=== PATIENT | male | born 1985 | race Caucasian/White ===

== ENCOUNTER 2020-08-05 17:47 | Outpatient (CLI) | payer BC, SELFPAY | END 2020-08-05 17:48 | disposition home or self-care (01) | LOC: ANHCOVIDVC 17:47 | PROVIDERS: PCP Physician Assistant | DX: Z23 Encounter for immunization (principal) | CPT/HCPCS: 0001A; 91300 ==

== ENCOUNTER 2020-08-24 12:10 | Outpatient (CLI) | payer BC, SELFPAY ==
[2020-08-24 12:41] LABS: Hematocrit 43.5 % (42.0-52.0); Hemoglobin 15.6 g/dL (14.0-18.0); Mean Corpuscular HGB Conc 35.9 g/dl (32-36); Mean Corpuscular Hemoglobin 29.5 pg (26-34); Mean Corpuscular Volume 82.2 fl (80-100); Mean Platelet Volume 9.7 fl (7.4-10.4); Platelet Count Result 198 k/mm3 (150-375); Red Blood Count 5.29 M/mm3 (4.6-6.20); Red Cell Distribution Width 12.5 % (11.5-14.5); White Blood Count 7.2 K/mm3 (4.5-10.0)
[2020-08-24 12:45] LABS: Add Urine Microscopic? YES; Appearance Urine Clear (Clear); Bilirubin Urine Negative (Negative); Blood Urine Negative (Negative); Color Urine Yellow (Yellow); Glucose Urine UA Negative (Negative); Ketones Urine Negative (Negative); Leukocyte Esterase Ur Negative LEU/UL (Negative); Mucus Urine Rare /lpf; Nitrate Urine Negative (Negative); Protein Urine 1+ mg/dL (Negative); RBC Urine 0-2 /hpf (0-2); Specific Grav Ur 1.024 (1.001-1.035); Urobilinogen Urine Negative mg/dL (<2.0); WBC Urine 0-3 /hpf
== END 2020-08-24 12:11 | disposition home or self-care (01) ==
PROVIDERS: PCP Physician Assistant; Visit Provider Physician Assistant
DX: R10.30 Lower abdominal pain, unspecified (principal)
CPT/HCPCS: 36415; 81001; 85027

== ENCOUNTER → 2020-08-24 12:34 | Outpatient (CLI) | payer BC, SELFPAY ==
--- NOTE | ~2020-08-24 | CT_ITS ---
EXAMINATION: CT abdomen pelvis w con DATE: 08/24/2020 13:16 INDICATION: Generalized abdominal pain. Lower abdominal pain. Frequent bowel movements. TECHNIQUE: Computed tomography (CT) of the abdomen and pelvis was performed with 100 cc Omnipaque 350 intravenous contrast. Automated exposure control and iterative reconstruction technique were employe d. Exam dose: 1181.54 mGy-cm total exam DLP. COMPARISON: 01/2017 CT abdomen pelvis FINDINGS: The lung bases are clear of infiltrate or consolidation. Normal heart size. No pericardial or pleural effusion. Mild diffuse hepatic steatosis. No hepatic, splenic, pancreatic, and adrenal or renal space-occupying mass lesion is evident. Stable small upper pole right renal cyst. Normal caliber of the abdominal aorta. No intraperitoneal or retroperitoneal or pelvic mass lesion or adenopathy or ascites. The urinary bladder is unremarkable. Normal appendix. Mild colonic diverticulosis; no CT evidence of diverticulitis. No bowel obstruction, bowel wall thick ening, pneumatosis or intraperitoneal free air. Small fat-containing right inguinal hernia. Stable scattered bone islands. IMPRESSION: Mild diffuse hepatic steatosis Normal appendix Mild colonic diverticulosis; no CT evidence of diverticulitis Reviewed, dictated and finalized at [facility]. Reviewed, dictated and finalized at location [facility].
== END ==
PROVIDERS: PCP Physician Assistant; Visit Provider Physician Assistant
DX: R10.30 Lower abdominal pain, unspecified (principal); K76.0 Fatty (change of) liver, not elsewhere classified; K57.30 Diverticulosis of large intestine without perforation or abscess without bleeding
CPT/HCPCS: 74177; Q9967

== ENCOUNTER 2020-08-26 17:35 | Outpatient (CLI) | payer BC, SELFPAY | END 2020-08-26 17:36 | disposition home or self-care (01) | LOC: ANHCOVIDVC 17:35 | PROVIDERS: PCP Physician Assistant | DX: Z23 Encounter for immunization (principal) | CPT/HCPCS: 0002A; 91300 ==

== ENCOUNTER → 2020-10-13 16:52 | Outpatient (CLI) | payer BC, SELFPAY ==
--- NOTE | ~2020-10-13 | MR_ITS ---
EXAMINATION: MR lumbar spine wo con EXAM DATE: 10/13/2020 17:43 INDICATION: Low back pain and lumbar radiculopathy. TECHNIQUE: Multi-sequential, multiplanar MR images of the lumbar spine were obtained without contrast . Sagittal T1, T2, T2 fat saturation images. Axial T2 weighted images. There is no prior study for comparison. FINDINGS: The conus medullaris terminates at the T12-L1 level and has normal signal intensity and mor phology. Mild to moderate disc disease L-1-2, L3-4 and L4-5. Congenitally narrow L5-S1 disc. There a re no suspicious marrow signal abnormalities. There is 3 mm retrolisthesis L4 on L5. Paraspinal soft tissue is unremarkable. Level by level evaluation: T12-L1: Disc does not extend beyond the endplate margin. Facet arthropathy: Mild. Neural foraminal stenosis: No stenosis. Central canal stenosis: No stenosis. L1-L2: There is a mild diffuse disc bulge. Facet arthropathy: Mild. Neural foraminal stenosis: No stenosis. Central canal stenosis: No stenosis. L2-L3: There is a mild diffuse disc bulge. Facet arthropathy: Mild. Neural foraminal stenosis: No stenosis. Central canal stenosis: No stenosis. L3-L4: There is a mild to moderate diffuse disc bulge. Facet arthropathy: Mild to moderate. Neural foraminal stenosis: Mild bilateral. Central canal stenosis: Mild to moderate. L4-L5: There is a mild to moderate diffuse disc bulge, tiny right central extrusion. Facet arthropathy: Mild. Neural foraminal stenosis: Mild to moderate bilateral. Central canal stenosis: Moderate. L5-S1: Disc does not extend beyond the endplate margin. Facet arthropathy: Mild. Neural foraminal stenosis: No stenosis. Central canal stenosis: No stenosis. IMPRESSION: 1. Mild to moderate lumbar spondylosis. Reviewed, dictated and finalized at location [facility].
== END ==
DX: M47.817 Spondylosis without myelopathy or radiculopathy, lumbosacral region (principal); M48.07 Spinal stenosis, lumbosacral region
CPT/HCPCS: 72148

== ENCOUNTER 2021-05-18 12:55 | Emergency (ER) | payer BC, SELFPAY ==
[2021-05-18 12:58] VITALS: BP 142/96; PULSE 100; RESP 20; TEMP 36.9; O2SAT 99
[2021-05-18 14:33] VITALS: BP 135/87; PULSE 96; RESP 14; TEMP 36.7; O2SAT 97
--- NOTE | 2021-05-18 16:36 | ED.URI ---
HPI - URI/Sore Throat General Chief Complaint: Upper Respiratory Infection Stated Complaint: Strep throat x 2 weeks Time Seen by Provider: 05/18/21 14:21 Source: patient Mode of arrival: ambulatory Limitations: no limitations History of Present Illness HPI Narrative: 35-year-old male Complains of a sore throat for 2 weeks He has been seen twice for this already however neither time was in our system so we do not have access to those labs The first time he tested positive for strep and was treated with penicillin, the second time he was tested positive for strep and treated with azithromycin which he is still taking He says he still has a significant sore throat, odynophagia, and worse snoring/sleep apnea at night Related Data Home Medications Medication Instructions Recorded Confirmed aripiprazole 5 mg tablet 5 mg PO DAILY 02/24/20 05/18/21 buspirone 7.5 mg tablet 7.5 mg PO BID 02/24/20 05/18/21 lamotrigine 100 mg tablet 100 mg PO DAILY 02/24/20 05/18/21 naproxen 500 mg tablet 500 mg PO BID 02/24/20 05/18/21 Allergies Allergy/AdvReac Type Severity Reaction Status Date / Time methotrexate Allergy Mild Nausea and Verified 05/18/21 14:33 Vomiting Review of Systems Review of Systems: All systems reviewed & are unremarkable except as noted in HPI and below Constitutional: Constitutional: Reports no additional constitutional complaints, Denies chills, Reports fever(s), Denies headache(s) and Reports weakness Eyes: Eyes: Reports no additional eye complaints and Denies change in vision ENT: Reports dysphagia, Denies headache(s) and Reports sore throat Cardiovascular: Cardiovascular: Denies chest pain and Denies dyspnea Respiratory: Respiratory: Denies dyspnea Musculoskeletal: Musculoskeletal: Denies deformity and Denies numbness Integumentary/Breasts: Skin/Breast: Denies wounds PMFSH Past Medical History Medical History (Updated 05/18/21 @ 16:44 by Bandar Edmondson MD) Anxiety Bipolar disorder Depression History of arm fracture (~2016) Lt Surgical History Surgical History History of carpal tunnel release (~2017) History of decompression of ulnar nerve (~2018) Family History Family History Father Hypertension Family history of coronary artery disease Grandparent Hypertension Carcinoma of colon Family history of Alzheimer's disease Family history of malignant neoplasm of breast Mother Family history of malignant neoplasm of cervix Social History Social History Smoking status: Former smoker Smoking end date: 06/05/13 Alcohol intake: current Exam Const: General: healthy appearing, no acute distress and alert Orientation/consciousness: patient oriented x3 HENMT: Other: Tonsils mildly but symmetrically enlarged with erythema and a whitish-green exudate present Neck: Neck: no lymphadenopathy Other: Supple Resp: Effort & Inspection: normal respiratory effort Auscultation: clear to auscultation bilaterally Course Course Emergency Course: Discussed with patient plan to do a formal throat culture, continue azithromycin to the conclusion of his current course which has 2 more days to run, and then he can contact Dr. Rooney for ENT follow-up and notify his PCP if he is going to need a referral there Vital Signs Vital signs: Vital Signs Temperature 36.9 C 05/18/21 12:58 Pulse Rate 100 05/18/21 12:58 Respiratory Rate 20 05/18/21 12:58 Blood Pressure 142/96 H 05/18/21 12:58 Pulse Oximetry 99 05/18/21 12:58 Temperature 36.7 C 05/18/21 14:33 Pulse Rate 96 05/18/21 14:33 Respiratory Rate 14 05/18/21 14:33 Blood Pressure 135/87 05/18/21 14:33 Pulse Oximetry 97 05/18/21 14:33 Discharge Plan Discharge Clinical Impression: Tonsillitis Patient Disposition: Home, Self-Care Conditio
[2021-05-18 16:50] VITALS: BP 121/75; PULSE 90; RESP 17; O2SAT 98
== END 2021-05-18 16:50 | disposition home or self-care (01) ==
PROVIDERS: Emergency Provider Emergency Medicine; PCP Physician Assistant
DX: J03.90 Acute tonsillitis, unspecified (principal); F41.9 Anxiety disorder, unspecified; F31.9 Bipolar disorder, unspecified; Z87.891 Personal history of nicotine dependence
CPT/HCPCS: 87070; 87147; 96372; 99283; J1100

== ENCOUNTER 2021-06-08 01:50 | Day surgery (SDC) | payer BC, SELFPAY ==
[2021-06-02 11:06] VITALS: BMI 32.3
--- NOTE | 2021-06-02 11:11 | PC.NURSE ---
Report to the Outpatient Waiting Room, entrance under the green pavilion located off [facility], at time 0930 on date 06/08/21. OR Time: 1130. - You will be asked a series of questions to screen for COVID 19 for your protection. - A mask is required within the hospital. - No visitors are allowed at this time. Preoperative COVID Testing Requirements: No COVID Test needed if: (proof is required; if not received patient will have Rapid Test prior to entry) - Patient has received COVID Vaccine at least 14 days prior to procedure date or - Patient has positive COVID test result within last 90 days of surgery date. COVID Test needed if above criteria is not met Patients may have clear liquids (water, carbonated beverages, clear teas, apple juice) until 3 hours prior to surgery with a maximum of 20 ounces. - No food from midnight until time of surgery Take the following medications with a SIP of water the morning of surgery: NONE Medications to discontinue per physician: VITAMINS/SUPPLEMENTS Date to take last dose: 06/04/21 Please no make-up, nail upper sorbian, hairspray, perfume, deodorant, or body powder the day of surgery. No jewelry (including any body piercings) or valuables the day of surgery, leave them at home. Please take a shower or bath the night before, or the morning of, surgery with an antibacterial soap. Wear comfortable, loose fitting clothing. Children are encouraged to wear pajamas. - Jewelry must be removed prior to entering the operating room. Rings and piercings that are not removed may be cut off. - The hospital will not accept responsibility for valuables. - Please leave all valuables, including medications, at home the day of surgery. If you are going home after surgery, a licensed wrecking car driver must drive you home. - NO public transportation without another adult. - We recommend that an adult stay with you for 24 hours following discharge. - We also recommend that you do not drive, make important decision, drink alcoholic beverages, or take any drugs that were not prescribed by your health care provider for at least 24 hours after your discharge time. Follow any additional instructions given to you from your surgeon. Telephone instructions given to NEEL DARLING and asked if any additional questions and then verbalized understanding. Patient advised to call surgeon office or pre surgery nurse liaison [phone] if any additional questions.
--- NOTE | 2021-06-07 12:30 | P.PNAN_ITS ---
Anes - Initial Pre Proc Eval Procedure: Operation Date: 06/08/21 12:00 Proposed Procedures p Tonsillectomy - Ramy Rooney MD Date/Time: 06/07/21 12:30 Surgeon: Ramy Rooney MD Pre Op Diagnosis: chronic tonsilitis Patient Data Age: 35 Gender: M Height: 1.85 m Weight: 111.13 kg Allergies Allergy/AdvReac Type Severity Reaction Status Date / Time methotrexate Allergy Mild Nausea and Verified 06/02/21 11:05 Vomiting Home Medications Medication Instructions Recorded Confirmed Type multivitamin 1 tablet PO DAILY 06/02/21 06/02/21 History secukinumab [Cosentyx] 150 mg SUBCUT MONTHLY 06/02/21 06/02/21 History Patient hx anesthesia problems: none Family hx anesthesia problems: none Results Review: All pre-operative results and documents have been reviewed as part of the pre-operative evaluation. [facility] Past Medical History Medical History (Updated 06/07/21 @ 12:31 by Joao Oneill DO) Anxiety Asthma Bipolar disorder Depression History of arm fracture (~2017) Lt Sleep apnea Surgical History Surgical History History of carpal tunnel release (~2018) History of decompression of ulnar nerve (~2019) Family History Family History Father Hypertension Family history of coronary artery disease Grandparent Hypertension Carcinoma of colon Family history of Alzheimer's disease Family history of malignant neoplasm of breast Mother Family history of malignant neoplasm of cervix Social History Social History Smoking packs per day: 1 Smoking cigarettes per day: 20.0 Years smoked: 10 Smoking pack-years: 10.00 Smoking status: Former smoker Tobacco type: cigarettes Smoking end date: 06/05/08 Alcohol intake: current Drinks per week: 4 Substance use: never Substance use type: does not use Living arrangements: with family Spiritual care concerns: No Anes - Eval Final PreProcedure Day of Procedure 06/07/21 12:30 Patient weight: obese Heart: regular rate and rhythm Lungs: clear to auscultation and normal air movement Airway: Mallampati scale class II Neurological: alert and oriented Last oral intake: >/= 8 hours ASA classification: III Emergent: no Anesthetic plan: proceed Anesthesia type and monitoring: general ETT and standard monitoring Results Review: All pre-operative results and documents have been reviewed as part of the pre-operative evaluation. Informed Consent: The patient's anesthetic plan and its attendant risks and benefits were discussed with the patient/family/POA. Questions were solicited and answers provided to the satisfaction of the patient/family/POA.
--- NOTE | 2021-06-07 12:43 | PM.IMHP ---
H&P: HPI History of Present Illness Date/Time: 06/07/21 12:43 Chief Complaint: Tonsillar hypertrophy tonsillar asymmetry chronic tonsillitis recurrent tonsillitis Narrative: patient presents for planned surgical procedure. No change in symptoms no change in history. Review of Systems Constitutional: Constitutional: Denies fatigue, Denies fever(s) and Denies lethargy Eyes: Eyes: Denies blurry vision and Denies change in vision ENT: Reports as per HPI Cardiovascular: Cardiovascular: Denies chest pain Respiratory: Respiratory: Denies cough Endocrine: Endocrine: Denies fatigue Hematologic/Lymphatic: Hematologic/Lymphatic: Denies easy bleeding, Denies easy bruising and Denies lymphadenopathy Allergic/Immunologic: Allergic/Immunologic: Denies seasonal rhinorrhea [facility] Past Medical History Medical History (Updated 06/07/21 @ 12:31 by Joao Oneill DO) Anxiety Asthma Bipolar disorder Depression History of arm fracture (~2016) Lt Sleep apnea Surgical History Surgical History History of carpal tunnel release (~2017) History of decompression of ulnar nerve (~2018) Family History Family History Father Hypertension Family history of coronary artery disease Grandparent Hypertension Carcinoma of colon Family history of Alzheimer's disease Family history of malignant neoplasm of breast Mother Family history of malignant neoplasm of cervix Social History Social History Smoking packs per day: 1 Smoking cigarettes per day: 20.0 Years smoked: 10 Smoking pack-years: 10.00 Smoking status: Former smoker Tobacco type: cigarettes Smoking end date: 06/05/08 Alcohol intake: current Drinks per week: 4 Substance use: never Substance use type: does not use Living arrangements: with family Spiritual care concerns: No Meds Home Medications and Allergies Home Medications Medication Instructions Recorded Confirmed Type multivitamin 1 tablet PO DAILY 06/02/21 06/02/21 History secukinumab [Cosentyx] 150 mg SUBCUT MONTHLY 06/02/21 06/02/21 History Allergies Allergy/AdvReac Type Severity Reaction Status Date / Time methotrexate Allergy Mild Nausea and Verified 06/02/21 11:05 Vomiting Exam Const: General: cooperative, healthy appearing, comfortable, well developed and alert HENMT: Head: normal to inspection, normocephalic and atraumatic Ears: hearing grossly normal bilaterally, external ears normal, TM's normal bilaterally and EAC's normal General nose exam: Normal external nose present, Normal nares present, No nasal polyps present, Normal nasal mucous membranes and turbinates present and Normal septum present Face and sinus: normal facial exam Mouth: Yes Normal oral and palatal mucosa present, Yes lip normal, Yes tongue normal, Yes oropharynx normal and Yes moist mucous membranes Teeth and gingiva: dentition normal and gingiva normal Throat: posterior oropharynx normal, tonisls abnormal ( Asymmetric 3+ edematous erythematous) and uvula midline Eyes: General: appearance normal, both eyes and all related structures Periorbital: periorbital findings normal Eyelids: eyelids normal Conjunctivae: conjunctivae normal Sclera: sclerae normal Neck: Neck: normal visual inspection, full ROM and no lymphadenopathy Thyroid: thyroid normal Lymphatic: no lymphadenopathy noted Resp: Effort & Inspection: normal respiratory effort and able to speak in complete sentences Cardio: Jugular venous distension: no JVD Neuro: Cranial nerves: Yes CN's II-XII intact bilaterally Assessment and Plan Assessment and plan (1) Tonsil asymmetry: Code(s): J35.8 - Other chronic diseases of tonsils and adenoids Status: Acute Assessment and Plan: plan is for the operating room for tonsillectomy
[2021-06-08] VITALS (11 sets, daily range): BP systolic 131–156; BP diastolic 78–108; PULSE 69–99; RESP 12–16; TEMP 36.3–36.4; O2SAT 95–100
--- NOTE | 2021-06-08 07:17 | WPDHPUPDATE1 ---
History and Physical Update Update Date/Time: 06/08/21 07:17 History and Physical has been reviewed, including an updated exam of the patient. There are NO changes in the patient's condition. Risks, benefits, and alternatives have been discussed and questions answered. Patient agrees to proceed with procedure.
[2021-06-08] MEDS: ACETAMINOPHEN 500 MG TABLET 1000 MG PO (10:42)
[2021-06-08] MEDS: LACTATED RINGERS 1,000 ML 30 ML IV CONT ×2 (10:52→12:23)
--- NOTE | 2021-06-08 12:15 | W.PM.PROC2 ---
Procedure Note - Detailed Date of Procedure 06/08/21 Pre-op Diagnosis chronic tonsilitis, MARCIAL, tonsillar hypertrophy Post-op Diagnosis same Procedure Performed Tonsillectomy Surgeon Ramy Rooney MD Anesthesia general Indications See above Findings Large tonsils left greater than right 3+ approximately Description of Procedure Patient identified consent verified preop holding area. Patient brought operating room. Time-out performed. Patient prepped and draped for appropriate procedure following induction of anesthesia with securing of endotracheal tube. Second time-out performed. McIvor mouthgag placed revealing tonsils which are described above. Bovie electrocautery at a setting of 10 utilized to remove the tonsils in the extracapsular plane. Hemostasis achieved using intermittent application of Bovie suction electrocautery setting of 12 in 15. Left tonsils greater than right size. McIvor mouth gag lowered, reopened for 30 after 30 seconds to reveal no further bleeding. This marked end of the procedure. Tonsils were sent separate for pathologic analysis. Care the patient turned over to Anesthesiology. I performed all dictated portions. Total blood loss approximately 15 cc. There were no complications. Estimated Blood Loss 15 Drains No Packing No Pathology yes Complications No immediate complications Condition stable Disposition PACU
[2021-06-08] MEDS: fentaNYL CITRATE INJ (*CRX) 100 MCG/2 ML VIAL 25 MCG IV PUSH ×8 (12:24→12:59)
[2021-06-08] MEDS: oxyCODONE (*CRX) 5 MG/5 ML ORAL SOLN IR PO (13:57)
== END 2021-06-08 14:45 | disposition home or self-care (01) ==
PROVIDERS: PCP Physician Assistant; Visit Provider Otolaryngology
PROC: (CPT 42826; principal; 2021-06-08 12:00)
DX: J35.01 Chronic tonsillitis (principal); J45.909 Unspecified asthma, uncomplicated; F31.9 Bipolar disorder, unspecified; F41.9 Anxiety disorder, unspecified; G47.30 Sleep apnea, unspecified; Z87.891 Personal history of nicotine dependence
CPT/HCPCS: 42826; 88304; A9270; J0330; J1100; J2250; J2405; J2704; J3010; J7120

== ENCOUNTER 2021-06-14 11:08 | Observation (INO) | payer BC, SELFPAY ==
[2021-06-14 11:14] VITALS: BP 148/106; PULSE 85; RESP 16; TEMP 36.1; O2SAT 98
[2021-06-14 11:22] VITALS: BP 148/106; PULSE 85; RESP 16; TEMP 36.1; O2SAT 98
--- NOTE | 2021-06-14 11:36 | ED.NAVMDI ---
HPI - Nausea/Vomiting/Diarrhea General Chief complaint: Nausea/Vomiting/Diarrhea Stated complaint: cant swollow, pain in jaw Time Seen by Provider: 06/14/21 11:36 Source: patient Mode of arrival: ambulatory Limitations: no limitations History of Present Illness HPI Narrative: Patient is a 35-year-old male with a history of obstructive sleep apnea, hypertension, chronic tonsillitis with tonsillectomy on June [address] Rooney, presenting for evaluation of inability to tolerate oral intake, generalized weakness, significant throat pain. Patient states that he used all of his opiate medication for a 10-day prescription within 4 days. He had severe pain over the weekend, states that he has been unable to tolerate any solid food and has had 2 packets of applesauce which is the extent of his oral intake in the past 24 hours. He denies any vomiting. He denies any chest pain or shortness of breath. No fever or chills. No significant bleeding. Patient states he feels generally weak. He denies any focal weakness or numbness. He has been ambulatory. Patient contacted Dr. Rooney's office who referred him here for IV fluids, pain medication. Related Data Home Medications Medication Instructions Recorded Confirmed Cosentyx 150 mg SUBCUT MONTHLY 06/02/21 06/08/21 multivitamin 1 tablet PO DAILY 06/02/21 06/08/21 Allergies Allergy/AdvReac Type Severity Reaction Status Date / Time methotrexate Allergy Mild Nausea and Verified 06/14/21 11:27 Vomiting Review of Systems Review of Systems: CONSTITUTIONAL: Denies fever, chills, or sweats. EYES: Denies visual changes, redness, or discharge. ENT: Denies rhinorrhea, congestion, reports sore throat CARDIOVASCULAR: Denies chest pain, palpitations, or edema. RESPIRATORY: Denies cough or dyspnea. GASTROINTESTINAL: Denies abdominal pain, reports nausea without vomiting GENITOURINARY: Denies dysuria or hematuria. SKIN: Denies rash or itching. MUSCULOSKELETAL: Denies back pain, joint pain, or myalgia. NEUROLOGIC: Denies headache, reports feeling generally weak PMFSH Past Medical History Medical History Anxiety Asthma Bipolar disorder Depression History of arm fracture (~2017) Lt Sleep apnea Surgical History Surgical History History of carpal tunnel release (~2018) History of decompression of ulnar nerve (~2019) Family History Family History Father Hypertension Family history of coronary artery disease Grandparent Hypertension Carcinoma of colon Family history of Alzheimer's disease Family history of malignant neoplasm of breast Mother Family history of malignant neoplasm of cervix Social History Social History Smoking packs per day: 1 Smoking cigarettes per day: 20.0 Years smoked: 10 Smoking pack-years: 10.00 Smoking status: Former smoker Tobacco type: cigarettes Smoking end date: 06/05/08 Alcohol intake: current Drinks per week: 4 Substance use: never Substance use type: does not use Spiritual care concerns: No Exam Narrative: GENERAL: Awake, alert, conversant HEAD: Normocephalic, atraumatic. EYES: PERRLA and EOMI. ENT: Nares clear, no rhinorrhea or epistaxis. Evidence of tonsillectomy, there is white eschar and exudate present in the posterior oropharynx. No trismus. Uvula is midline. No bleeding. NECK: Supple. No cervical anterior posterior lymphadenopathy. No submandibular lymphadenopathy. CHEST: No respiratory distress, breathing even and non labored HEART: Regular rate, sinus rhythm ABDOMEN:Non distended, non tender EXTREMITIES: Normal range of motion. No edema. SKIN: Warm, dry, no rash. NEURO:No focal deficits. Alert and oriented x3 Course Vital Signs Vital signs: Vital Signs Temperature 36.1 C L 01
[2021-06-14] MEDS: SODIUM CHLORIDE 0.9% IV 2,000 ML 999 ML IV CONT (12:11)
[2021-06-14] MEDS: MORPHINE SULFATE (*CRX) 4 MG/ML INJ IV PUSH (12:13)
[2021-06-14] MEDS: ONDANSETRON INJ 4 MG/2 ML VIAL IV PUSH (12:13)
[2021-06-14 12:19] LABS: Basophils Absolute Auto 0.1 K/mm3 (0.0-0.1); Basophils Percent Auto 0.7 % (0.2-1.2); Eosinophils Absolute Auto 0.1 K/mm3 (0-0.3); Eosinophils Percent Auto 1.6 % (0-4.4); Hematocrit 43.7 % (42.0-52.0); Hemoglobin 15.6 g/dL (14.0-18.0); Immature Granulocyte Absolute 0.18 K/mm3 (0.00-0.031); Immature Granulocyte Percent A 2.2 % (0-0.5); Lymphocytes Absolute Auto 2.27 K/mm3 (0.9-3.2); Lymphocytes Percent Auto 27.6 % (18.3-44.2); Mean Corpuscular HGB Conc 35.7 g/dl (32-36); Mean Corpuscular Hemoglobin 30.1 pg (26-34); Mean Corpuscular Volume 84.2 fl (80-100); Monocytes Absolute Auto 1.1 K/mm3 (0.1-0.6); Monocytes Percent Auto 13.3 % (2.6-8.5); Neutrophils Absolute Auto 4.5 K/mm3 (1.3-6.7); Neutrophils Percent Auto 54.6 % (45.5-73.1); Platelet Count Result 216 k/mm3 (150-375); Red Blood Count 5.19 M/mm3 (4.6-6.20); Red Cell Distribution Width 12.3 % (11.5-14.5); White Blood Count 8.2 K/mm3 (4.5-10.0)
[2021-06-14 12:35] LABS: Alanine Aminotransferase 31 U/L (4-50); Albumin Level 4.7 g/dL (3.5-5.1); Alkaline Phosphatase 75 U/L (38-126); Anion Gap 15 mmol/L (8-16); Aspartate Amino Transferase 27 U/L (17-59); Bilirubin,Total 0.5 mg/dL (0.2-1.3); Blood Urea Nitrogen 17 mg/dL (9-20); Calcium 9.8 mg/dL (8.4-10.2); Carbon Dioxide 24 mmol/L (22-30); Chloride 101 mmol/L (98-107); Estimated CRCL calculation 114 ml/min; Estimated Glomerular Filt Rate > 60; Glucose 101 mg/dL (65-110); Lipase 87 U/L (23-300); Potassium 3.6 mmol/L (3.4-5.0); Sodium 140 mmol/L (137-145)
[2021-06-14 13:51] LABS: Add Urine Microscopic? YES; Appearance Urine Clear (Clear); Bilirubin Urine Negative (Negative); Blood Urine Negative (Negative); Color Urine Yellow (Yellow); Glucose Urine UA Negative (Negative); Ketones Urine Trace mg/dL (Negative); Leukocyte Esterase Ur Negative LEU/UL (Negative); Mucus Urine Rare /lpf; Nitrate Urine Negative (Negative); Protein Urine Negative (Negative); Specific Grav Ur 1.015 (1.001-1.035); Squamous Epithelial Cell Urine Rare /hpf (Few); Urobilinogen Urine Negative mg/dL (<2.0); WBC Urine 0-3 /hpf
[2021-06-14] MEDS: LACTATED RINGERS 1,000 ML 125 ML IV CONT ×2 (15:24→23:27)
[2021-06-14 15:28] VITALS: BP 156/104; PULSE 74; RESP 19; O2SAT 98
[2021-06-14] MEDS: ACETAMINOPHEN 325 MG TABLET 650 MG PO ×2 (15:30→22:22)
--- NOTE | 2021-06-14 17:03 | PM.IMHP ---
H&P: HPI History of Present Illness Date/Time: 06/14/21 17:03 Patient is pod 6 tonsillectomy. Reports severe pain. At home taking 5mg of oxycodone q6h, ibuprofen and tylenol as well qh6. Labs and vitals stable. Chief Complaint: Post operative pain PMFSH Past Medical History Medical History Anxiety Asthma Bipolar disorder Depression History of arm fracture (~2017) Lt Sleep apnea Surgical History Surgical History History of carpal tunnel release (~2018) History of decompression of ulnar nerve (~2019) Family History Family History Father Hypertension Family history of coronary artery disease Grandparent Hypertension Carcinoma of colon Family history of Alzheimer's disease Family history of malignant neoplasm of breast Mother Family history of malignant neoplasm of cervix Social History Social History Smoking packs per day: 1 Smoking cigarettes per day: 20.0 Years smoked: 10 Smoking pack-years: 10.00 Smoking status: Former smoker Tobacco type: cigarettes Smoking end date: 06/05/08 Alcohol intake: current Drinks per week: 4 Substance use: never Substance use type: does not use Spiritual care concerns: No Meds Home Medications and Allergies Home Medications Medication Instructions Recorded Confirmed Type Cosentyx 150 mg SUBCUT MONTHLY 06/02/21 06/08/21 History multivitamin 1 tablet PO DAILY 06/02/21 06/08/21 History oxycodone 5 mg PO Q12H PRN #20 tablet 06/08/21 Rx methylprednisolone 4 mg tablets in See Rx Instructions PO PER PKG DIR 06/12/21 Rx a dose pack #21 ea Allergies Allergy/AdvReac Type Severity Reaction Status Date / Time methotrexate Allergy Mild Nausea and Verified 06/14/21 11:27 Vomiting Vital Signs Vital Signs - 24 hr 06/14/21 11:14 06/14/21 11:22 06/14/21 15:28 Temperature 36.1 C L 36.1 C L Pulse Rate 85 85 74 Respiratory Rate 16 16 19 Blood Pressure 148/106 H 148/106 H 156/104 H Pulse Oximetry 98 98 98 Exam HENMT: Other: Absent tonsils no active bleeding, normal post operative appearance. H&P: Results Labs Labs: Short CBC 06/14/21 Range/Units 12:10 WBC 8.2 (4.5-10.0) K/mm3 Hgb 15.6 (14.0-18.0) g/dL Hct 43.7 (42.0-52.0) % Plt Count 216 (150-375) k/mm3 BMP 06/14/21 12:10 Sodium 140 Potassium 3.6 Chloride 101 Carbon Dioxide 24 BUN 17 Creatinine 1.00 Glucose 101 Calcium 9.8 Liver Function 06/14/21 Range/Units 12:10 Total Bilirubin 0.5 (0.2-1.3) mg/dL AST 27 (17-59) U/L ALT 31 (4-50) U/L Alkaline Phosphatase 75 (38-126) U/L Albumin 4.7 (3.5-5.1) g/dL Urine 06/14/21 Range/Units 13:30 Urine Color Yellow (Yellow) Urine Appearance Clear (Clear) Urine pH 5.0 (5.0-9.0) Ur Specific [place] 1.015 (1.001-1.035) Urine Protein Negative (Negative) mg/dL Urine Glucose (UA) Negative (Negative) mg/dL Assessment and Plan Assessment and plan (1) Post-operative pain: Code(s): G89.18 - Other acute postprocedural pain Status: Acute Assessment and Plan: Patient is admitted for observation. Recommend scheduled ibuprofen 400mg q6, tylenol 650mg q6, oxycodone 5mg q6, with prn iv morphine q6h 4mg, maintenance fluids overnight. Please hold fluids in the am and encourage oral intake. Soft diet is ok. Will see again in the am. Please call with any bleeding. Also recommend stool softeners to limit straining/bleeding risk.
[2021-06-14] MEDS: IBUPROFEN 200 MG TABLET PO ×2 (17:43→23:46)
[2021-06-14] MEDS: oxyCODONE HCL (*CRX) 5 MG TAB IR PO ×2 (17:43→23:46)
[2021-06-14] MEDS: MORPHINE SULFATE (*CRX) 2 MG/ML INJ 4 MG IV PUSH ×2 (17:43→23:47)
[2021-06-14 19:00] VITALS: BP 149/99; PULSE 82; RESP 19; O2SAT 99
[2021-06-14 19:59] VITALS: BMI 32.1
[2021-06-14 20:00] VITALS: BP 168/103; PULSE 65; RESP 16; TEMP 36.7; O2SAT 96
--- NOTE | 2021-06-14 20:01 | ADMGEN ---
This patient, Tj Chappell, was admitted to [facility] (Formerly [facility] Surgery-3. Patient/family oriented to hospital policies and general routines including ID bracelet, bed and alarms, visiting hours, pain management, procedures, bathroom and other care routines, personal items, smoking policy, room service/diet, and visiting hours. Information on how to activate the Rapid Response Team has been discussed. Patient/Family are encouraged to report perceived risks to care and to ask questions if they do not understand what they are told or what they should do.
[2021-06-14 22:00] VITALS: BP 175/94; PULSE 69; RESP 20
[2021-06-15] VITALS (7 sets, daily range): BP systolic 147–169; BP diastolic 90–99; PULSE 66–88; RESP 14–20; TEMP 36.7–36.8; O2SAT 96–97
[2021-06-15] MEDS: HYDROmorphone HCL INJ (*CRX) 1 MG/ML SYR IV PUSH (03:28)
[2021-06-15 05:00] LABS: Basophils Percent Auto 0.6 % (0.2-1.2); Eosinophils Absolute Auto 0.2 K/mm3 (0-0.3); Eosinophils Percent Auto 2.6 % (0-4.4); Hematocrit 35.9 % (42.0-52.0); Hemoglobin 12.6 g/dL (14.0-18.0); Immature Granulocyte Absolute 0.14 K/mm3 (0.00-0.031); Immature Granulocyte Percent A 2.3 % (0-0.5); Lymphocytes Absolute Auto 2.45 K/mm3 (0.9-3.2); Lymphocytes Percent Auto 39.5 % (18.3-44.2); Mean Corpuscular HGB Conc 35.1 g/dl (32-36); Mean Corpuscular Hemoglobin 29.6 pg (26-34); Mean Corpuscular Volume 84.3 fl (80-100); Monocytes Absolute Auto 0.8 K/mm3 (0.1-0.6); Monocytes Percent Auto 12.4 % (2.6-8.5); Neutrophils Absolute Auto 2.6 K/mm3 (1.3-6.7); Neutrophils Percent Auto 42.6 % (45.5-73.1); Platelet Count Result 177 k/mm3 (150-375); Red Blood Count 4.26 M/mm3 (4.6-6.20); Red Cell Distribution Width 12.1 % (11.5-14.5); White Blood Count 6.2 K/mm3 (4.5-10.0)
[2021-06-15 05:19] LABS: Alanine Aminotransferase 23 U/L (4-50); Albumin Level 3.7 g/dL (3.5-5.1); Alkaline Phosphatase 51 U/L (38-126); Anion Gap 9 mmol/L (8-16); Aspartate Amino Transferase 22 U/L (17-59); Bilirubin,Total 0.5 mg/dL (0.2-1.3); Blood Urea Nitrogen 15 mg/dL (9-20); Calcium 8.5 mg/dL (8.4-10.2); Carbon Dioxide 25 mmol/L (22-30); Chloride 102 mmol/L (98-107); Estimated CRCL calculation 144 ml/min; Estimated Glomerular Filt Rate > 60; Glucose 85 mg/dL (65-110); Potassium 3.7 mmol/L (3.4-5.0); Sodium 136 mmol/L (137-145)
[2021-06-15] MEDS: oxyCODONE HCL (*CRX) 5 MG TAB IR PO ×3 (05:50→18:07)
[2021-06-15] MEDS: MORPHINE SULFATE (*CRX) 2 MG/ML INJ 4 MG IV PUSH ×2 (05:50→11:13)
[2021-06-15] MEDS: IBUPROFEN 200 MG TABLET PO ×2 (05:50→12:58)
[2021-06-15] MEDS: LACTATED RINGERS 1,000 ML 125 ML IV CONT (07:16)
[2021-06-15] MEDS: LIDOCAINE HCL 2% VISC SOLN 15 ML UDC PO (08:58)
--- NOTE | 2021-06-15 09:30 | PM.PNGS ---
Progress Note: A&P Assessment and Plan (1) Post-operative pain: Code(s): G89.18 - Other acute postprocedural pain Status: Acute Assessment and Plan: recommend holding IV fluids during the day, resuming at night. Please greatly encourage p.o. intake. Continue current pain regimen including Q 6 ibuprofen Tylenol oxycodone. Recommend stool softener. Would hold IV narcotics during the day if possible unless the patient is in severe pain. Subjective Subjective Date/Time Seen: 06/15/21 09:30 Patient reports severe pain following tonsillectomy 7 days ago. Reports overnight allotted helped greatly. He is on oxycodone 5 mg Q 6 hours 400 mg of ibuprofen Q 6 hours 650 a Tylenol Q 6 hours with p.r.n. 4 mg morphine Q 6 hours. He had 1 mg of Dilaudid overnight. Nursing reports he is not tolerating or not consuming much orally. Review of Systems ENT: Comments: Throat pain Exam HENMT: Other: normal appearing postoperative fossa no bleeding bilaterally Objective Data Vital Signs Vital Signs: Vital Signs - 24 hr 06/14/21 11:14 06/14/21 11:22 06/14/21 15:28 Temperature 36.1 C L 36.1 C L Pulse Rate 85 85 74 Respiratory Rate 16 16 19 Blood Pressure 148/106 H 148/106 H 156/104 H Pulse Oximetry 98 98 98 06/14/21 19:00 06/14/21 20:00 06/14/21 22:00 Temperature 36.7 C Pulse Rate 82 65 69 Respiratory Rate 19 16 20 Blood Pressure 149/99 H 168/103 H 175/94 H Pulse Oximetry 99 96 06/15/21 00:05 06/15/21 04:04 06/15/21 06:00 Temperature Pulse Rate 70 67 88 Respiratory Rate 20 20 20 Blood Pressure 158/90 H 147/90 H 169/99 H Pulse Oximetry 97 06/15/21 08:15 Temperature 36.8 C Pulse Rate 66 Respiratory Rate 16 Blood Pressure 152/90 H Pulse Oximetry 96 Intake/Output Intake/Output: Intake & Output 06/12/21 06/13/21 06/14/21 06/15/21 23:59 23:59 23:59 23:59 Intake Total 3000 1000 Balance 3000 1000 Meds/Results Medications: Active Medications Generic Name Dose Route Start Last Admin Trade Name Freq PRN Reason Stop Dose Admin Acetaminophen 650 mg 06/14/21 14:59 06/14/21 22:22 Acetaminophen 325 Mg Tablet PO 650 mg Q4H PRN Administration Mild Pain (1-3) or Fever Lactated Ringer's 1,000 mls @ 125 mls/hr 06/14/21 15:00 06/15/21 07:16 Lr - Lactated Ringers Iv IV CONT 125 mls/hr .Q8H EKATERINA Administration Ibuprofen 200 mg 06/14/21 18:00 06/15/21 05:50 Ibuprofen 200 Mg Tablet PO 200 mg Q6HR EKATERINA Administration Morphine Sulfate 4 mg 06/14/21 18:00 06/15/21 05:50 Morphine Sulfate (*Crx) 2 Mg/Ml Inj IV PUSH 4 mg Q6HR EKATERINA Administration Ondansetron HCl 4 mg 06/14/21 14:59 Ondansetron Inj 4 Mg/2 Ml Vial IV PUSH Q4H PRN Nausea Oxycodone HCl 5 mg 06/14/21 18:00 06/15/21 05:50 Oxycodone Hcl (*Crx) 5 Mg Tab Ir PO 5 mg Q6HR EKATERINA Administration Senna/Docusate Sodium 1 tab 06/14/21 21:00 06/14/21 20:59 Senna/Docusate Sodium Tablet PO Not Given HS [facility] Labs Labs: Laboratory Results - last 24 hr 06/14/21 06/14/21 06/14/21 12:10 12:10 13:30 WBC 8.2 RBC 5.19 Hgb 15.6 Hct 43.7 MCV 84.2 MCH 30.1 MCHC 35.7 RDW 12.3 Plt Count 216 MPV 9.0 Immature Gran % (Auto) 2.2 H Neut % (Auto) 54.6 Lymph % (Auto) 27.6 Hendry % (Auto) 13.3 H Eos % (Auto) 1.6 Baso % (Auto) 0.7 Lymph # (Auto) 2.27 Hendry # (Auto) 1.1 H Eos # (Auto) 0.1 Baso # (Auto) 0.1 Abs Immat Gran (auto) 0.18 H Absolute Neuts (auto) 4.5 Absolute Nucleated RBC 0.0 Nucleated RBC % 0.0 Sodium 140 Potassium 3.6 Chloride 101 Carbon Dioxide 24 Anion Gap 15 BUN 17 Creatinine 1.00 Estim Creat Clear Calc 114 Estimated GFR > 60 Glucose 101 Calcium 9.8 Total Bilirubin 0.5 AST 27 ALT 31 Alkaline Phosphatase 75 Total Protein 8.0 Albumin 4.7 Lipase 87 Urine Color Yellow Urine Appearance Clear Urine pH
--- NOTE | 2021-06-15 13:50 | PC.NURSE ---
Addendum entered by Madina Bonilla RN 06/15/21 14:10: Per patient should be able to bring medication Trintellix from home to use during hospitalization. Original Note: 1350- Notified patient our pharmacy does not carry Trintellix and asked if patient's able to bring medication to hospital for use.
[2021-06-15] MEDS: OXcarbazepine 300 MG TABLET PO (13:56)
--- NOTE | 2021-06-15 16:55 | PHAR ---
HOME MED VERIFIED TRINTELLIX 10MG 1 TABLET DAILY
[2021-06-15] MEDS: MORPHINE SULFATE (*CRX) 4 MG/ML INJ IV PUSH (17:11)
[2021-06-15] MEDS: ACETAMINOPHEN 325 MG TABLET 650 MG PO (17:12)
[2021-06-15] MEDS: busPIRone HCL 2.5 MG TABLET PO (17:12)
[2021-06-15] MEDS: busPIRone HCL 5 MG TABLET PO (17:12)
[2021-06-15] MEDS: IBUPROFEN 400 MG TABLET PO (18:06)
[2021-06-15] MEDS: OXcarbazepine 300 MG TABLET 600 MG PO (20:58)
[2021-06-15] MEDS: LACTATED RINGERS 1,000 ML 150 ML IV CONT (22:00)
[2021-06-16] MEDS: oxyCODONE HCL (*CRX) 5 MG TAB IR PO (01:41)
[2021-06-16 02:00] VITALS: RESP 20
[2021-06-16 06:00] VITALS: BP 176/108; PULSE 78; RESP 20
[2021-06-16] MEDS: MORPHINE SULFATE (*CRX) 4 MG/ML INJ IV PUSH (06:05)
[2021-06-16] MEDS: ACETAMINOPHEN 325 MG TABLET 650 MG PO (06:06)
[2021-06-16] MEDS: IBUPROFEN 400 MG TABLET PO (06:06)
[2021-06-16] MEDS: ONDANSETRON INJ 4 MG/2 ML VIAL IV PUSH (06:12)
[2021-06-16 07:01] VITALS: BP 154/82
--- NOTE | 2021-06-16 08:13 | PM.PNGS ---
Progress Note: A&P Assessment and Plan (1) Post-operative pain: Code(s): G89.18 - Other acute postprocedural pain Status: Acute Assessment and Plan: Okay for discharge will put orders in. Will send narcotics to pharmacy. Recommend schedule Tylenol scheduled ibuprofen scheduled oxycodone for the next several days. The patient must continue to increase his oral hydration. Patient voiced understanding of this and agreed. Subjective Subjective Date/Time Seen: 06/16/21 08:13 Patient reports vast improvement in his pain. Last night was the best he has felt since his tonsillectomy. Denies any bleeding. Exam HENMT: Other: Normal postoperative tonsillar fossa no bleeding. Objective Data Vital Signs Vital Signs: Vital Signs - 24 hr 06/15/21 08:15 06/15/21 12:00 06/15/21 16:00 Temperature 36.8 C 36.7 C 36.7 C Pulse Rate 66 69 72 Respiratory Rate 16 14 16 Blood Pressure 152/90 H 162/90 H 156/91 H Pulse Oximetry 96 97 96 06/15/21 20:00 06/16/21 02:00 06/16/21 06:00 Temperature Pulse Rate 88 78 Respiratory Rate 20 20 20 Blood Pressure 162/99 H 176/108 H Pulse Oximetry 06/16/21 07:01 Temperature Pulse Rate Respiratory Rate Blood Pressure 154/82 H Pulse Oximetry Intake/Output Intake/Output: Intake & Output 06/13/21 06/14/21 06/15/21 06/16/21 23:59 23:59 23:59 23:59 Intake Total 3000 2600 Balance 3000 2600 Meds/Results Medications: Active Medications Generic Name Dose Route Start Last Admin Trade Name Janq PRN Reason Stop Dose Admin Acetaminophen 650 mg 06/15/21 18:00 06/16/21 06:06 Acetaminophen 325 Mg Tablet PO 650 mg Q6HR EKATERINA Administration Buspirone HCl 5 mg 06/15/21 17:00 06/15/21 17:12 Buspirone Hcl 5 Mg Tablet PO 07/15/21 16:59 5 mg BID EKATERINA Administration Buspirone HCl 2.5 mg 06/15/21 17:00 06/15/21 17:12 Buspirone Hcl 2.5 Mg Tablet PO 07/15/21 16:59 2.5 mg BID EKATERINA Administration Home Med 1 each 06/15/21 09:00 06/15/21 18:07 Vortioxetine [Trintellix] 10 Mg Tablet Home Med PO 07/15/21 08:59 1 each DAILY EKATERINA Administration Lactated Ringer's 1,000 mls @ 150 mls/hr 06/14/21 15:00 06/15/21 22:00 Lr - Lactated Ringers Iv IV CONT 150 mls/hr .Q6H40M EKATERINA Administration Ibuprofen 400 mg 06/15/21 18:00 06/16/21 06:06 Ibuprofen 400 Mg Tablet PO 400 mg Q6HR EKATERINA Administration Morphine Sulfate 4 mg 06/15/21 14:29 06/16/21 06:05 Morphine Sulfate (*Crx) 4 Mg/Ml Inj IV PUSH 4 mg Q6H PRN Administration Pain Rated 7-10 Ondansetron HCl 4 mg 06/14/21 14:59 06/16/21 06:12 Ondansetron Inj 4 Mg/2 Ml Vial IV PUSH 4 mg Q4H PRN Administration Nausea Oxcarbazepine 300 mg 06/15/21 09:00 06/15/21 13:56 Oxcarbazepine 300 Mg Tablet PO 300 mg DAILY EKATERINA Administration Oxcarbazepine 600 mg 06/15/21 17:00 06/15/21 20:58 Oxcarbazepine 300 Mg Tablet PO 600 mg DAILY@1700 EKATERINA Administration Oxycodone HCl 5 mg 06/14/21 18:00 06/16/21 01:41 Oxycodone Hcl (*Crx) 5 Mg Tab Ir PO 5 mg Q6HR EKATERINA Administration Senna/Docusate Sodium 1 tab 06/14/21 21:00 06/15/21 21:04 Senna/Docusate Sodium Tablet PO Not Given HS EKATERINA
--- NOTE | 2021-06-16 08:20 | P.DS_ITS ---
DS: Admitting Diagnosis Discharge Date Today, 06/16/2021 Admitting Diagnosis postoperative pain, dehydration DS: Discharge Diagnosis Discharge Diagnosis (1) Post-operative pain: Code(s): G89.18 - Other acute postprocedural pain Status: Acute Assessment and Plan: Patient is doing well narcotics prescribed. Detailed directions provided. (2) Dehydration: Code(s): E86.0 - Dehydration Status: Acute Assessment and Plan: Patient must increase oral hydration he is well aware. DS: Summary Hospital Course Hospital Course: patient admitted for dehydration given fluids, given the significant amount of pain medications schedule Tylenol scheduled ibuprofen scheduled oxycodone p.r.n. morphine and Dilaudid x2. Today the patient reports improved pain and is able to tolerate p.o. intake. Okay for discharge. Follow- up with ENT as needed. Time Spent with Patient Time attestation: Total time spent providing and/or coordinating discharge services: Exam HENMT: Other: No bleeding normal postoperative tonsillar fossa. Discharge Plan Discharge Attending physician on discharge: Ramy Rooney Discharging Clinician: Ramy Rooney Patient Disposition: Home, Self-Care Activity: other - see discharge instructions Diet: other - see discharge instructions Discharge Instructions: Scheduled oxycodone ibuprofen Tylenol, no strenuous activity for 1 more week. Please please increase oral liquid intake. No driving while taking narcotics. Call with any bleeding. You must take a stool softener while taking the narcotics. No further narcotics will be prescribed. Patient Instructions: Dehydration (DC), Pain Management (DC) Stand Alone Forms: General Discharge Information Follow-up/Referrals: Ramy Rooney MD [Physician] - (Only if needed by patient. No referrals or follow required ) Discharge Medications: New oxycodone 5 mg tablet 5 mg PO Q6H PRN (Reason: pain) Qty: 20 RF: 0 Continued multivitamin Tablet 1 tablet PO DAILY RF: 0 Cosentyx 150 mg/mL Syringe 150 mg SUBCUT MONTHLY RF: 0 oxcarbazepine 300 mg tablet 300 mg PO DAILY RF: 0 oxcarbazepine 300 mg tablet 600 mg PO DIRECTED RF: 0 buspirone 7.5 mg tablet 7.5 mg PO BID RF: 0 Trintellix 10 mg tablet 10 mg PO DAILY RF: 0 Discontinued oxycodone 5 mg tablet 5 mg PO Q12H PRN (Reason: pain) Qty: 20 RF: 0 Date of admission: 06/14/21 15:00 Primary Care Provider: BeatriceEmelia Admitting Provider: Ramy Rooney Attending physician on admission: Ramy Rooney Condition: Stable
[2021-06-16 08:50] VITALS: BP 140/80; PULSE 64; RESP 16; TEMP 36.3; O2SAT 98
== END 2021-06-16 10:12 | disposition home or self-care (01) ==
LOC: ANHED 15:07 → ANH3MEDSUR 17:30 → ANHSUROVER 18:50
PROVIDERS: Admitting Provider Otolaryngology; Emergency Provider Emergency Medicine; PCP Physician Assistant; Visit Provider Otolaryngology
DX: G89.18 Other acute postprocedural pain (principal); E86.0 Dehydration; R53.1 Weakness; G47.33 Obstructive sleep apnea (adult) (pediatric); I10 Essential (primary) hypertension; J45.909 Unspecified asthma, uncomplicated; F41.8 Other specified anxiety disorders; F31.9 Bipolar disorder, unspecified; Z87.891 Personal history of nicotine dependence
CPT/HCPCS: 36415; 80053; 81001; 83690; 85025; 96361; 96374; 96375; 96376; 99285; A9270; G0378; J1170; J2270; J2405; J7030; J7120

== ENCOUNTER → 2021-06-23 01:31 | Outpatient (CLI) | payer BC, SELFPAY ==
[2021-06-23 21:11] LABS: SARS-CoV-2 RNA PCR Negative
== END ==
PROVIDERS: PCP Physician Assistant; Visit Provider Physician Assistant
DX: Z20.822 Contact with and (suspected) exposure to COVID-19 (principal)
CPT/HCPCS: C9803; U0003; U0005

== ENCOUNTER 2021-08-08 13:44 | Emergency (ER) | payer BC, SELFPAY ==
--- NOTE | ~2021-08-08 | XR_ITS ---
EXAMINATION: XR chest 2V DATE: 08/08/2021 14:16 INDICATION: Left chest pain radiating down left arm. TECHNIQUE: Frontal and lateral views of the chest were obtained. COMPARISON: CT abdomen and pelvis 08/24/2020 FINDINGS: There is mild atelectasis in left lower lung zone. No pleural effusion or pneumothorax. The heart size is normal. There is mild chronic anterior wedging of multiple thoracic vertebral bodies. IMPRESSION: 1. Mild atelectasis in left lower lung zone. Reviewed, dictated and finalized at location A. [employer]
[2021-08-08 13:47] VITALS: BP 161/102; PULSE 81; RESP 18; O2SAT 100
--- NOTE | 2021-08-08 13:47 | ECG_ITS ---
Measurements Intervals Weld Rate: 81 P: 40 IA: 174 QRS: 16 QRSD: 88 T: 42 QT: 374 QTc: 435 Interpretive Statements SINUS RHYTHM NORMAL ECG NO PREVIOUS ECG AVAILABLE FOR COMPARISON Electronically Signed On 08-09-2021 13:52:10 RN AMBULATORY by Juan J Bean M.D.
[2021-08-08 13:52] VITALS: PULSE 108; RESP 22; O2SAT 99
[2021-08-08 14:00] VITALS: PULSE 85; RESP 21
--- NOTE | 2021-08-08 14:01 | ED.CHESTPAIN ---
HPI - Chest Pain General Chief Complaint: Chest Pain Stated Complaint: chest pain Time Seen by Provider: 08/08/21 13:51 Source: patient History of Present Illness HPI narrative: Patient presents with chest pain. Reports he had CT imaging of his spine in preparation for a spinal procedure on Monday. Was initially doing well yesterday he noted some left-sided chest pain that persisted today so he came to the ER for evaluation. Reports his pain is intermittent achy only present with deep inspiration. Denies cough or shortness of breath denies nausea vomiting or diaphoresis. Denies prior history of blood clots. Related Data Home Medications Medication Instructions Recorded Confirmed Cosentyx 150 mg SUBCUT MONTHLY 06/02/21 06/14/21 multivitamin 1 tablet PO DAILY 06/02/21 06/14/21 Trintellix 10 mg PO DAILY 06/15/21 06/15/21 buspirone 7.5 mg PO BID 06/15/21 06/15/21 oxcarbazepine 300 mg PO DAILY 06/15/21 06/15/21 oxcarbazepine 600 mg PO DIRECTED 06/15/21 06/15/21 Allergies Allergy/AdvReac Type Severity Reaction Status Date / Time methotrexate Allergy Mild Nausea and Verified 06/14/21 11:27 Vomiting Review of Systems Review of Systems: CONSTITUTIONAL: Denies fever, chills, or sweats. EYES: Denies visual changes, redness, or discharge. ENT: Denies rhinorrhea, congestion, sore throat, or otalgia. CARDIOVASCULAR: Denies palpitations, or edema. RESPIRATORY: Denies cough or dyspnea. GASTROINTESTINAL: Denies abdominal pain, nausea, vomiting, or diarrhea. GENITOURINARY: Denies dysuria or hematuria. SKIN: Denies rash or itching. MUSCULOSKELETAL: Denies joint pain, or myalgia. NEUROLOGIC: Denies headache, numbness, dizziness, or weakness. PSYCHIATRIC: Denies anxiety or depression. All systems reviewed & are unremarkable except as noted in HPI and below PMFSH Past Medical History Medical History Anxiety Asthma Bipolar disorder Depression History of arm fracture (~2017) Lt Sleep apnea Surgical History Surgical History History of carpal tunnel release (~2018) History of decompression of ulnar nerve (~2019) Family History Family History Father Hypertension Family history of coronary artery disease Grandparent Hypertension Carcinoma of colon Family history of Alzheimer's disease Family history of malignant neoplasm of breast Mother Family history of malignant neoplasm of cervix Social History Social History Smoking packs per day: 1 Smoking cigarettes per day: 20.0 Years smoked: 10 Smoking pack-years: 10.00 Smoking status: Never smoker Tobacco type: cigarettes Smoking end date: 06/05/08 Alcohol intake: current Drinks per week: 1 Substance use: never Substance use type: does not use Spiritual care concerns: No Exam Narrative: GENERAL: Well-appearing, well-nourished, and in no acute distress. HEAD: Normocephalic, atraumatic. EYES: PERRLA and EOMI. ENT: Nares clear, no rhinorrhea or epistaxis. Mucous membranes moist. NECK: Supple. No masses. No JVD CHEST: Clear to auscultation. No respiratory distress. No wheezes rales or rhonchi HEART: Regular rate and rhythm. No murmur heard. Normal peripheral pulses. ABDOMEN: Soft, nontender, nondistended, normal active bowel sounds. EXTREMITIES: Normal range of motion. No edema. SKIN: Warm, dry, no rash. NEURO: No focal deficits. Alert and oriented x3. PSYCH: Normal mood and affect. Course Reevaluation(s) Reevaluation #1: Patient reports feeling improved results and plan reviewed with patient. Patient is comfortable outpatient plan. Date: 08/08/21 Time: 14:59 Vital Signs Vital signs: Vital Signs Pulse Rate 81 08/08/21 13:47 Respiratory Rate 18 08/08/21 13:47 Blood Pressure 161/102 H 08/08/21 13:47 P
[2021-08-08 14:04] VITALS: BP 134/73; PULSE 83; RESP 18; O2SAT 99
[2021-08-08 14:10] LABS: Basophils Percent Auto 0.6 % (0.2-1.2); Eosinophils Absolute Auto 0.2 K/mm3 (0-0.3); Eosinophils Percent Auto 4.5 % (0-4.4); Hematocrit 43.3 % (42.0-52.0); Immature Granulocyte Absolute 0.03 K/mm3 (0.00-0.031); Immature Granulocyte Percent A 0.6 % (0-0.5); Lymphocytes Percent Auto 48.8 % (18.3-44.2); Mean Corpuscular HGB Conc 34.6 g/dl (32-36); Mean Corpuscular Hemoglobin 30.4 pg (26-34); Mean Corpuscular Volume 87.7 fl (80-100); Monocytes Absolute Auto 0.5 K/mm3 (0.1-0.6); Neutrophils Absolute Auto 1.7 K/mm3 (1.3-6.7); Neutrophils Percent Auto 35.5 % (45.5-73.1); Platelet Count Result 213 k/mm3 (150-375); Red Blood Count 4.94 M/mm3 (4.6-6.20); Red Cell Distribution Width 13.2 % (11.5-14.5); White Blood Count 4.7 K/mm3 (4.5-10.0)
[2021-08-08 14:18] VITALS: PULSE 81; RESP 24; O2SAT 97
[2021-08-08 14:19] LABS: Alanine Aminotransferase 45 U/L (4-50); Albumin Level 4.7 g/dL (3.5-5.1); Alkaline Phosphatase 54 U/L (38-126); Anion Gap 13 mmol/L (8-16); Aspartate Amino Transferase 40 U/L (17-59); Bilirubin,Total 0.5 mg/dL (0.2-1.3); Blood Urea Nitrogen 11 mg/dL (9-20); Carbon Dioxide 24 mmol/L (22-30); Chloride 106 mmol/L (98-107); Estimated CRCL calculation 128 ml/min; Estimated Glomerular Filt Rate > 60; Glucose 124 mg/dL (65-110); Lipase 94 U/L (23-300); Potassium 3.9 mmol/L (3.4-5.0); Sodium 143 mmol/L (137-145)
[2021-08-08 14:21] LABS: INR 1.1; Partial Thromboplastin Time 27.3 SECONDS (22.3-36.8); Prothrombin Time 13.3 Seconds (11.1-14.7)
[2021-08-08] MEDS: ASPIRIN 81 MG CHEWABLE TABLET 324 MG PO (14:26)
[2021-08-08 14:31] LABS: Troponin I < 0.012 ng/mL (0.000-0.034)
[2021-08-08 14:34] LABS: D Dimer 0.27 ug/mL (<0.48)
[2021-08-08] MEDS: ONDANSETRON INJ 4 MG/2 ML VIAL IV PUSH (15:04)
[2021-08-08] MEDS: SODIUM CHLORIDE 0.9% IV 1,000 ML 999 ML IV CONT (15:04)
[2021-08-08 16:16] VITALS: BP 159/94; PULSE 79; RESP 18; O2SAT 98
== END 2021-08-08 16:23 | disposition home or self-care (01) ==
PROVIDERS: Emergency Medicine; Emergency Provider Emergency Medicine; PCP Physician Assistant
DX: R07.89 Other chest pain (principal); J45.909 Unspecified asthma, uncomplicated; G47.30 Sleep apnea, unspecified; F41.9 Anxiety disorder, unspecified; F31.9 Bipolar disorder, unspecified; Z87.891 Personal history of nicotine dependence
CPT/HCPCS: 36415; 71046; 80053; 83690; 84484; 85025; 85380; 85610; 85730; 93005; 96361; 96374; 99284; A9270; J2405; J7030

== ENCOUNTER 2021-12-01 13:31 | Emergency (ER) | payer BC, SELFPAY ==
[2021-12-01] VITALS (19 sets, daily range): BP systolic 137–145; BP diastolic 82–90; PULSE 75–89; RESP 18; TEMP 36.4–36.8; O2SAT 94–100
--- NOTE | ~2021-12-01 | CT_ITS ---
EXAMINATION: CT abdomen pelvis wo con DATE: 12/01/2021 19:14 INDICATION: abdominal pain, concern for pancreatitis? TECHNIQUE: Computed tomography (CT) of the abdomen and pelvis was performed without intravenous contr ast. Automated exposure control and iterative reconstruction technique were employed. The dose-length product was 1202.65 mGy-cm. COMPARISON: 08/24/2020. FINDINGS: Lower thorax: Unremarkable Liver: Normal. Biliary/Gallbladder: Gallbladder is normal. No bile duct dilation. Pancreas: No mass or duct dilation. Spleen: Normal. Adrenals:No mass. Kidneys: No mass, stone, or hydronephrosis. GI tract: No small or large bowel dilation. Normal appendix. Diverticulosis without diverticulitis. Mesentery/Peritoneum: No ascites, mass, or free air. Retroperitoneum: No mass. Pelvis: Pelvic organs are within normal limits. Soft Tissues: Soft tissues and body wall unremarkable. Bones: No acute osseous finding. Hypoplastic ribs at T12 versus 6 lumbar-type vertebral bodies. Bila teral sacralization of L5 (or L6) with bilateral pseudoarthrosis. IMPRESSION: No acute abdominopelvic process. Specifically there is no CT evidence of pancreatitis. Reviewed, dictated and finalized at location K. IMPRESSION: No acute abdominopelvic process. Specifically there is no CT evidence of pancre atitis.
[2021-12-01 14:08] LABS: Basophils Absolute Auto 0.1 K/mm3 (0.0-0.1); Basophils Percent Auto 1.2 % (0.2-1.2); Eosinophils Absolute Auto 0.3 K/mm3 (0-0.3); Eosinophils Percent Auto 5.2 % (0-4.4); Hematocrit 39.5 % (42.0-52.0); Hemoglobin 14.1 g/dL (14.0-18.0); Immature Granulocyte Absolute 0.09 K/mm3 (0.00-0.031); Immature Granulocyte Percent A 1.4 % (0-0.5); Lymphocytes Absolute Auto 2.39 K/mm3 (0.9-3.2); Lymphocytes Percent Auto 36.9 % (18.3-44.2); Mean Corpuscular HGB Conc 35.7 g/dl (32-36); Mean Corpuscular Hemoglobin 30.2 pg (26-34); Mean Corpuscular Volume 84.6 fl (80-100); Mean Platelet Volume 9.3 fl (7.4-10.4); Monocytes Absolute Auto 0.6 K/mm3 (0.1-0.6); Monocytes Percent Auto 8.8 % (2.6-8.5); Neutrophils Percent Auto 46.5 % (45.5-73.1); Platelet Count Result 196 k/mm3 (150-375); Red Blood Count 4.67 M/mm3 (4.6-6.20); Red Cell Distribution Width 13.1 % (11.5-14.5); White Blood Count 6.5 K/mm3 (4.5-10.0)
[2021-12-01 14:15] LABS: Alanine Aminotransferase 64 U/L (6-50); Albumin Level 4.3 g/dL (3.5-5.1); Alkaline Phosphatase 52 U/L (38-126); Anion Gap 8 mmol/L (8-16); Aspartate Amino Transferase 36 U/L (17-59); Bilirubin,Total 0.2 mg/dL (0.2-1.3); Blood Urea Nitrogen 14 mg/dL (9-20); Carbon Dioxide 28 mmol/L (22-30); Chloride 105 mmol/L (98-107); Estimated CRCL calculation 117 ml/min; Estimated Glomerular Filt Rate > 60; Glucose 139 mg/dL (65-110); Lipase 487 U/L (23-300); Potassium 3.7 mmol/L (3.4-5.0); Sodium 141 mmol/L (137-145)
[2021-12-01 14:50] LABS: Appearance Urine Clear (Clear); Bilirubin Urine Negative (Negative); Blood Urine Negative (Negative); Color Urine Yellow (Yellow); Glucose Urine UA Negative (Negative); Ketones Urine Trace mg/dL (Negative); Leukocyte Esterase Ur Negative LEU/UL (Negative); Nitrate Urine Negative (Negative); Protein Urine Negative (Negative); Specific Grav Ur >= 1.030 (1.001-1.035); Urobilinogen Urine 0.2 mg/dL (<2.0); pH Urine 5.5 (5.0-9.0)
[2021-12-01 14:59] LABS: Mucus Urine Few /lpf; RBC Urine 0-2 /hpf (0-2); WBC Urine 0-3 /hpf
[2021-12-01 15:00] LABS: Add Urine Microscopic? YES
--- NOTE | 2021-12-01 18:03 | ED.NAVMDI ---
HPI - Nausea/Vomiting/Diarrhea General Chief complaint: Nausea/Vomiting/Diarrhea Stated complaint: vomiting, diarrhea Time Seen by Provider: 12/01/21 18:02 History of Present Illness HPI Narrative: Patient is a 36-year-old male presenting to the emergency department for evaluation of nausea, vomiting, abdominal pain. Patient states that he was out of town at a baseball tournament for his son in [place], when he awakened early Monday morning with nausea and then had multiple episodes of nonbloody, nonbilious emesis. Patient reporting multiple episodes of loose stools some with bright red blood present. Patient with melanotic stool. He does have history of anal fissure per . Patient reports decreased oral intake and lack of appetite since Monday. He has been able tolerate some oral intake such as water and Gatorade. He reports aching, cramping abdominal pain throughout his entire abdomen without radiation to the back or flank. He denies dysuria or hematuria. He reports minimal amount of alcohol use Monday night. Reports he did eat sushi and ate a hamburger and thought perhaps he had food poisoning, but the symptoms have not improved despite 72 hours, wanted to seek treatment. Related Data Home Medications Medication Instructions Recorded Confirmed multivitamin 1 tablet PO DAILY 06/02/21 06/14/21 secukinumab 150 mg/mL subcutaneous 150 mg subcut MONTHLY 06/02/21 06/14/21 syringe (Cosentyx) buspirone 7.5 mg tablet 7.5 mg PO BID 06/15/21 06/15/21 oxcarbazepine 300 mg tablet 300 mg PO DAILY 06/15/21 06/15/21 oxcarbazepine 300 mg tablet 600 mg PO DIRECTED 06/15/21 06/15/21 vortioxetine 10 mg tablet 10 mg PO DAILY 06/15/21 06/15/21 (Trintellix) Allergies Allergy/AdvReac Type Severity Reaction Status Date / Time methotrexate AdvReac Mild Nausea and Verified 12/01/21 18:44 Vomiting Review of Systems Review of Systems: CONSTITUTIONAL: Denies fever, reports chills EYES: Denies visual changes, redness, or discharge. ENT: Denies rhinorrhea, congestion, sore throat, or otalgia. CARDIOVASCULAR: Denies chest pain, palpitations, or edema. RESPIRATORY: Denies cough or dyspnea. GASTROINTESTINAL: Reports abdominal pain, nausea, vomiting, loose stools with blood present GENITOURINARY: Denies dysuria or hematuria. SKIN: Denies rash or itching. MUSCULOSKELETAL: Denies back pain, joint pain, or myalgia. NEUROLOGIC: Denies headache, numbness, or weakness. FOR[facility], [facility] Past Medical History Medical History Anxiety Asthma Bipolar disorder Depression History of arm fracture (~2017) Lt Sleep apnea Surgical History Surgical History History of carpal tunnel release (~2018) History of decompression of ulnar nerve (~2019) Family History Family History Father Hypertension Family history of coronary artery disease Grandparent Hypertension Carcinoma of colon Family history of Alzheimer's disease Family history of malignant neoplasm of breast Mother Family history of malignant neoplasm of cervix Social History Social History Smoking packs per day: 1 Smoking cigarettes per day: 20.0 Years smoked: 10 Smoking pack-years: 10.00 Smoking status: Never smoker Tobacco type: cigarettes Smoking end date: 06/05/08 Alcohol intake: current Drinks per week: 1 Substance use: never Substance use type: does not use Spiritual care concerns: No Exam Narrative: GENERAL: Awake, alert, conversant HEAD: Normocephalic, atraumatic. EYES: PERRLA and EOMI. ENT: Nares clear, no rhinorrhea or epistaxis. Mucous membranes moist. NECK: Supple. CHEST: No respiratory distress, breathing even and non labored HEART: Regular rate, sinus rhythm ABDOMEN:Non distended, Tender in the epigastrium, right lower
[2021-12-01] MEDS: MORPHINE SULFATE (*CRX) 4 MG/ML INJ IV PUSH (18:50)
[2021-12-01] MEDS: FAMOTIDINE 20 MG/2 ML VIAL IV PUSH (18:50)
[2021-12-01] MEDS: SODIUM CHLORIDE 0.9% IV 1,000 ML 999 ML IV CONT (18:50)
[2021-12-01] MEDS: ONDANSETRON INJ 4 MG/2 ML VIAL IV PUSH (18:50)
== END 2021-12-01 20:10 | disposition home or self-care (01) ==
PROVIDERS: Emergency Medicine; Emergency Provider Emergency Medicine; PCP Physician Assistant
DX: K52.9 Noninfective gastroenteritis and colitis, unspecified (principal); E86.0 Dehydration; R74.8 Abnormal levels of other serum enzymes; F41.9 Anxiety disorder, unspecified; J45.909 Unspecified asthma, uncomplicated; F31.9 Bipolar disorder, unspecified
CPT/HCPCS: 36415; 74176; 80053; 81001; 83690; 85025; 96361; 96374; 96375; 99284; J2270; J2405; J7030

== ENCOUNTER → 2023-05-15 16:18 | Outpatient (REF) | payer BC, SELFPAY | LOC: ANHLAB 16:18 | PROVIDERS: PCP Physician Assistant; Visit Provider Plastic Surgery | DX: C44.319 Basal cell carcinoma of skin of other parts of face (principal) | CPT/HCPCS: 88305 ==

== ENCOUNTER → 2023-07-12 16:22 | Outpatient (REF) | payer BC, SELFPAY | LOC: ANHLAB 16:22 | PROVIDERS: PCP Physician Assistant; Visit Provider Plastic Surgery | DX: C44.319 Basal cell carcinoma of skin of other parts of face (principal) | CPT/HCPCS: 88305 ==

== ENCOUNTER 2023-11-28 00:38 | Day surgery (SDC) | payer BC, SELFPAY ==
[2023-11-09 14:32] VITALS: BMI 34.3
[2023-11-28 12:03] VITALS: BP 133/102; PULSE 80; RESP 17; TEMP 36.3; O2SAT 99
--- NOTE | 2023-11-28 12:04 | WPDANESEPPF ---
Anes - Initial Pre Proc Eval Procedure: Operation Date: 11/28/23 13:00 Proposed Procedures p Colonoscopy - Uriel Mondragon DO Date/Time: 11/28/23 12:04 Surgeon: Uriel Mondragon DO Pre Op Diagnosis: Hematochezia Patient Data Age: 38 Gender: M Height: 1.85 m Weight: 118 kg Last Vital Signs Temp 36.3 C L 11/28/23 12:03 Pulse 80 11/28/23 12:03 Resp 17 11/28/23 12:03 BP 133/102 H 11/28/23 12:03 Pulse Ox 99 11/28/23 12:03 O2 Del Method Room Air 11/28/23 12:03 Allergies Allergy/AdvReac Type Severity Reaction Status Date / Time methotrexate AdvReac Mild Nausea and Verified 11/28/23 12:02 Vomiting Home Medications Medication Instructions Recorded Confirmed Type multivitamin 1 tablet PO DAILY 06/02/21 11/09/23 History buspirone 7.5 mg tablet 7.5 mg PO BID 06/15/21 11/09/23 History oxcarbazepine 300 mg tablet 300 mg PO TID 06/15/21 11/09/23 History vortioxetine 10 mg tablet 10 mg PO DAILY 06/15/21 11/09/23 History (Trintellix) ustekinumab 90 mg/mL subcutaneous 90 mg subcut 11/09/23 History syringe (Stelara) Patient hx anesthesia problems: none Family hx anesthesia problems: none Results Review: All pre-operative results and documents have been reviewed as part of the pre-operative evaluation. PMFSH Past Medical History Medical History Anxiety Asthma Bipolar disorder Depression History of arm fracture (~2016) Lt Sleep apnea Surgical History Surgical History History of carpal tunnel release (~2017) History of decompression of ulnar nerve (~2018) Family History Family History Father Hypertension Family history of coronary artery disease Grandparent Hypertension Carcinoma of colon Family history of Alzheimer's disease Family history of malignant neoplasm of breast Mother Family history of malignant neoplasm of cervix Social History Social History Smoking packs per day: 1 Smoking cigarettes per day: 20.0 Years smoked: 10 Smoking pack-years: 10.00 Smoking status: Former smoker Tobacco type: cigarettes Smoking end date: 06/05/08 Alcohol intake: current Drinks per week: 1 Substance use: never Substance use type: does not use Living arrangements: with family Spiritual care concerns: No Anes - Eval Final PreProcedure Day of Procedure 11/28/23 12:04 Patient weight: obese Heart: regular rate and rhythm Lungs: clear to auscultation Airway: Mallampati scale class II Neurological: alert and oriented Last oral intake: >/= 8 hours ASA classification: II Emergent: no Anesthetic plan: proceed Anesthesia type and monitoring: general GIVS and standard monitoring Results Review: All pre-operative results and documents have been reviewed as part of the pre-operative evaluation. Informed Consent: The patient's anesthetic plan and its attendant risks and benefits were discussed with the patient/family/POA. Questions were solicited and answers provided to the satisfaction of the patient/family/POA.
--- NOTE | 2023-11-28 12:10 | PM.IMHP ---
H&P: HPI History of Present Illness Date/Time: 11/28/23 12:10 Chief Complaint: rectal bleeding Narrative: this is a 38-year-old man who presents for intermittent rectal bleeding. He states that most the time it is bright red blood dripping in the toilet but occasionally can be darker and mixed in with the stool. He also has frequent nausea and lower abdominal cramping. He has had upper endoscopy is and colonoscopies in the past. Upper endoscopy was done 1 year ago and colonoscopy was done about 5 years ago. Nothing has been found since. Patient does have psoriatic arthritis but no other history of inflammatory bowel disease. Review of Systems Review of Systems: All systems reviewed & are unremarkable except as noted in HPI and below Constitutional: Constitutional: Denies chills, Denies fever(s), Denies headache(s) and Denies weight loss Eyes: Eyes: Denies change in vision ENT: Denies dizziness, Denies headache(s), Denies neck mass and Denies throat swelling Cardiovascular: Cardiovascular: Denies chest pain, Denies lightheadedness and Denies dyspnea Respiratory: Respiratory: Denies cough, Denies dyspnea and Denies wheezing Gastrointestinal: Gastrointestinal: Reports abdominal pain, Reports hematochezia and Reports nausea Genitourinary: Genitourinary: Denies hematuria and Denies dysuria Musculoskeletal: Musculoskeletal: Reports as per HPI Integumentary/Breasts: Skin/Breast: Reports as per HPI Neurologic: Denies dizziness and Denies headache(s) Allergic/Immunologic: Allergic/Immunologic: Denies throat swelling and Denies wheezing PMFSH Past Medical History Medical History Anxiety Asthma Bipolar disorder Depression History of arm fracture (~2017) Lt Sleep apnea Surgical History Surgical History History of carpal tunnel release (~2018) History of decompression of ulnar nerve (~2019) Family History Family History Father Hypertension Family history of coronary artery disease Grandparent Hypertension Carcinoma of colon Family history of Alzheimer's disease Family history of malignant neoplasm of breast Mother Family history of malignant neoplasm of cervix Social History Social History Smoking packs per day: 1 Smoking cigarettes per day: 20.0 Years smoked: 10 Smoking pack-years: 10.00 Smoking status: Former smoker Tobacco type: cigarettes Smoking end date: 06/05/08 Alcohol intake: current Drinks per week: 1 Substance use: never Substance use type: does not use Living arrangements: with family Spiritual care concerns: No Meds Home Medications and Allergies Home Medications Medication Instructions Recorded Confirmed Type multivitamin 1 tablet PO DAILY 06/02/21 11/09/23 History buspirone 7.5 mg tablet 7.5 mg PO BID 06/15/21 11/09/23 History oxcarbazepine 300 mg tablet 300 mg PO TID 06/15/21 11/09/23 History vortioxetine 10 mg tablet 10 mg PO DAILY 06/15/21 11/09/23 History (Trintellix) ustekinumab 90 mg/mL subcutaneous 90 mg subcut 11/09/23 History syringe (Stelara) Allergies Allergy/AdvReac Type Severity Reaction Status Date / Time methotrexate AdvReac Mild Nausea and Verified 11/28/23 12:02 Vomiting Vital Signs Vital Signs - 24 hr 11/28/23 12:03 Temperature 36.3 C L Pulse Rate 80 Respiratory Rate 17 Blood Pressure 133/102 H Pulse Oximetry 99 Oxygen Delivery Room Air Exam Const: General: no acute distress and alert Orientation/consciousness: patient oriented x3 HENMT: Head: normocephalic and atraumatic Ears: hearing grossly normal bilaterally Face/Nose/Sinus: Normal nares present Mouth: Yes Normal oral and palatal mucosa present Eyes: Periorbital: periorbital findings normal Sclera: sclerae normal
[2023-11-28] MEDS: LACTATED RINGERS 1,000 ML 150 ML IV CONT (12:14)
[2023-11-28 12:55] VITALS: BP 103/66; PULSE 73; RESP 16; O2SAT 96
[2023-11-28 13:05] VITALS: BP 109/72; PULSE 71; RESP 16; O2SAT 99
[2023-11-28 13:15] VITALS: BP 109/72; PULSE 69; RESP 16; O2SAT 100
[2023-11-28] MEDS: ONDANSETRON INJ 4 MG/2 ML VIAL IV PUSH (13:15)
== END 2023-11-28 13:29 | disposition home or self-care (01) ==
PROVIDERS: PCP Physician Assistant; Visit Provider Surgery
PROC: 0DJD8ZZ Inspection of Lower Intestinal Tract, Via Natural or Artificial Opening Endoscopic (ICD-10-PCS; CPT 45378; principal; 2023-11-28 13:00)
DX: K92.1 Melena (principal); K64.8 Other hemorrhoids; K57.30 Diverticulosis of large intestine without perforation or abscess without bleeding; F41.9 Anxiety disorder, unspecified; J45.909 Unspecified asthma, uncomplicated; L40.50 Arthropathic psoriasis, unspecified
CPT/HCPCS: 45380; 88305; J2001; J2405; J2704; J7120

== ENCOUNTER 2023-11-29 14:27 | Outpatient (CLI) | payer BC, SELFPAY ==
--- NOTE | ~2023-11-29 | XR_ITS ---
EXAM: XR abdomen obstructive series DATE: 11/29/2023 14:52 HISTORY: Lower abd pain . COMPARISON: CT abdomen pelvis 12/01/2021. FINDINGS: Clear lung bases. Normal bowel gas pattern. Mild hepatic enlargement. Moderate splenic enl argement. No abnormal abdominal calcification. Mild bilateral hip osteoarthritis and pelvic enthesopa thy, otherwise the regional bones and soft tissues are normal for age. IMPRESSION: Hepatosplenomegaly. Reviewed, dictated and finalized at location K. IMPRESSION: Hepatosplenomegaly.
== END 2023-11-29 14:28 | disposition home or self-care (01) ==
PROVIDERS: PCP Physician Assistant; Visit Provider Surgery
DX: R10.30 Lower abdominal pain, unspecified (principal); R16.2 Hepatomegaly with splenomegaly, not elsewhere classified
CPT/HCPCS: 74019

== ENCOUNTER 2023-12-08 15:15 | Outpatient (CLI) | payer BC, SELFPAY ==
--- NOTE | ~2023-12-08 | US_ITS ---
EXAMINATION: US abdomen limited DATE: 12/08/2023 15:28 INDICATION: Nausea and vomiting, unspecified. TECHNIQUE: Multiple grayscale and Doppler ultrasound images of the abdomen were obtained. COMPARISON: CT abdomen and pelvis 12/01/2021 FINDINGS: The visualized portions of the head of the pancreas are normal. There is diffuse hepatic st eatosis. No liver surface nodularity. There is normal flow in main portal vein. The gallbladder is no rmal in size. No gallstones or gallbladder wall thickening. There is no sonographic Rudd's sign. Th e common duct is normal and measures 6 mm. IMPRESSION: 1. Diffuse hepatic steatosis. Reviewed, dictated and finalized at location A.
== END 2023-12-08 15:16 ==
LOC: GOSHIMG 15:16
PROVIDERS: PCP Physician Assistant; Visit Provider Surgery
DX: R11.2 Nausea with vomiting, unspecified (principal); K76.0 Fatty (change of) liver, not elsewhere classified
CPT/HCPCS: 76705

== ENCOUNTER 2023-12-19 17:12 | Inpatient (IN) | payer BC, SELFPAY ==
[2023-12-19] VITALS (13 sets, daily range): BP systolic 130–159; BP diastolic 66–98; PULSE 77–93; RESP 14–19; TEMP 36.7–37; O2SAT 96–100; BMI 34.4
--- NOTE | ~2023-12-19 | CT_ITS ---
EXAMINATION: CT abdomen pelvis w con DATE: 12/19/2023 19:02 INDICATION: abd pain TECHNIQUE: Computed tomography (CT) of the abdomen and pelvis was performed with 100 mL Omnipaque-350 intravenous contrast. Automated exposure control and iterative reconstruction technique were employe d. The dose-length product was 1205.10 mGy-cm. COMPARISON: 12/01/2021. FINDINGS: Lower thorax: Unremarkable Liver: Normal. Biliary/Gallbladder: Gallbladder is normal. No bile duct dilation. Pancreas: No mass or duct dilation. Spleen: Normal. Adrenals:No mass. Kidneys: No suspicious mass, obstructing stone, or hydronephrosis. Bilateral subcentimeter hypodensit ies, too small to characterize but most likely represent cysts. GI tract: Moderate wall edema in the sigmoid colon No small or large bowel dilation. Normal appendix. Diverticulosis without diverticulitis. Mesentery/Peritoneum: No ascites, mass, or free air. Retroperitoneum: No mass. Pelvis: Pelvic organs are within normal limits. Soft Tissues: Soft tissues and body wall unremarkable. Bones: No acute osseous finding. IMPRESSION: Sigmoid colon wall edema may represent infectious, inflammatory, or ischemic colitis. Reviewed, dictated and finalized at location K. IMPRESSION: Sigmoid colon wall edema may represent infectious, inflammatory, or ischemic co litis.
--- NOTE | ~2023-12-19 | NM_ITS ---
EXAMINATION: NM hepatobiliary w pharm DATE: 12/21/2023 13:40 INDICATION: Epigastric pain and nausea COMPARISON: None. TECHNIQUE: 5.0 mCi Tc-99m mebrofenin (Choletec) was administered intravenously. Scintigraphic images of the abdomen were obtained for one hour. 2.4 mcg sincalide (Kinevac) was administered by slow intr avenous infusion, and imaging was continued for 30 minutes. Gallbladder ejection fraction was calcula ezequiel by the technologist. FINDINGS: There is normal clearance of radiotracer from the blood pool. There is homogeneous tracer uptake by t he liver. Activity progresses to the gallbladder and bowel. The gallbladder ejection fraction (GBEF) is 8% (normal 10-90%, but most patient with gallbladder dysfunction have GBEF < 35% which does overl ap with the normal range). IMPRESSION: 1. Abnormal decreased gallbladder ejection fraction of 8% consistent with gallbladder dysfunction or chronic cholecystitis in the appropriate clinical setting. Reviewed, dictated and finalized at location A. IMPRESSION: 1. Abnormal decreased gallbladder ejection fraction of 8% consistent with gall bladder dysfunction or chronic cholecystitis in the appropriate clinical settashleigh granda
[2023-12-19 18:01] LABS: Basophils Absolute Auto 0.1 K/mm3 (0.0-0.1); Basophils Percent Auto 0.7 % (0.2-1.2); Eosinophils Absolute Auto 0.3 K/mm3 (0-0.3); Eosinophils Percent Auto 3.9 % (0-4.4); Hematocrit 45.7 % (42.0-52.0); Hemoglobin 16.2 g/dL (14.0-18.0); Immature Granulocyte Absolute 0.03 K/mm3 (0.00-0.031); Immature Granulocyte Percent A 0.4 % (0-0.5); Lymphocytes Absolute Auto 2.09 K/mm3 (0.9-3.2); Lymphocytes Percent Auto 25.6 % (18.3-44.2); Mean Corpuscular HGB Conc 35.4 g/dl (32-36); Mean Corpuscular Hemoglobin 29.5 pg (26-34); Mean Corpuscular Volume 83.2 fl (80-100); Mean Platelet Volume 9.7 fl (7.4-10.4); Monocytes Absolute Auto 0.8 K/mm3 (0.1-0.6); Neutrophils Absolute Auto 4.8 K/mm3 (1.3-6.7); Neutrophils Percent Auto 59.4 % (45.5-73.1); Platelet Count Result 211 k/mm3 (150-375); Red Blood Count 5.49 M/mm3 (4.6-6.20); Red Cell Distribution Width 12.4 % (11.5-14.5); White Blood Count 8.2 K/mm3 (4.5-10.0)
[2023-12-19 18:18] LABS: Alanine Aminotransferase 58 U/L (6-50); Albumin Level 5.1 g/dL (3.5-5.1); Alkaline Phosphatase 60 U/L (38-126); Anion Gap 14 mmol/L (4-12); Aspartate Amino Transferase 44 U/L (17-59); Bilirubin,Total 0.8 mg/dL (0.2-1.3); Blood Urea Nitrogen 12 mg/dL (9-20); Calcium 9.7 mg/dL (8.4-10.2); Carbon Dioxide 27 mmol/L (22-30); Chloride 102 mmol/L (98-107); Estimated CRCL calculation 129 ml/min; Estimated Glomerular Filt Rate > 60; Glucose 91 mg/dL (65-110); Lipase 83 U/L (23-300); Potassium 4.1 mmol/L (3.4-5.0); Sodium 143 mmol/L (137-145)
[2023-12-19 18:25] LABS: Appearance Urine Clear (Clear); Bilirubin Urine Negative (Negative); Blood Urine Negative (Negative); Color Urine Yellow (Yellow); Glucose Urine UA Negative (Negative); Ketones Urine Negative (Negative); Leukocyte Esterase Ur Negative LEU/UL (Negative); Nitrate Urine Negative (Negative); Protein Urine Negative (Negative); Specific Grav Ur 1.022 (1.001-1.035); Urobilinogen Urine 0.2 mg/dL (<2.0); pH Urine 7.5 (5.0-9.0)
[2023-12-19 18:37] LABS: Add Urine Microscopic? NO
[2023-12-19] MEDS: ONDANSETRON INJ 4 MG/2 ML VIAL IV PUSH ×2 (19:02→22:39)
[2023-12-19] MEDS: SODIUM CHLORIDE 0.9% IV 1,000 ML 999 ML IV CONT (19:02)
[2023-12-19] MEDS: MORPHINE SULFATE (*CRX) 4 MG/ML INJ IV PUSH (19:44)
--- NOTE | 2023-12-19 20:00 | ED.ABDPAIN ---
HPI - Abdominal Pain General Chief Complaint: Abdominal Pain Stated Complaint: abdominal pain Time Seen by Provider: 12/19/23 18:42 Source: patient and family Mode of arrival: ambulatory Limitations: no limitations History of Present Illness HPI narrative: 38-year-old with a history of psoriatic arthritis, recent diagnosis of diverticulitis of the sigmoid colon presents to the ER with the complaints of lower abdominal pain which started a week ago now it is radiating into his upper abdomen also complains of intense nausea. No history of fever or chills. reports that he finished course of antibiotics 2 days ago for diverticulitis. Upon chart review had colonoscopy done on 11/27 8 shows mild sigmoid diverticulosis. No abscess or perforation MD elicited complaint: abdominal pain Pertinent past history: diverticulitis Onset (ago): week(s) (1) Location: diffuse Severity: moderate Quality: aching Radiation: none Exacerbating factors: nothing Relieving factors: nothing Associated symptoms: denies other symptoms Related Data Home Medications Medication Instructions Recorded Confirmed multivitamin 1 tablet PO DAILY 06/02/21 11/09/23 buspirone 7.5 mg tablet 7.5 mg PO BID 06/15/21 11/09/23 oxcarbazepine 300 mg tablet 300 mg PO TID 06/15/21 11/09/23 vortioxetine 10 mg tablet 10 mg PO DAILY 06/15/21 11/09/23 (Trintellix) ustekinumab 90 mg/mL subcutaneous 90 mg subcut 11/09/23 syringe (Stelara) Allergies Allergy/AdvReac Type Severity Reaction Status Date / Time methotrexate AdvReac Mild Nausea and Verified 12/19/23 17:12 Vomiting Review of Systems Review of Systems: All systems reviewed & are unremarkable except as noted in HPI and below Constitutional: Constitutional: Reports no additional constitutional complaints Eyes: Eyes: Reports no additional eye complaints ENT: Reports system reviewed and no additional complaints, except as documented Cardiovascular: Cardiovascular: Reports no additional cardiovascular complaints Respiratory: Respiratory: Reports no additional respiratory complaints Gastrointestinal: Gastrointestinal: Reports as per HPI Musculoskeletal: Musculoskeletal: Reports no additional musculoskeletal complaints Neurologic: Reports system reviewed and no additional complaints, except as documented Psychiatric: Psychiatric: Reports no additional psychiatric complaints PMFSH Past Medical History Medical History Anxiety Asthma Bipolar disorder Depression History of arm fracture (~2017) Lt Sleep apnea Surgical History Surgical History History of carpal tunnel release (~2018) History of decompression of ulnar nerve (~2019) Family History Family History Father Hypertension Family history of coronary artery disease Grandparent Hypertension Carcinoma of colon Family history of Alzheimer's disease Family history of malignant neoplasm of breast Mother Family history of malignant neoplasm of cervix Social History Social History Smoking packs per day: 1 Smoking cigarettes per day: 20.0 Years smoked: 10 Smoking pack-years: 10.00 Smoking status: Former smoker Tobacco type: cigarettes Smoking end date: 06/05/08 Alcohol intake: current Drinks per week: 1 Substance use: never Substance use type: does not use Living arrangements: with family Spiritual care concerns: No Exam Narrative: GENERAL: Well-appearing, well-nourished, and in no acute distress. HEAD: Normocephalic, atraumatic. EYES: PERRLA and EOMI. ENT: Nares clear, no rhinorrhea or epistaxis. Mucous membranes moist. NECK: Supple. CHEST: Clear to auscultation. No respiratory distress. HEART: Regular rate and rhythm. No murmur heard. Normal peripheral pulses. ABDOMEN: diff
[2023-12-19] MEDS: CIPROFLOXACIN 400 MG/D5W 200ML 200 ML 200 MG IVPB (20:12)
[2023-12-19] MEDS: fentaNYL CITRATE INJ (*CRX) 100 MCG/2 ML VIAL 50 MCG IV PUSH (20:20)
--- NOTE | 2023-12-19 20:22 | PM.IMHP ---
H&P: HPI History of Present Illness Date/Time: 12/19/23 20:22 Chief Complaint: abdominal pain Narrative: This is a 38 yo male with PMHx significant for psoriatic arthritis,obesity, htn, hypothyroidism. Patient presents to ED due to abdominal pain, had been to urgent care wher he was diagnosed with diverticulitis given antibiotics, however has not improved, continues to have abdominal pain of the LLQ but now epigastric as well, chills, night sweats, poor per oral intake, nausea, has had blood in the stools as well. CT of abdomen and pelvis with sigmoid colon inflamation. Patient placed in observation for further evaluation, management and treatment. EXAMINATION: CT abdomen pelvis w con DATE: 12/19/2023 19:02 INDICATION: abd pain TECHNIQUE: Computed tomography (CT) of the abdomen and pelvis was performed with 100 mL Omnipaque-350 intravenous contrast. Automated exposure control and iterative reconstruction technique were employed. The dose-length product was 1205.10 mGy-cm. COMPARISON: 12/01/2021. FINDINGS: Lower thorax: Unremarkable Liver: Normal. Biliary/Gallbladder: Gallbladder is normal. No bile duct dilation. Pancreas: No mass or duct dilation. Spleen: Normal. Adrenals:No mass. Kidneys: No suspicious mass, obstructing stone, or hydronephrosis. Bilateral subcentimeter hypodensities, too small to characterize but most likely represent cysts. GI tract: Moderate wall edema in the sigmoid colon No small or large bowel dilation. Normal appendix. Diverticulosis without diverticulitis. Mesentery/Peritoneum: No ascites, mass, or free air. Retroperitoneum: No mass. Pelvis: Pelvic organs are within normal limits. Soft Tissues: Soft tissues and body wall unremarkable. Bones: No acute osseous finding. IMPRESSION: Sigmoid colon wall edema may represent infectious, inflammatory, or ischemic colitis. Review of Systems Review of Systems: abdominal pain, diarrhea, blood in the stools, night sweats, chills, poor per oral intake. [facility] Past Medical History Medical History Anxiety Asthma Bipolar disorder Depression History of arm fracture (~2016) Lt Sleep apnea Surgical History Surgical History History of carpal tunnel release (~2017) History of decompression of ulnar nerve (~2019) Family History Family History Father Hypertension Family history of coronary artery disease Grandparent Hypertension Carcinoma of colon Family history of Alzheimer's disease Family history of malignant neoplasm of breast Mother Family history of malignant neoplasm of cervix Social History Social History Smoking packs per day: 1 Smoking cigarettes per day: 20.0 Years smoked: 10 Smoking pack-years: 10.00 Smoking status: Never smoker Tobacco type: cigarettes Second hand tobacco smoke exposure: No Smoking end date: 06/05/08 Alcohol intake: never Drinks per week: 1 Substance use: never Substance use type: does not use Do You Feel Safe in your Home?: Yes Lack of Transportation: No Lack of Food: Never True Current Housing: I Have Housing Concerned About Future Housing: No Difficulty Paying Gas/Electric Bills: No Difficulty Paying for Meds: No Currently Unemployed: No Education: Associate Degree Difficulty w/ Childcare or Family Care: No Living arrangements: with family Spiritual care concerns: Yes ([place]) Meds Home Medications and Allergies Home Medications Medication Instructions Recorded Confirmed Type multivitamin 1 tablet PO DAILY 06/02/21 12/19/23 History buspirone 7.5 mg tablet 7.5 mg PO BID 06/15/21 12/19/23 History oxcarbazepine 300 mg tablet 300 mg PO TID 06/15/21 12/19/23 History vortioxetine 10 mg tablet 10 mg PO DAILY 06/15/21 12/19/23 Histo
[2023-12-19] MEDS: metroNIDAZOLE 500 MG/ISO 100ML 500 MG/100 ML BAG 100 MG IVPB (21:22)
--- NOTE | 2023-12-19 21:28 | PC.NURSE ---
patient requesting Dilaudid for pain, states that morphine does not help with relief d/t chronic pain issue. provider aware and new orders received
[2023-12-19] MEDS: HYDROmorphone HCL INJ (*CRX) 1 MG/ML SYR 2 MG IV PUSH (21:31)
--- NOTE | 2023-12-19 22:00 | ADMGEN ---
This patient, Tj Chappell, was admitted to [facility] Surg Room 302-01. Patient/family oriented to hospital policies and general routines including ID bracelet, bed and alarms, visiting hours, pain management, procedures, bathroom and other care routines, personal items, smoking policy, room service/diet, and visiting hours. Information on how to activate the Rapid Response Team has been discussed. Patient/Family are encouraged to report perceived risks to care and to ask questions if they do not understand what they are told or what they should do.
[2023-12-19] MEDS: SODIUM CHLORIDE 0.9% IV 1,000 ML 125 ML IV CONT (22:39)
[2023-12-20] MEDS: HYDROmorphone HCL INJ (*CRX) 2 MG/ML VIAL IV PUSH (02:00)
[2023-12-20 04:00] VITALS: BP 103/60; PULSE 75; RESP 16; TEMP 36.1; O2SAT 100
[2023-12-20 05:39] LABS: Basophils Percent Auto 0.5 % (0.2-1.2); Eosinophils Absolute Auto 0.3 K/mm3 (0-0.3); Eosinophils Percent Auto 5.3 % (0-4.4); Hemoglobin 13.2 g/dL (14.0-18.0); Immature Granulocyte Absolute 0.02 K/mm3 (0.00-0.031); Immature Granulocyte Percent A 0.3 % (0-0.5); Lymphocytes Absolute Auto 2.19 K/mm3 (0.9-3.2); Lymphocytes Percent Auto 36.1 % (18.3-44.2); Mean Corpuscular HGB Conc 33.8 g/dl (32-36); Mean Corpuscular Hemoglobin 29.3 pg (26-34); Mean Corpuscular Volume 86.5 fl (80-100); Mean Platelet Volume 9.9 fl (7.4-10.4); Monocytes Absolute Auto 0.7 K/mm3 (0.1-0.6); Monocytes Percent Auto 11.6 % (2.6-8.5); Neutrophils Absolute Auto 2.8 K/mm3 (1.3-6.7); Neutrophils Percent Auto 46.2 % (45.5-73.1); Platelet Count Result 164 k/mm3 (150-375); Red Blood Count 4.51 M/mm3 (4.6-6.20); Red Cell Distribution Width 12.5 % (11.5-14.5); White Blood Count 6.1 K/mm3 (4.5-10.0)
[2023-12-20 05:51] LABS: Anion Gap 8 mmol/L (4-12); Blood Urea Nitrogen 11 mg/dL (9-20); Calcium 8.6 mg/dL (8.4-10.2); Carbon Dioxide 28 mmol/L (22-30); Chloride 104 mmol/L (98-107); Estimated CRCL calculation 117 ml/min; Estimated Glomerular Filt Rate > 60; Glucose 89 mg/dL (65-110); Potassium 4.2 mmol/L (3.4-5.0); Sodium 140 mmol/L (137-145)
[2023-12-20] MEDS: LEVOTHYROXINE SODIUM 50 MCG TABLET PO (06:10)
[2023-12-20] MEDS: SODIUM CHLORIDE 0.9% IV 1,000 ML 125 ML IV CONT ×2 (06:10→13:34)
[2023-12-20] MEDS: CIPROFLOXACIN 400 MG/D5W 200ML 200 ML 200 MG IVPB (06:11)
[2023-12-20] MEDS: HYDROmorphone HCL INJ (*CRX) 1 MG/ML SYR 2 MG IV PUSH (06:46)
[2023-12-20 07:55] VITALS: BP 131/74; PULSE 72; RESP 16; TEMP 35.6; O2SAT 100
[2023-12-20] MEDS: OXcarbazepine 300 MG TABLET PO ×3 (09:10→16:42)
[2023-12-20] MEDS: OLMESARTAN MEDOXOMIL 20 MG TABLET 40 MG PO (09:10)
[2023-12-20] MEDS: metroNIDAZOLE 500 MG TABLET PO (09:11)
[2023-12-20] MEDS: busPIRone HCL 2.5 MG TABLET 7.5 MG PO ×2 (09:11→16:42)
[2023-12-20] MEDS: PANTOPRAZOLE 40 MG TABLET PO (09:11)
[2023-12-20] MEDS: amLODIPine BESYLATE 2.5 MG TABLET PO (09:11)
[2023-12-20] MEDS: ACETAMINOPHEN 325 MG TABLET 650 MG PO (09:14)
[2023-12-20 09:47] VITALS: O2SAT 98
[2023-12-20] MEDS: HYDROmorphone HCL INJ (*CRX) 1 MG/ML SYR IV PUSH ×3 (10:52→17:47)
--- NOTE | 2023-12-20 12:37 | PM.CNGS ---
Assessment and Plan Assessment and plan (1) Diverticulitis: Code(s): K57.92 - Diverticulitis of intestine, part unspecified, without perforation or abscess without bleeding Status: Acute Assessment and Plan: I have reviewed the CT and discussed findings with the patient. He does have evidence of diverticulitis or colitis involving the sigmoid colon. Previous colon biopsies were negative for inflammatory bowel disease. Will change antibiotics to Zosyn and allow for clear liquids today. Hold off on any fiber supplements and slowly advanced to a low residue diet as tolerated. (2) Nausea & vomiting: Code(s): R11.2 - Nausea with vomiting, unspecified Status: Acute Assessment and Plan: Will plan for HIDA scan tomorrow morning. Patient has been getting some pain meds and I discussed with him that it would be ideal for him to hold any pain meds for about 4 hours prior to the HIDA scan to prevent any false readings. He is currently on Protonix. Will also add sucralfate to help with any potential gastritis or ulcers. If HIDA scan is normal, might need to consider EGD. (3) Epigastric pain: Code(s): R10.13 - Epigastric pain Status: Acute History of Present Illness Consult details Consult date: 12/20/23 Reason for consult: abdominal pain Requesting physician: Sanford Dominguez MD Narrative: This is a 38-year-old man who I am asked to see for multiple abdominal complaints. He has been experiencing upper abdominal pain and lower abdominal pain for several months. He has also been experiencing constant nausea. His upper abdominal pain has been worse with eating but is pretty much constant. I had seen patient 4 weeks ago for an outpatient colonoscopy and then this was followed by an abdominal x-ray, ultrasound, and CT. His CT was done at an outside facility for worsening abdominal pain and this did show sigmoid colitis at the time. He was treated with a course of antibiotics but over the weekend he began experiencing more upper abdominal pain. He was scheduled to see me in the office tomorrow but his pain was worsening last night and he presented to the emergency department. CT in the emergency department again showed sigmoid colitis. His white blood cell count was normal. And he is afebrile. The patient did have an EGD about [address] Nazario at [facility]. He states that he did have ulcers at that time but was also taking a lot of ibuprofen due to back issues. He has not had any significant acid reflux, heartburn, or indigestion since being treated for that. Review of Systems Review of Systems: All systems reviewed & are unremarkable except as noted in HPI and below Constitutional: Constitutional: Denies chills, Denies fever(s), Denies headache(s) and Denies weight loss Eyes: Eyes: Denies change in vision ENT: Denies dizziness, Denies headache(s), Denies neck mass and Denies throat swelling Cardiovascular: Cardiovascular: Denies chest pain, Denies lightheadedness and Denies dyspnea Respiratory: Respiratory: Denies cough, Denies dyspnea and Denies wheezing Gastrointestinal: Gastrointestinal: Reports as per HPI Genitourinary: Genitourinary: Denies hematuria and Denies dysuria Musculoskeletal: Musculoskeletal: Reports as per HPI Integumentary/Breasts: Skin/Breast: Reports as per HPI Neurologic: Denies dizziness and Denies headache(s) Allergic/Immunologic: Allergic/Immunologic: Denies throat swelling and Denies wheezing PMFSH Past Medical History Medical History Anxiety Asthma Bipolar disorder Depression History of arm fracture (~2017) Lt Sleep apnea Surgical History Surgical History History of carpal tunnel release (~2018) History of decompression of ulnar nerve (~2019) Family History Family History (Reviewed 12/20/23 @ 12:44 by Uriel Rodas
[2023-12-20] MEDS: PIPERACILLN/TAZ 3.375GM/NS50ML 3.375 GM/50 ML BAG IVPB ×2 (13:34→17:39)
[2023-12-20 13:56] VITALS: BP 109/54; PULSE 75; RESP 16; TEMP 35.6; O2SAT 98
[2023-12-20] MEDS: ONDANSETRON INJ 4 MG/2 ML VIAL IV PUSH (15:43)
[2023-12-20] MEDS: SUCRALFATE SUSP 100 MG/ML 10 ML UDC 1000 MG PO ×2 (16:42→19:58)
--- NOTE | 2023-12-20 17:20 | PHAR ---
PT'S HOME MED TRINTELLIX 10 MG TAB VERIFIED BY PHARMACY
--- NOTE | 2023-12-20 19:40 | PM.IMPN ---
Progress Note: A&P Assessment and Plan (1) Colitis: Code(s): K52.9 - Noninfective gastroenteritis and colitis, unspecified Status: Acute Assessment and Plan: Chart review shows patient had a colonoscopy on 11/28/2023 showing diverticulosis and internal hemorrhoids. Biopsy did not show any evidence of colitis. Patient was seen at an outside emergency room on 12/03/2023 with abdominal pain and found to have distal colon colitis. He was discharged on Cipro and Flagyl. Antibiotics through December 12. He presented here on December 18 with recurrent abdominal pain. CT scan showing sigmoid colitis. The CT scan shows diverticulosis without diverticulitis. He was started on Cipro and Flagyl was added. General surgery was consulted and antibiotics were switched to Zosyn. Patient feeling better. C diff was ordered but not collected yet. Will stop IV fluids. Continue antibiotics. (2) Nausea & vomiting: Code(s): R11.2 - Nausea with vomiting, unspecified Status: Acute Assessment and Plan: Nausea volume probably related to above. Recent right upper quadrant ultrasound shows diffuse hepatic steatosis. Gallbladder appeared normal. Patient still with nausea but tolerating clear liquid diet. HIDA scans ordered. (3) Sleep apnea: Code(s): G47.30 - Sleep apnea, unspecified Status: Acute Assessment and Plan: Will order auto CPAP. (4) Arthritis: Code(s): M19.90 - Unspecified osteoarthritis, unspecified site Status: Acute Assessment and Plan: Stable. Plan DVT prophylax -SCDs Code status -full Subjective Date/time seen: 12/20/23 19:40 Interval history: 38yo male with HTN, psoriatic arthritis chronic colonic symptoms who presents with abdominal pain and found to have diverticulitis. Assuming care. Chart reviewed. Abdominal pain is better. Still with nausea. No bowel movement. Passing flatus. Tolerating clear liquid. Exam Narrative: AF 96.0 109/54 75 16 98% ra Gen - NARD Chest - CTA bilaterally, nml RR CV - RRR S1/S2 Abd - Soft, ND, minimal tenderness, no guarding Ext - No pedal edema Psych - Nml mood and affect Skin - Warm and dry Objective Data Vital Signs Vital Signs: Vital Signs - 24 hr 12/19/23 19:45 12/19/23 20:00 12/19/23 20:15 Temperature Pulse Rate 85 85 81 Respiratory Rate 17 14 17 Blood Pressure 159/93 H 145/86 H 155/93 H Pulse Oximetry 100 98 99 Oxygen Delivery 12/19/23 20:30 12/19/23 20:45 12/19/23 21:48 Temperature Pulse Rate 84 88 78 Respiratory Rate 15 15 19 Blood Pressure 143/93 H 140/88 157/88 H Pulse Oximetry 96 99 97 Oxygen Delivery 12/19/23 22:10 12/19/23 21:58 12/20/23 04:00 Temperature 98.6 F 97 F L Pulse Rate 77 75 Respiratory Rate 16 16 Blood Pressure 132/66 103/60 Pulse Oximetry 96 96 100 Oxygen Delivery Room Air 12/20/23 07:55 12/20/23 09:47 12/20/23 13:56 Temperature 96.0 F L 96.0 F L Pulse Rate 72 75 Respiratory Rate 16 16 Blood Pressure 131/74 109/54 L Pulse Oximetry 100 98 98 Oxygen Delivery Room Air 12/20/23 09:10 Temperature Pulse Rate Respiratory Rate Blood Pressure Pulse Oximetry Oxygen Delivery Room Air Intake/Output Intake/Output: Intake & Output 12/17/23 12/18/23 12/19/23 12/20/23 23:59 23:59 23:59 23:59 Intake Total 1200 2554.6 Balance 1200 2554.6 Meds/Results Medications: Active Medications Generic Name Dose Route Start Last Admin Trade Name Freq PRN Reason Stop Dose Admin Acetaminophen 650 mg 12/19/23 20:20 12/20/23 09:14 Acetaminophen 325 Mg Tablet PO 650 mg Q4H PRN Administration Mild Pain (1-3) or Fever Amlodipine Besylate 2.5 mg 12/20/23 09:00 12/20/23 09:11 Amlodipine Besylate 2.5 Mg Tablet PO 2.5 mg DAILY EKATERINA Administration Buspirone HCl 7.5 mg 12/20/23 09:00 12/20/23 16:42 Buspirone Hcl 2.5 Mg Tablet PO 01/19/24 08:59 7.5 mg BID EKATERINA Adminis
[2023-12-20 21:58] VITALS: BP 135/81; PULSE 74; RESP 16; TEMP 36.6; O2SAT 99
[2023-12-21] MEDS: PIPERACILLN/TAZ 3.375GM/NS50ML 3.375 GM/50 ML BAG IVPB ×4 (00:36→17:51)
[2023-12-21 05:40] VITALS: BP 113/63; PULSE 72; RESP 16; TEMP 36.3; O2SAT 99
[2023-12-21] MEDS: SUCRALFATE SUSP 100 MG/ML 10 ML UDC 1000 MG PO ×2 (05:50→21:38)
[2023-12-21] MEDS: LEVOTHYROXINE SODIUM 50 MCG TABLET PO (05:50)
[2023-12-21 06:48] LABS: Anion Gap 7 mmol/L (4-12); Blood Urea Nitrogen 9 mg/dL (9-20); Calcium 8.7 mg/dL (8.4-10.2); Carbon Dioxide 30 mmol/L (22-30); Chloride 101 mmol/L (98-107); Estimated CRCL calculation 117 ml/min; Estimated Glomerular Filt Rate > 60; Glucose 87 mg/dL (65-110); Potassium 3.6 mmol/L (3.4-5.0); Sodium 138 mmol/L (137-145)
[2023-12-21] MEDS: ONDANSETRON INJ 4 MG/2 ML VIAL IV PUSH (09:24)
[2023-12-21] MEDS: ENOXAPARIN 40 MG/0.4 ML SYRINGE SUB-Q (09:25)
--- NOTE | 2023-12-21 12:21 | PM.IMPN ---
Progress Note: A&P Assessment and Plan (1) Colitis: Code(s): K52.9 - Noninfective gastroenteritis and colitis, unspecified Status: Acute Assessment and Plan: Chart review shows patient had a colonoscopy on 11/28/2023 showing diverticulosis and internal hemorrhoids. Biopsy did not show any evidence of colitis. Patient was seen at an outside emergency room on 12/03/2023 with abdominal pain and found to have distal colon colitis. He was discharged on Cipro and Flagyl. Antibiotics through December 12. He presented here on December 18 with recurrent abdominal pain. CT scan showing sigmoid colitis. The CT scan shows diverticulosis without diverticulitis. He was started on Cipro and Flagyl was added. General surgery was consulted and antibiotics were switched to Zosyn. WBC normal and remaining normal. Patient feeling better. C diff was ordered but not collected yet. Continue antibiotics. (2) Nausea & vomiting: Code(s): R11.2 - Nausea with vomiting, unspecified Status: Acute Assessment and Plan: Nausea volume probably related to above. Recent right upper quadrant ultrasound shows diffuse hepatic steatosis. Gallbladder appeared normal. Patient still with nausea but tolerating clear liquid diet. HIDA scans ordered. (3) Sleep apnea: Code(s): G47.30 - Sleep apnea, unspecified Status: Acute Assessment and Plan: Auto CPAP ordered but patient refuses. (4) Arthritis: Code(s): M19.90 - Unspecified osteoarthritis, unspecified site Status: Acute Assessment and Plan: Stable. Plan DVT prophylax - lovenox Code status -full Subjective Date/time seen: 12/21/23 12:21 Interval history: 38yo male with HTN, psoriatic arthritis chronic colonic symptoms who presents with abdominal pain and found to have diverticulitis. Abdominal pain is resolved today. He has not had any pain medications overnight. Regarding his initial event, he states the abdominal pain improved but never resolved with the Cipro and Flagyl. Passing flatus. No bowel movements. Still with mild nausea. Exam Narrative: AF 97.4 113/63 72 16 99% ra Gen - NARD Chest - CTA bilaterally, nml RR CV - RRR S1/S2 Abd - Soft, ND, minimal tenderness LLQ, no guarding Ext - No pedal edema Psych - Nml mood and affect Skin - Warm and dry Objective Data Vital Signs Vital Signs: Vital Signs - 24 hr 12/20/23 13:56 12/20/23 21:58 12/20/23 20:00 Temperature 96.0 F L 97.9 F Pulse Rate 75 74 Respiratory Rate 16 16 Blood Pressure 109/54 L 135/81 Pulse Oximetry 98 99 Oxygen Delivery Room Air 12/21/23 05:40 Temperature 97.4 F L Pulse Rate 72 Respiratory Rate 16 Blood Pressure 113/63 Pulse Oximetry 99 Oxygen Delivery Intake/Output Intake/Output: Intake & Output 12/18/23 12/19/23 12/20/23 12/21/23 23:59 23:59 23:59 23:59 Intake Total 1200 2604.6 400 Balance 1200 2604.6 400 Meds/Results Medications: Active Medications Generic Name Dose Route Start Last Admin Trade Name Freq PRN Reason Stop Dose Admin Acetaminophen 650 mg 12/19/23 20:20 12/20/23 09:14 Acetaminophen 325 Mg Tablet PO 650 mg Q4H PRN Administration Mild Pain (1-3) or Fever Amlodipine Besylate 2.5 mg 12/20/23 09:00 12/20/23 09:11 Amlodipine Besylate 2.5 Mg Tablet PO 2.5 mg DAILY EKATERINA Administration Buspirone HCl 7.5 mg 12/20/23 09:00 12/20/23 16:42 Buspirone Hcl 2.5 Mg Tablet PO 01/19/24 08:59 7.5 mg BID EKATERINA Administration Dicyclomine HCl 10 mg 12/20/23 00:53 Dicyclomine Hcl 10 Mg Capsule PO QID PRN cramping Enoxaparin Sodium 40 mg 12/21/23 09:00 12/21/23 09:25 Enoxaparin 40 Mg/0.4 Ml Syringe SUB-Q 40 mg DAILY EKATERINA Administration Hydromorphone HCl 1 mg 12/20/23 06:14 12/20/23 17:47 Hydromorphone Hcl Inj (*Crx) 1 Mg/Ml Syr IV PUSH 1 mg Q3H PRN Administration Pain Rated 7-10 Piperacillin/Tazobac
[2023-12-21] MEDS: PANTOPRAZOLE 40 MG TABLET PO (13:50)
[2023-12-21] MEDS: OXcarbazepine 300 MG TABLET PO ×2 (13:50→17:51)
[2023-12-21] MEDS: busPIRone HCL 2.5 MG TABLET 7.5 MG PO ×2 (13:50→19:09)
[2023-12-21] MEDS: amLODIPine BESYLATE 2.5 MG TABLET PO (13:50)
[2023-12-21] MEDS: OLMESARTAN MEDOXOMIL 20 MG TABLET 40 MG PO (13:51)
[2023-12-21 14:00] VITALS: BP 138/96; PULSE 82; RESP 20; TEMP 36.7; O2SAT 98
[2023-12-21 19:21] LABS: Toxigenic C. Diff POSITIVE (NEGATIVE)
--- NOTE | 2023-12-21 19:34 | PM.PNGS ---
Progress Note: A&P Assessment and Plan (1) Biliary dyskinesia: Code(s): K82.8 - Other specified diseases of gallbladder Status: Acute Assessment and Plan: HIDA scan results discussed with patient. Poor gallbladder function seems like the most likely cause of his nausea and epigastric pain. Discussed that I can't guarantee that all symptoms will be resolved with surgery, but this does have at least and 80% chance of getting him better. I have recommended proceeding with laparoscopic cholecystectomy, possible open. I discussed the procedure, risks, benefits, and alternatives. Questions answered. Patient would like to proceed. (2) Epigastric pain: Code(s): R10.13 - Epigastric pain Status: Acute (3) Colitis: Code(s): K52.9 - Noninfective gastroenteritis and colitis, unspecified Status: Acute Subjective Subjective Date/Time Seen: 12/21/23 19:34 Interval history: Still having some nausea and epigastric pain. HIDA scan done today. Patient had recurrence of symptoms with CCK administration. Exam GI: Inspection: normal to inspection and non-distended GI Palp: Yes Tenderness to palpation present (GI) (epigastric) Auscultation: normal bowel sounds Objective Data Vital Signs Vital Signs: Vital Signs - 24 hr 12/20/23 21:58 12/20/23 20:00 12/21/23 05:40 Temperature 36.6 C 36.3 C L Pulse Rate 74 72 Respiratory Rate 16 16 Blood Pressure 135/81 113/63 Pulse Oximetry 99 99 Oxygen Delivery Room Air 12/21/23 14:00 Temperature 36.7 C Pulse Rate 82 Respiratory Rate 20 Blood Pressure 138/96 H Pulse Oximetry 98 Oxygen Delivery Intake/Output Intake/Output: Intake & Output 12/18/23 12/19/23 12/20/23 12/21/23 23:59 23:59 23:59 23:59 Intake Total 1200 2604.6 550 Balance 1200 2604.6 550 Meds/Results Medications: Active Medications Generic Name Dose Route Start Last Admin Trade Name Freq PRN Reason Stop Dose Admin Acetaminophen 650 mg 12/19/23 20:20 12/20/23 09:14 Acetaminophen 325 Mg Tablet PO 650 mg Q4H PRN Administration Mild Pain (1-3) or Fever Amlodipine Besylate 2.5 mg 12/20/23 09:00 12/21/23 13:50 Amlodipine Besylate 2.5 Mg Tablet PO 2.5 mg DAILY EKATERINA Administration Buspirone HCl 7.5 mg 12/20/23 09:00 12/21/23 19:09 Buspirone Hcl 2.5 Mg Tablet PO 01/19/24 08:59 7.5 mg BID EKATERINA Administration Dicyclomine HCl 10 mg 12/20/23 00:53 Dicyclomine Hcl 10 Mg Capsule PO QID PRN cramping Enoxaparin Sodium 40 mg 12/21/23 09:00 12/21/23 09:25 Enoxaparin 40 Mg/0.4 Ml Syringe SUB-Q 40 mg DAILY EKATERINA Administration Hydromorphone HCl 1 mg 12/20/23 06:14 12/20/23 17:47 Hydromorphone Hcl Inj (*Crx) 1 Mg/Ml Syr IV PUSH 1 mg Q3H PRN Administration Pain Rated 7-10 Piperacillin/Tazobactam/Dextrose 3.375 gm in 50 mls @ 100 mls/hr 12/20/23 12:00 12/21/23 18:21 Zosyn 3.375 Gm/Ns 50 Ml IVPB Infused Q6H EKATERINA Infusion Levothyroxine Sodium 50 mcg 12/20/23 06:30 12/21/23 05:50 Levothyroxine Sodium 50 Mcg Tablet PO 50 mcg DAILY@0630 EKATERINA Administration Miscellaneous Information 0 each 12/20/23 00:01 12/21/23 01:35 Vortioxetine Nonform Can Pt Bring From Home? XX 01/19/24 00:00 Not Given CLARIFY EKATERINA Non-Formulary Medication 10 mg 12/20/23 09:00 Vortioxetine [Trintellix] PO 01/19/24 08:59 DAILY EKATERINA Non-Formulary 1 each 12/20/23 17:25 12/21/23 13:51 Trintellix ( PO 01/19/24 17:24 1 each Vortioxetine DAILY EKATERINA Administration Hydrobromide 10 Mg Oral Tablet) Olmesartan 40 mg 12/20/23 09:00 12/21/23 13:51 Olmesartan Medoxomil 20 Mg Tablet PO 01/19/24 08:59 40 mg DAILY EKATERINA Administration Ondansetron HCl 4 mg 12/19/23 20:20 12/21/23 09:24 Ondansetron Inj 4 Mg/2 Ml Vial IV PUSH 4 mg Q4H PRN Administration Nausea Oxcarbazepine 300 mg 12/20/23 09:00 12/21/23 17:51 Oxcarbazepine 300 Mg Tablet PO 300 mg TID
[2023-12-21 20:46] VITALS: BP 124/84; PULSE 86; RESP 16; TEMP 36.8; O2SAT 100
[2023-12-21] MEDS: FIDAXOMICIN 200 MG TABLET PO (21:38)
[2023-12-22] VITALS (14 sets, daily range): BP systolic 123–155; BP diastolic 66–100; PULSE 70–98; RESP 14–18; TEMP 36.1–36.4; O2SAT 96–100
[2023-12-22] MEDS: PIPERACILLN/TAZ 3.375GM/NS50ML 3.375 GM/50 ML BAG IVPB ×3 (00:21→12:09)
[2023-12-22] MEDS: HYDROmorphone HCL INJ (*CRX) 1 MG/ML SYR IV PUSH ×2 (00:29→06:12)
[2023-12-22] MEDS: traMADol HCL (*CRX) 50 MG TABLET PO (05:19)
[2023-12-22] MEDS: LEVOTHYROXINE SODIUM 50 MCG TABLET PO (05:19)
[2023-12-22] MEDS: SUCRALFATE SUSP 100 MG/ML 10 ML UDC 1000 MG PO ×2 (05:20→17:09)
[2023-12-22] MEDS: amLODIPine BESYLATE 2.5 MG TABLET PO (08:50)
[2023-12-22] MEDS: OXcarbazepine 300 MG TABLET PO ×3 (08:50→17:07)
[2023-12-22] MEDS: busPIRone HCL 2.5 MG TABLET 7.5 MG PO ×2 (08:50→17:07)
[2023-12-22] MEDS: FIDAXOMICIN 200 MG TABLET PO (08:51)
--- NOTE | 2023-12-22 10:34 | PM.IMPN ---
Progress Note: A&P Assessment and Plan (1) C. difficile colitis: Code(s): A04.72 - Enterocolitis due to Clostridium difficile, not specified as recurrent Status: Acute Assessment and Plan: Chart review shows patient had a colonoscopy on 11/28/2023 showing diverticulosis and internal hemorrhoids. Biopsy did not show any evidence of colitis. Patient was seen at an outside emergency room on 12/03/2023 with abdominal pain and found to have distal colon colitis. He was discharged on Cipro and Flagyl. Antibiotics through December 12. He presented here on December 18 with recurrent abdominal pain. CT scan showing sigmoid colitis. The CT scan shows diverticulosis without diverticulitis. He was started on Cipro and Flagyl but then changed to Zosyn. General surgery was consulted. WBC normal and remaining normal. Patient feeling better. C diff has returned positive but no longer having diarrhea and abd pain better. Would still treat since could be the reason he is having lingering signs/symptoms of colitis. Dificid started last night for plans for 10 day treatment. Stop Zosyn when okay with General Surgery since patient having surgery today. (2) Nausea & vomiting: Code(s): R11.2 - Nausea with vomiting, unspecified Status: Acute Assessment and Plan: Nausea volume probably related to above. Recent right upper quadrant ultrasound shows diffuse hepatic steatosis. Gallbladder appeared normal. Patient still with nausea. HIDA scan showing abnormal decreased GB EF of 8% consistent with GB dysfunction or chronic cholecystitis. General surgery spoke with patient about the risks/benefits including that a cholecystectomy may not have any correlation to his symptoms. This was re-inforced today and he agrees to proceed with the surgery. Feel the patient is safe to proceed with surgery since colitis is very mild and he has very littlesymptoms. (3) Sleep apnea: Code(s): G47.30 - Sleep apnea, unspecified Status: Acute Assessment and Plan: Auto CPAP ordered but patient refuses. He states he has had his tonsils out and MARCIAL resolved. (4) Arthritis: Code(s): M19.90 - Unspecified osteoarthritis, unspecified site Status: Acute Assessment and Plan: Patient with psoriatic arthrits. He has been on multiple biologics in the past and now on Stelera. Explained that he needs to stay of of this medication until seen by Vocal Music Instructor. Stable. (5) HTN (hypertension), benign: Code(s): I10 - Essential (primary) hypertension Status: Acute Assessment and Plan: Patient's blood pressure was reviewed on 12/21 Blood pressure remains well controlled. Will continue to monitor (6) Hypothyroidism: Code(s): E03.9 - Hypothyroidism, unspecified Status: Acute Assessment and Plan: Stable. Continue levothyroxine. Check TSH (7) Depression: Code(s): F32.9 - Major depressive disorder, single episode, unspecified Status: Acute Assessment and Plan: Mood stable. Continue BusPar, Trileptal. Some meds are unavailable. Follow Plan DVT prophylax - lovenox Code status -full Subjective Date/time seen: 12/22/23 10:34 Interval history: 38yo male with HTN, psoriatic arthritis chronic colonic symptoms who presents with abdominal pain and found to have diverticulitis. having solid BMs now. Abd pain minimal. No issues overnight. He feels ready to proceed with surery to have GB removed. He understands that this may not make his pain or other symptoms better. No CP or SOB. No increasing SOB or CP with exertional activity (like chopping wood). Exam Narrative: AF 97.0 124/71 73 16 100% ra Gen - NARD Chest - CTA bilaterally, nml RR CV - RRR S1/S2 Abd - Soft, ND, minimal tenderness LLQ without guarding. no RUQ pain Ext - No pedal edema Psych - Nml mood and affect Skin - Warm and dry Objective Data Vital Signs Vital S
--- NOTE | 2023-12-22 13:46 | WPDANESEPPF ---
Anes - Initial Pre Proc Eval Procedure: Operation Date: 12/22/23 14:30 Proposed Procedures p Laparoscopic Cholecystectomy, Possible Open - Uriel Mondragon DO Date/Time: 12/22/23 13:46 Surgeon: Sanford Dominguez MD Pre Op Diagnosis: Sigmoid diverticulitis Patient Data Age: 38 Gender: M Height: 1.85 m Weight: 118.5 kg Last Vital Signs Temp 36.1 C L 12/22/23 13:10 Pulse 70 12/22/23 13:10 Resp 16 12/22/23 13:10 BP 155/74 H 12/22/23 13:10 Pulse Ox 98 12/22/23 13:10 O2 Del Method Room Air 12/22/23 13:10 Allergies Allergy/AdvReac Type Severity Reaction Status Date / Time methotrexate AdvReac Mild Nausea and Verified 12/19/23 17:12 Vomiting Home Medications Medication Instructions Recorded Confirmed Type multivitamin 1 tablet PO DAILY 06/02/21 12/19/23 History buspirone 7.5 mg tablet 7.5 mg PO BID 06/15/21 12/19/23 History oxcarbazepine 300 mg tablet 300 mg PO TID 06/15/21 12/19/23 History vortioxetine 10 mg tablet 10 mg PO DAILY 06/15/21 12/19/23 History (Trintellix) ustekinumab 90 mg/mL subcutaneous 90 mg subcut [id number] 11/09/23 12/19/23 History syringe (Stelara) psyllium husk 3.4 gram/5.4 gram 1 tbsp PO BID #660 grams 11/28/23 12/19/23 Rx oral powder (Metamucil) ondansetron 4 mg disintegrating 4 mg PO Q6H PRN nausea and 12/06/23 12/19/23 Rx tablet vomiting #10 tabs amlodipine 2.5 mg tablet 2.5 mg PO DAILY 12/19/23 12/19/23 History dicyclomine 10 mg capsule 10 mg PO QID PRN cramping 12/19/23 12/19/23 History levothyroxine 50 mcg tablet 50 mcg PO DAILY 12/19/23 12/19/23 History olmesartan 40 mg tablet 40 mg PO DAILY 12/19/23 12/19/23 History omeprazole 20 mg tablet,delayed 20 mg PO DAILY 12/19/23 12/19/23 History release tramadol 50 mg tablet 50 mg PO Q6H PRN Pain 12/19/23 12/19/23 History Laboratory Tests 12/21/23 18:26 C. difficile (PCR) Positive A* (NEGATIVE) Patient hx anesthesia problems: none Family hx anesthesia problems: none Results Review: All pre-operative results and documents have been reviewed as part of the pre-operative evaluation. [facility] Past Medical History Medical History Anxiety Asthma Bipolar disorder Depression History of arm fracture (~2017) Lt HTN (hypertension), benign Hypothyroidism Sleep apnea Surgical History Surgical History History of carpal tunnel release (~2017) History of decompression of ulnar nerve (~2018) Family History Family History Father Hypertension Family history of coronary artery disease Grandparent Hypertension Carcinoma of colon Family history of Alzheimer's disease Family history of malignant neoplasm of breast Mother Family history of malignant neoplasm of cervix Social History Social History (Updated 12/22/23 @ 13:46 by Yoni Edwards MD) Smoking packs per day: 1 Smoking cigarettes per day: 20.0 Years smoked: 10 Smoking pack-years: 10.00 Smoking status: Former smoker Tobacco type: cigarettes Second hand tobacco smoke exposure: No Smoking end date: 06/05/08 Alcohol intake: never Drinks per week: 1 Substance use: never Substance use type: does not use Do You Feel Safe in your Home?: Yes Lack of Transportation: No Lack of Food: Never True Current Housing: I Have Housing Concerned About Future Housing: No Difficulty Paying Gas/Electric Bills: No Difficulty Paying for Meds: No Currently Unemployed: No Education: Associate Degree Difficulty w/ Childcare or Family Care: No Living arrangements: with family Spiritual care concerns: Yes (Hoahaoism) Bebeto Rehman Final PreProcedure Day of Procedure 12/22/23 13:46 Patient weight: obese Heart: regular rate and rhythm Lungs: clear to auscultation Airway: Mallampati scale class II and class III Neurolo
--- NOTE | 2023-12-22 14:30 | WPDHPUPDATE1 ---
History and Physical Update Update Date/Time: 12/22/23 14:30 History and Physical has been reviewed, including an updated exam of the patient. There are NO changes in the patient's condition. Risks, benefits, and alternatives have been discussed and questions answered. Patient agrees to proceed with procedure.
[2023-12-22] MEDS: BUPIVACAINE/EPINEPHRINE 0.5% 50 ML VIAL 30 ML INFILTRATE (14:46)
--- NOTE | 2023-12-22 15:24 | W.PM.PROC2 ---
Procedure Note - Detailed Date of Procedure 12/22/23 Pre-op Diagnosis Biliary dyskinesia, C diff colitis Post-op Diagnosis Same Procedure Performed Laparoscopic Cholecystectomy Surgeon Uriel Mondragon, DO Anesthesia General and Local (0.5% bupivacaine) Indications This is a 38-year-old man who presented to the emergency department with epigastric abdominal pain, nausea, and vomiting. Had also been experiencing some lower abdominal pain off and on. CT in the emergency department showed evidence of sigmoid colitis. He was admitted for further treatment. He eventually was found to have evidence of C diff colitis on stool testing. He continued to have the epigastric pain with nausea and prior workup had included CT and abdominal ultrasound. He then underwent HIDA scan and was found to have poor gallbladder ejection fraction at 8%. Discussions were made with the patient about treatment options and decision was made to proceed with laparoscopic cholecystectomy, possible open. Findings Laparoscopic cholecystectomy was performed. The gallbladder had a few pericholecystic adhesions and was dilated and slightly elongated. The cystic duct was normal in size. No other significant abnormalities were noted. The gallbladder was removed and sent to the lab for pathology. Description of Procedure Procedure as well as risks, benefits, and alternatives were discussed with patient. Written consent was obtained and placed in chart prior to procedure. The patient was brought back to surgical suite. Patient was placed in supine position on operating table. Time-out was done to confirm patient and procedure. Patient was then intubated by the anesthesia department. Abdomen was prepped and draped in sterile fashion using chlorhexidine prep. 0.5% bupivacaine with epinephrine was infiltrated at each site of incision. A 5 millimeter incision was made near the umbilicus, and a 5 millimeter Optiview trocar was advanced through the abdominal layers under direct visualization. Once inside the abdominal cavity, carbon dioxide was insufflated to create a pneumoperitoneum. The camera was inserted and the abdomen was inspected. No immediate abnormalities were identified. The patient was placed in reverse Trendelenburg position and rotated slightly to the left. An 11 millimeter incision was made in the subxiphoid region, and an 11 millimeter trocar was inserted under direct visualization. Two 5 millimeter incisions were made in the right upper quadrant, and two 5 millimeter trocars were inserted under direct visualization. The gallbladder was identified and grasped at the fundus and retracted superiorly. It was then grasped at the infundibulum retracted laterally. Careful dissection around the neck of the gallbladder was performed using blunt dissection with a [place] grasper and hook electrocautery. The cystic duct was identified, and a window was created behind it. The cystic artery was also identified and a window was created behind it. The critical view of safety was identified, visualizing the cystic duct running directly into the neck of the gallbladder, and the cystic artery running directly into the wall of the gallbladder. A 5 millimeter clip patient relations specialist was then used to place 2 clips proximally and 1 clip distally on both the cystic duct and cystic artery. They were then both transected using endoscopic scissors. Once safely away from the keiko hepatitis, the gallbladder was dissected free from the liver bed using hook electrocautery. Hemostasis was achieved along the way. The gallbladder was removed completely and then removed through the subxiphoid port. The liver bed was then inspected. Hemostasis appeared adequate, and our clips appeared secure. The area was gently irrigated with sterile saline. No other abnormalities were seen. The patient was flattened out in bed, and 1 final inspection was made around the abdominal cavity. The subxiphoid port was removed, and a
[2023-12-22] MEDS: LACTATED RINGERS 1,000 ML 30 ML IV CONT ×2 (15:31→15:51)
[2023-12-22] MEDS: fentaNYL CITRATE INJ (*CRX) 100 MCG/2 ML VIAL 25 MCG IV PUSH ×7 (15:40→16:10)
[2023-12-22] MEDS: HYDROmorphone HCL INJ (*CRX) 1 MG/ML SYR 0.5 MG IV PUSH ×4 (16:19→16:55)
[2023-12-22] MEDS: PANTOPRAZOLE 40 MG TABLET PO (17:09)
--- NOTE | 2023-12-22 17:48 | PM.DS ---
DS: Admitting Diagnosis Discharge Date 12/22/23 Admitting Diagnosis Abdominal pain DS: Discharge Diagnosis Discharge Diagnosis (1) C. difficile colitis: Code(s): A04.72 - Enterocolitis due to Clostridium difficile, not specified as recurrent Status: Acute (2) Nausea & vomiting: Code(s): R11.2 - Nausea with vomiting, unspecified Status: Acute (3) Sleep apnea: Code(s): G47.30 - Sleep apnea, unspecified Status: Acute (4) Arthritis: Code(s): M19.90 - Unspecified osteoarthritis, unspecified site Status: Acute (5) HTN (hypertension), benign: Code(s): I10 - Essential (primary) hypertension Status: Acute (6) Hypothyroidism: Code(s): E03.9 - Hypothyroidism, unspecified Status: Acute (7) Depression: Code(s): F32.9 - Major depressive disorder, single episode, unspecified Status: Acute DS: Summary Hospital Course Reason for hospitalization: 38yo male with HTN, psoriatic arthritis chronic colonic symptoms who presents with abdominal pain and found to have diverticulitis. Please see H&P for details. Hospital Course: Chart review shows patient had a colonoscopy on 11/28/2023 showing diverticulosis and internal hemorrhoids. Biopsy did not show any evidence of colitis. Patient was seen at an outside emergency room on 12/03/2023 with abdominal pain and found to have distal colon colitis. He was discharged on Cipro and Flagyl. Antibiotics through December 12. He presented here on December 18 with recurrent abdominal pain. CT scan showing sigmoid colitis. The CT scan shows diverticulosis without diverticulitis. He was started on Cipro and Flagyl but then changed to Zosyn. General surgery was consulted. WBC normal and remaining normal. Patient feeling better. C diff has returned positive but no longer having diarrhea and abd pain better. Would still treat since could be the reason he is having lingering signs/symptoms of colitis. Dificid with plans for 10 day treatment. Stopped Zosyn. Patient also with nausea and vomiting. Recent right upper quadrant ultrasound shows diffuse hepatic steatosis. Gallbladder appeared normal. HIDA scan showing abnormal decreased GB EF of 8% consistent with GB dysfunction or chronic cholecystitis. General surgery spoke with patient about the risks/benefits including that a cholecystectomy may not have any correlation to his symptoms. This was reinforced and he agrees to proceed with the surgery. Patient underwent a laparoscopic cholecystectomy on 12/22/23 and tolerated the procedure well. He was insistent on discharge. He was eating and tolerating without symptoms, abdominal pain tolerable and he was up walking in the halss after the procedure. Patient had MARCIAL so auto CPAP ordered but patient refuses. He states he has had his tonsils out and MARCIAL resolved. Patient with psoriatic arthritis. He has been on multiple biologics in the past and now on Stelera. Explained that he needs to stay off of this medication until seen by Insurance Manager. He voices understanding. He overall did well and was able to be discharged on 12/23/23. Status at Discharge Cognitive/behavioral status at discharge: stable Time Spent with Patient Time attestation: Total time spent providing and/or coordinating discharge services: 38 minutes Time spent: Greater than 30 minutes Exam Narrative: AF 97.0 124/71 73 16 100% ra Gen - NARD Chest - CTA bilaterally, nml RR CV - RRR S1/S2 Abd - Soft, ND, minimal tenderness LLQ without guarding. no RUQ pain Ext - No pedal edema Psych - Nml mood and affect Skin - Warm and dry DS: Data Data Completed and Pending Pending studies at discharge: Pending at discharge 12/22/23 15:06 Surgical [PTH] Routine Labs on day of discharge: Labs from last 24 hours 12/21/23 18:26 C. difficile (PCR) Positive A* Discharge Plan Discharge Attending physician on discharge: Tye Perez
== END 2023-12-22 19:17 | disposition home or self-care (01) | DRG 418 ==
LOC: ANHED 20:17 → ANH3MEDSUR 21:38
PROVIDERS: Nurse Practitioner Family; Surgery; Admitting Provider Internal Medicine; Emergency Provider Family Medicine; PCP Physician Assistant; Visit Provider Internal Medicine
PROC: 0FT44ZZ Resection of Gallbladder, Percutaneous Endoscopic Approach (ICD-10-PCS; CPT 47562; principal; 2023-12-22 14:30)
DX: K82.8 Other specified diseases of gallbladder (principal); A04.72 Enterocolitis due to Clostridium difficile, not specified as recurrent; L40.50 Arthropathic psoriasis, unspecified; K57.30 Diverticulosis of large intestine without perforation or abscess without bleeding; I10 Essential (primary) hypertension; J45.909 Unspecified asthma, uncomplicated; E03.9 Hypothyroidism, unspecified; G47.30 Sleep apnea, unspecified; F41.9 Anxiety disorder, unspecified; F31.9 Bipolar disorder, unspecified; Z87.891 Personal history of nicotine dependence
CPT/HCPCS: 36415; 74177; 78227; 80048; 80053; 81003; 83605; 83690; 85025; 87493; 88304; 96361; 96374; 96375; 99285; A9270; A9537; J0330; J0744; J1100; J1170; J1650; J1836; J2250; J2270; J2371; J2405; J2543; J2704; J2805; J3010; J7030; J7120; Q9967

== ENCOUNTER 2024-03-28 15:33 | Outpatient (CLI) | payer BC, SELFPAY ==
--- NOTE | ~2024-03-28 | MR_ITS ---
EXAMINATION: MR brain/brain stem wo/w con DATE: 03/28/2024 16:54 INDICATION: Daily persistent headaches TECHNIQUE: Magnetic resonance imaging (MRI) of the brain and brainstem was performed without and with 20 mL Multihance intravenous contrast. Sequences included sagittal and axial T1-weighted SE, axial d iffusion-weighted FS SE, axial 3D SWAN, axial T2-weighted FLAIR, and axial T2-weighted FSE. Postcontr ast axial and coronal T1-weighted SE was obtained. Apparent diffusion coefficient (ADC) maps were cre ated. COMPARISON: None. FINDINGS: There are no areas of restricted diffusion to suggest acute infarction. No intracranial hemorrhage or abnormal intracranial mass lesion. There are no intraparenchymal signal abnormalities seen on the ot her pulse sequences. The ventricles are symmetric and normal in size. There are no abnormal extra-axi al fluid collections. Flow voids are seen in the cerebral arteries on the T2-weighted sequences consi stent with their expected patency. Visualized orbits and soft tissues are unremarkable. There are no areas of abnormal enhancement on the post contrast images. IMPRESSION: 1. Normal brain MR. Reviewed, dictated and finalized at location A. IMPRESSION: 1. Normal brain MR.
== END 2024-03-28 15:34 | disposition home or self-care (01) ==
LOC: ANHIMG 15:36
PROVIDERS: PCP Physician Assistant; Visit Provider Physician Assistant
DX: G44.52 New daily persistent headache (NDPH) (principal)
CPT/HCPCS: 70553; A9577

== ENCOUNTER 2024-04-15 08:08 | Outpatient (CLI) | payer BC, SELFPAY ==
--- NOTE | 2024-04-15 | EST_ITS ---
Patient Info Name: Tj Chappell Age: 38 years : 1985 Gender: Male Ht: 73 in Wt: 260 lbs BSA: 2.50 m2 HR: 80 bpm BP: 138 / 79 mmHg Exam Date: 04/15/2024 9:04 AM Exam Location: [facility] Patient Status: Outpatient Admit Date: 04/15/2024 Staff Ordering Physician: BeatriceNithya PA-C Attending Provider: BeatriceNithya PA-C Exercise Technologist: Cecy Reyes RDCS Nurse: Ana Laura Cortez APN Exam Type: CA stress test treadmill w NM Study Info A nuclear stress test was performed. Summary 1. The exercise stress portion of test is negative for ECG criteria for ischemia. The patient has good exercise tolerance. Protocol: Pako Stress ECG Details Stage: REST Duration (min): 1 min : 12 sec Speed (mph): 0.0 Grade (%): 0 HR (bpm): 79 SBP (mmHg): 138 DBP (mmHg): 79 METS: --- Stage: REST Duration (min): 11 min : 29 sec Speed (mph): 0.0 Grade (%): 0 HR (bpm): 80 SBP (mmHg): 138 DBP (mmHg): 79 METS: --- Stage: STAGE 1 Duration (min): 1 min : 0 sec Speed (mph): 1.7 Grade (%): 10 HR (bpm): 107 SBP (mmHg): 138 DBP (mmHg): 79 METS: --- Stage: STAGE 1 Duration (min): 2 min : 0 sec Speed (mph): 1.7 Grade (%): 10 HR (bpm): 113 SBP (mmHg): 138 DBP (mmHg): 79 METS: --- Stage: STAGE 1 Duration (min): 3 min : 0 sec Speed (mph): 1.7 Grade (%): 10 HR (bpm): 117 SBP (mmHg): 159 DBP (mmHg): 75 METS: --- Stage: STAGE 2 Duration (min): 1 min : 0 sec Speed (mph): 2.5 Grade (%): 12 HR (bpm): 123 SBP (mmHg): 159 DBP (mmHg): 75 METS: --- Stage: STAGE 2 Duration (min): 2 min : 0 sec Speed (mph): 2.5 Grade (%): 12 HR (bpm): 131 SBP (mmHg): 147 DBP (mmHg): 56 METS: --- Stage: STAGE 2 Duration (min): 3 min : 0 sec Speed (mph): 2.5 Grade (%): 12 HR (bpm): 137 SBP (mmHg): 147 DBP (mmHg): 56 METS: --- Stage: STAGE 3 Duration (min): 1 min : 0 sec Speed (mph): 3.4 Grade (%): 14 HR (bpm): 144 SBP (mmHg): 158 DBP (mmHg): 58 METS: --- Stage: STAGE 3 Duration (min): 2 min : 0 sec Speed (mph): 3.4 Grade (%): 14 HR (bpm): 152 SBP (mmHg): 158 DBP (mmHg): 58 METS: --- Stage: STAGE 3 Duration (min): 3 min : 0 sec Speed (mph): 3.4 Grade (%): 14 HR (bpm): 158 SBP (mmHg): 167 DBP (mmHg): 98 METS: --- Stage: STAGE 4 Duration (min): 0 min : 12 sec Speed (mph): 4.2 Grade (%): 16 HR (bpm): 158 SBP (mmHg): 167 DBP (mmHg): 98 METS: --- Stage: RECOVERY Duration (min): 0 min : 47 sec Speed (mph): 0.0 Grade (%): 0 HR (bpm): 151 SBP (mmHg): 167 DBP (mmHg): 98 METS: --- Stage: RECOVERY Duration (min): 1 min : 47 sec Speed (mph): 0.0 Grade (%): 0 HR (bpm): 135 SBP (mmHg): 167 DBP (mmHg): 98 METS: --- Stage: RECOVERY Duration (min): 2 min : 47 sec Speed (mph): 0.0 Grade (%): 0 HR (bpm): 117 SBP (mmHg): 197 DBP (mmHg): 84 METS: --- Stage: RECOVERY Duration (min): 3 min : 47 sec Speed (mph): 0.0 Grade (%): 0 HR (bpm): 112 SBP (mmHg): 197 DBP (mmHg): 84 METS: --- Stage: RECOVERY Duration (min): 4 min : 47 sec Speed (mph): 0.0 Grade (%): 0 HR (bpm): 109 SBP (mmHg): 197 DBP (mmHg): 84 METS: --- Stage: RECOVERY Duration (min): 5 min : 47 sec Speed (mph): 0.0 Grade (%): 0 HR (bpm): 105 SBP (mmHg): 177 DBP (mmHg): 85 METS: --- Stage: RECOVERY Duration (min): 6 min : 47 sec Speed (mph): 0.0 Grade (%): 0 HR (bpm): 104 SBP (mmHg): 166 DBP (mmHg): 88 METS: --- Stage: RECOVERY Duration (min): 7 min : 1 sec Speed (mph): 0.0 Grade (%): 0 HR (bpm): 107 SBP (mmHg): 166 DBP (mmHg): 88 METS: --- Rest HR: 80 bpm Peak HR: 160 bpm Rest Sys BP: 138 mmHg Peak Sys BP: 197 mmHg Max Pred HR: 180 bpm % Max Pred HR: 89 % Target HR: 153 bpm Max RPP: 31,520 bpm*mmHg Mathew Score: 6 BP Response: Normal blood pressure response Max ST Seg Deviation: 1 mm Total Time: 9 min : 12 sec Rest George BP: 79 mmHg Peak George BP: 84 mmHg Angina Score: None Total METS: 10.6 Resting ECG Normal sinus rhythm with a ventricular rate of 80 beats per minute. No ischemic ST T wave changes. Stress ECG Sinus tachycardia with no ischemic ST T wave changes. Arrhythmias No arrhythmias noted during exercise, rest, or recovery. Report Signatures
--- NOTE | ~2024-04-15 | NM_ITS ---
EXAMINATION: NM stress w perf spect multi DATE: 04/15/2024 10:12 INDICATION: Family history of premature coronary artery disease. TECHNIQUE: Rest images were obtained following intravenous administration of 10.9 mCi Tc99m tetrofosm in (Myoview). The patient performed an exercise activity. At peak exercise, 33.7 mCi Tc99m tetrofosmi n (Myoview) was administered intravenously, and stress images were obtained. Data was reconstructed i nto short axis and horizontal and vertical long axis SPECT images. Gated SPECT images were also obtai cayla. COMPARISON: CT abdomen and pelvis 12/19/2023 FINDINGS: There is no definite reversible or fixed perfusion abnormality to suggest ischemia or infar ction. There is no segmental wall motion abnormality. Left ventricular ejection fraction measures 6 8%. IMPRESSION: 1. No definite ischemia or infarct. 2. Normal left ventricular ejection fraction measuring 68%. Reviewed, dictated and finalized at location A. 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
== END 2024-04-15 08:09 | disposition home or self-care (01) ==
LOC: ANHCARD 08:09
PROVIDERS: PCP Physician Assistant; Visit Provider Physician Assistant
DX: Z13.6 Encounter for screening for cardiovascular disorders (principal); Z82.49 Family history of ischemic heart disease and other diseases of the circulatory system
CPT/HCPCS: 78452; 93017; A9502

== ENCOUNTER 2024-09-02 14:22 | Emergency (ER) | payer BC, SELFPAY ==
--- NOTE | ~2024-09-02 | XR_ITS ---
XR lumbar spine 2-3V 09/02/2024 14:58 Indication: Low back pain Procedure: 3 views lumbar spine Comparison: CT abdomen dated 01/07/2020 seventh Findings: There is disc narrowing at L4-5 and L5-S1. There is facet hypertrophy at these levels. No f racture, subluxation or dislocation. Vertebral body heights are maintained. There are cholecystectomy clips. Pedicles intact. Sacral foramen are symmetric. Impression: 1: Moderate lower lumbar spondylosis. Reviewed, dictated and finalized at location A. Impression: 1: Moderate lower lumbar spondylosis.
--- NOTE | 2024-09-02 14:25 | ED_ITS ---
HPI - Ear Problem General Chief complaint: Ear Stated complaint: Ear Pain/Back Pain Source: patient and RN notes reviewed Mode of arrival: ambulatory Limitations: no limitations History of Present Illness HPI Narrative: Patient is a 39-year-old male who presents to the [facility] with complaints of right ear pain and low back pain. Patient states that he has had right ear pain for the past week. It has continued to worsen in severity. He states over the last 2 days he has also noted decreased hearing out of the right ear. States that he has dealt with some congestion over the last week as well. Denies known fevers. Denies ear drainage. Patient also reports right-sided low back pain. He states that he was gardening over the weekend and planting plantar boxes and may have tweaked his back. He reports chronic low back pain. States that he sees Ortho Spine and will need to have a spinal fusion within the past couple years to his lumbar spine. He believes that he may pulled muscle in his back. He denies numbness. Denies dysfunction of bladder or bowel. Pain worsens with movement and ambulation. Related Data Home Medications ?Medication ?Instructions ?Recorded ?Confirmed ?Last Taken ?Type multivitamin 1 tablet PO DAILY 06/02/21 07/22/24 12/19/23 09:00 History buspirone 7.5 mg tablet 7.5 mg PO BID 06/15/21 07/22/24 12/19/23 16:30 History vortioxetine 10 mg tablet 10 mg PO DAILY 06/15/21 07/22/24 12/19/23 09:00 History (Trintellix) levothyroxine 50 mcg tablet 50 mcg PO DAILY 12/19/23 07/22/24 12/19/23 09:00 History olmesartan 40 mg tablet 40 mg PO DAILY 12/19/23 07/22/24 12/19/23 09:00 History omeprazole 20 mg tablet,delayed 20 mg PO DAILY 12/19/23 07/22/24 12/19/23 09:00 History release amlodipine 10 mg tablet (Norvasc) 10 mg PO DAILY 07/22/24 07/22/24 Unknown History hydrochlorothiazide 12.5 mg tablet 12.5 mg PO DAILY 07/22/24 07/22/24 Unknown History infliximab 100 mg intravenous IV 07/22/24 07/22/24 Unknown History solution (Remicade) oxcarbazepine 300 mg tablet 300 mg PO QID 07/22/24 07/22/24 Unknown History Allergies Allergy/AdvReac Type Severity Reaction Status Date / Time methotrexate AdvReac Mild Nausea and Verified 09/02/24 14:31 Vomiting amoxicillin AdvReac Nausea and Verified 09/02/24 14:31 Vomiting Review of Systems Review of Systems: CONSTITUTIONAL: Denies fever, chills, or sweats. EYES: Denies visual changes, redness, or discharge. ENT: Reports right otalgia but denies sore throat CARDIOVASCULAR: Denies chest pain, palpitations, or edema. RESPIRATORY: Denies cough or dyspnea. GASTROINTESTINAL: Denies abdominal pain, nausea, vomiting, or diarrhea. GENITOURINARY: Denies dysuria or hematuria. SKIN: Denies rash or itching. MUSCULOSKELETAL: Reports back pain but denies joint pain or myalgia. NEUROLOGIC: Denies headache, numbness, or weakness. Pertinent positives per HPI. [facility] Past Medical History Medical History Epigastric pain Lower abdominal pain Encounter for surgical aftercare following surgery on the digestive system Post-operative pain Neoplasm of uncertain behavior of skin Basal cell carcinoma of skin C. difficile colitis Chronic tonsillitis Recurrent tonsillitis Tonsil asymmetry Tonsillar hypertrophy Hypothyroidism HTN (hypertension), benign Asthma Sleep apnea History of arm fracture (~2016) Lt Bipolar disorder Depression Anxiety Surgical History Surgical History History of laparoscopic cholecystectomy 12/22/23 History of decompression of ulnar nerve (~2018) History of carpal tunnel release (~2018) Family History Family History Father Hypertension Family history of coronary artery disease Grandparent Hypertension Carcinoma of colon Family history of Alzheimer's disease Family history of malignant neoplasm of breast Mother Family history of malignant neoplasm of cervix Social History Social History Smoking packs per day: 1 Smoking cigarettes per day: 20.0 Years smoked: 10 Smoking pack-years: 10.00 Smoking status: Former smoker Tobacco type: cigarettes Second hand tobacco smoke exposure: No Smoking end date: 06/05/08 Alcohol intake: never Drinks per week: 1 Substance use: never Substance use type: does not use Do You Feel Safe in your Home?: Yes Lack of Transportation: No Lack of Food: Never True Current Housing: I Have Housing Concerned About Future Housing: No Difficulty Paying Gas/Electric Bills: No Difficulty Paying for Meds: No Currently Unemployed: No Education: Associate Degree Difficulty w/ Childcare or Family Care: No Living arrangements: with family Spiritual care concerns: Yes (Hindu) Comments At the time of my signature, I reviewed and agree with the nursing past medical, surgical, social, and family history. There is no relevant family history pert inent to the patient complaint. Exam Narrative: GENERAL: This is a well-nourished, well-developed patient, in no apparent distress. HEAD: normocephalic, atraumatic. EYES: Sclera clear/white. Vision is grossly intact. EARS: External ears normal, auditory canals clear and without drainage, Left TMs normal without perforation. Right TM erythematous and bulging. NOSE: External nose normal with no obvious nasal discharge, nares without redness, no rhinorrhea. THROAT: Mucous membranes moist, posterior pharynx clear. NECK: Neck supple, non-tender without lymphadenopathy, masses or thyromegaly. CARDIOVASCULAR: Regular rate and rhythm without murmurs, gallops, or rubs. RESPIRATORY: Clear to auscultation. Breath sounds equal bilaterally. No wheezes, rales, or rhonchi. GASTROINTESTINAL: Abdomen soft, non-tender, nondistended. Bowel sounds are active. No hepato-splenomegaly, or palpable masses. No guarding. SKIN: warm, intact with no suspicious lesions or rash, good texture and turgor. NEURO: awake, alert, and oriented to person, place and time. There were no obvious focal neurologic abnormalities. EXTREMITIES: No clubbing, cyanosis, or edema. No joint tenderness, effusion, or edema noted. BACK: BACK: Tenderness in the paraspinous muscles in the lumbar area. No tenderness over the spinous processes of the lumbar vertebrae. LEGS: Normal strength including dorsi-flexion and plantar flexion of the feet. Negative bilateral straight leg raising, normal and symmetrical knee and ankle reflexes. Course Course Level of Care: Express Care Visit Vital Signs Vital signs: Vital Signs Temperature 97.6 F 09/02/24 14:30 Pulse Rate 88 09/02/24 14:30 Respiratory Rate 16 09/02/24 14:30 Blood Pressure 131/89 09/02/24 14:30 Pulse Oximetry 97 09/02/24 14:30 Temperature 97.6 F 09/02/24 14:30 Pulse Rate 88 09/02/24 14:30 Respiratory Rate 16 09/02/24 14:30 Blood Pressure 131/89 09/02/24 14:30 Pulse Oximetry 97 09/02/24 14:30 Reviewed Medical Decision Making MDM Narrative Medical decision making narrative: Use the RICE method at home. May take ibuprofen and/or Tylenol if needed. If symptoms persist in 1 week after conservative treatment, follow-up with specialist. Take antibiotics as directed. May given ibuprofen and/or Tylenol as needed for pain and/or fever. Follow up with primary care provider in 7-10 days to have ear rechecked. Differential Diagnosis Differential Diagnosis: otitis media, otitis externa, cerumen impaction, lumbar strain, sciatica, compression fracture Vital Signs Vital Signs: Vital Signs Temperature 97.6 F 09/02/24 14:30 Pulse Rate 88 09/02/24 14:30 Respiratory Rate 16 09/02/24 14:30 Blood Pressure 131/89 09/02/24 14:30 Pulse Oximetry 97 09/02/24 14:30 Temperature 97.6 F 09/02/24 14:30 Pulse Rate 88 09/02/24 14:30 Respiratory Rate 16 09/02/24 14:30 Blood Pressure 131/89 09/02/24 14:30 Pulse Oximetry 97 09/02/24 14:30 Imaging Data Radiologist's impression: ? Arlene Collins, [facility] [place] My Patients ?4? All Patients ?4? [place] ?21? [place] ?13? [place] ?10? [facility] Room 7? 5m? [facility] [place]? Cinthya Woods? 44? ?? Upper Respiratory Infection? In Room? REG ER? PHYSICIAN,WINDOWS SYSTEMS ADMINISTRATOR? Arlene Collins ? ? Order Departed Patients? 41m? 4? ?? [facility] [place]? Amie Juarez? 6? ?? Ear? Ready for Discharge? REG ER? PHYSICIAN,WINDOWS SYSTEMS ADMINISTRATOR? Arlene Collins ? [facility] ED: Draft? Order BP Pulse 90 Resp 18 Temp 97.6 F O2 Sat 100% [facility] Room 6? 53m? 4? ?? [facility] [place]? Tj Chappell? 41? ?? Ear? In Room? REG ER? PHYSICIAN,WINDOWS SYSTEMS ADMINISTRATOR? Arlene Collins ? [facility] ED: Draft? Order BP 131/89 Pulse 88 Resp 16 Temp 97.6 F O2 Sat 97% * XR lumbar ... Departed Patients? 1h 16m? 4? ?? [facility] [place]? Obie Tavera? 65? ?? Wound/Laceration? Ready for Discharge? REG ER? PHYSICIAN,WINDOWS SYSTEMS ADMINISTRATOR? Arlene Collins ? [facility] Wound/Laceration ED: Draft? Order BP 145/96 Pulse 98 Resp 20 Temp 97.5 F O2 Sat 96% XR lumbar spine 2-3V Stat Tj Chappell??39??M??1985 ? Allergy/Adv: methotrexate, amoxicillin [facility] ACTIVITY DATE EXAM STATUS AUTHOR 09/02/24 15:03 Lumbar Spine X-Ray Signed [facility] Reports Close Lumbar Spine X-Ray (Signed) Tushar Ruiz - 09/02/24 [facility] [address] [place] [address] XRay Report Signed Patient: Tj Chappell : 1985 MR#: [id number] Age: 39 Acct:[id number] Loc: [facility] ADM Date: 09/02/24Attending Dr: Ordering Physician: Arlene Collins APRN Date of Service: 09/02/24 Procedure(s): XR lumbar spine 2-3V Accession Number(s): [id number] cc: Arlene Collins APRN; WINDOWS SYSTEMS ADMINISTRATOR PHYSICIAN~ XR lumbar spine 2-3V 09/02/2024 14:58 Indication: Low back pain Procedure: 3 views lumbar spine Comparison: CT abdomen dated 01/07/2020 seventh Findings: There is disc narrowing at L4-5 and L5-S1. There is facet hypertrophy at these levels. No fracture, subluxation or dislocation. Vertebral body heights are maintained. There are cholecystectomy clips. Pedicles intact. Sacral foramen are symmetric. Impression: 1: Moderate lower lumbar spondylosis. Reviewed, dictated and finalized at location A. Please be advised this is a medical document. It is intended for [id number] communication. It is written in medical language and may contain unfamiliar abbreviations or verbiage. Medical documents are intended to carry relevant information, facts as evident, and the clinical opinion of the practitioner at the time of the encounter. This report may have been done utilizing a voice recognition system. Attempts have been made to correct errors. However, there may be uncorrected grammatical, spelling, and recognition errors present. The file time of this note does not necessarily represent the time of service. Dictated By: Tushar Ruiz MD 09/02/24 1503 Signed By: <Electronically signed by Tushar Ruiz MD in OV> 09/02/24 1511 Critical Care Time Critical Care Time Critical Care Time: No Discharge Plan Discharge Clinical Impression: Acute right otitis media Acute right-sided low back pain Qualifiers: Sciatica presence: unspecified whether sciatica present Qualified Code(s): M54.50 - Low back pain, unspecified Patient Disposition: Home, Self-Care Condition: Stable Instructions: Antibiotic Form, Ear Infection (ED), Acute Low Back Pain (ED) Additional Instructions: Use the RICE method at home. May take ibuprofen and/or Tylenol if needed. If symptoms persist in 1 week after conservative treatment, follow-up with specialist. Take antibiotics as directed. May given ibuprofen and/or Tylenol as needed for pain and/or fever. Follow up with primary care provider in 7-10 days to have ear rechecked. Patient Language: Senegalese Prescriptions: New cefdinir 300 mg capsule 300 mg PO Q12H 10 Days Qty: 20 0RF dexamethasone 4 mg tablet 4 mg PO DAILY 5 Days Qty: 5 0RF cyclobenzaprine 10 mg tablet 10 mg PO HS PRN (Reason: muscle spasm) Qty: 14 0RF naproxen 500 mg tablet 500 mg PO BID PRN (Reason: pain) Qty: 20 0RF No Action amlodipine [Norvasc] 10 mg tablet 10 mg PO DAILY hydrochlorothiazide 12.5 mg tablet 12.5 mg PO DAILY infliximab [Remicade] 100 mg recon soln IV multivitamin Tablet 1 tablet PO DAILY buspirone 7.5 mg tablet 7.5 mg PO BID Trintellix 10 mg tablet 10 mg PO DAILY oxcarbazepine 300 mg tablet 300 mg PO QID levothyroxine 50 mcg Tablet 50 mcg PO DAILY olmesartan 40 mg Tablet 40 mg PO DAILY omeprazole 20 mg Tablet,Delayed Release (Dr/Ec) 20 mg PO DAILY Follow-up/Referrals: PHYSICIAN,WINDOWS SYSTEMS ADMINISTRATOR [Primary Care Provider] - Time of Disposition: 15:20
[2024-09-02 14:30] VITALS: BP 131/89; PULSE 88; RESP 16; TEMP 36.4; O2SAT 97
== END 2024-09-02 15:23 | disposition home or self-care (01) ==
PROVIDERS: Emergency Provider Nurse Practitioner
DX: H66.91 Otitis media, unspecified, right ear (principal); M54.50 Low back pain, unspecified; Z87.891 Personal history of nicotine dependence; I10 Essential (primary) hypertension; E03.9 Hypothyroidism, unspecified; J45.909 Unspecified asthma, uncomplicated; F41.9 Anxiety disorder, unspecified; F32.A Depression, unspecified; Z86.19 Personal history of other infectious and parasitic diseases; Z85.828 Personal history of other malignant neoplasm of skin
CPT/HCPCS: 72100; 99213; G0463

== ENCOUNTER 2024-09-10 10:58 | Emergency (ER) | payer BC, SELFPAY ==
[2024-09-10 11:08] VITALS: BP 129/92; PULSE 89; RESP 16; TEMP 36.7; O2SAT 98
--- NOTE | 2024-09-10 11:14 | ED.EAR ---
HPI - Ear Problem General Chief complaint: Ear Stated complaint: Ear Pain Time Seen by Provider: 09/10/24 11:14 Source: patient, RN notes reviewed and old records reviewed Mode of arrival: ambulatory Limitations: no limitations History of Present Illness HPI Narrative: 39 year old male who presets to express care with complaints of continued feelings of pressure to his right ear with decreased hearing. Patient reports that he had an episode of dizziness yesterday. Patient was seen on the 02 of September for ear infection and received antibiotic and Decadron for his right ear infection which patient reports that he completed with no improvement in his hearing. Patient reports no pain to his ear just feels pressure sensation and has not noted any drainage from his ear. MD Complaint: decreased hearing and other (pressure) Location: right ear Severity: moderate Discharge from ear: Reports no Treatment prior to arrival: other (zunilda Nabila) Related Data Home Medications ?Medication ?Instructions ?Recorded ?Confirmed ?Last Taken ?Type multivitamin 1 tablet PO DAILY 06/02/21 07/22/24 12/19/23 09:00 History buspirone 7.5 mg tablet 7.5 mg PO BID 06/15/21 07/22/24 12/19/23 16:30 History vortioxetine 10 mg tablet 10 mg PO DAILY 06/15/21 07/22/24 12/19/23 09:00 History (Trintellix) levothyroxine 50 mcg tablet 50 mcg PO DAILY 12/19/23 07/22/24 12/19/23 09:00 History olmesartan 40 mg tablet 40 mg PO DAILY 12/19/23 07/22/24 12/19/23 09:00 History omeprazole 20 mg tablet,delayed 20 mg PO DAILY 12/19/23 07/22/24 12/19/23 09:00 History release amlodipine 10 mg tablet (Norvasc) 10 mg PO DAILY 07/22/24 07/22/24 Unknown History hydrochlorothiazide 12.5 mg tablet 12.5 mg PO DAILY 07/22/24 07/22/24 Unknown History infliximab 100 mg intravenous IV 07/22/24 07/22/24 Unknown History solution (Remicade) oxcarbazepine 300 mg tablet 300 mg PO QID 07/22/24 07/22/24 Unknown History Allergies Allergy/AdvReac Type Severity Reaction Status Date / Time methotrexate AdvReac Mild Nausea and Verified 09/10/24 11:01 Vomiting amoxicillin AdvReac Nausea and Verified 09/10/24 11:01 Vomiting Review of Systems Review of Systems: CONSTITUTIONAL: Denies malaise, chills, sweats, or fever. EYES: Denies visual changes, redness, or discharge. ENT: Reports rhinorrhea, no congestion,no sinus pain, no otalgia reports pressure sensation right ear and decreased hearing, and no sore throat. CARDIOVASCULAR: Denies chest pain, palpitations, or edema. RESPIRATORY: Reports no cough.? Denies dyspnea. GASTROINTESTINAL: Denies abdominal pain, nausea, vomiting, diarrhea SKIN: Denies rash or itching. MUSCULOSKELETAL: Denies myalgia. NEUROLOGIC: Denies headache. All systems reviewed & are unremarkable except as noted in HPI and below PMFSH Past Medical History Medical History (Updated 09/11/24 @ 09:24 by Nona Terrell NP) Psoriatic arthritis Epigastric pain Lower abdominal pain Encounter for surgical aftercare following surgery on the digestive system Post-operative pain Neoplasm of uncertain behavior of skin Basal cell carcinoma of skin C. difficile colitis Chronic tonsillitis Recurrent tonsillitis Tonsil asymmetry Tonsillar hypertrophy Hypothyroidism HTN (hypertension), benign Asthma Sleep apnea History of arm fracture (~2017) Lt Bipolar disorder Depression Anxiety Surgical History Surgical History (Updated 09/11/24 @ 09:17 by Nona Terrell NP) History of spinal surgery History of laparoscopic cholecystectomy 12/22/23 History of decompression of ulnar nerve (~2019) History of carpal tunnel release (~2018) Family History Family History Father Hypertension Family history of coronary artery disease Grandparent Hypertension Carcinoma of colon Family history of Alzheimer's disease Family history of malignant neoplasm of breast Mother Family history of malignant neoplasm of cervix Social History Social History Smoking packs per day: 1 Smoking cigarettes per day: 20.0 Years smoked: 10 Smoking pack-years: 10.00 Smoking status: Former smoker Tobacco type: cigarettes Second hand tobacco smoke exposure: No Smoking end date: 06/05/08 Alcohol intake: never Drinks per week: 1 Substance use: never Substance use type: does not use Do You Feel Safe in your Home?: Yes Lack of Transportation: No Lack of Food: Never True Current Housing: I Have Housing Concerned About Future Housing: No Difficulty Paying Gas/Electric Bills: No Difficulty Paying for Meds: No Currently Unemployed: No Education: Associate Degree Difficulty w/ Childcare or Family Care: No Living arrangements: with family Spiritual care concerns: Yes (Religion) Comments At time of signature, agree with nursing past medical, surgical, social and family history. There is no relevant family history pertinent to the presenting complaint Exam Narrative: GENERAL: Well-appearing, well-nourished, and in no acute distress. HEAD: Normocephalic EYES: PERRLA, conjunctivae clear ENT: Nares clear, turbinates edematous and erythematous, clear discharge. Mucous membranes moist.Right TM with mild redness with bulging, Left TM pearly brandon with dull light reflex bilaterally; no tragal tenderness. Oropharynx erythematous without lesions. Tonsils not enlarged and without exudate, no drooling, no hoarseness, no trismus, uvula midline. NECK: Supple. No lymphadenopathy CHEST: Clear to auscultation, breath sounds equal. No wheezing, rhonchi, rales, or stridor. No respiratory distress, speaks in full sentences.no cough noted SAO2 98% on room air HEART: Regular rate and rhythm. No murmur heard. SKIN: Warm, dry, no rash. NEURO: Alert and oriented x3. PSYCH: Normal mood and affect Course Course Emergency Course: Patient is aware of diagnosis, understands and agrees to treatment plan.? Anticipatory guidance given.? Patient agrees to follow-up as directed and is aware of reasons to seek care at the emergency department. Portions of this record may have been created with voice recognition software Level of Care: Express Care Visit Vital Signs Vital signs: Vital Signs Temperature 36.7 C 09/10/24 11:08 Pulse Rate 89 09/10/24 11:08 Respiratory Rate 16 09/10/24 11:08 Blood Pressure 129/92 H 09/10/24 11:08 Pulse Oximetry 98 09/10/24 11:08 Temperature 36.7 C 09/10/24 11:08 Pulse Rate 89 09/10/24 11:08 Respiratory Rate 16 09/10/24 11:08 Blood Pressure 129/92 H 09/10/24 11:08 Pulse Oximetry 98 09/10/24 11:08 Reviewed Medical Decision Making Differential Diagnosis Differential Diagnosis: right otitis media, eustachian tube dysfunction, inner ear fluid, pressure to right ear, decreased hearing right ear Medical Records Medical records reviewed: Yes I reviewed the external patient's medical records. Vital Signs Vital Signs: Vital Signs Temperature 36.7 C 09/10/24 11:08 Pulse Rate 89 09/10/24 11:08 Respiratory Rate 16 09/10/24 11:08 Blood Pressure 129/92 H 09/10/24 11:08 Pulse Oximetry 98 09/10/24 11:08 Temperature 36.7 C 09/10/24 11:08 Pulse Rate 89 09/10/24 11:08 Respiratory Rate 16 09/10/24 11:08 Blood Pressure 129/92 H 09/10/24 11:08 Pulse Oximetry 98 09/10/24 11:08 reviewed Critical Care Time Critical Care Time Critical Care Time: No Discharge Plan Discharge Clinical Impression: Dysfunction of right eustachian tube Otitis media, right Qualifiers: Otitis media type: serous Chronicity: acute Recurrence: not specified as recurrent Qualified Code(s): H65.01 - Acute serous otitis media, right ear Patient Disposition: Home Condition: Stable Instructions: Antibiotic Form, Ear Infection (GEN), Barotrauma (ED) Additional Instructions: Increase fluids especially juices and water [id number] cough and cold medicine of your choice for your symptoms Tylenol or ibuprofen for any fever pain Zyrtec Claritin or Zunilda daily include Coricidin brand decongestant Flonase one spray to each nostril 2 times daily meclizine 25 mg every 6 hours as needed for any dizziness Steroids as directed--take with food heat to the face 20-30 minutes 4-6 times a day for pain Salt water gargles, throat lozenges or throat sprays as desired Antibiotic as directed--finished the medication If your symptoms persist, change or worsen significantly before you can contact your personal physician then please, without delay, go to the emergency department for further evaluation. Follow-up with PCP in 7-10 days or sooner if needed Follow up with PCP soon in regards to your blood pressure which is elevated above threshold for referral. Blood pressure above 120/80 may indicate pre-hypertension. 129/92 Patient Language: Pashto Prescriptions: New azithromycin 500 mg tablet 500 mg PO DAILY 5 Days Qty: 5 0RF prednisone 20 mg tablet 40 mg PO DAILY Qty: 10 0RF meclizine 25 mg tablet 25 mg PO TID PRN (Reason: dizziness) Qty: 20 0RF No Action naproxen 500 mg tablet 500 mg PO BID PRN (Reason: pain) Qty: 20 0RF amlodipine [Norvasc] 10 mg tablet 10 mg PO DAILY hydrochlorothiazide 12.5 mg tablet 12.5 mg PO DAILY infliximab [Remicade] 100 mg recon soln IV multivitamin Tablet 1 tablet PO DAILY buspirone 7.5 mg tablet 7.5 mg PO BID Trintellix 10 mg tablet 10 mg PO DAILY oxcarbazepine 300 mg tablet 300 mg PO QID levothyroxine 50 mcg Tablet 50 mcg PO DAILY olmesartan 40 mg Tablet 40 mg PO DAILY omeprazole 20 mg Tablet,Delayed Release (Dr/Ec) 20 mg PO DAILY Follow-up/Referrals: PHYSICIAN,CYBER INCIDENT ANALYST [Primary Care Provider] - Time of Disposition: 11:40 Quality [place] Coma Scale Eyes: Open Verbal: Oriented and Alert Motor: Follows Commands [place] Coma Total Score: 15
== END 2024-09-10 11:42 | disposition home or self-care (01) ==
PROVIDERS: Emergency Provider Registered Nurse
DX: H69.91 Unspecified Eustachian tube disorder, right ear (principal); H65.01 Acute serous otitis media, right ear; Z87.891 Personal history of nicotine dependence; L40.50 Arthropathic psoriasis, unspecified; I10 Essential (primary) hypertension; E03.9 Hypothyroidism, unspecified; J45.909 Unspecified asthma, uncomplicated; F41.9 Anxiety disorder, unspecified; F32.A Depression, unspecified; Z86.19 Personal history of other infectious and parasitic diseases; Z85.828 Personal history of other malignant neoplasm of skin
CPT/HCPCS: 99213; G0463

== ENCOUNTER 2024-10-03 13:37 | Emergency (ER) | payer BC, SELFPAY ==
[2024-10-03 13:44] VITALS: BP 141/105; PULSE 84; RESP 16; TEMP 36.6; O2SAT 98
--- NOTE | 2024-10-03 13:50 | ED.URI ---
HPI - URI/Sore Throat General Chief Complaint: Ear Stated Complaint: Right Ear/Congestion Time Seen by Provider: 10/03/24 13:53 Source: patient, RN notes reviewed and old records reviewed Mode of arrival: ambulatory Limitations: no limitations History of Present Illness HPI Narrative: 39-year-old male presents to [facility] with right ear discomfort, congestion. Patient and reports and per medical record has been treated for times since the 24 of July with antibiotics. States he has had the ear discomfort since being seen last time he was here on the 10 of September. Reports over the last 8 days has had decreased hearing. Does take Zyrtec D occasionally, Flonase occasionally. Has an appointment with ENT on the 16 October. Patient was evaluated on July 19, prescribed Augmentin August 03, Z-Venancio September 02 cefdinir September 10 Z-Venancio Onset (ago): week(s) Related Data Home Medications ?Medication ?Instructions ?Recorded ?Confirmed ?Last Taken ?Type multivitamin 1 tablet PO DAILY 06/02/21 07/22/24 12/19/23 09:00 History buspirone 7.5 mg tablet 7.5 mg PO BID 06/15/21 07/22/24 12/19/23 16:30 History vortioxetine 10 mg tablet 10 mg PO DAILY 06/15/21 07/22/24 12/19/23 09:00 History (Trintellix) levothyroxine 50 mcg tablet 50 mcg PO DAILY 12/19/23 07/22/24 12/19/23 09:00 History olmesartan 40 mg tablet 40 mg PO DAILY 12/19/23 07/22/24 12/19/23 09:00 History omeprazole 20 mg tablet,delayed 20 mg PO DAILY 12/19/23 07/22/24 12/19/23 09:00 History release amlodipine 10 mg tablet (Norvasc) 10 mg PO DAILY 07/22/24 07/22/24 Unknown History hydrochlorothiazide 12.5 mg tablet 12.5 mg PO DAILY 07/22/24 07/22/24 Unknown History infliximab 100 mg intravenous IV 07/22/24 07/22/24 Unknown History solution (Remicade) oxcarbazepine 300 mg tablet 300 mg PO QID 07/22/24 07/22/24 Unknown History Allergies Allergy/AdvReac Type Severity Reaction Status Date / Time methotrexate AdvReac Mild Nausea and Verified 10/03/24 13:41 Vomiting amoxicillin AdvReac Nausea and Verified 10/03/24 13:41 Vomiting Review of Systems Review of Systems: All systems reviewed & are unremarkable except as noted in HPI and below Constitutional: Constitutional: Reports no additional constitutional complaints ENT: Reports as per HPI, Reports otalgia and Reports nasal congestion Cardiovascular: Cardiovascular: Reports no additional cardiovascular complaints, Denies chest pain and Denies dyspnea Respiratory: Respiratory: Reports no additional respiratory complaints, Denies chest congestion, Denies cough and Denies dyspnea Musculoskeletal: Musculoskeletal: Reports no additional musculoskeletal complaints Integumentary/Breasts: Skin/Breast: Reports system reviewed and no additional complaints, except [facility] Past Medical History Medical History (Updated 10/03/24 @ 14:07 by Rhianna Mccormick APRN) Psoriatic arthritis Epigastric pain Lower abdominal pain Encounter for surgical aftercare following surgery on the digestive system Post-operative pain Neoplasm of uncertain behavior of skin Basal cell carcinoma of skin C. difficile colitis Chronic tonsillitis Recurrent tonsillitis Tonsil asymmetry Tonsillar hypertrophy Hypothyroidism HTN (hypertension), benign Asthma Sleep apnea History of arm fracture (~2017) Lt Bipolar disorder Depression Anxiety Surgical History Surgical History (Updated 09/11/24 @ 09:17 by Nona Terrell NP) History of spinal surgery History of laparoscopic cholecystectomy 12/22/23 History of decompression of ulnar nerve (~2018) History of carpal tunnel release (~2018) Family History Family History Father Hypertension Family history of coronary artery disease Grandparent Hypertension Carcinoma of colon Family history of Alzheimer's disease Family history of malignant neoplasm of breast Mother Family history of malignant neoplasm of cervix Social History Social History Smoking packs per day: 1 Smoking cigarettes per day: 20.0 Years smoked: 10 Smoking pack-years: 10.00 Smoking status: Former smoker Tobacco type: cigarettes Second hand tobacco smoke exposure: No Smoking end date: 06/05/08 Alcohol intake: never Drinks per week: 1 Substance use: never Substance use type: does not use Do You Feel Safe in your Home?: Yes Lack of Transportation: No Lack of Food: Never True Current Housing: I Have Housing Concerned About Future Housing: No Difficulty Paying Gas/Electric Bills: No Difficulty Paying for Meds: No Currently Unemployed: No Education: Associate Degree Difficulty w/ Childcare or Family Care: No Living arrangements: with family Spiritual care concerns: Yes (Buddhism) Comments At the time of my signature, I reviewed and agree with the nursing past medical, surgical, social, and family history. There is no relevant family history pertinent to the patient complaint. Exam Const: General: cooperative, healthy appearing, comfortable, no acute distress, well developed, alert and well nourished Nutritional Appearance: well nourished Orientation/consciousness: patient oriented x3 Limitations: no limitations HENMT: Head: normal to inspection Ears: external ears normal, TM normal on the left, EAC's normal, mastoids normal, no periauricular adenopathy and TM abnormal bulging on the right and wth effusion serous; not erythematous and with no loss of landmarks Mouth: Yes Normal oral and palatal mucosa present, Yes lip normal, Yes tongue normal and Yes moist mucous membranes Throat: posterior oropharynx normal, uvula midline and no uvular edema Eyes: General: appearance normal, both eyes and all related structures Alignment and Position: alignment normal Neck: Neck: normal visual inspection, full ROM, no lymphadenopathy and no meningeal signs Chest: Chest palpation & inspection: normal inspection of the chest Resp: Effort & Inspection: normal respiratory effort and able to speak in complete sentences Auscultation: clear to auscultation bilaterally, no crackles, no rales, no rhonchi and no wheezes Cardio: Rate: regular rate Skin: General skin exam: normal color and no rashes or lesions noted Neuro: General: patient oriented x3, gait normal, moves all extremities and no meningeal signs Cognition (Neuro): normal cognition Speech: normal speech Gait exam (Neuro): Normal gait present Extrem: General: normal to inspection, full ROM, capillary refill normal and normal gait Psych: Appearance: grossly normal and well kempt Mental Status: mental status grossly normal Speech and movement: Normal speech and movement present and Clear speech present Affect: normal affect Attitude: cooperative Course Course Level of Care: Express Care Visit Vital Signs Vital signs: Vital Signs Oxygen Delivery Room Air 10/03/24 13:43 Temperature 97.8 F 10/03/24 13:44 Pulse Rate 84 10/03/24 13:44 Respiratory Rate 16 10/03/24 13:44 Blood Pressure 141/105 H 10/03/24 13:44 Pulse Oximetry 98 10/03/24 13:44 Oxygen Delivery Room Air 10/03/24 13:43 Reviewed MDM - URI/Sore Throat MDM Narrative Medical decision making narrative: Patient sitting in exam room. Nontoxic vitals stable Patient presents for continued right ear pain. Discussed clear fluid behind ear, [id number] treatments, discussed risk of steroids, decreased immune system. Encourage patient to keep the appointment with ENT as already scheduled Patient appropriate for outpatient treatment and follow-up Discharge instructions reviewed with patient, as well as provided in writing per nursing staff. The instructions also include specific and strict return/GO TO THE ER as well as f/u information. All questions have been answered, and the patient deny any further questions with discharge and discharge plan. Some parts of this dictation were generated by voice recognition software and may contain typographical and/or grammatical inaccuracies. Differential Diagnosis Differential diagnosis: Likely upper respiratory infection, otitis media, sinusitis and viral infection Critical Care Time Critical Care Time Critical Care Time: No Discharge Plan Discharge Clinical Impression: Ear ache, Fluid level behind tympanic membrane of right ear Patient Disposition: Home Condition: Stable Instructions: Antibiotic Form, Fluid In The Ear (Serous Otitis Media) (ED) Additional Instructions: Take Claritin D or Zyrtec D daily. Use Flonase twice daily for 1 week and then daily -doing daily nasal irrigations can help relieve pressure your sinuses. Things like a Neti pot or NeilMed nasal irrigation -Frequent hand washing or hand group billing coordinator is one of the best ways to prevent spread of infection. -Follow up with primary care provider in 7-10 days if condition is not improving Today your blood pressure was 141/105. - For new or worsening symptoms go directly to the nearest ER Patient Language: Chinese Prescriptions: New methylprednisolone [Medrol (Venancio)] 4 mg tablets,dose pack See Rx Instructions PO .COMPLEX Qty: 21 0RF Rx Instructions: orally per package directions No Action naproxen 500 mg tablet 500 mg PO BID PRN (Reason: pain) Qty: 20 0RF azithromycin 500 mg tablet 500 mg PO DAILY 5 Days Qty: 5 0RF prednisone 20 mg tablet 40 mg PO DAILY Qty: 10 0RF meclizine 25 mg tablet 25 mg PO TID PRN (Reason: dizziness) Qty: 20 0RF amlodipine [Norvasc] 10 mg tablet 10 mg PO DAILY hydrochlorothiazide 12.5 mg tablet 12.5 mg PO DAILY infliximab [Remicade] 100 mg recon soln IV multivitamin Tablet 1 tablet PO DAILY buspirone 7.5 mg tablet 7.5 mg PO BID Trintellix 10 mg tablet 10 mg PO DAILY oxcarbazepine 300 mg tablet 300 mg PO QID levothyroxine 50 mcg Tablet 50 mcg PO DAILY olmesartan 40 mg Tablet 40 mg PO DAILY omeprazole 20 mg Tablet,Delayed Release (Dr/Ec) 20 mg PO DAILY Follow-up/Referrals: Ramy Rooney MD [Physician] - PHYSICIAN,COMPUTER TECHNICIAN [Primary Care Provider] - Yady Henao FNP-C [Advanced Practice Nurse] - Stand Alone Forms: Work/School Release IP Time of Disposition: 14:10
== END 2024-10-03 14:15 | disposition home or self-care (01) ==
PROVIDERS: Emergency Provider Nurse Practitioner
DX: H73.891 Other specified disorders of tympanic membrane, right ear (principal); Z87.891 Personal history of nicotine dependence; I10 Essential (primary) hypertension; E03.9 Hypothyroidism, unspecified; J45.909 Unspecified asthma, uncomplicated; L40.50 Arthropathic psoriasis, unspecified; F41.9 Anxiety disorder, unspecified; F32.A Depression, unspecified; Z85.828 Personal history of other malignant neoplasm of skin
CPT/HCPCS: 99213; G0463

== ENCOUNTER 2024-12-17 14:32 | Outpatient (CLI) | payer BC, SELFPAY ==
--- OUTSIDE RECORDS SUMMARY | 2024-12-17 14:34 | XMS_ITS | Encounter Summary ---
Author Organization [facility] Healthcare Address [address] [place] [address] Care Team Providers Care Rehab Technician Name Role Phone Mellisatonja Nithya LOPEZ Primary Care Pr ovider José Miguel Dewitt MD Unavailable [phone] Encounter Details Date Type Department Care Team (Late Contact Info) Description 11/20/2024 Results Follow-Up [facility] at [address] [address] Shira Obando NP [address] [place] [address] [address] [place] [address] XR Foot Right 3+ Vw Social History Tobacco Use Types Packs/Day Years Used Date Smoking Tobacco: Former Cigarettes Q uit: 09/22/2011 Smokeless Tobacco: Never Alcohol Use Standard Drinks/Week Comments Yes 0 (1 standard drink = 0.6 oz pur e alcohol) Social Connection and Isolat ion Panel [NHANES] Answer Date Recorded In a typical week, how many times do you talk on the phone with family, friends, or neighbors? More than three times a week 10/19/2022 How often do you get togethe r with friends or relatives? Three times a week 10/19/2022 How often do you attend chur ch or buddhism services? Never 10/19/2022 Do you belong to any clubs o r organizations such as mandaen groups, unions, fraternal or athletic groups, or school groups? No 10/19/2022 How often do you attend meet ings of the clubs or organizations you belong to? Never 10/19/2022 Are you , , di vorced, , never , or living with a partner? 10/19/2022 AUDIT-C Answer Date Recorded Frequency of Alcohol Consumption 2-4 times a mon09/21/2018 Average Number of Drinks Not on file 019 Frequency of Binge Drinking Not on file 09/03 Overall Financial Resource Strain (CARDIA) Answe r Date Recorded How hard is it for you to pa y for the very basics like food, housing, medical care, and heating? Not very hard 10/19/2022 PRAPARE - Transportation Answer Date Re corded In the past 12 months, has l ack of transportation kept you from medical appointments or from getting medications? No 10/03 In the past 12 months, has l ack of transportation kept you from meetings, work, or from getting things needed for daily living? No 10/19/2022 Personal Safety Answer Date Recorded Have you ever been in or are you currently in a harmful physical or emotional relationship or is someone making you feel afraid or unsafe? 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
--- OUTSIDE RECORDS SUMMARY | 2024-12-17 14:34 | XMS_ITS | Clinical Summary ---
Author Organization [facility] Care Team Providers Care Road Equipment Operator Name Role Phone Unavailable Primary Care Provider Unavailabl e Social History Tobacco Use Types Packs/Day Years Used Date Smoking Tobacco: Never Assessed Sex and Gender Information Value Date Recorded Sex Assigned at Not on file Legal Sex Male 9:05 PM CDT Gender Identity Not on file Sexual Orientation Not on file Plan of Treatment Health Maintenance Due Date Last Done Comments Hepatitis C Virus (HCV) Screening 1983 TdaP Immunization 1983 Hepatitis B Immunization (1 of 3 - 19+ 3-dose series) 2002 Influenza Immunization (#1) 2024 SARS-COV-2 Immunization ( season) 2024 Respiratory Syncytial Virus (RSV) Immunization (Adult) (1 - 1-dose 75+ series) 2058 Meningococcal Immunization (ACWY) Aged Out No longer eligible based on patient's age to complete this topic Pneumococcal Immunization Combined Aged Out No longer eligible based on patient's age to complete this topic Rotavirus Immunization Aged Out No lo nger eligible based on patient's age to complete this topic
--- OUTSIDE RECORDS SUMMARY | 2024-12-17 14:35 | XMS_ITS | Data Portability ---
Author Organization [place] - [facility] [employer], Main Office Address [address] [place] [id number] Care Team Providers Care Animal Behaviorist Name Role Phone MELANY COLINDRES Primary Care Provider Assessment No assessment recorded. Plan of Treatment Reminders Order Date Submit Date Provider Last Modified By Organization Details Last Modified Time Details Appointments None recorded. Lab None recorded. Referral None recorded. Procedures eustachian tube balloon dilation (PROC) 2024 025 [email or web address] Not available 16:02:01 Surgeries None recorded. Imaging None recorded. Medication Orders Ciprodex 0.3 %-0.1 % ear drops,suspe nsion 2024 025 [email or web address] [id number], [address] [place], [address], 17:16:52 Patient TargetsNo targets recorded. Patient Instructions Encounter Date Encounter Id Patient Instructions Last Modified By Organization Details Last Modified Time 10/08/2024 [id number] Given that he lora s been refractory to oral steroids/antibiot ics for management. He will see Dr. Humphries to discuss if an ETBD with PE tube placement is appropriate. Ciprodex prescribed for managment. Not available 10/08/2024 16:49:18 10/24/2024 [id number] he will return a s needed. We discussed removal of the PE tubes if they bother him too much Not available 10/24/2024 16:21:03 11/07/2024 [id number] we are considering a CT if he fails to improve Not available 11/07/2024 17:28:39 Reason for Referral None Reported. Results Created Date Observation Date Name Description Value Unit Range Abnormal Flag Note LastModifiedBy Organization Detail LastModifiedTime 03/11/20 22 03/16/2022 INTER PRETA TION interpretati on Speci fic Level of Aller gen IGE Class kU/L Speci fic IGE Antib jan ----- ----- ---- ----- ----- ----- ---- 0 <0.10 Absen t/Und etect able 0/1 0.10- 0.34 Very Low Level 1 0.35- 0.69 Low Level 2 0.70- 3.49 Moder ate Level 3 3.50- 17.4 High Level 4 17.5- 49.9 Very High Level 5 50-10 0 Very High Level 6 >100 Very High Level The clini kaleb relev ance of aller gen resul ts of 0.10- 0.34 kU/L are undet ermin ed and inten ded for speci alist use. Aller gens denot ed with a inclu de resul ts using one or more daniele te speci fic reage nts. In those cases , the test was devel oped and its daniele tical perfo rmanc e barby cteri stics have been deter mined by [facility]. It has not been clear ed or appro jody by the U.S. Food and Drug Admin istra tion. This assay has been valid ated pursu ant to the CLIA regul ation s and is used for clini kaleb purpo ses. Not Available [employer] [address] [address] [place], [address], 03/16/2022 08:19:03 03/11/2003/16/2022 MILK COMPO NENT PANEL alpha-lactal bumin (F76) IgE <0.10 kU/L normal Not Available [employer] [address] [address] [place], [address], 03/16/2022 08:19:02 03/11/2003/16/2022 MILK COMPO NENT PANEL class 0 Not Available [employer] [address] [address] [place], [address], 03/16/2022 08:19:02 03/11/2003/16/2022 MILK COMPO NENT PANEL beta-lactogl obulin (F77) IgE <0.10 kU/L normal Not Available [address] [address] [place], [address], 03/16/2022 08:19:02 03/11/2003/16/2022 MILK COMPO NENT PANEL class 0 Not Available [address] [address] [place], [address], 03/16/2022 08:19:02 03/11/2003/16/2022 MILK COMPO NENT PANEL casein (F78) IgE <0.10 kU/L normal Not Available [address] [address] [place], [address], 03/16/2022 08:19:02 03/11/2003/16/2022 MILK COMPO NENT PANEL class 0 IgE react ivity to whole milk witho ut react ivity to Isaac d 4, Isaac d 5, or Isaac d 8, may be expla ined by IgE react ivity to other cow's milk prote ins or non-p rotei n milk const ituen ts. Addit ional infor bam n can be found at http: //www .phad ia.co m Not Available [address] [address] [facility] [place], [address], 03/16/2022 08:19:02 03/11/2003/16/2022 FOOD ALLER GY PANEL (REFL ) egg white (F1) IgE <0.10 kU/L normal Not Available [address] [address] [place], [address], 03/16/2022 08:19:01 03/11/2003/16/2022 FOOD ALLER GY PANEL (REFL ) class 0 Not Available [facility] [address], [address], 03/16/2022 08:19:01 03/11/20 22 03/16/2022 FOOD ALLER GY PANEL (REFL ) peanut (F13) IgE <0.10 kU/L normal Not Available [address], [address], 03/16/2022 08:19:01 03/11/20 22 03/16/2022 FOOD ALLER GY PANEL (REFL ) class 0 Not Available [address], [address], 03/16/2022 08:19:01 03/11/2003/16/2022 FOOD ALLER GY PANEL (REFL ) wheat (F4) IgE <0.10 kU/L normal Not Available [address], [address], 03/16/2022 08:19:01 03/11/20 22 03/16/2022 FOOD ALLER GY PANEL (REFL ) class 0 Not Available [address], [address], 03/16/2022 08:19:01 03/11/20 22 03/16/2022 FOOD ALLER GY PANEL (REFL ) walnut (F256) IgE <0.10 kU/L normal Not Available [address], [address], 03/16/2022 08:19:01 03/11/2003/16/2022 FOOD ALLER GY PANEL (REFL ) class 0 Not Available [address], [address], 03/16/2022 08:19:01 03/11/20 22 03/16/2022 FOOD ALLER GY PANEL (REFL ) codfish (F3) IgE <0.10 kU/L normal Not Available [address], [address], 03/16/2022 08:19:01 03/11/2003/16/2022 FOOD ALLER GY PANEL (REFL ) class 0 Not Available [address], [address], 03/16/2022 08:19:01 03/11/2003/16/2022 FOOD ALLER GY PANEL (REFL ) cow's milk (F2) IgE <0.10 kU/L normal Not Available [address], [address], 03/16/2022 08:19:01 03/11/2003/16/2022 FOOD ALLER GY PANEL (REFL ) class 0 Not Available [address], [address], 03/16/2022 08:19:01 03/11/2003/16/2022 FOOD ALLER GY PANEL (REFL ) soybean (F14) IgE <0.10 kU/L normal Not Available [address], [address], 03/16/2022 08:19:01 03/11/2003/16/2022 FOOD ALLER GY PANEL (REFL ) class 0 Not Available [address], [address], 03/16/2022 08:19:01 03/11/2003/16/2022 FOOD ALLER GY PANEL (REFL ) maize/corn (F8) IgE <0.10 kU/L normal Not Available [address], [address], 03/16/2022 08:19:01 03/11/2003/16/2022 FOOD ALLER GY PANEL (REFL ) class 0 Not Available [address], [address], 03/16/2022 08:19:01 03/11/20 22 03/16/2022 FOOD ALLER GY PANEL (REFL ) shrimp (F24) IgE <0.10 kU/L normal Not Available [address], [address], 03/16/2022 08:19:01 03/11/20 22 03/16/2022 FOOD ALLER GY PANEL (REFL ) class 0 Not Available [address], [address], 03/16/2022 08:19:01 03/11/2003/16/2022 FOOD ALLER GY PANEL (REFL ) scallop (F338) IgE <0.10 kU/L normal Not Available [address], [address], 03/16/2022 08:19:01 03/11/2003/16/2022 FOOD ALLER GY PANEL (REFL ) class 0 Not Available [address], [address], 03/16/2022 08:19:01 03/11/2003/16/2022 FOOD ALLER GY PANEL (REFL ) clam (F207) IgE <0.10 kU/L normal Not Available [address], [address], 03/16/2022 08:19:01 03/11/2003/16/2022 FOOD ALLER GY PANEL (REFL ) class 0 Not Available [address] [address] [place], [address], 03/16/2022 08:19:01 03/11/2003/16/2022 FOOD ALLER GY PANEL (REFL ) sesame seed (F10) IgE <0.10 kU/L normal Not Available [address], [address], 03/16/2022 08:19:01 03/11/2003/16/2022 FOOD ALLER GY PANEL (REFL ) class 0 Not Available [address] [place], [address], 03/16/2022 08:19:01 03/11/20 22 03/16/2022 OUMOU C DISEA SE COMPR EHENS NICK PANEL interpretati on No serol ogica l evide nce of oumou c disea se. tTG IgA may prakash lize in indiv idual s with oumou c disea se who maint ain a glute n-valarie e diet. Consi enrique HLA DQ2 and DQ8 testi ng to rule out oumou c disea se. Oumou c disea se is extre adolfo rare in the absen ce of DQ2 or DQ8. Not Available [address] [place], [address], 03/16/2022 08:19:01 03/11/2003/16/2022 OUMOU C DISEA SE COMPR EHENS NICK PANEL tissue transglutami nase Ab, IgA <1.0 U/mL Value Inter preta tion ----- ----- ----- ---- <15.0 Antib jan not detec ezequiel > or = 15.0 Antib jan detec ezequiel Not Available [address] [address] [place], [address], 03/16/2022 08:19:01 03/11/20 22 03/16/2022 OUMOU C DISEA SE COMPR EHENS NICK PANEL immunoglobul in A 141 mg/dL 47-310 Not Available [address] [place], [address], 03/16/2022 08:19:01 10/17/19 25 10/16/2024 MRSA/ STAPH AUREU S, NASAL , PCR MRSA, nasal NEGATI VE negati ve Not Available [facility] (Lab) [address] [place], [address], 10/16/2024 13:18:45 10/17/19 25 10/16/2024 MRSA/ STAPH AUREU S, NASAL , PCR staph aureus, nasal POSITI VE negati ve abnormal Not Available [facility] (Lab) [address] [place], [address], 10/16/2024 13:18:45 06/08/19 23 05/31/2022 XR, chest , 2 view No observ ation record ed. [id number] [facility] Add On Lab Orders [address] [place], [address], 08/03/2022 17:15:39 Result Notes None recorded. Problems Name Problem SNOMED Code Status Onset Date Resolution Date Notes Provider Name and Address Organization Details Recorded Time Apnea 3725959 Active Not Available [facility] 3 17:14:06 Benign hypertensi on 90675919 Active 2019 Not Available [facility] 3 17:14:06 Irritable bowel syndrome 86042926 Active Not Available [facility] 3 17:14:06 Cervical radiculiti s 48137214 Active Not Available [facility] 3 17:14:06 Viral gastroente ritis 745536104 Active Not Available [facility] 3 17:14:06 Benign essential hypertensi on 1980537 Active 2021 Not Available [facility] 3 17:14:06 Lumbar radiculopa thy 016235596 Active Not Available [facility] 3 17:14:06 Acute sinusitis 76823244 Active Not Available [facility] 3 17:14:07 Otalgia 75971340 Active Not Available [facility] 3 17:14:07 Nausea present 406406357 Active Not Available [facility] 3 17:14:07 Rheumatoid factor detected 693819884 Active Not Available [facility] 3 17:14:07 Blood chemistry outside reference range 625022790 Active Not Available [facility] 3 17:14:07 Nausea and vomiting 11077332 Active 2021 Not Available [facility] 3 17:14:07 Chronic diarrhea of unknown origin 47447275 Active 2021 Not Available [facility] 3 17:14:07 Acute tonsilliti s 92275350 Active Not Available [facility] 3 17:14:07 Pain of joint of wrist 710181231 Active Not Available [facility] 3 17:14:07 Gastroesop hageal reflux disease 034893636 Active 2021 Not Available [facility] 3 17:14:07 Bloating symptom 846561660 Active 2021 Not Available [facility] 3 17:14:07 Degenerati on of lumbar interverte bral disc 06247942 Active Not Available [facility] 3 17:14:07 Gastroesop hageal reflux disease without esophagiti s 167679428 Active 2021 Not Available [facility] 3 17:14:07 Mixed hyperlipid emia 439529040 Active Not Available [facility] 3 17:14:08 Anemia 796533052 Active Not Available [facility] 3 17:14:08 Acute low back pain 932734268 Active Not Available [facility] 3 17:14:08 Swelling of finger joint 558142679 Active Not Available [facility] 3 17:14:08 Otitis externa 3139248 Active Not Available [facility] 3 17:14:08 Exercise-i nduced asthma 24945459 Active Not Available [facility] 3 17:14:08 Restless legs 44275224 Active Not Available [facility] 3 17:14:08 Psoriasis with arthropath y Active Not Available [facility] 3 17:14:08 Vitamin D deficiency 18388258 Active 2021 Not Available [facility] 3 17:14:08 Pain of multiple joints 62108061 Active Not Available [facility] 3 17:14:08 Dyslipidem ia 552947717 Active 2021 Not Available [facility] 3 17:14:08 Diverticul ar disease 440068043 Active Not Available [facility] 3 17:14:09 Loose stool 632237225 Active 2021 Not Available [facility] 3 17:14:09 Staphyloco ccal infection of skin 483723141 Active Not Available [facility] 3 17:14:09 Strain of muscle and/or tendon of forearm 036696673 Active Not Available [facility] 3 17:14:09 Sprain of ankle 48305342 Active Not Available [facility] 3 17:14:09 Cough 90446199 Active Not Available [facility] 3 17:14:09 Upper respirator y infection 98690056 Active 2021 Not Available [facility] 3 17:14:09 Feeling irritable 57503005 Active Not Available [facility] 3 17:14:09 Staphyloco ccal infectious disease 54764039 Active Not Available [facility] 3 17:14:10 Occult blood detected in feces 38838709 Active Not Available [facility] 3 17:14:10 Diarrhea 04448413 Active 2021 Not Available [facility] 3 17:14:10 Stress 57778641 Active Not Available [facility] 3 17:14:10 Obstructiv e sleep apnea syndrome 17355167 Active Not Available [facility] 3 17:14:10 Epigastric pain 55732325 Active Not Available [facility] 3 17:14:10 Upper abdominal pain 61257050 Active 2021 Not Available [facility] 3 17:14:10 Fatigue 51562711 Active Not Available [facility] 3 17:14:10 Internal hemorrhoid s 29025083 Active Not Available [facility] 3 17:14:11 Skin lesion 78332280 Active Not Available [facility] 3 17:14:11 Eczema of external auditory canal 01664055 Active Not Available [facility] 3 17:14:11 Hematochez ia 329299920 Active 2022 JESSICA Hackett [address], [place], [address] , [facility] [employer] [facility] [employer] [facility] 3 13:52:00 Lesion of skin of face 427841482456 Active 2022 JESSICA Hackett [address], [address], [place], [address] , [facility] [employer] [facility] [employer] [facility] 3 14:11:15 Dysfunctio n of right eustachian tube 0699741131850 101 Active [address] TIM Sky [address], [address], [place], [address] , [facility] [employer] [facility] [employer] [facility] 5 16:48:07 Dysfunctio n of bilateral eustachian tubes 6774413989369 100 Active 2024 Hood Humphries MD [address], [address], [place], [address] , [facility] [employer] [facility] [employer] [facility] 5 15:44:10 Otitis media 21151020 Active 2024 [facility] [employer] [facility] 5 17:22:38 Problem Notes None recorded. Procedures Surgical History Date Name Laterality Status Provider Name and Address Organization Details Recorded Time 10/17/19 25 inflation of Eustachian tube using balloon completed Lizzie Wise RN [facility] [employer] [facility] 10/23/2024 17:17:23 10/17/19 25 myringotomy and insertion of tympanic ventilation tube completed Lizzie Wise RN [facility] [employer] [facility] 10/23/2024 17:17:35 06/08/19 22 Tonsillectomy completed Not Available [facility] 08/03/2022 17:13:09 12/16/19 16 Colonoscopy completed Not Available [facility] 08/03/2022 17:13:09 Decompression of forearm completed Not Available [facility] 08/03/2022 17:13:09 Carpal tunnel surgery completed Not Available [facility] 08/03/2022 17:13:09 cholecystectomy completed Lizzie Wise RN [facility] [employer] [facility] 10/08/2024 16:31:21 Imaging Results None recorded. Procedure Notes None recorded. Medical Equipment None Reported. Allergies Allergen ID Allergen Name Allergen Category Reaction Reaction Severity Criticality Documentation Date Start Date Code Code System Note Provider Name and Address Organization Details Recorded Time 47374 amoxicill in medicatio n Not available Not available Not available 10/08/2024 723 RxNorm VOMIT TING, STOMA CH UPSET Lizzie Wise RN [facility], [facility] [employer] [facility] 16:30:28 Medications Name Sig Start Date Stop Date Status Note LastModified by Organization Details LastModified Time cyclobenz aprine 10 mg tablet active Not Available Not Available No t Available methocarb saige 500 mg tablet Take 1 tablet 4 times a day by oral route as needed. 06/30 completed Not Available Not Available Not Available buspirone 5 mg tablet Take 1 tablet twice a day by oral route. 10/18 completed Not Available Not Available Not Available prednison e 10 mg tablet 09/03 completed Not Available Not Available Not Available doxycycli ne hyclate 100 mg capsule 09/06 completed Not Available Not Available Not Available lamotrigi ne 200 mg tablet Take 1 tablet twice a day by oral route. 07/25 completed Not Available Not Available Not Available clindamyc in HCl 300 mg capsule TAKE 1 CAPSULE BY MOUTH THREE TIMES DAILY 09/06 completed Not Available Not Available Not Available citalopra m 40 mg tablet Take 1 tablet every day by oral route. active taper off...20 mg x 1 week then d/c. Not Available Not Available Not Available triamcino lone acetonide 0.5 % topical cream APPLY A THIN LAYER TO THE AFFECTED AREA(S) BY TOPICAL ROUTE 2 TIMES PER DAY PRN active Not Available Not Available No t Available azithromy curt 250 mg tablet TAKE 2 TABLETS (500 MG) BY ORAL ROUTE ONCE DAILY FOR 1 DAY THEN 1 TABLET (250 MG) BY ORAL ROUTE ONCE DAILY FOR 4 DAYS 03/11 completed Not Available Not Available Not Available ibuprofen 800 mg tablet active Not Available Not Available Not Available tramadol 37.5 mg-acetam inophen 325 mg tablet 04/17 completed Not Available Not Available Not Available tizanidin e 4 mg tablet TAKE ONE CAPSULE BY MOUTH BY MOUTH EVERY NIGHT AT BEDTIME NEEDED FOR SPASMS 10/08 completed Not Available Not Available Not Available clarithro mycin 500 mg tablet Take 1 tablet every 12 hours by oral route. active Not Available Not Available No t Available hydrocodo ne 5 mg-acetam inophen 325 mg tablet TAKE 1 TABLET BY MOUTH EVERY 6 HOURS NEEDED FOR PAIN 09/06 completed Not Available Not Available Not Available minocycli ne 100 mg capsule active Not Available Not Available Not Available ondansetr on HCl 4 mg tablet TAKE 1 TABLET BY MOUTH THREE TIMES DAILY NEEDED FOR NAUSEA 09/03 completed Not Available Not Available Not Available prednison e 20 mg tablet TAKE 3 TABLETS BY MOUTH DAILY X 3 DAYS, 2 TABLETS DAILY X 3 DAYS, 1 TABLET DAILY X 3 DAYS 09/03 completed Not Available Not Available Not Available Tubersol 5 tub. unit/0.1 mL intraderm al injection solution administ er 0.1ml active [facility]# 85189-04 52-21. Neg result on 03/03/16 ds Not Available Not Available Not Available clonazepa m 0.5 mg tablet TAKE 1 TABLET BY MOUTH EVERY DAY NEEDED 10/08 completed Not Available Not Available Not Available sertralin e 100 mg tablet Take 1 tablet every day by oral route for 30 days. 07/18 completed Not Available Not Available Not Available prednison e 5 mg tablet 12/12 completed Not Available Not Available Not Available sulfasala zine 500 mg tablet,de layed release 10/08 completed Not Available Not Available Not Available clindamyc in HCl 150 mg capsule 04/17 completed Not Available Not Available Not Available penicilli n V potassium 500 mg tablet 09/03 completed Not Available Not Available Not Available leflunomi de 10 mg tablet 02/07 completed Not Available Not Available Not Available oxcarbaze pine 300 mg tablet Take 1 tablet twice a day by oral route. active Not Available Not Available No t Available acetamino phen 300 mg-codein e 30 mg tablet TAKE 2 TABLETS BY MOUTH EVERY 6 HOURS NEEDED 09/06 completed Not Available Not Available Not Available methotrex ate sodium 25 mg/mL injection solution active Not Available Not Available Not Available hydrocodo ne 10 mg-acetam inophen 325 mg tablet active Not Available Not Available Not Available omeprazol e 40 mg capsule,d elayed release Take 1 capsule every day by oral route with meals. active Not Available Not Available No t Available doxycycli ne monohydra te 100 mg tablet 12/07 completed Not Available Not Available Not Available leflunomi de 20 mg tablet 06/12 completed Not Available Not Available Not Available tramadol 50 mg tablet TAKE 1 TABLET BY MOUTH TWICE DAILY NEEDED FOR PAIN 10/08 completed Not Available Not Available Not Available triamcino lone acetonide 0.1 % topical cream active Not Available Not Available Not Available lamotrigi ne 25 mg tablet 07/18 completed Not Available Not Available Not Available ketorolac 10 mg tablet Take 1 tablet 3 times a day by oral route with meals for 5 days. active Not Available Not Available No t Available meloxicam 7.5 mg tablet 09/03 completed Not Available Not Available Not Available Augmentin 125 mg-31.25 mg/5 mL oral suspensio n Take 20 mL twice a day by oral route. 2015 active Not Available Not Available Not Avai lable oxycodone -acetamin ophen 5 mg-325 mg tablet TAKE 1 TABLET BY MOUTH EVERY 6 HOURS FOR 14 DAYS NEEDED 10/08 completed Not Available Not Available Not Available alprazola m 0.5 mg tablet Take 1 tablet 3 times a day by oral route as needed. active Not Available Not Available No t Available citalopra m 20 mg tablet active Not Available Not Available Not Available methocarb saige 750 mg tablet Take 1 tablet every 8 hours by oral route as needed. active Not Available Not Available No t Available methotrex ate sodium 2.5 mg tablet 07/25 completed Not Available Not Available Not Available dicyclomi ne 20 mg tablet 03/13 completed Not Available Not Available Not Available ciproflox acin 0.3 % eye drops active Not Available Not Available Not Available meclizine 25 mg tablet 09/03 completed Not Available Not Available Not Available baclofen 10 mg tablet Take 1 tablet 3 times a day by oral route as needed. active Not Available Not Available No t Available amlodipin e 10 mg tablet Take 1 tablet every day by oral route. active Not Available Not Available No t Available levothyro xine 50 mcg tablet Take 1 tablet every day by oral route. active Not Available Not Available No t Available hydrocodo ne 7.5 mg-acetam inophen 325 mg tablet active Not Available Not Available Not Available cephalexi n 500 mg capsule TAKE 1 CAPSULE BY MOUTH FOUR TIMES DAILY 09/03 completed Not Available Not Available Not Available pantopraz ole 40 mg tablet,de layed release Take 1 tablet every day by oral route. active Not Available Not Available No t Available erythromy curt 5 mg/gram (0.5 %) eye ointment 01/16 completed Not Available Not Available Not Available inflixima b 100 mg intraveno us solution Inject by intraven ous route. active Not Available Not Available No t Available lansopraz ole 30 mg capsule,d elayed release active Not Available Not Available Not Available promethaz ine 25 mg tablet Take 1 tablet every 4-6 hours by oral route as needed. 03/13 completed Not Available Not Available Not Available minocycli ne 50 mg capsule active Not Available Not Available Not Available gabapenti n 300 mg capsule 09/03 completed Not Available Not Available Not Available buspirone 7.5 mg tablet TAKE 1 TABLET BY MOUTH TWICE DAILY active Not Available Not Available No t Available omeprazol e 20 mg capsule,d elayed release Take 1 capsule twice a day by oral route with meals. 04/27 completed Not Available Not Available Not Available diclofena c sodium 75 mg tablet,de layed release TAKE 1 TABLET BY MOUTH TWICE A DAY 09/03 completed Not Available Not Available Not Available folic acid 1 mg tablet 07/25 completed Not Available Not Available Not Available mupirocin 2 % topical ointment active Not Available Not Available Not Available ergocalci ferol (vitamin D2) 1,250 mcg (50,000 unit) capsule TAKE 1 CAPSULE BY MOUTH EVERY WEEK DIRECTED 10/08 completed Not Available Not Available Not Available ibuprofen 600 mg tablet active Not Available Not Available Not Available cefuroxim e axetil 500 mg tablet Take 1 tablet every 12 hours by oral route. 10/08 completed Not Available Not Available Not Available levofloxa curt 500 mg tablet Take 1 tablet every 24 hours by oral route for 10 days. 2024 active Not Available Not Available Not Avai lable methylpre dnisolone 4 mg tablets in a dose pack FOLLOW PACKAGE DIRECTIO NS 09/03 completed Not Available Not Available Not Available Cortispor in-TC 3.3 mg-3 mg-10 mg-0.5 mg/mL ear drops,kristie pension Instill 4 drops 3 times a day by otic route for 10 days. 2024 active Not Available Not Available Not Avai lable ondansetr on 4 mg disintegr ating tablet DISSOLVE 1 TABLET ON THE TONGUE EVERY 8 HOURS FOR 7 DAYS NEEDED FOR NAUSEA OR VOMITING 10/08 completed Not Available Not Available Not Available cefdinir 300 mg capsule Take 1 capsule every 12 hours by oral route with meals. active Not Available Not Available No t Available fluticaso ne propionat e 50 mcg/actua tion nasal spray,kristie pension inhale 2 sprays each nostril daily active Not Available Not Available No t Available sertralin e 50 mg tablet Take 1 tablet every day by oral route in the evening. 09/06 completed Not Available Not Available Not Available dicyclomi ne 10 mg capsule TAKE 1 CAPSULE BY MOUTH THREE TIMES DAILY FOR 5 DAYS 10/08 completed Not Available Not Available Not Available lamotrigi ne 100 mg tablet TAKE 1 TABLET BY MOUTH TWICE DAILY 09/03 completed Not Available Not Available Not Available naproxen 500 mg tablet TK 1 T PO BID WITH MEALS 06/12 completed Not Available Not Available Not Available nortripty line 50 mg capsule active Not Available Not Available Not Available amoxicill in 875 mg-potass ium clavulana te 125 mg tablet Take 1 tablet every 12 hours by oral route. 02/07 completed Not Available Not Available Not Available amoxicill in 500 mg-potass ium clavulana te 125 mg tablet active Not Available Not Available Not Available oxycodone 5 mg tablet TAKE 1 TABLET BY MOUTH EVERY 6 HOURS NEEDED FOR PAIN 09/06 completed Not Available Not Available Not Available neomycin- polymyxin -hydrocor t 3.5 mg-10,000 unit/mL-1 % ear drops,kristie p 06/30 completed Not Available Not Available Not Available Bactrim DS 800 mg-160 mg tablet Take 1 tablet every 12 hours by oral route. 01/13 completed Not Available Not Available Not Available olmesarta n 20 mg tablet TAKE 1 TABLET BY MOUTH EVERY DAY 10/08 completed Not Available Not Available Not Available olmesarta n 40 mg tablet Take 1 tablet every day by oral route. active Not Available Not Available No t Available Bactrim 400 mg-80 mg tablet Take 2 tablets every 12 hours by oral route for 10 days. 2024 active Not Available Not Available Not Avai lable azithromy curt 500 mg tablet TAKE 1 TABLET BY MOUTH EVERY DAY FOR 5 DAYS 09/03 completed Not Available Not Available Not Available escitalop marcelina 10 mg tablet Take 1 tablet every day by oral route. active Not Available Not Available No t Available escitalop marcelina 20 mg tablet Take 1 tablet every day by oral route. 03/13 completed Not Available Not Available Not Available cyclobenz aprine 5 mg tablet 12/12 completed Not Available Not Available Not Available aripipraz ole 5 mg tablet TAKE 1 TABLET BY MOUTH EVERY DAY 09/03 completed Not Available Not Available Not Available Ciprodex 0.3 %-0.1 % ear drops,kristie pension INSTILL 4 DROPS INTO AFFECTED EAR(S) BY OTIC ROUTE 2 TIMES PER DAY FOR 7 DAYS 2024 active Not Available Not Available Not Avai lable bupropion HCl XL 150 mg 24 hr tablet, extended release TK 1 T PO QD IN THE MORNING 06/12 completed Not Available Not Available Not Available duloxetin e 30 mg capsule,d elayed release one tab po daily--- d/c lexapro active Not Available Not Available No t Available duloxetin e 60 mg capsule,d elayed release Take 1 capsule every day by oral route. 06/29 completed Not Available Not Available Not Available Enbrel 50 mg/mL (1 mL) subcutane ous syringe Inject 1 mL every week by subcutan eous route. 06/06 completed Not Available Not Available Not Available Enbrel 03/13 completed Not Available Not Available Not Available multivita min active Not Available Not Available Not Available hydrocodo ne 5 mg-acetam inophen 300 mg tablet 04/17 completed Not Available Not Available Not Available ProAir HFA 90 mcg/actua tion aerosol inhaler Inhale 2 puffs every 4-6 hours by inhalati on route as needed. active Not Available Not Available No t Available Humira Pen 40 mg/0.8 mL subcutane ous kit once every two weeks. 03/13 completed Not Available Not Available Not Available Acid Controlle r 20 mg tablet TAKE 1 TABLET BY MOUTH TWICE DAILY 09/06 completed Not Available Not Available Not Available Enbrel SureClick 50 mg/mL (1 mL) subcutane ous pen injector active Not Available Not Available Not Available hydrochlo rothiazid e 12.5 mg tablet Take 1 tablet every day by oral route. active Not Available Not Available No t Available Stelara 90 mg/mL subcutane ous syringe once every 3 mo 09/03 completed Reports every two months as of 2019. Not Available Not Available Not Available Stelara 45 mg/0.5 mL subcutane ous syringe once every 6-8 weeks. 07/18 completed Not Available Not Available Not Available vortioxet ine 10 mg tablet Take 1 tablet every day by oral route. active Not Available Not Available No t Available Cosentyx Pen 150 mg/mL subcutane ous pen injector monthly 10/08 completed Not Available Not Available Not Available Otezla Starter 10 mg (4)-20 mg (4)-30 mg(47) tablets in a dose pack 06/12 completed Not Available Not Available Not Available Viberzi 100 mg tablet Take by oral route for 30 days. active pt stopped Not Available Not Available Not Available Vraylar 1.5 mg capsule 07/18 completed Not Available Not Available Not Available Vraylar 4.5 mg capsule 07/18 completed Not Available Not Available Not Available Vraylar 3 mg capsule 08/25 completed Not Available Not Available Not Available Taltz Autoinjec tor 80 mg/mL subcutane ous Inject 1 mL every 4 weeks by subcutan eous route. 12/12 completed Not Available Not Available Not Available Afluria Quad 60 mcg (15 mcg x 4)/0.5 mL IM suspensio n 04/17 completed Not Available Not Available Not Available Flucelvax Quad (PF) 60 mcg (15 mcg x 4)/0.5 mL IM syringe ADM 0.5ML IM UTD 06/12 completed Not Available Not Available Not Available Vitals Date Recorded Body weight Body mass index (BMI) Body height Body temperature Provider Name and Address Organization Details Last Updated DateTime 10/08/2024 254411.98 g 35 kg/m2 185.42 cm 97.8 [degF] Lizzie Wise RN [facility] 10/08/2024 16:34:47 Date Recorded Body height Body mass index (BMI) Body weight Body temperature Provider Name and Address Organization Details Last Updated DateTime 10/10/2024 185.42 cm 35 kg/m2 127866.98 g 97.7 [degF] Lizzie Wise RN [facility] 10/10/2024 15:31:27 Date Recorded Body weight Body temperature Body mass index (BMI) Body height Provider Name and Address Organization Details Last Updated DateTime 10/24/2024 302019.42 g 97.6 [degF] 34.2 kg/m2 185.42 cm Lizzie Wise RN [facility] 10/24/2024 16:03:32 Date Recorded Body height Body temperature Body mass index (BMI) Body weight Provider Name and Address Organization Details Last Updated DateTime 11/07/2024 185.42 cm 97.4 [degF] 34.4 kg/m2 480663.61 g Lisa Hassan [facility] [employer] 11/07/2024 16:35:11 Date Recorded Body height Oxygen saturation Oxygen saturation in Arterial blood by Pulse oximetry Heart rate Respiratory rate Body temperature Systolic And Diastolic Provider Name and Address Organization Details Last Updated DateTime 2 185.42 cm 98 % 98 % 82 /min 16 /min 98 [degF] 130/90 mm[Hg] Not Available [facility] 17:13:32 Social History Question Answer Notes LastModified by Organizat ion Details LastModified Time Tobacco Smoking Status Former Smoker Not Available [facility] 08/03/2022 17:12:59 Do You Have An Advance Directive? Yes [id number] Information not available 08/03/2022 What Is Your Level Of Caffeine Consumption? Heavy [id number] Information not available 08/03/2022 In The 14 Days Before Symptom Onset, Have You Had Close Contact With A Laboratory-confirm ed COVID-19 While That Case Was Ill? No [id number] Information not available 08/03/2022 In The 14 Days Before Symptom Onset, Have You Had Close Contact With A Person Who Is Under Investigation For COVID-19 While That Person Was Ill? No [id number] Information not available 08/03/2022 What Type Of Diet Are You Following? REGULAR [id number] Information not available 08/03/2022 Have There Been Any Changes To Your Family Or Social Situation? No [id number] Information not available 08/03/2022 When Did You Quit Smoking? 6-10yearssin celastcigare tte [id number] Information not available 08/03/2022 Are There Any Guns Present In Your Home? Yes [id number] Information not available 08/03/2022 What Is Your Relationship Status? [id number] Information not available 08/03/2022 Do You Use Your Seat Belt Or Car Seat Routinely? Yes [id number] Information not available 08/03/2022 Do You Have Smoke And Carbon Monoxide Detectors In Your Home? Yes [id number] Information not available 08/03/2022 At What Age Did You Start Smoking Tobacco? 15 [id number] Information not available 08/03/2022 Do You Use Sunscreen Routinely? Yes [id number] 026 Information not available 08/03/2022 Have You Recently Traveled Abroad? No [id number] 026 Information not available 08/03/2022 Do You Have Any Dietary Restrictions? No [id number].[id number] 026 Information not available 08/03/2022 Sex: Unknown Functional Status Question Answer Note LastModified by Organizat ion Details LastModified Time Do you use any illicit or recreational drugs? No [id number] 26 Information not available 08/03/2022 Do you or have you ever used any other forms of tobacco or nicotine? No [id number] 26 Information not available 08/03/2022 What is your level of alcohol consumption? 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 Moderate [id number].[id number] 26 Information not available 08/03/2022 Mental Status None recorded. Family History Relationship Description Onset Age of this Age Resolved Age Notes LastModified by Organization Details LastModified Time Father History of heart disorder [id number] Not available 08/03/2022 17:13:10 Notes:SON: ENT HX Medical History Condition Response HEADACHES/MIGRAINES Y OBESITY Y ANXIETY DISORDER Y DIZZINESS Y ASTHMA Y DEPRESSION (INCLUDING POST ) Y BOWEL PROBLEMS Y BACK / NECK PROBLEMS Y SLEEP DISORDER Y Immunizations Vaccine Type Date Status Note Provider Nam e and Address Organization Details Recorded Time Influenza, split virus, quadrivalent, preservative 8 completed Not Available [facility] 08/03/2022 17:15:34 COVID-19, mRNA, LNP-S, PF, 30 mcg/0.3 mL dose 1 completed Not Available [facility] 08/03/2022 17:15:34 influenza, unspecified formulation 5 completed Not Available [facility] 08/03/2022 17:15:34 Past Encounters Encounter ID Performer Location Encounter Start Date Encounter Closed Date Diagnosis/Indication Diagnosis SNOMED-CT Code Diagnosis ICD10 Code Diagnosis Note [id number] JESSICA Hackett [facility] [place] [address] [place] [address] 09/06/2021 00:00:00 10/02/2021 14:48:37 [id number] JESSICA Hackett [facility] [place] [address] [place] [address] 03/11/2022 00:00:00 04/04/2022 10:29:24 [id number] Hood Humphries MD [place] [place] [address] [place] [address] 10/08/2024 16:22:27 10/08/2024 16:49:51 Dysfunction of right eustachian tube 4886791516 808429 H69.91 [id number] Hood Humphries MD [place] [place] [address] [place] [address] 10/10/2024 15:26:28 10/16/2024 17:46:33 Dysfunction of bilateral eustachian tubes 9206249929 150655 H69.93 [id number] Hood Humphries MD [facility] [place] [address] [place] [address] 10/24/2024 16:00:10 10/25/2024 08:59:48 Dysfunction of bilateral eustachian tubes 0039889217 141050 H69.93 [id number] Hood Humphries MD [facility] [place] [address] [place] [address] 11/07/2024 16:25:42 11/08/2024 15:59:15 Dysfunction of bilateral eustachian tubes 2638956728 959510 H69.93 Dysfunctio n of right eustachian tube 3045067147 335713 H69.91 Health Concerns Section Related Observation LastModified by Organization Detai ls LastModified Time None Recorded Concern Status LastModified by Organization Details LastModified Time None Recorded Advance Directives Directive Y: Payers Insurance Date Sequence Insurance Name Policy Number Policy Karimi Covered Member ID Karimi Member ID Guarantor Name 10/08/2024 [facility] Tj Chappell SELF SELF Tj Chappell 11/04/2024 1 [employer] [id number] Tj Chappell [id number] Tj Chappell Notes Date Note Type Note Provider Name and Address Organization Details Recorded Time 03/11/2022 text/html Generic HPI TemplateReported bypatient.Notes:pt is here today for c/o of bowel urgency and noticed blood in the stool. reports severe stomach pain. goes to bathroom 8-10 times daily. he said he had a colonoscopy 01/13 and results were normal. paola cannot see him until 06/27 so he was advised to see pcp Not Available [facility] 04/04/2022 10:29:24 10/08/2024 text/html This patient has a pmhx significant for HLD. anemia, MARCIAL, HTN, and back pain who presents to the office for persistent ear congestion that has been present since July 2024. He notes that he had otitis media to his right ear and was appropriately treated with oral antibiotics. He has been seen by urgent care multiple times with this and has been on a total of 3 rounds of antibiotics and steroids. He is currently finishing his last couple days on a medrol dose pack without symptom relief. Does reports muffled hearing to the affected side. He has attempted use of the valsalva maneuver without symptom relief. Lizzie Douglas, [facility] [address], [place], [address], [employer] 10/08/2024 16:49:22 10/10/2024 text/html this patient has had month history of serous otitis media despite 3 rounds of antibiotics and 3 rounds of steroids. The left is worse than the right. The fluid was seen on his last exam. Hood Humphries MD [address], [place], [address], [employer] 10/10/2024 15:45:06 10/24/2024 text/html He is doing well following tubes and Eustachian tube balloon dilatation. He does report some decrease in the low frequency hearing which is improving slowly MD Ji [address], [place], [address], [employer] 10/24/2024 16:21:30 11/07/2024 text/html He was just plac ed on Levaquin and Ciprodex and he is hoping that he begins to feel better. We are considering a CT if he does not MD Ji Kohler, [address], [place], [address], [employer] 11/07/2024 17:29:07
--- OUTSIDE RECORDS SUMMARY | 2024-12-17 14:35 | XMS_ITS | Patient Health Record ---
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 Phone Nithya Castillo Primary Care Provider Alonzo Lemus Unavailable [phone] Allergies No Known Allergies Results Component Value Reference Range Notes UDT Reviewed date:07/10/2024 04:52:35 PM Interpretation: Performing Lab: Notes/Report: THC N 0 - 50 ng/ml Cocaine N 0 - 300 ng/ml Amphetamine N 0 - 1000 ng/ml Buprenorphine (BUP) N 0 - 10 ng/ml Secobarbital (Bar) N 0 - 300 ng/ml Oxazepam (BZO) N 0 - 300 ng/ml 6-dbqhdtcmgg-8,5-yrqdgill-5,3-diphenylpyrrolidine (OBEY P) N 0 - 300 ng/ml Methamphetamine (MET) N 0 - 1000 ng/ml Methylenedioxymethamphetamine (MDMA) N 0 - 500 ng/ml Morphine (MOP 300/[id number]) N 0 - 300 ng/ml Methadone (MTD) N 0 - 300 ng/ml Phencyclidine (PCP) N 0 - 25 ng/ml Nortriptyline (TCA) N 0 - 1000 ng/ml Oxycodone P 0 - 300 ng/ml x N 0 - 300 ng/ml Reason For Referral No Information Medications Medication SIG (Take, Route, Frequency, Duration) Notes Start Date End Date Status oxyCODONE-Acetaminophen 5-325 MG Oral; Duration: 30 Days Acti ve amLODIPine Besylate 2.5 MG Oral 09/19/2023 Active Trintellix 10 MG 0.5 tablet Oral Once a day; Duration: 7 days Active Stelara 90 mg/mL Subcutaneous 09/19/2023 Active DULoxetine HCl 60 MG 1 capsule Oral Once a day; Duration: 90 days Active Naproxen 500 MG Oral 09/19/2023 Act juan r clonazePAM 0.5 MG Oral 09/19/2023 A ctive DULoxetine HCl 30 MG 1 capsule Orally On ce a day; Duration: 14 days 08/06/2024 Active traMADol HCl 50 MG Oral 09/19/2023 Active Benzonatate 100 MG Oral 09/19/2023 Active busPIRone HCl 7.5 MG 1 tablet Orally Twi ce a day; Duration: 90 days Active Olmesartan Medoxomil 40 MG Oral 09/19/2023 Active OXcarbazepine 300 MG 2 tablets Oral Twic e a day; Duration: 90 days Active Levothyroxine Sodium 50 MCG Oral 09/19/2023 Active Cyclobenzaprine HCl 5 MG Oral 09/19/2023 Active Ondansetron HCl 4 MG Oral 09/19/2023 Active Immunizations Vaccine Route Administration Date Status Comme nts Tdap Unknown 2002 Administered Pneumococcal polysaccharide PPV23 Unknown 04/03/2020 Ad ministered Pneumococcal conjugate PCV 13 Unknown 2019 Admini stered Pfizer Biontech Covid-19 Vac cine 2nd dose Unknown 08/05/2020 Administered Pfizer Biontech Covid-19 Vac cine 2nd dose Unknown 08/26/2020 Administered Pfizer Biontech Covid-19 Vac cine 2nd dose Unknown 06/03/2021 Administered MMR Unknown 07/23/1992 Administered Influenza, unspecified formulation Unknown 06/05/2014 A dministered Influenza, injectable, MDCK, preservative free Unknown 03/24/2020 Administered Influenza virus vaccine, quadrivalent (IIV4), split virus, 0.25 mL dosage Unknown 04/05/2018 Administered Social History Tobacco Use: Social History Observation Description Date Details (start date - stop date) Never Smoker 06/16/1999 - 06/27/2012 Sex Assigned At : Social History Observation Description Sex Assigned At Male Tobacco Control (Standard) Question Answer Notes Tobacco use: Nonsmoker When did you start smoking? 06/16/1999 When did you stop smoking? 06/27/2012 How long has it been since you last smoked? Gareth ter than 10 years Problems Problem Type SNOMED Code ICD Code Onset Dates Problem Status W/U Status Risk Notes Problem Bipolar affective disorder, currently depressed, moderate (895056669) Bipolar disorder, current episode depressed, moderate (F31.32) Active confirmed Problem Mixed bipolar affective disorder, mild (894991914) Bipolar disorder, current episode mixed, mild (F31.61) Active confirmed Problem Generalized anxiety disorder (55945586) Generalized anxiety disorder (F41.1) Active confirmed Problem Insomnia disorder related to another mental disorder (55311146) Insomnia due to other mental disorder (F51.05) Active confirmed Vital Signs Heart Rate 98 /min 09/03/2024 Height-cm 185.42 cm 09/03/2024 Blood pressure diastolic 93 mm Hg 09/03/2024 Weight-kg 117.94 kg 09/03/2024 Height 73.00 in 09/03/2024 Blood pressure systolic 145 mm Hg 09/03/2024 Weight 260 lbs 09/03/2024 BMI 34.3 kg/m2 09/03/2024 Encounters Encounter Location Date Provider Diagnosis [facility] [address] [place] [address] 01/11/2024 Alonzo Persaud Generalized anxiety disorder F41.1 ; Insomnia due to other mental disorder F51.05 and Bipolar disorder, current episode mixed, mild F31.61 [facility] [address] [facility] [address] [place] [address] 07/09/2024 Alonzo Persaud Generalized anxiety disorder F41.1 ; Insomnia due to other mental disorder F51.05 and Bipolar disorder, current episode mixed, mild F31.61 [facility] [address] [place] [address] 08/06/2024 Alonzo Persaud Generalized anxiety disorder F41.1 ; Insomnia due to other mental disorder F51.05 and Bipolar disorder, current episode mixed, mild F31.61 [facility] [address] [place] [address] 09/03/2024 Alonzo Persaud Encounter for screen ing for depression Z13.31 ; Generalized anxiety disorder F41.1 ; Insomnia due to other mental disorder F51.05 ; Bipolar disorder, current episode mixed, mild F31.61 ; Encounter for screening for cardiovascular disorders Z13.6 and Dietary counseling and surveillance Z71.3 [facility] [address] [facility] [address] [place] [address] 12/04/2024 Alonzo Persaud [facility] [address] [facility] [address] [place] [address] 03/18/2024 Alonzopraful Jimeneza Bipolar disorder, current episode depressed, moderate F31.[address] [facility] [address] [facility] [address] [address] 04/22/2024 Alonzo Persaud Bipolar disorder, current episode mixed, mild F31.[address] [facility] [address] [facility] [address] [address] 04/24/2024 Alonzo Persaud Bipolar disorder, current episode depressed, moderate F31.[address] [facility] [address] [facility] [address] [address] 04/29/2024 Alonzopraful Dotsonoza Bipolar disorder, current episode mixed, mild F31.61 [facility] [place] [facility] [address] [address] 04/22/2024 Alonzopraful Jimeneza Assessments Encounter Date Diagnosis (ICD Code) Assessment Notes Treatment Notes Treatment Clinical Notes Section Notes 04/22/2024 Bipolar disorder, current episode mixed, mild (ICD-10 - F31.61) 01/11/2024 Generalized anxiety disorder (ICD-10 - F41.1) 1. Bipolar disorder depression Plan: - Continue Trintellix 10 mg daily. - Refill prescription and send to [facility] as requested by the patient. 2. Oxcarbazepine for mood stabilization Plan: - Continue current regimen of one tablet in the morning and two at bedtime. - Refill prescription and send to [facility] as requested by the patient. 3. Anxiety management - Continue Clonazepam as needed for anxiety. Patient reports having enough medication at this time. Plan: - No refill needed. 01/11/2024 Insomnia due to other mental disorder (ICD-10 - F51.05) 1. Bipolar disorder depression Plan: - Continue Trintellix 10 mg daily. - Refill prescription and send to [facility] as requested by the patient. 2. Oxcarbazepine for mood stabilization Plan: - Continue current regimen of one tablet in the morning and two at bedtime. - Refill prescription and send to [facility] as requested by the patient. 3. Anxiety management - Continue Clonazepam as needed for anxiety. Patient reports having enough medication at this time. Plan: - No refill needed. 04/29/2024 Bipolar disorder, current episode mixed, mild (ICD-10 - F31.61) 07/09/2024 Generalized anxiety disorder (ICD-10 - F41.1) 08/06/2024 Generalized anxiety disorder (ICD-10 - F41.1) 09/03/2024 Encounter for screening for depression (ICD-10 - Z13.31) 01/11/2024 Bipolar disorder, current episode mixed, mild (ICD-10 - F31.61) 1. Bipolar disorder depression Plan: - Continue Trintellix 10 mg daily. - Refill prescription and send to [facility] as requested by the patient. 2. Oxcarbazepine for mood stabilization Plan: - Continue current regimen of one tablet in the morning and two at bedtime. - Refill prescription and send to [facility] as requested by the patient. 3. Anxiety management - Continue Clonazepam as needed for anxiety. Patient reports having enough medication at this time. Plan: - No refill needed. 08/06/2024 Insomnia due to other mental disorder (ICD-10 - F51.05) 09/03/2024 Generalized anxiety disorder (ICD-10 - F41.1) 07/09/2024 Insomnia due to other mental disorder (ICD-10 - F51.05) 03/18/2024 Bipolar disorder, current episode depressed, moderate (ICD-10 - F31.32) Electronic Prior Authorization was requested for Trintellix 10 MG Tablet. Provider can order medication once approval received. 04/24/2024 Bipolar disorder, current episode depressed, moderate (ICD-10 - F31.32) Electronic Prior Authorization was requested for OXcarbazepine 300 MG Tablet. Provider can order medication once approval received. 08/06/2024 Bipolar disorder, current episode mixed, mild (ICD-10 - F31.61) 07/09/2024 Bipolar disorder, current episode mixed, mild (ICD-10 - F31.61) 09/03/2024 Insomnia due to other mental disorder (ICD-10 - F51.05) 09/03/2024 Bipolar disorder, current episode mixed, mild (ICD-10 - F31.61) 09/03/2024 Encounter for screening for cardiovascular disorders (ICD-10 - Z13.6) 09/03/2024 Dietary counseling and surveillance (ICD-10 - Z71.3) 07/09/2024 Other Medication management: - Patient prefers to have prescriptions [facility] [address]. Plan: - [facility] location. Follow-up: - Schedule a follow-up appointment in 4 to 6 weeks to assess the patient's progress and make any necessary adjustments to their treatment plan. 08/06/2024 Other Medication management: - Patient prefers to have prescriptions [facility] [address]. Plan: - Send the [facility] location. Follow-up: - Schedule a follow-up appointment in 4 to 6 weeks to assess the patient's progress and make any necessary adjustments to their treatment plan. 1. Major Depressive Disorder: - Patient reports feeling super depressed during a recent trip to [place] and having a significant argument with his spouse. - Plan: Continue current antidepressant medication (Trintellix) and consider switching to duloxetine (Cymbalta) if nerve pain persists. Encourage the patient to attend individual and/or couples therapy to address relationship and communication issues. 2. Chronic Back Pain: - Patient is currently taking oxycodone for severe back pain and reports that the pain has worsened, extending to the right leg and calf. - Plan: Discuss alternative pain management options, such as physical therapy, and consider referral to a sign painter. Evaluate the need for surgical intervention (4-member fusion) in the future. 3. Nerve Pain: - Patient reports that gabapentin and Lyrica were ineffective in managing nerve pain. - Plan: Consider switching from Trintellix to duloxetine (Cymbalta) for potential dual benefits in managing both depression and nerve pain. Monitor the patient's response to the new medication and adjust the treatment plan accordingly. 4. Family and Relationship Issues: - Patient expresses concerns about communication and consistency in parenting. - Plan: Encourage the patient and his spouse to attend couples therapy and/or family therapy to address these concerns. 09/03/2024 Other Tj Chappell, a patient with autoimmune issues and chronic pain, presents for follow-up on medication management and reports improvement with Duloxetine (Cymbalta) and recent initiation of Cosentyx injections. Autoimmune disorder with chronic pain Assessment: Patient reports improvement in hand and elbow swelling since starting Cosentyx 300 mg injections, which he began last Monday. He is hopeful this will also alleviate his back pain. Duloxetine (Cymbalta) has been effective in managing his symptoms, particularly in addressing his pain issues. The combination of these medications appears to be providing some relief, though the full effect of Cosentyx may not yet be apparent given the recent initiation. Plan: - Continue Duloxetine (Cymbalta) at current dose (dose not specified) - Continue Cosentyx 300 mg injections as prescribed - Monitor for further improvement in joint swelling and back pain - Follow up to assess efficacy of Cosentyx and overall symptom management Occupational stress and fatigue Assessment: Patient reports working long hours at [employer], often with insufficient rest between shifts (4-5 hours of sleep). This work schedule is particularly challenging given his autoimmune condition. While the financial benefits are significant, the physical toll is considerable. The demanding work schedule may exacerbate his autoimmune symptoms and contribute to overall fatigue and stress. Plan: - Discuss strategies for managing work-related stress and fatigue - Encourage adequate rest and sleep between shifts when possible - Consider exploring options for a more balanced work schedule if feasible the note is transcribed using speech recognition software. It is a reflection of a visit with the patient. It might have some inaccuracy, including medication names and transcribing errors, though efforts have been made to correct them. Plan Of Treatment No Information Insurance Providers Payer Name Payer Address Payer Phone Subscriber Number Group Number Insured Name Patient Relationship to Insured Coverage Start Date Coverage End Date [facility] [place] [place] [address] [place] [address] [id number] TJ PHAN Self - patient is the insured Medical (General) History Medical History History ICD Code Problems: Acute sinusitis Acute tonsillitis Anti-nuclear factor detected Benign hypertension Bipolar affective disorder, current epis ode depression Bipolar disorder Blood chemistry outside reference range Degeneration of lumbar intervertebral di sc Diverticular disease Eczema of external auditory canal Exercise-induced asthma Fatigue Feeling irritable Generalized anxiety disorder Insomnia disorder related to another men shine disorder Irritable bowel syndrome Long-term current use of drug therapy Lumbar radiculopathy Mixed hyperlipidemia Nausea present Obstructive sleep apnea syndrome Occult blood detected in feces Posttraumatic stress disorder Psoriatic arthritis Recurrent major depressive episodes, mil d Restless legs Rheumatoid arthritis of multiple joints Rheumatoid factor detected Skin lesion , Surgical History Surgery Date(Month/Year) Tonsillectomy ([id number]) 06/07/2021 Tonsilectomy/adenoids 06/09/2021
--- OUTSIDE RECORDS SUMMARY | 2024-12-17 14:35 | XMS_ITS | Referral Summary ---
Author Organization [facility] Address [address] [place] [address] Care Team Providers Care Dairy Inspector Name Role Phone Mellisatonja Nithya LOPEZ Primary Care Pr ovider José Miguel Dewitt MD Unavailable [phone] Encounters Date Type Department Care Team Description 11/20/2024 Results Follow-Up [facility] Con[facility]ient Care at [address] [address] Shira Obando NP XR Foot Right 3+ Vw 11/19/2024 12:25 PM CDT Ancillary Procedure [facility] Imaging at [address] [address] Right foot pain 11/19/2024 12:30 PM CDT Office Visit [facility] at [address] [address] Shira Obando NP Right foot pain (Primary Dx) 10/08/2024 Orders Only [facility] [address]th [place] [address] Jaylon Qureshi MD PhD Elevated liver enzymes (Primary Dx) 10/03/2024 Telephone [facility] 5th [place] [address] [place] [address] Neetu Fay RMA 10/01/2024 Results Follow-Up [facility] [address] [facility] 5th [place] [address] [place] [address] Jaylon Qureshi MD PhD Aldolase 10/01/2024 8:00 PM CDT Lab [facility] [address] [place] [id number] Weakness; Psoriatic arthritis (HCC); Psoriasis 10/01/2024 4:00 PM CDT Office Visit [facility] [address] [facility] 5th [place] [address] [place] [address] Jaylon Qureshi MD PhD Psoriatic arthritis (HCC) (Primary Dx); Psoriasis; Weakness from Last 3 Months Allergies Active Allergy Reactions Criticality Noted Date Comments Amoxicillin Unknown 11/19/2024 amoxicillin Medications albuterol HFA (PROVENTIL HFA,VENTOLIN HFA,PROAIR HFA) 90 mcg/actuation inhaler Inhale 2 puffs every 4 (four) hours as needed for wheezing or shortness of breath Active clonazePAM (KlonoPIN) 0.5 mg tablet Take 1 tablet (0.5 mg total) by mouth 2 (two) times a day as needed 06/27/19 19 Active busPIRone (BUSPAR) 7.5 mg tablet Take 1 tablet (7.5 mg total) by mouth 2 (two) times a day 11/18/19 20 Active Trintellix 10 mg tablet Take 1 tablet (10 mg total) by mouth every morning 10/02/19 21 Active OXcarbazepine (TRILEPTAL) 300 mg tablet Take 1 tablet (300 mg total) by mouth daily 300 mg daily and 600 mg nightly 03/08/20 21 Active hydrocortisone 2.5 % cream Apply 1 Application topically 2 (two) times a day as needed Active OXcarbazepine (TRILEPTAL) 600 mg tablet Take 1 tablet (600 mg total) by mouth nightly 300 mg daily and 600 mg nightly Active oxyCODONE-acetamin ophen (PERCOCET) 5-325 mg per tabletIndications: Pain Take 1-2 tablets by mouth every 4 (four) hours as needed for pain 0 10/21/19 23 Active ondansetron ODT (ZOFRAN-ODT) 4 mg disintegrating tablet as needed 08/18/19 23 Active tiZANidine (ZANAFLEX) 4 mg tablet 1 tablet (4 mg total) Active cholecalciferol (VITAMIN D-3) 50,000 unit capsule Take 1 capsule (50,000 Units total) by mouth Active testosterone cypionate (DEPO-TESTOTERONE) 200 mg/mL injection Active traMADoL (ULTRAM) 50 mg tablet Take 1 tablet (50 mg total) by mouth every 6 (six) hours as needed 01/22/20 24 Active olmesartan (BENICAR) 40 mg tablet Take 1 tablet (40 mg total) by mouth daily 01/31/20 24 Active leflunomide (ARAVA) 20 mg tabletIndications: Rheumatoid Arthritis Take 1 tablet (20 mg total) by mouth daily 30 tablet 11 02/20/20 24 025 Active levothyroxine (SYNTHROID) 50 mcg tablet TAKE 1 TABLET BY MOUTH EVERY DAY IN THE MORNING FOR THYROID 02/29/20 24 Active hydroCHLOROthiazid e 12.5 mg tablet Take 1 tablet (12.5 mg total) by mouth daily 05/08/20 24 Active amLODIPine (NORVASC) 10 mg tablet Take 1 tablet (10 mg total) by mouth daily 06/02/20 24 Active omeprazole (PriLOSEC) 20 mg capsule 2 (two) times a day 05/08/20 24 Active secukinumab (COSENTYX) 300 mg/2 mL pen injector subcutaneous syringeIndications :Psoriatic arthritis (HCC) Inject 2 mL (300 mg total) under the skin every 28 (twenty-eight) days 2 mL 5 08/20/[address] (CYMBALTA) 60 mg capsule Take by mouth daily 09/04/19 25 Active Active Problems Problem Noted Date Diagnosed Date Shortness of breath 03/26/2024 shelter (current) use of immunosuppressive bio logic 07/14/2023 Acute bilateral low back pain with bilateral sci atica 10/19/2022 Acute exacerbation of chronic low back pain 10/03 Acute midline low back pain without sciatica Lumbar strain, initial encounter 08/09/2022 Radiculopathy 08/09/2022 Overview (08/10/2022): Added automatically from request for surgery [id number] Elevated liver enzymes 03/13/2017 Psoriatic arthritis 01/26/2017 Assessment & Plan (03/13/2021 2:10 PM CDT): He is well controlled on Cosentyx currently, though still having some morning stiffness. He is very happy with this level of disease control is not wishing to add a medication at this time. In the future I would consider adding an oral DMARD such as sulfasalazine in hopes of preventing antibody formation/loss of efficacy a Cosentyx. For now will not make any changes -continue Cosentyx 150 mg subcutaneously every 28 days Psoriasis 01/26/2017 Assessment & Plan (03/13/2021 2:11 PM CDT): Well controlled on Cosentyx, no active rash on exam today. -continue Cosentyx a current dose. High risk medication use 01/26/2017 Assessment & Plan (03/13/2021 2:09 PM CDT): On Cosentyx for PsA. Patient has had baseline CBC, CMP, HBV, HCV screening. No signs of current or recent infection. -needs updated HBV, HCV, TB screening at next lab draw -Ok to continue above medications unless results from above testing are concerning Weight gain 01/26/2017 Positive ARIADNA (antinuclear antibody) 01/26/2017 Degeneration of intervertebral disc of lumbar re gion 06/01/2011 Resolved Problems Problem Noted Date Diagnosed Date Resolved Date Rheumatoid arthritis involvi ng multiple sites ([facility]) 11/05/2015 03/13/2021 Immunizations Immunization Administration Dates Next Due Influenza, Quadrivalent, Split, Intramuscular Pneumococcal Conjugate PCV 13 2019 Pneumococcal Polysaccharide PPV23 04/03/2020 Social History Tobacco Use Types Packs/Day Years Used Date Smoking Tobacco: Former Cigarettes Q uit: 09/22/2011 Smokeless Tobacco: Never Tobacco Cessation:Counseling Given: Not Answered Alcohol Use Standard Drinks/Week Comments Yes 0 [...] often do you attend chur ch or latter-day services? 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 Gender Identity Not on file Sexual Orientation Not on file Last Filed Vital Signs Vital Sign Reading Time Taken Comments Blood Pressure 132/80 11/19/2024 12:17 PM CDT Pulse 92 11/19/2024 12:17 PM CDT Temperature 36.8 C (98.2 F) 11/19/2024 12:17 PM CDT Respiratory Rate 20 11/19/2024 12:17 PM CDT Oxygen Saturation 97% 11/19/2024 12:17 PM CDT Inhaled Oxygen Concentration - - Weight 118.8 kg (262 lb) 11/19/2024 12:17 PM CDT Height 185.4 cm (6' 1) 10/01/2024 3:59 PM CDT Body Mass Index 34.57 10/01/2024 3:59 PM CDT Plan of Treatment Not on file Procedures Procedure Name Priority Date/Time Associated Diagnosis Comments XR FOOT RIGHT 3 OR MORE VIEWS Schedule MICHELE, Read MICHELE (Appt Today, Awaiting Results) 11/19/2024 1:10 PM CDT Right foot pain EGFR Routine 10/01/2024 2:05 PM CDT Psoriatic arthritis (HCC) Psoriasis DIFFERENTIAL AUTO Routine 10/01/2024 2:0 5 PM CDT Psoriatic arthritis (HCC) Psoriasis CREATINE KINASE (CK), TOTAL Routine 10/01/2024 2:05 PM CDT Weakness ALDOLASE Routine 10/01/2024 2:05 PM CDT Weakness CRP (ACUTE PHASE) Routine 10/01/2024 2:0 5 PM CDT Psoriatic arthritis (HCC) Psoriasis ERYTHROCYTE SEDIMENTATION RATE Routine 10/01/2024 2:05 PM CDT Psoriatic arthritis (HCC) Psoriasis COMPREHENSIVE METABOLIC PANEL Routine 10/01/2024 2:05 PM CDT Psoriatic arthritis (HCC) Psoriasis CBC WITH AUTO DIFFERENTIAL Routine 10/01/2024 2:05 PM CDT Psoriatic arthritis (HCC) Psoriasis HEPATITIS C ANTIBODY Routine 07/14/2023 12:25 PM ASSISTANT 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 Prior 5th digit fx. No surgery TECHNIQUE: There are 3 radiographic view(s) of the right foot . COMPARISON: No prior FINDINGS: Normal mineralization. No acute fracture or dislocation. 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 Trivial change of the interphalangeal joints. Type 1 os navicular. Small enthesophyte Achilles tendon insertion. Small plantar calcaneal spur. Trivial osteophyte formation midfoot tarsals. IMPRESSION: 1. No acute fracture. No fracture 3rd toe. 2. Mild osteoarthritis as above. THIS IS AN ELECTRONICALLY VERIFIED FINAL REPORT 11/19/2024 9:23 PM - Electronically signed by Mathew MANRIQUE T: Report ID: [id number] Reading Location: [id number] Procedure Note Mathew Delacruz MD - 11/19/2024 EXAM DESCRIPTION: XR FOOT RIGHT 3 OR MORE VIEWS REASON FOR STUDY: pain Pt complains of 3rd digit pain after hitting it yesterday. Prior 5th digitfx. No surgery TECHNIQUE: There are 3 radiographic view(s) of the right foot . COMPARISON: No prior FINDINGS: Normal mineralization. No acute fracture or dislocation. Mild osteoarthritis interphalangeal joint of the great toe with trivial changeof the 1st MTP joint. Trivial change of the interphalangeal joints. Type 1os navicular. Small enthesophyte Achilles tendon insertion. Small plantar calcaneal spur. Trivial osteophyte formation midfoot tarsals. IMPRESSION: 1. No acute fracture. No fracture 3rd toe. 2. Mild osteoarthritis as above. THIS IS AN ELECTRONICALLY VERIFIED FINAL REPORT 11/19/2024 9:23 PM - Electronically signed by Mathew MANRIQUE T: Report ID: [id number] Reading Location: [id number] us Shira Obando MANAGED CARE SPECIALIST IMG XR PROCEDURES Final Result * eGFR (10/01/2024 2:05 PM CDT) eGFR >90 >=60 mL/min/1. 73 m2 Comment: Interpretive Data Reference Interval Normal >/= 90 mL/min/1.73m2 Mildly decreased* 60 - 89 mL/min/1.73m2 Mildly to moderately decreased 45 - 59 mL/min/1.73m2 Moderately to severely decreased 30 - 44 mL/min/1.73m2 Severely decreased 15 - 29 mL/min/1.73m2 Kidney Failure < 15 mL/min/1.73m2 *Relative to young adult level Estimated glomerular filtration rate is determined by the 2020 CKD-EPI equation recommended by the National Kidney Foundation (A Unifying Approach to GFR Estimation: Recommendations of the NKF-ASK Task Force on Reassessing the Inclusion of Race in Diagnosing Kidney Disease, JASN 2020). The CKD-EPI equation should not be used for patients with unstable renal function and has not been validated in children and those over 70. Current interpretive data was last reviewed 2021. Blood 10/01/2024 2:05 PM CDT 10/01/2024 5:37 PM CDT us Jaylon Qureshi MD PhD LAB BLOOD ORDERABLE S Final Result [facility] Department [place] [address] * Differential, auto (10/01/2024 2:05 PM CDT) Neutrophil abs 2.42 1.50 - 6.50 K/cumm Imm gran abs 0.02 0.00 - 0.10 K/cumm [facility] Lymphocyte abs 2.99 0.80 - 3.30 K/cumm [facility] Monocyte abs 0.67 0.20 - 0.80 K/cumm [facility] Eosinophil abs 0.31 0.00 - 0.50 K/cumm [facility] Basophil abs 0.07 0.00 - 0.10 K/cumm [facility] Neutrophil pct 37.4 % [facility] Comment: Interpretive Data Percent cell count reference ranges are not reported, since discordance with absolute values may lead to misinterpretation of CBC data. Current Interpretive Data was last revised on 2017. Imm gran pct 0.3 % [facility] Comment: Interpretive Data Percent cell count reference ranges are not reported, since discordance with absolute values may lead to misinterpretation of CBC data. Current Interpretive Data was last revised on 2017. Lymphocyte pct 46.1 % [facility] Comment: Interpretive Data Percent cell count reference ranges are not reported, since discordance with absolute values may lead to misinterpretation of CBC data. Current Interpretive Data was last revised on 2017. Monocyte pct 10.3 % [facility] Comment: Interpretive Data Percent cell count reference ranges are not reported, since discordance with absolute values may lead to misinterpretation of CBC data. Current Interpretive Data was last revised on 2017. Eosinophil pct 4.8 % [facility] Comment: Interpretive Data Percent cell count reference ranges are not reported, since discordance with absolute values may lead to misinterpretation of CBC data. Current Interpretive Data was last revised on 2017. Basophil pct 1.1 % [facility] Comment: Interpretive Data Percent cell count reference ranges are not reported, since discordance with absolute values may lead to misinterpretation of CBC data. Current Interpretive Data was last revised on 2017. Blood 10/01/2024 2:05 PM CDT 10/01/2024 5:31 PM CDT us Jaylon Qureshi MD PhD LAB BLOOD ORDERABLE S Final Result [facility] Department [place] [address] * (ABNORMAL) CBC with auto differential (10/01/2024 2:05 PM CDT) WBC 6.48 3.80 - 9.90 K/cumm Hgb 14.5 13.0 - 17.5 g/dL [facility] Hct 39.9 38.9 - 50.3 % [facility] Plt 164 150 - 400 K/cumm [facility] MPV 9.6 9.1 - 12.3 fL [facility] RBC 5.03 4.30 - 5.80 M/cumm [facility] MCV 79.3(L) 81.3 - 96.4 fL [facility] MCH 28.8 27.1 - 33.3 pg [facility] MCHC 36.3(H) 32.3 - 35.7 g/dL [facility] RDW CV 12.7 11.1 - 14.9 % [facility] RDW SD 36.0 35.7 - 48.1 fL [facility] NRBC abs 0.00 0.00 - 0.01 K/cumm [facility] Blood 10/01/2024 2:05 PM CDT 10/01/2024 5:31 PM CDT us Jaylon Qureshi MD PhD LAB BLOOD ORDERABLE S Final Result Performing Organization Address City/[facility]/ZIP Co de Phone Number [facility] Department [place] [facility] [place] [address] * Aldolase (10/01/2024 2:05 PM CDT) [facility] Aldolase See Comment 0.1 - 8.0 Units/L Comment:Credited; Hemolyzed Specimen Blood 10/01/2024 2:05 PM CDT 10/01/2024 5:31 PM CDT us Jaylon Qureshi MD PhD LAB BLOOD ORDERABLE S Final Result [facility] [place] [address] * Erythrocyte sedimentation rate (10/01/2024 2:05 PM CDT) [facility] Erythrocyte sedimentation rate 9 1 - 15 mm/hr Blood 10/01/2024 2:05 PM CDT 10/01/2024 5:31 PM CDT Jaylon Qureshi MD PhD LAB BLOOD ORDERABLE S Final Result Performing Organization Address [facility] de Phone Number [facility] [place] [address] * CRP (acute phase) (10/01/2024 2:05 PM CDT) [facility] CRP 1.1 <=10.0 mg/L Blood 10/01/2024 2:05 PM CDT 10/01/2024 5:31 PM CDT us Jaylon Qureshi MD PhD LAB BLOOD ORDERABLE S Final Result Performing Organization Address [facility] de Phone Number [facility] Department [place] [address] * (ABNORMAL) Creatine kinase (CK), total (10/01/2024 2:05 PM CDT) [facility] CK 351(H) 40 - 300 Units/L Blood 10/01/2024 2:05 PM CDT 10/01/2024 5:31 PM CDT Jaylon Qureshi MD PhD LAB BLOOD ORDERABLE S Final Result Performing Organization Address [facility] [place] [address] * (ABNORMAL) Comprehensive metabolic panel (10/01/2024 2:05 PM CDT) [facility] Sodium 140 135 - 145 mmol/L Potassium, pl 3.7 3.3 - 4.9 mmol/L [facility] Comment:Hemolyzed; Potassium value may be falsely elevated by as much as 0.3-0.5 mmol/L. Suggest redraw and reanalysis. Chloride 100 97 - 110 mmol/L [facility] CO2 29 22 - 32 mmol/L [facility] Anion gap 11 2 - 15 mmol/L [facility] BUN 14 6 - 25 mg/dL [facility] Creatinine 1.02 0.80 - 1.30 mg/dL [facility] Glucose 98 70 - 199 mg/dL [facility] Comment: Interpretive Data Fasting glucose >/= 126 mg/dl is diagnostic for diabetes. Fasting is defined as no caloric intake for at least 8 hours. Fasting glucose between 100 mg/dl to 125 mg/dl is diagnostic of prediabetes. In a patient with classic symptoms of hyperglycemia or hyperglycemic crisis, a random glucose >/= 200 mg/dl is diagnostic for diabetes. In the absence of unequivocal hyperglycemia, results should be confirmed by repeat testing. The classification and Diagnosis of Diabetes Diabetes Care 2021; 46: S19-S40. Current interpretive data was last revised 2022. Calcium 9.7 8.5 - 10.3 mg/dL [facility] Bilirubin, total 0.2 0.1 - 1.2 mg/dL [facility] Protein, pl 7.8 6.5 - 8.5 g/dL [facility] Albumin 4.8 3.5 - 5.0 g/dL [facility] Alk phos 54 40 - 130 Units/L [facility] ALT 70(H) 7 - 55 Units/L [facility] AST 54(H) 10 - 50 Units/L [facility] Comment:Hemolyzed; result ma y be falsely elevated Blood 10/01/2024 2:05 PM CDT 10/01/2024 5:31 PM CDT us Jaylon Qureshi MD PhD LAB BLOOD ORDERABLE S Final Result [facility] Department [place] [address] * Hepatitis C antibody Blood (07/14/2023 12:25 PM ASSISTANT 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 Does NOT exclude the possibility of recent exposure to HCV. Current interpretive data was last revised on 22 Blood 07/14/2023 12:2 5 PM ASSISTANT GOLF COACH 07/14/2023 1:20 PM ASSISTANT GOLF COACH us Jaylon Qureshi MD PhD LAB MICROBIOLOGY - GENERAL ORDERABLES Final Result [facility] Department [place] [address] from Last 3 Months or Most Recently Relevant to Health Maintenance Insurance [employer] CHOICE [employer] CHOICE [facility] ACCESS CHOICE Advance Directives For more information, please contact: [phone] * Full Code (Latest Code Status on File) Date Activated Date Inactivated Comments 10/19/2022 1:04 AM 10/20/2022 5:55 PM * Full Code Date Activated Date Inactivated Comments 08/09/2022 11:29 PM 08/10/2022 11:13 PM Care Teams Dairy Inspector Relationship Specialty Start Date End Date Nithya Barron PA PCP - General 09/02/16 José Miguel Dewitt MD Consulting Physician Orthopedic Surgery 08/10/22
--- OUTSIDE RECORDS SUMMARY | 2024-12-17 14:35 | XMS_ITS | Clinical Summary ---
Author Organization [facility] Address [address] [place] [address] Care Team Providers Care Foreman/Pile Driving And Erection Name Role Phone Nithya Barron Primary Care Provider Allergies No known active allergies Medications vortioxetine (TRINTELLIX) 5 MG tablet Take 10 mg by mouth daily. Active busPIRone (BUSPAR) 7.5 MG tablet Take 7.5 mg by mouth 2 (two) times daily. Active amLODIPine (NORVASC) 2.5 MG tablet Take 1 tablet (2.5 mg total) by mouth daily. 4 Active albuterol sulfate HFA (PROAIR HFA) 108 (90 Base) MCG/ACT inhaler Inhale 2 puffs into the lungs every 4 (four) hours as needed for Shortness of breath. Active D3-50 1.25 MG (10315 UT) capsule Take 1 capsule (1.25 mg total) by mouth once a week. 4 Active clonazePAM (KLONOPIN) 0.5 MG tablet Take 1 tablet (0.5 mg total) by mouth daily as needed. Active levothyroxine (SYNTHROID) 50 MCG tablet Take 1 tablet (50 mcg total) by mouth every morning. 4 Active olmesartan (BENICAR) 40 MG tablet Take 1 tablet (40 mg total) by mouth daily. 4 Active omeprazole (PRILOSEC) 20 MG capsule Take 1 capsule (20 mg total) by mouth 2 (two) times daily with meals. 3 Active OXcarbazepine (TRILEPTAL) 300 MG tablet Take by mouth 2 (two) times daily. Active testosterone cypionate (DEPO TESTOSTERONE) 200 MG/ML injection Inject 1 mL (200 mg total) into the muscle once. Active traMADol (ULTRAM) 50 MG tablet Take 1 tablet (50 mg total) by mouth 2 (two) times daily as needed. Active Family History Medical History Relation Comments Heart Disease Father Cancer Maternal Grandfather Heart Disease Paternal Grandfather Relation Status Comments Father Maternal Grandfather Paternal Grandfather Social History Tobacco Use Types Packs/Day Years Used Date Smoking Tobacco: Former Cigarettes - 2009 Smokeless Tobacco: Never Tobacco Cessation:Counseling Given: Not Answered Alcohol Use Standard Drinks/Week Comments Yes 1.7 (1 standard drink = 0.6 oz p ure alcohol) Sex and Gender Information Value Date Recorded Sex Assigned at Not on file Legal Sex Male 5:51 PM CDT Gender Identity Not on file Sexual Orientation Not on file Last Filed Vital Signs Vital Sign Reading Time Taken Comments Blood Pressure 146/89 12/03/2023 10:30 AM CDT Pulse 78 12/03/2023 10:30 AM CDT Temperature 36.4 C (97.5 F) 12/03/2023 8:26 AM CDT Respiratory Rate 20 12/03/2023 8:26 AM CDT Oxygen Saturation 97% 12/03/2023 8:26 AM CDT Inhaled Oxygen Concentration - - Weight 117.9 kg (260 lb) 12/03/2023 8:26 AM CDT Height 185.4 cm (6' 1) 12/03/2023 8:26 AM CDT Body Mass Index 34.3 12/03/2023 8:26 AM CDT Plan of Treatment Health Maintenance Due Date Last Done Comments Annual Physical 1986 Hepatitis C 2001 Hepatitis B Vaccines (1 of 3 - 19+ 3-dose series) 2002 DTaP, Tdap and Td Vaccines ( 2 - Td or Tdap) 2012 2002 COVID-19 Vaccine (2023-2 5 season) 2024 06/03/2021, 08/26/2020, 08/05/2020 Pneumococcal Vaccine: Pediatrics (0 to 5 Years) and At-Risk Patients (6 to 49 Years) Aged Out 04/03/2020, 2019 No longer eligible based on patient's age to complete this topic HPV Vaccines Aged Out No longer eligi ble based on patient's age to complete this topic Meningococcal B Vaccine Aged Out No l onger eligible based on patient's age to complete this topic Meningococcal Vaccine Aged Out No magnolia sri eligible based on patient's age to complete this topic RSV Immunizations Under 20 Months Aged Out No longer eligible b ased on patient's age to complete this topic Insurance Care Teams Foreman/Pile Driving And Erection Relationship Specialty Start Date End Date Nithya Barron PA PCP - General PHYSICIAN SPECIAL CLASS WELDER 01/13/22
--- OUTSIDE RECORDS SUMMARY | 2024-12-17 14:35 | XMS_ITS | Clinical Summary ---
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 07/14/2023 Acute bilateral low back pain with bilateral sci atica 10/19/2022 Acute exacerbation of chronic low back pain 10/03 Acute midline low back pain without sciatica Lumbar strain, initial encounter 08/09/2022 Radiculopathy 08/09/2022 Overview (08/10/2022): Added automatically from request for surgery [id number] Elevated liver enzymes 03/13/2017 Psoriatic arthritis 01/26/2017 [...] Date Rheumatoid arthritis involvi ng multiple sites ([facility]) 11/05/2015 03/13/2021 Encounters Date Type Department Care Team Description 11/20/2024 Results Follow-Up [facility] Convenient Care at [address] [address] Shira Obando, KHAI XR Foot Right 3+ Vw 11/19/2024 12:30 PM CDT Office Visit [facility] at [address] [address] Shira Obando NP Right foot pain (Primary Dx) 11/19/2024 12:25 PM CDT Ancillary Procedure [facility] Imaging at [address] [address] Right foot pain 10/08/2024 Orders Only [facility] Rheumatology [address] [place] [address] [place] [address] Jaylon Qureshi MD PhD Elevated liver enzymes (Primary Dx) 10/03/2024 Telephone [facility] Rheumatology [address] [place] [address] [place] [address] Neetu Fay RMA 10/01/2024 8:00 PM CDT Lab [facility] ([facility]) [address] [place] [phone] Weakness; Psoriatic arthritis (HCC); Psoriasis 10/01/2024 4:00 PM CDT Office Visit [facility] Rheumatology [address] [place] [address] [place] [address] Jaylon Qureshi MD PhD Psoriatic arthritis (HCC) (Primary Dx); Psoriasis; Weakness 10/01/2024 Results Follow-Up [facility] Rheumatology [address] [place] [address] [place] [address] Jaylon Qureshi MD PhD Aldolase from Last 3 Months Immunizations Immunization Administration Dates Next Due Influenza, Quadrivalent, Split, Intramuscular Pneumococcal Conjugate PCV 13 2019 Pneumococcal Polysaccharide PPV23 04/03/2020 Surgical History Surgery Date Site/Laterality Comments FOREARM FRACTURE SURGERY Left INFECTED SKIN DEBRIDEMENT MRSA ULNAR NERVE REPAIR Bilateral CARPAL TUNNEL RELEASE Bilateral FL FLUORO GUIDED LUMBAR PUNCTURE 10/27/2020 Right FL FLUORO GUIDED LUMBAR PUNCTURE 12/04/2020 Right IR INJECTION ARTHROGRAM SI J OINT BILATERAL WITH GUIDANCE 01/27/2021 Bilateral Medical History Medical History Date Comments Depression Depression Asthma Asthma Psoriasis Psoriatic arthritis (HCC) psoria tic arthritis Forearm fracture Left MRSA (methicillin resistant Staphylococcus aureu s) Family History Medical History Relation Name Comments Cancer Maternal Grandfather Cancer Maternal Grandmother Osteoarthritis Paternal Grandmother Relation Name Status Comments Maternal Grandfather Maternal Grandmother Paternal Grandmother Social History Tobacco Use Types Packs/Day Years [...] often do you attend chur ch or presybeterian services? 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 Gender Identity Not on file Sexual Orientation Not on file Obstetrics History Last Filed Vital Signs Vital Sign Reading [...] 10/01/2024 3:59 PM CDT Plan of Treatment Health Maintenance Due Date Last Done Comments Depression Screening 1983 DTaP/Tdap/Td Vaccine (1 - Tdap) 1994 Varicella Vaccines (1 of 2 - 13+ 2-dose series) 1996 Regular Well Visit/Exam 18-64 2001 Influenza Vaccine (#1) 2025 8, 06/05/2014 Pneumococcal vaccine <65 (3 of 3 - PCV20 or PCV21) 2033 04/03/2020, 2019 Hepatitis B Screening Completed 07/14/2023 Hepatitis C Screening Completed 07/14/2023 , 05/20/2022, 07/06/2016 HPV Vaccines Aged Out No longer eligi ble based on patient's age to complete this topic Procedures Procedure Name Priority Date/Time Associated Diagnosis [...] HEPATITIS C ANTIBODY Routine 07/14/2023 12:25 PM MANAGEMENT TRAINER High risk medication use from Last 3 [...] signed by Mathew MANRIQUE T: Report ID: [id number] Reading Location: [id number] Procedure Note Mathew Delacruz MD - 11/19/2024 [...] signed by Mathew MANRIQUE T: Report ID: [id number] Reading Location: [id number] Shira Obando PRODUCTION SUPPORT SPECIALIST IMG XR PROCEDURES Final Result * [...] of Race in Diagnosing Kidney Disease, JASN 202). The CKD-EPI equation should not be used for patients with unstable renal function and has not been validated in children and those over 70. Current interpretive data was last reviewed 2021. Blood 10/01/2024 2:05 PM CDT 10/01/2024 5:37 PM CDT us Jaylon Qureshi MD PhD LAB BLOOD ORDERABLE S Final Result [facility] [place] [address] * Differential, auto (10/01/2024 2:05 PM CDT) Neutrophil abs 2.42 1.50 - 6.50 K/cumm Imm gran abs 0.02 0.00 - 0.10 K/cumm [facility] Lymphocyte abs 2.99 0.80 - 3.30 K/cumm [facility] Monocyte abs 0.67 0.20 - 0.80 K/cumm [facility] Eosinophil abs 0.31 0.00 - 0.50 K/cumm [facility] Basophil abs 0.07 0.00 - 0.10 K/cumm [facility] Neutrophil pct 37.4 % [facility] Comment: Interpretive Data Percent cell count reference ranges are not reported, since discordance with absolute values may lead to misinterpretation of CBC data. Current Interpretive Data was last revised on 2017. Imm gran pct 0.3 % [facility] Comment: Interpretive Data Percent cell count reference ranges are not reported, since discordance with absolute values may lead to misinterpretation of CBC data. Current Interpretive Data was last revised on 2017. Lymphocyte pct 46.1 % [facility] Comment: Interpretive Data Percent cell count reference ranges are not reported, since discordance with absolute values may lead to misinterpretation of CBC data. Current Interpretive Data was last revised on 2017. Monocyte pct 10.3 % [facility] Comment: Interpretive Data Percent cell count reference ranges are not reported, since discordance with absolute values may lead to misinterpretation of CBC data. Current Interpretive Data was last revised on 2017. Eosinophil pct 4.8 % [facility] Comment: Interpretive Data Percent cell count reference ranges are not reported, since discordance with absolute values may lead to misinterpretation of CBC data. Current Interpretive Data was last revised on 2017. Basophil pct 1.1 % [facility] Comment: Interpretive Data Percent cell count reference ranges are not reported, since discordance with absolute values may lead to misinterpretation of CBC data. Current Interpretive Data was last revised on 2017. Blood 10/01/2024 2:05 PM CDT 10/01/2024 5:31 PM CDT us Jaylon Qureshi MD PhD LAB BLOOD ORDERABLE S Final Result [facility] [place] [address] * (ABNORMAL) CBC with auto differential (10/01/2024 2:05 PM CDT) WBC 6.48 3.80 - 9.90 K/cumm Hgb 14.5 13.0 - 17.5 g/dL [facility] Hct 39.9 38.9 - 50.3 % [facility] Plt 164 150 - 400 K/cumm [facility] MPV 9.6 9.1 - 12.3 fL [facility] RBC 5.03 4.30 - 5.80 M/cumm [facility] MCV 79.3(L) 81.3 - 96.4 fL [facility] MCH 28.8 27.1 - 33.3 pg [facility] MCHC 36.3(H) 32.3 - 35.7 g/dL [facility] RDW CV 12.7 11.1 - 14.9 % [facility] RDW SD 36.0 35.7 - 48.1 fL [facility] NRBC abs 0.00 0.00 - 0.01 K/cumm [facility] Blood 10/01/2024 2:05 PM CDT 10/01/2024 5:31 PM CDT us Jaylon Qureshi MD PhD LAB BLOOD ORDERABLE S Final Result Performing Organization Address [facility] Co de Phone Number [facility] [place] [address] * Aldolase (10/01/2024 2:05 PM CDT) Aldolase See Comment 0.1 - 8.0 Units/L Comment:Credited; Hemolyzed Specimen Blood 10/01/2024 2:05 PM CDT 10/01/2024 5:31 PM CDT us Jaylon Qureshi MD PhD LAB BLOOD ORDERABLE S Final Result Performing Organization Address [facility] Co de Phone Number [facility] [place] [address] * Erythrocyte sedimentation rate (10/01/2024 2:05 PM CDT) Erythrocyte sedimentation rate 9 1 - 15 mm/hr Blood 10/01/2024 2:05 PM CDT 10/01/2024 5:31 PM CDT Jaylon Qureshi MD PhD LAB BLOOD ORDERABLE S Final Result Performing Organization Address [facility] Co de Phone Number [facility] [place] [address] * CRP (acute phase) (10/01/2024 2:05 PM CDT) CRP 1.1 <=10.0 mg/L Blood 10/01/2024 2:05 PM CDT 10/01/2024 5:31 PM CDT Jaylon Qureshi MD PhD LAB BLOOD ORDERABLE S Final Result Performing Organization Address City/[facility]/ZIP Co de Phone Number [facility] [place] [address] * (ABNORMAL) Creatine kinase (CK), total (10/01/2024 2:05 PM CDT) Pathologist [facility] CK 351(H) 40 - 300 Units/L Blood 10/01/2024 2:05 PM CDT 10/01/2024 5:31 PM CDT Jaylon Qureshi MD PhD LAB BLOOD ORDERABLE S Final Result Performing Organization Address [facility] Co de Phone Number [facility] [place] [address] * (ABNORMAL) Comprehensive metabolic panel (10/01/2024 2:05 PM CDT) [facility] Sodium 140 135 - 145 mmol/L Potassium, pl 3.7 3.3 - 4.9 mmol/L [facility] Comment:Hemolyzed; Potassium value may be falsely elevated by as much as 0.3-0.5 mmol/L. Suggest redraw and reanalysis. Chloride 100 97 - 110 mmol/L [facility] CO2 29 22 - 32 mmol/L [facility] Anion gap 11 2 - 15 mmol/L [facility] BUN 14 6 - 25 mg/dL [facility] Creatinine 1.02 0.80 - 1.30 mg/dL [facility] Glucose 98 70 - 199 mg/dL [facility] Comment: Interpretive Data Fasting glucose >/= [...] classification and Diagnosis of Diabetes Diabetes Care 202; 46: S19-S40. Current interpretive data was last revised 2022. Calcium 9.7 8.5 - 10.3 mg/dL [facility] Bilirubin, total 0.2 0.1 - 1.2 mg/dL [facility] Protein, pl 7.8 6.5 - 8.5 g/dL [facility] Albumin 4.8 3.5 - 5.0 g/dL [facility] Alk phos 54 40 - 130 Units/L [facility] ALT 70(H) 7 - 55 Units/L [facility] AST 54(H) 10 - 50 Units/L [facility] Comment:Hemolyzed; result ma y be falsely elevated Blood 10/01/2024 2:05 PM CDT 10/01/2024 5:31 PM CDT us Jaylon Qureshi MD PhD LAB BLOOD ORDERABLE S Final Result Performing Organization Address City/[facility]/ZIP Co de Phone Number [facility] Department [place] [address] * Hepatitis C antibody Blood (07/14/2023 12:25 PM MANAGEMENT TRAINER) Hep C Ab Nonreactive Nonreactive [facility] Comment:Antibodies to HCV no t detected. Does NOT exclude the possibility of recent exposure to HCV. Current interpretive data was last revised on 22 Blood 07/14/2023 12:2 5 PM MANAGEMENT TRAINER 07/14/2023 1:20 PM MANAGEMENT TRAINER us Jaylon Qureshi MD PhD LAB MICROBIOLOGY - GENERAL ORDERABLES Final Result [facility] [place] [address] from Last 3 Months or Most Recently Relevant to Health Maintenance Insurance ANTHEM ACCESS CHOICE ANTHEM ACCESS CHOICE ANTHEM ACCESS CHOICE Advance Directives For more information, please contact: [phone] * Full Code (Latest Code Status on File) Date Activated Date Inactivated Comments 10/19/2022 1:04 AM 10/20/2022 5:55 PM * Full Code Date Activated Date Inactivated Comments 08/09/2022 11:29 PM 08/10/2022 11:13 PM Care Teams Food Service Counter Clerk Relationship Specialty Start Date End Date Nithya Barron PA PCP - General 09/02/16 José Miguel Dewitt MD Consulting Physician Orthopedic Surgery 08/10/22
--- OUTSIDE RECORDS SUMMARY | 2024-12-17 14:35 | XMS_ITS | Encounter Summary ---
Author Organization [facility] Address [address] [place] [address] Care Team Providers Care Stove Cleaner Name Role Phone Mellisatonja Nithya LOPEZ Primary Care Pr ovider José Miguel Dewitt MD Unavailable [phone] Reason for Visit * Reason Onset Date Comments Ready to schedule 09/20/2023 Encounter Details Date Type Department Care Team (Late st Contact Info) Description 09/20/2023 Telephone [facility] Specialty Services [address] [place] [address] Miscellaneous, Not In File Ready to schedule Social History Tobacco Use Types Packs/Day Years [...] often do you attend chur ch or orthodox services? 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
--- OUTSIDE RECORDS SUMMARY | 2024-12-17 14:36 | XMS_ITS | Patient Health Record ---
Author Organization [facility] Address [address] [place], [place] [id number] Support Name Relationship Address Phone NEEL DARLING Guarantor Unknown [phone] Reason For Referral No Information Medications Medication SIG (Take, Route, Frequency, Duration) Notes Start Date End Date Status Medrol Dosepak ORAL Medrol DosepakOr iginal MedicationMedrol Dosepak *Reorder from Book&Table for eRx and Interaction Alerts* 01/06/2012 Active Plan Of Treatment No Information Insurance Providers Payer Name Payer Address Payer Phone Subscriber Number Group Number Insured Name Patient Relationship to Insured Coverage Start Date Coverage End Date [facility]) [address] [place], [place] [id number] NEEL DARLING Self - patient is the insured
--- OUTSIDE RECORDS SUMMARY | 2024-12-17 14:36 | XMS_ITS | Patient Health Record ---
Author Organization [facility] Address [address] [place] [address] Care Team Providers Care Accounts Manager Name Role Phone Renate TEJADA, José Miguel Unavailable Unavailable Lizzie Booker Unavailable [phone] Ghanshyam Aguilera Unavailable [phone] Marcia Enciso PA-C Unavailable Ambreen Ta Unavailable [phone] Hood Booker Unavailable [phone] Allergies No Known Allergies Results Component Value Reference Range Notes MR Lumbar WO Reviewed date:10/24/2024 10:39:11 AM Interpretation: Performing Lab: Notes/Report: Original Report MRI LUMBAR SPINE WITHOUT CONTRAST COMPARISON: 09/13/2022. HISTORY: Low back pain. Status post lumbar surgery. TECHNIQUE: Noncontrast MRI imaging was performed of the lumbar spine without contrast using the standard protocol on a 1.5T MRI. FINDINGS: L5-S1: Disc is still well-hydrated. Small facet joint spurs L4-5: Interval right-sided discectomy/laminectomy/ligamentum flavum removal. Interval worse fluid signal structure within the right anterior spinal canal, likely recurrent herniated disc/discogenic cyst variant with even greater mass effect upon the traversing right-sided nerve roots. Precise determination of disc versus scar could be performed with repeat imaging with intravenous gadolinium. Stable very slight retrolisthesis. Stable far lateral disc bulging with mild neural foramina narrowing. Stable small facet joint spurs. L3-4: Stable slight retrolisthesis. Stable broad-based right lateral disc herniation with annular tearing causing borderline spinal stenosis as well as slight mass effect upon the traversing right L4 nerve root. The AP dimension thecal sac measures 7 mm. Slight disc desiccation without change L1-2 and L2-3 levels are essentially unremarkable. Old appearing inferior endplate Schmorl''s node at L1 without change. Opinion: Interval right-sided laminectomy/discectomy/ligamentum flavum removal at L4-5. Recurrent disc herniation/discogenic cyst variant signal intensities within the right-sided spinal canal with slight downward extension. Precise determination of disc versus scar could be performed with repeat imaging with intravenous gadolinium if clinically desired. . Read by: Felix Olsen M.D. Reviewed and Electronically Signed by: Felix Olsen M.D. TAPP Profil e Reviewed date:05/19/2024 04:19:52 PM Interpretation: Performing Lab:[facility] (CLIA#: [id number]), [address] [place] [address], Director - Elma Briones Notes/Report: These tests were developed and their performance characteristics determined by [facility]. They have not been cleared or approved by the [place] Food and Drug Administration. Certifying Cook Chef: Kathia Calvillo (Remote [id number]) Analyzed at [facility] (CLIA#: [id number]) - [address] [place] [address] - Hospital Nursing Assistant: Elma Donald Buspirone Ur CMP 313 >=25 ng/mL COMPLIANT: Test result is consistent and expected with prescribed drug. Oxcarbazepine Ur CMP >818900 >=500 ng/mL COMPLIA NT: Test result is consistent and expected with prescribed drug. Tramadol Ur CMP 93480 >=100 ng/mL COMPLIANT: T est result is consistent and expected with prescribed drug. Oxycodone Ur CMP <100 >=100 ng/mL NON-COMPLIA NT: Test result indicates patient may not be taking drug prescribed. BioDetect EXPECTED Test result is consistent with routinely analyzed human urine. 6MAM Ur Ql Cfm <10 >=10 ng/mL NONE DETECTED Amphetamines Ur Ql Cfm <100 >=100 ng/mL NONE DETECTED Benzodiaz Ur Ql Cfm <50 >=50 ng/mL NONE DET ECTED Buprenorphine Ur Ql Cfm <1 >=1 ng/mL NONE DETECTED BZE Ur Ql Cfm <50 >=50 ng/mL NONE DETECTED Fentanyl+Norfentanyl Ur Ql Cfm <5 >=5 ng/mL NONE DETECTED Gabapentin Ur Ql <5 >=5 mcg/mL NONE DETECT ED Carisoprodol+Meprob Ur Ql Scn <200 >=200 ng/mL NONE DETECTED Methadone Ur Ql Cfm <200 >=200 ng/mL NONE DET ECTED Meperidine Ur Ql Cfm <100 >=100 ng/mL NONE DE TECTED Opiates Ur Ql Cfm <100 >=100 ng/mL NONE DETEC BAYLEE Pregabalin(Lyrica) Ur Ql Cfm <5 >=5 mcg/mL NONE DETECTED Tramadol Ur Ql Cfm >=100 >=100 ng/mL POSITIVE Nortramadol Ur Cfm-mCnc 82168 >=100 ng/mL POSI TIVE Tramadol Ur Cfm-mCnc 39550 >=100 ng/mL POSITIV E N-Desmethyl Tram Ur Cfm-mCnc 91150 >=100 ng/mL POSITIVE Creat Ur-mCnc 182.1 20 - 370 mg/dL NORMAL Creatinine and pH are performed for specimen validity and not diagnostic purposes. pH Ur 5.18 4.5 - 9.0 NORMAL Creatinine and pH are performed for specimen validity and not diagnostic purposes. Alcohol Metabolites Ur Ql Cfm <200 >=200 ng/mL NONE DETECTED Ethyl sulfate Ur Cfm-mCnc <200 >=200 ng/mL NO NE DETECTED Busprione Ur Ql Cfm >=25 >=25 ng/mL POSITIVE 6-Hydroxybuspirone Ur Cfm-mCnc 310 >=25 ng/mL POSITIVE Oxcarbazepine Mtb Ur Ql Cfm >=500 >=500 ng/mL POSITIVE Oxcarbazepine Ur Cfm-mCnc 06466 >=500 ng/mL PO SITIVE Oxcarbazepine Mtb Ur Cfm-mCnc >37850 >=500 ng/mL POSITIVE Synthetic Stimulants Ur Ql Cfm <1 >=1 ng/mL NONE DETECTED SECURITY RESEARCHER Not Otherwise Specified Ur Ql Cfm <1 >=1 ng/mL NONE DETECTED Synthetic Cannabinoids Ur Ql Cfm <1 >=1 ng/m L NONE DETECTED Hallucinogens/Dissociatives Ur Ql Cfm <1 >=1 ng/mL NONE DETECTED Circle Shear Operator Benzodiazepines Ur Ql Cfm <1 >=1 ng/mL NONE DETECTED Circle Shear Operator Opioids Ur Ql Cfm <1 >=1 ng/mL N ONE DETECTED THC Ur Ql Scn <20 >=20 ng/mL NONE DETECTED Reason For Referral No Information Medications Medication SIG (Take, Route, Frequency, Duration) Notes Start Date End Date Status Trintellix 10 MG Oral; Duration: 30 Days Active oxyCODONE-Acetaminophen 5-325 MG 1 tablet Orally every 6 hrs; Duration: 30 days do not fill until 11/09/24 11/07/2024 Active busPIRone HCl 7.5 MG Oral; Duration: 90 Days Active Olmesartan Medoxomil 40 MG TAKE 1 TABLET BY MOUTH EVERY DAY Oral; Duration: 30 Days Active predniSONE 5 MG Oral; Duration: 28 Days Active Narcan 4 MG/0.1ML as directed Nasally; Duration: 1 days 05/15/2024 Active amLODIPine Besylate 2.5 MG TAKE 1 TABLET BY MOUTH EVERY DAY Oral; Duration: 30 Days Active Dificid 200 MG Oral; Duration: 9 Days Active Testosterone Cypionate 200 MG/ML ADMINISTER 1 ML IN THE MUSCLE EVERY 2 WEEKS DIRECTED Intramuscular; Duration: 28 Days Active Levothyroxine Sodium 50 MCG TAKE 1 TABLET BY MOUTH EVERY DAY IN THE MORNING FOR THYROID Oral; Duration: 30 Days Active OXcarbazepine 300 MG Oral; Duration: 90 Days Active traMADol HCl 50 MG 1 tablet as needed Orally every 6 hours; Duration: 30 days 05/06/2024 Active D3-50 1.25 MG (18866 UT) TAKE 1 CAPSULE BY MOUTH EVERY WEEK Oral; Duration: 28 Days Active Remicade 100 MG as directed Intravenous 03/14/2024 Active Social History Tobacco Use: Social History Observation Description Date Details (start date - stop date) Former Smoker NA - NA Tobacco Control (Standard) Question Answer Notes Tobacco use: Former smoker How long has it been since you last smoked? Gareth ter than 10 years Section Notes: We have evaluated the patien t using PMQ-R, CESD-R and GPCOG assessments. Based on data collected from the PMQ-R, we are evaluating the risk for abuse, misuse and diversion. Furthermore, we are screening the patient for depression using the CESD-R assessment. Lastly, we are utilizing GPCOG to ensure that the current treatment plan is not impairing cognition. Per assessments today the patient has low risk for depression, low risk for opioid misuse, abuse, and no cognitive impairment. He is low risk per testing. We have evaluated the mike t using PMQ-R, CESD-R and GPCOG assessments. Based on data collected from the PMQ-R, we are evaluating the risk for abuse, misuse and diversion. Furthermore, we are screening the patient for depression using the CESD-R assessment. Lastly, we are utilizing GPCOG to ensure that the current treatment plan is not impairing cognition. Per assessments today the patient has low risk for depression, low risk for opioid misuse, abuse, and no cognitive impairment. He is low risk per testing. We have evaluated the mike t using PMQ-R, CESD-R and GPCOG assessments. Based on data collected from the PMQ-R, we are evaluating the risk for abuse, misuse and diversion. Furthermore, we are screening the patient for depression using the CESD-R assessment. Lastly, we are utilizing GPCOG to ensure that the current treatment plan is not impairing cognition. Per assessments today the patient has low risk for depression, low risk for opioid misuse, abuse, and no cognitive impairment. He is low risk per testing. We have evaluated the mike t using PMQ-R, CESD-R and GPCOG assessments. Based on data collected from the PMQ-R, we are evaluating the risk for abuse, misuse and diversion. Furthermore, we are screening the patient for depression using the CESD-R assessment. Lastly, we are utilizing GPCOG to ensure that the current treatment plan is not impairing cognition. Per assessments today the patient has low risk for depression, low risk for opioid misuse, abuse, and no cognitive impairment. He is low risk per testing. We have evaluated the mike t using PMQ-R, CESD-R and GPCOG assessments. Based on data collected from the PMQ-R, we are evaluating the risk for abuse, misuse and diversion. Furthermore, we are screening the patient for depression using the CESD-R assessment. Lastly, we are utilizing GPCOG to ensure that the current treatment plan is not impairing cognition. Per assessments today the patient has low risk for depression, low risk for opioid misuse, abuse, and no cognitive impairment. He is low risk per testing. We have evaluated the mike castle using PMQ-R, CESD-R and GPCOG assessments. Based on data collected from the PMQ-R, we are evaluating the risk for abuse, misuse and diversion. Furthermore, we are screening the patient for depression using the CESD-R assessment. Lastly, we are utilizing GPCOG to ensure that the current treatment plan is not impairing cognition. Per assessments today the patient has low risk for depression, low risk for opioid misuse, abuse, and no cognitive impairment. He is low risk per testing. Problems Problem Type SNOMED Code ICD Code Onset Dates Problem Status W/U Status Risk Notes Problem Long-term current use of drug therapy (055437199) Other long term care pharmacist (current) drug therapy (Z79.899) Active confirmed Problem Post-laminecto my syndrome (95563998) Post laminectomy syndrome (M96.1) Active confirmed Problem Low back pain (179901901) Low back pain (M54.50) Active confirmed Problem Psoriatic arthritis (913370786) Psoriatic arthritis (L40.50) Active confirmed Problem Cervical pain (86688609) Cervical pain (M54.2) Active confirmed Vital Signs Heart Rate 94 /min 09/11/2024 Blood pressure diastolic 91 mm Hg 09/11/2024 Height-cm 185.42 cm 11/07/2024 Weight-kg 113.4 kg 11/07/2024 Height 6ft 1in in 11/07/2024 Blood pressure systolic 154 mm Hg 09/11/2024 Weight 250 lbs 11/07/2024 BMI 32.98 kg/m2 11/07/2024 Encounters Encounter Location Date Provider Diagnosis Telehealth [facility] [address] [place] [address] [address] [place] [address] 02/22/2024 Marcia Marstall Post laminectomy syndrome M96.1 ; Low back pain M54.50 ; Psoriatic arthritis L40.50 and Other long term care pharmacist (current) drug therapy Z79.899 [facility] [address] [place] [address] [address] [place] [address] 03/14/2024 Marcia Marstall Post laminectomy syndrome M96.1 ; Low back pain M54.50 ; Psoriatic arthritis L40.50 and Other senior care (current) drug therapy Z79.899 [facility] [address] [place] [address] 05/15/2024 Marcia Marstall Post laminectomy syndrome M96.1 ; Low back pain M54.50 ; Psoriatic arthritis L40.50 ; Other long term care pharmacist (current) drug therapy Z79.899 and Screening for substance abuse Z13.89 [facility] [address] [place] [address] 07/01/2024 Marcia Marstall Post laminectomy syndrome M96.1 ; Low back pain M54.50 ; Psoriatic arthritis L40.50 and Other long term care pharmacist (current) drug therapy Z79.899 [facility] [address] [place] [address] [address] [place] [address] 08/14/2024 Marcia Marstall Post laminectomy syndrome M96.1 ; Low back pain M54.50 ; Psoriatic arthritis L40.50 and Other long term care pharmacist (current) drug therapy Z79.899 [facility] [address] [place] [address] [address] [place] [address] 09/11/2024 Ambreen Ta Post laminectomy syndrome M96.1 ; Low back pain M54.50 ; Psoriatic arthritis L40.50 and Other senior care (current) drug therapy Z79.899 [facility] [address] [place] [address] [address] [place] [address] 10/10/2024 Ambreen Ta Low back pain M54.50 ; Psoriatic arthritis L40.50 ; Post laminectomy syndrome M96.1 and Other long term care pharmacist (current) drug therapy Z79.899 [facility] [address] [place] [address] [address] [place] [address] 11/07/2024 Ambreendebbie Ta Low back pain M54.50 ; Post laminectomy syndrome M96.1 ; Psoriatic arthritis L40.50 ; Cervical pain M54.2 and shelter use of drug Z79.899 [facility] [address] [place] [address] [address] [place] [address] 01/22/2024 Lizzie Booker [facility] [address] [place] [address] [address] [place] [address] 02/22/2024 Hood Booker [facility] [address] [place] [address] [address] [place] [address] 03/12/2024 Hood Jhony [facility] [address] [place] [address] 03/14/2024 Hood Jhony [facility] [address] [place] [address] 05/15/2024 Ghanshyam Aguilera [facility] [address] [place] [address] 05/15/2024 Lizzie Jhony [facility] [address] [place] [address] 05/15/2024 Hood Jhony [facility] [address] [place] [address] 05/15/2024 Ghanshyam Aguilera [facility] [address] [place] [address] 06/03/2024 Hood Jhony [facility] [address] [place] [address] 07/01/2024 Lizzie Jhony [facility] [address] [place] [address] 08/14/2024 Ghanshyam Aguilera [facility] [address] [place] [address] 09/11/2024 Ghanshyam Aguilera [facility] [address] [place] [address] 10/10/2024 Lizzie Jhony [facility] [address] [place] [address] 10/10/2024 Hood Jhony [facility] [address] [place] [address] 10/10/2024 Hood Jhony [facility] [address] [place] [address] 10/14/2024 Hood Jhony [facility] [address] [place] [address] 11/07/2024 Lizzie Booker Assessments Encounter Date Diagnosis (ICD Code) Assessment Notes Treatment Notes Treatment Clinical Notes Section Notes 02/22/2024 Post laminectomy syndrome (ICD-10 - M96.1) 02/22/2024 Low back pain (ICD-10 - M54.50) 03/14/2024 Post laminectomy syndrome (ICD-10 - M96.1) Prescription for controlled substance sent to supervising physician for renewal 05/15/2024 Post laminectomy syndrome (ICD-10 - M96.1) Prescription for controlled substance sent to supervising physician for renewal schedule with Dr Booker for treatment plan 05/15/2024 Low back pain (ICD-10 - M54.50) 07/01/2024 Post laminectomy syndrome (ICD-10 - M96.1) Prescription for controlled substance sent to supervising physician for renewal refill oxycodone d/c tramadol will try to go back to tramadol when lumbar ablation done 07/01/2024 Low back pain (ICD-10 - M54.50) 08/14/2024 Post laminectomy syndrome (ICD-10 - M96.1) Prescription for controlled substance sent to supervising physician for renewal 09/11/2024 Post laminectomy syndrome (ICD-10 - M96.1) Refill for controlled substance sent to supervising physician to be filled Continue home stretching and at home exercise program as tolerated Follow-up in one month for med check, sooner if needed 10/10/2024 Low back pain (ICD-10 - M54.50) Refill for controlled substance sent to supervising physician to be filled Lumbar MRI ordered, sent to [facility] Continue home stretching and at home exercise program as tolerated Follow-up in one month for med check, sooner if needed 10/10/2024 Psoriatic arthritis (ICD-10 - L40.50) 11/07/2024 Post laminectomy syndrome (ICD-10 - M96.1) 11/07/2024 Low back pain (ICD-10 - M54.50) Refill for controlled substance sent to supervising physician to be filled Patient to f/u with [facility] for consult Continue home stretching and at home exercise program as tolerated Follow-up in one month for med check, sooner if needed 11/07/2024 Psoriatic arthritis (ICD-10 - L40.50) 10/10/2024 Post laminectomy syndrome (ICD-10 - M96.1) 09/11/2024 Low back pain (ICD-10 - M54.50) 08/14/2024 Low back pain (ICD-10 - M54.50) 07/01/2024 Psoriatic arthritis (ICD-10 - L40.50) 05/15/2024 Psoriatic arthritis (ICD-10 - L40.50) 03/14/2024 Low back pain (ICD-10 - M54.50) 02/22/2024 Psoriatic arthritis (ICD-10 - L40.50) consulted with Dr Booker. patient in psoriatic flare up and getting infusion approved/set up ok for Percocet 5/325mg one q6hr prn for 2wks. patient to call after two weeks will either refill percocet 5/325mg or go back to tramadol at that point 03/14/2024 Psoriatic arthritis (ICD-10 - L40.50) 05/15/2024 Other senior care (current) drug therapy (ICD-10 - Z79.899) 07/01/2024 Other long term care pharmacist (current) drug therapy (ICD-10 - Z79.899) 08/14/2024 Psoriatic arthritis (ICD-10 - L40.50) 09/11/2024 Psoriatic arthritis (ICD-10 - L40.50) 10/10/2024 Other senior care (current) drug therapy (ICD-10 - Z79.899) 02/22/2024 Other long term care pharmacist (current) drug therapy (ICD-10 - Z79.899) 11/07/2024 Cervical pain (ICD-10 - M54.2) 11/07/2024 terminal worker use of drug (ICD-10 - Z79.899) 09/11/2024 Other senior care (current) drug therapy (ICD-10 - Z79.899) 05/15/2024 Screening for substance abuse (ICD-10 - Z13.89) 08/14/2024 Other senior care (current) drug therapy (ICD-10 - Z79.899) 03/14/2024 Other long term care pharmacist (current) drug therapy (ICD-10 - Z79.899) 03/14/2024 Other Body Mass Index : Care Instructions material was published, High Blood Pressure: Care Instructions material was published 05/15/2024 Other High Blood Pressure: Care Instructions material was published, Body Mass Index: Care Instructions material was published 4v weightbearing lumbar spine: R PSIS lower than left. pelvic obliquity as evidenced by size and shape of nimisha. no scoliosis. six lumbar vertebrae when counting from last rib. surgical clips RUQ. prominent psoas muscles. loss or lordotic curve. loss of disc height L5/6, L6/S1. slight retrolisthesis L2,3,4. no tumor, mass or fracture. 07/01/2024 Other Body Mass Index : Care Instructions material was published, High Blood Pressure: Care Instructions material was published 08/14/2024 Other Body Mass Index : Care Instructions material was published, Learning About How to Have a Healthy Back material was published, Learning About How to Have a Healthy Back material was published 09/11/2024 Other Body Mass Index : Care Instructions material was published, High Blood Pressure: Care Instructions material was published Plan Of Treatment Pending Test Test Name Order Date X ray : Spines, lumbar 4 views 4 EtS (Alcohol Metabolite) - Urine 024 QMP Plus D/L - Urine 05/15/2024 Synthetic Stimulants 05/15/2024 Circle Shear Operator Benzodiazepines 05/15/2024 Synthetic Cannabinoids 05/15/2024 Circle Shear Operator Opioids 05/15/2024 Hallucinogens/Dissociatives 05/15/2024 SECURITY RESEARCHER Other 05/15/2024 Marijuana - Urine 05/15/2024 PainComp Medication Compliance - Urine 1 07/16/2023 [facility] Required Information 05/15/2024 Next Appt Details Provider Name:Lizzie macias, 12/31/2024 04:15:00 PM, [id number] [place] [address], [address], [address], Insurance Providers Payer Name Payer Address Payer Phone Subscriber Number Group Number Insured Name Patient Relationship to Insured Coverage Start Date Coverage End Date [facility] [address] [place] [address] [id number] Tj Romero Self - patient is the insured 2 Medical (General) History Medical History History ICD Code Psoriatic arthritis hypertension hypothyroidism low testosterone Vit D deficiency Bipolar depression leg length discrepancy 10mm short right Surgical History Surgery Date(Month/Year) ACDF left wrist fracture tonsillectomy CTR and ulnar nerve release cholecystectomy Hospitalization History Reason Date(Month/Year) no hospitalization since last visit
--- OUTSIDE RECORDS SUMMARY | 2024-12-17 14:36 | XMS_ITS | Clinical Summary ---
Author Organization [facility] Address [address] [place] [id number] Phone Care Team Providers Care Agricultural Engineering Technician Name Role Phone Nithya Barron Primary Care Provider [phone] Allergies No known active allergies Medications buPROPion HCl (WELLBUTRIN SR) 150 mg Sustained Release 12 hour tablet Take 150 mg by mouth daily. Active amoxicillin-cla vulanate (AUGMENTIN) 875-125 mg tablet Take 1 Tablet by mouth every 12 hours. Active albuterol HFA 90 mcg inhaler Take 2 Puffs by inhalation every 6 hours as needed for Shortness of Breath. Active HYDROcodone-supa taminophen (NORCO) 5-325 mg tablet Take 1-2 Tablet by mouth every 6 hours as needed for Pain, Moderate. Max Daily Amount: 8 Tablet 20 Tablet None 6 Active methylPREDNISol one (MEDROL, KIMBERLEY,) 4 mg Tablets, Dose Pack As per packet insert. 1 Package None 6 Active clarithromycin (BIAXIN XL) 500 mg Extended Release 24 hour tablet Take 500 mg by mouth daily. Active Social History Tobacco Use Types Packs/Day Years Used Date Smoking Tobacco: Former Cigarettes Q uit: 09/14/2012 Alcohol Use Standard Drinks/Week Comments No 0 (1 standard drink = 0.6 oz pur e alcohol) Sex and Gender Information Value Date Recorded Sex Assigned at Not on file Legal Sex Male 7:27 AM CDT Gender Identity Not on file Sexual Orientation Not on file Last Filed Vital Signs Vital Sign Reading Time Taken Comments Blood Pressure 153/94 04/09/2018 6:36 PM PREMIUM NOTE INTEREST CALCULATOR CLERK Pulse 88 09/19/2015 3:30 PM CDT Temperature 36.7 C (98.1 F) 04/09/2018 6:36 PM PREMIUM NOTE INTEREST CALCULATOR CLERK Respiratory Rate 18 04/09/2018 6:36 PM PREMIUM NOTE INTEREST CALCULATOR CLERK Oxygen Saturation 99% 04/09/2018 6:36 PM PREMIUM NOTE INTEREST CALCULATOR CLERK Inhaled Oxygen Concentration - - Weight 117.9 kg (260 lb) 04/09/2018 6:36 PM PREMIUM NOTE INTEREST CALCULATOR CLERK Height 182.9 cm (6') 04/09/2018 6:36 PM PREMIUM NOTE INTEREST CALCULATOR CLERK Body Mass Index 35.26 04/09/2018 6:36 PM PREMIUM NOTE INTEREST CALCULATOR CLERK Plan of Treatment Health Maintenance Due Date Last Done Comments DTAP/TDAP/TD VACCINES (1 - Tdap) 2002 HEPATITIS B VACCINES (1 of 3 - 19+ 3-dose series) 2002 INFLUENZA VACCINE (#1) 2025 HPV VACCINES Aged Out No longer eligi ble based on patient's age to complete this topic Insurance Care Teams Agricultural Engineering Technician Relationship Specialty Start Date End Date Nithya Barron PA PCP - General Physician Medical Administrative Specialist 09/15/15
== END 2024-12-17 14:33 | disposition home or self-care (01) ==
LOC: ANHAUDIO 14:32
PROVIDERS: PCP Internal Medicine; Visit Provider Otolaryngology
DX: H91.93 Unspecified hearing loss, bilateral (principal)
CPT/HCPCS: 92557; 92567

== ENCOUNTER 2025-01-02 08:20 | Emergency (ER) | payer BC, SELFPAY ==
--- NOTE | ~2025-01-02 | XR_ITS ---
HISTORY: fell yest, low back pain, hx fx L5/S, psoriatic arthritis COMPARISON: None. Reference is made to a CT examination of the lumbar spine performed 12/19/2023 TECHNIQUE: view lumbar spine. FINDINGS: Lumbar vertebral bodies are normally aligned. There are 6 non-rib bearing lumbar vertebral bodies. Degenerative disease is identified at the level of L6/S1 with disc space narrowing and endplate mckeon es. This finding is unchanged from the sagittal view of previous CT examination dated 12/19/2023 Remaining disc spaces and vertebral body heights are well maintained. There are no lytic or sclerotic lesions. Paraspinal soft tissues are unremarkable IMPRESSION: Degenerative disease at the level of L6/S1 without acute fracture Reviewed, dictated and finalized at location A.
--- NOTE | 2025-01-02 08:27 | ED_ITS ---
HPI - Back Pain/Injury General Chief Complaint: Back Pain/Injury Stated Complaint: BACK PAIN Time Seen by Provider: 01/02/25 08:20 Source: patient Mode of arrival: ambulatory Limitations: no limitations History of Present Illness HPI Narrative: Patient is a 39-year-old male who presents with low back pain began yesterday after he tripped over that bag, landing on hands and knees. Patient does report he his low back on the car. Patient has history of bulging discs, fracture in low back. Reports numbness to buttocks and back of legs that he states he normally gets when his back flares up. Denies any loss of bowel or bladder. Related Data Home Medications ?Medication ?Instructions ?Recorded ?Confirmed ?Last Taken ?Type multivitamin 1 tablet PO DAILY 06/02/21 12/04/24 12/19/23 09:00 History buspirone 7.5 mg tablet 7.5 mg PO BID 06/15/21 12/04/24 12/19/23 16:30 History vortioxetine 10 mg tablet 10 mg PO DAILY 06/15/21 12/04/24 12/19/23 09:00 History (Trintellix) levothyroxine 50 mcg tablet 50 mcg PO DAILY 12/19/23 12/04/24 12/19/23 09:00 History olmesartan 40 mg tablet 40 mg PO DAILY 12/19/23 12/04/24 12/19/23 09:00 History omeprazole 20 mg tablet,delayed 20 mg PO DAILY 12/19/23 12/04/24 12/19/23 09:00 History release amlodipine 10 mg tablet (Norvasc) 10 mg PO DAILY 07/22/24 12/04/24 Unknown History hydrochlorothiazide 12.5 mg tablet 12.5 mg PO DAILY 07/22/24 12/04/24 Unknown History infliximab 100 mg intravenous IV 07/22/24 12/04/24 Unknown History solution (Remicade) oxcarbazepine 300 mg tablet 300 mg PO QID 07/22/24 12/04/24 Unknown History levofloxacin 500 mg tablet 500 mg PO DAILY 11/26/24 12/04/24 Unknown History Allergies Allergy/AdvReac Type Severity Reaction Status Date / Time methotrexate AdvReac Mild Nausea and Verified 12/04/24 16:02 Vomiting amoxicillin AdvReac Nausea and Verified 12/04/24 16:02 Vomiting Review of Systems Review of Systems: All systems reviewed & are unremarkable except as noted in HPI and below Constitutional: Constitutional: Denies body ache(s), Denies chills, Denies fatigue, Denies fever(s), Denies headache(s), Denies malaise and Denies weakness Eyes: Eyes: Denies blurry vision, Denies irritation and Denies loss of vision ENT: Denies otalgia, Denies headache(s), Denies nasal discharge, Denies sinus pain and Denies sore throat Cardiovascular: Cardiovascular: Denies chest pain, Denies irregular heart rhythm and Denies dyspnea Respiratory: Respiratory: Denies dyspnea Gastrointestinal: Gastrointestinal: Denies abdominal pain, Denies melena, Denies hematochezia, Denies diarrhea, Denies nausea and Denies vomiting Musculoskeletal: Musculoskeletal: Reports back pain, Denies myalgias and Denies arthralgias Integumentary/Breasts: Skin/Breast: Denies pruritus and Denies rash Neurologic: Denies headache(s), Denies loss of vision and Denies weakness Psychiatric: Psychiatric: Reports no additional psychiatric complaints Endocrine: Endocrine: Denies fatigue PMFSH Past Medical History Medical History Psoriatic arthritis Epigastric pain Lower abdominal pain Encounter for surgical aftercare following surgery on the digestive system Post-operative pain Neoplasm of uncertain behavior of skin Basal cell carcinoma of skin C. difficile colitis Chronic tonsillitis Recurrent tonsillitis Tonsil asymmetry Tonsillar hypertrophy Hypothyroidism HTN (hypertension), benign Asthma Sleep apnea History of arm fracture (~2017) Lt Bipolar disorder Depression Anxiety Surgical History Surgical History History of spinal surgery History of laparoscopic cholecystectomy 12/22/23 History of decompression of ulnar nerve (~2018) History of carpal tunnel release (~2018) Family History Family History Father Hypertension Family history of coronary artery disease Grandparent Hypertension Carcinoma of colon Family history of Alzheimer's disease Family history of malignant neoplasm of breast Mother Family history of malignant neoplasm of cervix Social History Social History Smoking packs per day: 1 Smoking cigarettes per day: 20.0 Years smoked: 10 Smoking pack-years: 10.00 Smoking status: Former smoker Tobacco type: cigarettes Second hand tobacco smoke exposure: No Smoking end date: 06/05/08 Alcohol intake: never Drinks per week: 1 Substance use: never Substance use type: does not use Do You Feel Safe in your Home?: Yes Lack of Transportation: No Lack of Food: Never True Current Housing: I Have Housing Concerned About Future Housing: No Difficulty Paying Gas/Electric Bills: No Difficulty Paying for Meds: No Currently Unemployed: No Education: Associate Degree Difficulty w/ Childcare or Family Care: No Living arrangements: with family Spiritual care concerns: Yes (Cheondoism) Comments At time of signature, agree with nursing past medical, surgical, social and family history. There is no relevant family history pertinent to the presenting complaint. Exam Const: General: cooperative, healthy appearing, comfortable, no acute distress and well nourished Nutritional Appearance: well nourished Orientation/consciousness: patient oriented x3 Limitations: no limitations HENMT: Head: normal to inspection, normocephalic and atraumatic Ears: hearing grossly normal bilaterally and external ears normal Face/Nose/Sinus: Normal external nose present, normal facial exam and face symmetric Face and sinus: normal facial exam and face symmetric Mouth: Yes lip normal Eyes: General: appearance normal, both eyes and all related structures Alignment and Position: alignment normal and position normal Periorbital: periorbital findings normal Eyelids: eyelids normal Pupils: Equal, round and reactive pupils present EOM: EOMs intact bilaterally Neck: Neck: normal visual inspection, full ROM and supple Chest: Chest palpation & inspection: normal inspection of the chest Resp: Effort & Inspection: normal respiratory effort and able to speak in complete sentences Auscultation: clear to auscultation bilaterally Cardio: Rate: regular rate Rhythm: regular rhythm Heart sounds: S1 no rmal heart sound present and S2 normal heart sound present GI: Inspection: normal to inspection Back/Spine/Pelvis: Thoracic/Lumbar Spine: thoracic and lumbar spine normal to inspection, thoraco-lumbar ROM normal, paraspinal muscle tenderness bilaterally in the mid lumbar and in the lower lumbar, No thoracic spinal tenderness and No lumbar spinal tenderness Pelvis: buttock tenderness bilaterally Skin: General skin exam: normal color and no rashes or lesions noted Neuro: General: patient oriented x3 and moves all extremities Cranial nerve s: Yes Equal, round and reactive pupils present Speech: normal speech Gait exam (Neuro): Normal gait present Extrem: General: normal to inspection, full ROM and no edema Psych: Appearance: grossly normal and well kempt Mental Status: mental status grossly normal Speech and movement: Normal speech and movement present Affect: normal affect Attitude: cooperative Thought process: Normal thought process present Course Course Emergency Course: Patient is aware of diagnosis, understands and agrees to treatment plan. Anticipatory guidance given. Patient agrees to follow-up as directed and is aware of reasons to seek care at the emergency department. Portions of this record may have been created with voice recognition software Level of Care: Express Care Visit Vital Signs Vital signs: Reviewed MDM - Back Pain/Injury MDM Narrative Medical decision making narrative: No risk factors or findings concerning for epidural abscess, diskitis, vertebral osteomyelitis, cord compression, cauda equina, vertebral fracture or bone malignancy, AAA, or pyelonephritis. Patient instructed to consider further imaging and workup through their primary care physician as an outpatient if symptoms persist. Pt well hydrated appearing, in no respiratory distress, hemodynamically stable. Recommend supportive care. The patient is stable at time of discharge the clinical impression was discussed and the patient was given the opportunity to ask questions, which were addressed as completely as possible given the information available at present. Anticipatory guidance and return to care precautions were discussed and the importance of primary care follow-up was stressed and encouraged. The patient voiced understanding of the plan, indications to return, and the need for follow-up. Patient is appropriate for outpatient treatment and follow-up. Differential Diagnosis Differential diagnosis: Likely lumbar radiculopathy, sciatica and strain of l umbar region Medical Records Attestation: I reviewed the patient's medical records. Imaging Data Radiologist's impression: HISTORY: fell yest, low back pain, hx fx L5/S, psoriatic arthritis COMPARISON: None. Reference is made to a CT examination of the lumbar spine performed 12/19/2023 TECHNIQUE: view lumbar spine. FINDINGS: Lumbar vertebral bodies are normally aligned. There are 6 non-rib bearing lumbar vertebral bodies. Degenerative disease is identified at the level of L6/S1 with disc space narrowing and endplate changes. This finding is unchanged from the sagittal view of previous CT examination dated 12/19/2023 Remaining disc spaces and vertebral body heights are well maintained. There are no lytic or sclerotic lesions. Paraspinal soft tissues are unremarkable IMPRESSION: Degenerative disease at the level of L6/S1 without acute fracture Discharge Plan Discharge Clinical Impression: Strain of lumbar region Qualifiers: Encounter type: initial encounter Qualified Code(s): S39.012A - Strain of muscle, fascia and tendon of lower back, initial encounter Patient Disposition: Home Condition: Stable Instructions: Acute Low Back Pain (ED) Additional Instructions: Take steroids in the morning with food, take muscle relaxers every 8 hours as needed for muscle spasm. do not drive or make any important decisions while on this medication for it can make you drowsy Exercise:Combine aerobic exercise, like walking or swimming, with specific exercises to keep the muscles in your back and abdomen strong and flexible.bed rest is not recommended. Proper Lifting:Be sure to lift heavy items with your legs, not your back. Do not bend over to pick something up. Keep your back straight and bend at your knees. Weight:Maintain a healthy weight. Being overweight puts added stress on your lower back. Avoid Smoking:Both the smoke and the nicotine cause your spine to age faster than normal. Proper Posture:Good posture is important for avoiding future problems. A therapist can teach you how to safely stand, sit, and lift. Use warm moist heat or ice to help with pain. Follow up with Primary provider in 2-3 days, This may become a chronic condition and they will be the one to help manage your pain and order additional testing. Follow-up with your doctor for further care and evaluation or seek ER if you develop problems with bladder/bowel function, weakness or loss of feeling in one or both of your legs. Patient Language: Upper Sorbian Prescriptions: New prednisone 50 mg tablet 50 mg PO DAILY Qty: 5 0RF Rx Instructions: Take in the morning with food baclofen 10 mg tablet 10 mg PO TID 5 Days Qty: 20 0RF No Action methylprednisolone [Medrol (Venancio)] 4 mg tablets,dose pack See Rx Instructions PO .COMPLEX Qty: 21 0RF Rx Instructions: orally per package directions naproxen 500 mg tablet 500 mg PO BID PRN (Reason: pain) Qty: 20 0RF azithromycin 500 mg tablet 500 mg PO DAILY 5 Days Qty: 5 0RF prednisone 20 mg tablet 40 mg PO DAILY Qty: 10 0RF meclizine 25 mg tablet 25 mg PO TID PRN (Reason: dizziness) Qty: 20 0RF amlodipine [Norvasc] 10 mg tablet 10 mg PO DAILY hydrochlorothiazide 12.5 mg tablet 12.5 mg PO DAILY infliximab [Remicade] 100 mg recon soln IV levofloxacin 500 mg tablet 500 mg PO DAILY ofloxacin 0.3 % drops 5 drp otic (ear) QID Qty: 10 1RF multivitamin Tablet 1 tablet PO DAILY buspirone 7.5 mg tablet 7.5 mg PO BID Trintellix 10 mg tablet 10 mg PO DAILY oxcarbazepine 300 mg tablet 300 mg PO QID levothyroxine 50 mcg Tablet 50 mcg PO DAILY olmesartan 40 mg Tablet 40 mg PO DAILY omeprazole 20 mg Tablet,Delayed Release (Dr/Ec) 20 mg PO DAILY Follow-up/Referrals: José Miguel Addison DO [Primary Care Provider] - 3 Days Stand Alone Forms: Work/School Release IP Time of Disposition: 09:59
[2025-01-02 08:37] VITALS: BP 121/87; PULSE 85; RESP 16; TEMP 36.3; O2SAT 100
== END 2025-01-02 10:03 | disposition home or self-care (01) ==
PROVIDERS: Emergency Provider Nurse Practitioner Family; PCP Internal Medicine
DX: S39.012A Strain of muscle, fascia and tendon of lower back, initial encounter (principal); E03.9 Hypothyroidism, unspecified; I10 Essential (primary) hypertension; F17.210 Nicotine dependence, cigarettes, uncomplicated; W01.0XXA Fall on same level from slipping, tripping and stumbling without subsequent striking against object, initial encounter
CPT/HCPCS: 72100; 99213; G0463

== ENCOUNTER 2025-03-07 16:29 | Outpatient (CLI) | payer BC, SELFPAY ==
[2025-03-07 17:20] LABS: Anion Gap 8 mmol/L (4-12); Blood Urea Nitrogen 17 mg/dL (9-20); Calcium 9.4 mg/dL (8.4-10.2); Carbon Dioxide 30 mmol/L (22-30); Chloride 100 mmol/L (98-107); Estimated Glomerular Filt Rate > 60; Glucose 90 mg/dL (65-110); Potassium 4.0 mmol/L (3.4-5.0); Sodium 138 mmol/L (137-145)
== END 2025-03-07 16:30 | disposition home or self-care (01) ==
LOC: ANHLAB 16:29
PROVIDERS: PCP Internal Medicine; Visit Provider Anesthesiology
DX: Z01.818 Encounter for other preprocedural examination (principal); I10 Essential (primary) hypertension
CPT/HCPCS: 36415; 80048

== ENCOUNTER 2025-03-10 01:07 | Day surgery (SDC) | payer BC, SELFPAY ==
--- OUTSIDE RECORDS SUMMARY | 2018-10-25 19:00 | XMS_ITS | Continuity of Care Document ---
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 Name Role Phone Administrative, Provider Unavailable Unavail able Allergies, Adverse Reactions, Alerts Substance Reaction Status Criticality methotrexate Active No Information Medications Medication Instructions Dosage Effective Dates (start - stop) Status Comments lamotrigine 100 mg tablet - Active lamotrigine 25 mg tablet - A ctive sertraline 100 mg tablet - A ctive clindamycin HCl 150 mg capsule - Active clindamycin HCl 300 mg capsule - Active acetaminophen 300 mg-codeine 30 mg tablet - Active Ultracet 37.5 mg-325 mg tablet take 1 tablet by oral route every 4 - 6 hours as needed, for up to 5 days; do not exceed 8 tablets in 24hrs 1 tablet - Active Ultracet 37.5 mg-325 mg tablet take 2 tablet by oral route every 4 - 6 hours as needed, for up to 5 days; do not exceed 8 tablets in 24hrs - Active hydrocodone 5 mg-acetaminophen 300 mg tablet - Active Stelara 45 mg/0.5 mL subcutaneous syringe - Active clonazepam 0.5 mg tablet - A ctive ondansetron HCl 4 mg tablet - Active tramadol 37.5 mg-acetaminophen 325 mg tablet take 2 tablet by oral route every 4 - 6 hours as needed, for up to 5 days; do not exceed 8 tablets in 24hrs 2.00 tablet - Active hydrocodone 5 mg-acetaminophen 325 mg tablet - Active methocarbamol 750 mg tablet - Active amoxicillin 875 mg-potassium clavulanate 125 mg tablet - Active cefdinir 300 mg capsule - Ac tive doxycycline hyclate 100 mg capsule - Active methylprednisolone 4 mg tablets in a dose pack - Active sertraline 50 mg tablet - Ac tive duloxetine 60 mg capsule,delayed release - Active Lexapro 20 mg tablet - Active buspirone 5 mg tablet - Active Humira 10 mg/0.2 mL subcutaneous syringe kit - Active Procedures Procedure Date Medical Record Copy Medical Record Copy Per Page Affidavit Medical Record Copy Medical Record Copy Per Page Affidavit Global/Postop followup visit Global/Postop followup visit Global/Postop followup visit Deluxe Shoulder Immobilizer Neuroplasty Ulnar Nerve Elbow 8 Global/Postop followup visit Medical Record Copy Medical Record Copy Per Page Affidavit Global/Postop followup visit Disability Form Deluxe Shoulder Immobilizer Neuroplasty Ulnar Nerve Elbow 8 Office/outpatient visit,est, mod 2017 [employer] Jay Jay [employer] Jay Jay Office/outpatient visit,est, mod 2017 Wrist Brace Tital Eek Wrist Brace Tital Eek Global/Postop followup visit Carpal tunnel release Global/Postop followup visit Carpal tunnel release Office/outpatient visit,est, mod 2016 Office/outpatient visit,est, mod 2016 Advance Directives Directive Yes / No Effective Date File Name No Information Encounters Encounter Description Practice Location Reason(s) For Visit Diagnoses Date Provider Providers Copied on Encounter [facility], [address], [id number], tel:[phone] [facility] No Information 9 Administrative Provider. [address], [id number], [place]. tel:[phone] [facility], [address] [place] [address], [id number], [place] tel:[phone] [facility] No Information 8 Administrative Provider. [address] [place] [address], [id number], [place]. tel:[phone] [facility], [address], [id number], [place] tel:[phone] [facility] Left elbow (chief complaint) Lesion of ulnar nerve, left upper limb 8 Casey Dalila. [address] [address], [place], [place], [id number], [place]. tel:[phone] [facility], [address], [id number], [place] tel:[phone] [facility] Left elbow (chief complaint) Lesion of ulnar nerve, right upper limbLesion of ulnar nerve, left upper limb 8 Casey Dalila. [address] [address], [place], [place], [id number], [place]. tel:[phone] [facility], [address] [place] [address], [id number], [place] tel:[phone] [facility] Left elbow (chief complaint) Lesion of ulnar nerve, left upper limb 8 Casey Conner. [address] [facility], [place], [place], [id number], [place]. tel:[phone] [facility], [address] [facility] [address], [place], [place], [id number], [place] tel:[phone] [facility] No Information 8 Kate Gardiner. [address] [facility], [address], [place], [place], [id number], [place]. tel:[phone] [facility], [address] [facility] [address], [place], [place], [id number], [place] tel:[phone] [facility] Lesion of ulnar nerve, left upper limb Jan- 8 aKte Gardiner. [address] [facility], [address], [id number], [place]. tel:[phone] [facility], [address] [address], [place], [place], [id number], [place] tel:[phone] [facility] Carpal tunnel syndrome, left upper limbLesion of ulnar nerve, left upper limb 8 Kate Gardiner. [address] [facility], [facility] [address], [place], [place], [id number], [place]. tel:[phone] [facility], [address], [id number], [place] tel:[phone] [facility] No Information 8 Kate Gardiner. [address] [facility], [address], [place], [place], [id number], [place]. tel:[phone] [facility], [address] [address], [place], [place], [id number], [place] tel:[phone] [facility] Right elbow (chief complaint) Lesion of ulnar nerve, left upper limbLesion of ulnar nerve, right upper limb Aug-0 8 Casey Conner. [address] [facility], [address], [place], [place], [id number], [place]. tel:[phone] [facility], [address] [address], [place], [place], [id number], [place] tel:[phone] [facility] No Information 8 Administrative Provider. [address] [facility], [address] [address], [place], [place], [id number], [place]. tel:[phone] [facility], [address] [address], [place], [place], [id number], [place] tel:[phone] [facility] right elbow (chief complaint) Lesion of ulnar nerve, right upper limb 8 Casey Conner. [address] [facility], [address] [address], [place], [place], [id number], [place]. tel:[phone] [facility], [address] [address], [place], [place], [id number], [place] tel:[phone] [facility] No Information 8 Kate Gardiner. [address] [facility], [address] [address], [place], [place], [id number], [place]. tel:[phone] [facility], [address] [address], [place], [place], [id number], [place] tel:[phone] [facility] No Information 8 Kate Gardiner. [address] [facility], [address] [address], [place], [place], [id number], [place]. tel:[phone] [facility], [address] [address], [place], [place], [id number], [place] tel:[phone] [facility] Lesion of ulnar nerve, right upper limb 8 Kate Gardiner. [address] [facility], [address] [address], [place], [place], [id number], [place]. tel:[phone] [facility], [address] [address], [place], [place], [id number], [place] tel:[phone] [facility] Lesion of ulnar nerve, right upper limb 8 Kate Gardiner. [address] [facility], [facility] [address], [place], [place], [id number], [place]. tel:[phone] [facility], [address] [address], [place], [place], [id number], [place] tel:[phone] [facility] Lesion of ulnar nerve, right upper limb 8 Kate Gardiner. [address] [facility], [address], [place], [place], [id number], [place]. tel:[phone] Office/outpa tient visit,est, mod [facility], [address] [address], [place], [place], [id number], [place] tel:[phone] [facility] bilateral elbows (chief complaint) Lesion of ulnar nerve, left upper limbLesion of ulnar nerve, right upper limb 8 Kate Gardiner. [address] [facility], [address], [place], [place], [id number], [place]. tel:[phone] Office/outpa [facility]ient visit,est, [facility], [address] [address], [place], [place], [id number], [place] tel:[phone] [facility] bilateral elbows (chief complaint) Lesion of ulnar nerve, right upper limbLesion of ulnar nerve, left upper limb 8 Kate Gardiner. [address] [facility], [address], [place], [place], [id number], [place]. tel:[phone] [facility], [address] [address], [place], [place], [id number], [place] tel:[phone] [facility] Carpal tunnel syndrome, bilateral upper limbs 7 Kate Gardiner. [address] [facility], [address], [place], [place], [id number], [place]. tel:[phone] [facility], [address] [facility] [address], [place], [place], [id number], [place] tel:[phone] [facility] post-op left (chief complaint) Carpal tunnel syndrome, left upper limbCarpal tunnel syndrome, right upper limb May-1 7-201 7 Casey Dalila. [address] [facility], [address], [place], [place], [id number], [place]. tel:[phone] [facility], [address] [facility] [address], [place], [place], [id number], [place] tel:[phone] [facility] No Information October-0 3-201 7 Kate Gardiner. [address] [facility], [address] [address], [place], [place], [id number], [place]. tel:[phone] [facility], [address] [address], [place], [place], [id number], [place] tel:[phone] [facility] hand (chief complaint) Carpal tunnel syndrome, right upper limbCarpal tunnel syndrome, left upper limb May-0 2-201 7 Casey Dalila. [address] [facility], [address] [address], [place], [place], [id number], [place]. tel:[phone] [facility], [address] [address], [place], [place], [id number], [place] tel:[phone] [facility] Carpal tunnel syndrome, left upper limb Apr- 9- 7 Kate Gardiner. [address] [facility], [address], [place], [place], [id number], [place]. tel:[phone] [facility], [address] [address], [place], [place], [id number], [place] tel:[phone] [facility] No Information Apr- 7-201 7 Kate Gardiner. [address] [facility], [facility] [address], [place], [place], [id number], [place]. tel:[phone] [facility], [address] [place] [address], [id number], tel:[phone] [facility] Carpal tunnel syndrome, right upper limbCarpal tunnel syndrome, left upper limb Aug-2 -201 7 Kate Gardiner. [address], [id number], [place]. tel:[phone] Office/outpa [place]ient visit,est, [facility], [address], [id number], tel:[phone] [facility] hand (chief complaint) hand (chief complaint) Carpal tunnel syndrome, right upper limbCarpal tunnel syndrome, left upper limb Aug-0 3201 7 Kate Gardiner. [address], [id number], [place]. tel:[phone] Office/outpa tient visit,est, [facility], [address], [id number], tel:[phone] [facility] hand numbness equally on both sides (chief complaint) Paresthesia of skin Jun-0 7 Casey Conner. [address], [id number], [place]. tel:[phone] Family History Family Member Type Diagnosis Age At Onset Sister Problem (finding) Osteoarthritis Sister Problem (finding) Depression Mother Problem (finding) Cancer, unknown Problem (finding) Family history of Menta l illness Father Problem (finding) Stroke Father Problem (finding) Heart Disease Maternal grandfather Problem (finding) cancer of colon Father Problem (finding) hypertension Sister Problem (finding) Seizures Mother Problem (finding) malignant neop lasm of cervix uteri Payers Payer name Insurance type Covered democrat ID Authoriza tion(s) No Information Social History Type Description Quantity Date Captured Comments Sex Male Smoking Status No Information Chief Complaint And Reason For Visit No Information Reason For Referral Reason For Referral No Information Plan Of Treatment Date Type Action Status Referral Ordered: [facility] NCS Bilateral upper extremities Appointment date/timeframe: 06/13/2016 ordered History Of Present Illness Encounter Date Complaint History Of Prese nt Illness Left elbow Tj is 2 weeks out from a left ulnar nerve decompression with anterior intramuscular transposition on January 15, 2018. He was last seen in the office 4 weeks ago on February 26, 2018. He is 4 months out from a right ulnar nerve decompression with anterior intramuscular transposition. He returns today and reports that the paresthesias and pain prior to surgery have resolved bilaterally. He has been working on strengthening exercises at home but continues to have weakness and achiness in his bilateral elbows with activity. The symptoms are slowly improving. He returns for follow-up. Left elbow Tj is 6 weeks out from a left ulnar nerve decompression with anterior intramuscular transposition on January 15, 2018. He was last seen in the office 4 weeks ago on January 29, 2018. He has weaned out of the long-arm splint. He has been working with occupational therapy and his range of motion has improved. He has mild medial elbow pain. Tj is 3 months out from an right ulnar nerve decompression with anterior intramuscular transposition. He is recovering well but describes weakness of the right upper extremity. He returns for follow-up. Left elbow Tj is 2 weeks out from a left ulnar nerve decompression with anterior intramuscular transposition on January 15, 2018. He returns for follow-up. Right elbow Tj is 6 weeks out from a right ulnar nerve decompression with anterior intramuscular transposition on November 28, 2017. He was last seen in the office 4 weeks ago on December 11, 2017. At that time he was referred to therapy to have a long arm splint fabricated and for rehabilitation. He has discontinued the splint. He has been working with therapy 3 times a week and his range of motion has improved. The numbness and tingling has improved and his right hand strength is slowly improving. He is pleased with his progress. He does present today with posterior right elbow pain and mild swelling. Tj presents today with persistent left hand numbness, tingling, and weakness. He would like to schedule surgery for his left side. He returns for follow-up. right elbow Tj is 2 weeks out from a right ulnar nerve decompression with anterior intramuscular transposition on November 28, 2017. He loosened the postoperative splint at home secondary to discomfort. He returns for follow-up. bilateral elbows Tj returns t o the office today on July 17, 2017. He is here for follow up of bilateral elbow cubital tunnel syndrome. Tj was last seen in the office three weeks ago on June 26, 2017. At that time I prescribed occupational therapy for Tj, and I gave him Heelbo elbow pads for both elbows. Tj returns today reporting that he has not noticed any improvement in his symptoms. He is here for re-evaluation today. Tj reminds me that he works for [employer]. 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 bilateral elbows Tj returns t o the office today on June 26, 2017. He is about 8 months out from left and right carpal tunnel release surgeries. Tj presents today because of pain in both elbows. He feels like both hands are still falling asleep, especially when he uses his upper extremities. The symptoms do not seem to wake him up at night. He does describe numbness and tingling. He reports that after his carpal tunnel surgeries, his hands felt stronger. However, they still go numb and tingle. He now also has bilateral medial elbow pain. Tj presents today for further evaluation and treatment of his bilateral elbow pain and bilateral upper extremity paresthesias. post-op left Activity level i s: back to pre op level. Status is: improving. Wound healing. No fever/chills. No nausea/vomiting. Swelling. hand Tj is 2 weeks out from an open right carpal tunnel release on September 19, 2016. Five days ago he developed erythema, swelling, and purulent drainage from the incision. 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 The pain, erythema, swelling, and drainage have resolved. He removed the sutures yesterday. He returns for follow-up. hand Tj continues to describe pain and numbness in both hands. Tj works for [employer] as a [employer] Network Relations Consultant. He has worked in this capacity for the past 7 years. He uses a shovel at work. 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 His bilateral hand pain and paresthesias have been present for about 2 or 3 years. He returns today for further evaluation and treatment. hand Tj Chappell is a 31 year old male. Tj returns to the office today on August 05, 2016. He is here for follow up of bilateral hand numbness and pain. Tj was last seen in the office 2 months ago on June 07, 2016, and at that time he was referred for electrodiagnostic studies. The electrodiagnostic studies were performed by Dr. Yoni Flores on June 13, 2016. The results were interpreted as " n o evidence of cervical radiculopathy, brachial plexopathy, or other peripheral nerve pathology to explain his symptoms hand numbness equall y on both sides Mr Chappell is a 30 year old male who complains of hand numbness equally on both sides. He presents with numbness, pain and weakness on the right and left side equally. He states that the symptoms have been chronic non-traumatic. The symptoms occur constantly. The problem is worse. The patient is experiencing pain in the following location: medial elbow on the right and left side equally. The patient reports numbness in the hand on the right side. In addition, the patient reports numbness in the fingers and forearm numbness on the right and left side equally. The patient presents with hand weakness. The symptoms are aggravated by daily activities, exercise, lifting and working. Pertinent negatives include decreased mobility, stiffness and swelling. Functional Status Date Functional Assessmen t No Information Instructions Date Instruction Additional Infor mation Ice as needed Elevate as needed Discussed wound care Advance activity as tolerated Resume normal activity Progress until full strength Assessments Type Assessment Date No Information Patient Care Teams Name Effective Dates (start - stop) Status Members No Information
--- OUTSIDE RECORDS SUMMARY | 2023-01-11 04:06 | XMS_ITS | Continuity of Care Document ---
Author Organization [facility] [place] Address [address] [place] [address] [address] [place] [address] Phone Care Team Providers Care China Painter Name Role Phone Hernandez PT,MPT,ATC, Kareem Unavailable Unavai lable Procedures Procedure Date PT Evaluation High Complexity Therapeutic Activities Neuromuscular Re-Ed Progress Note Therapeutic Exercise Therapeutic Exercise Neuromuscular Re-Ed Hot or Cold Pack Therapeutic Exercise Neuromuscular Re-Ed Hot or Cold Pack Therapeutic Exercise Neuromuscular Re-Ed Manual Therapy Hot or Cold Pack OT Evaluation Low Complexity Therapeutic Exercise Neuromuscular Re-Ed THERAPEUTIC EXERCISES NEUROMUSCULAR RE-ED MANUAL THERAPY FUNC ACTIVITY HOT/COLD PACK THERAPEUTIC EXERCISES NEUROMUSCULAR RE-ED MANUAL THERAPY FUNC ACTIVITY HOT/COLD PACK THERAPEUTIC EXERCISES NEUROMUSCULAR RE-ED MANUAL THERAPY FUNC ACTIVITY HOT/COLD PACK ELECTRIC STIMULATION UNATT NEUROMUSCULAR RE-ED MANUAL THERAPY FUNC ACTIVITY HOT/COLD PACK ELECTRIC STIMULATION UNATT NEUROMUSCULAR RE-ED MANUAL THERAPY FUNC ACTIVITY HOT/COLD PACK ELECTRIC STIMULATION UNATT Progress Note THERAPEUTIC EXERCISES MANUAL THERAPY FUNC ACTIVITY HOT/COLD PACK ELECTRIC STIMULATION UNATT THERAPEUTIC EXERCISES MANUAL THERAPY FUNC ACTIVITY HOT/COLD PACK ELECTRIC STIMULATION UNATT THERAPEUTIC EXERCISES MANUAL THERAPY FUNC ACTIVITY HOT/COLD PACK OT EVALUATION THERAPEUTIC EXERCISES MANUAL THERAPY FUNC ACTIVITY HOT/COLD PACK Advance Directives Directive Yes / No Effective Date File Name No Information Encounters Encounter Description Practice Location Reason(s) For Visit Diagnoses Date Provider Providers Copied on Encounter [facility], [place], [place], [id number], tel:[phone] [place] No Information 3 David Arceo [place], [place]. [facility], [place], [place], [id number], tel:[phone] [place] No Information 3 ZOË Garrett, [place]. Referring Provider: José Miguel Dewitt, [address] [facility] [address], [place], [address]. tel:[phone] [facility], [place], [place], [id number], tel:[phone] [place] No Information 8 Boogie Infante. [address] [place] [address], [address], [place], [place], [facility], . tel:[phone] Referring Provider: Abdifatah Love, [address], [place], [address]. tel:[phone] [address], [place], [place], [id number], tel:[phone] [place] No Information 8 Boogie Infante. [address] [place] [address], [address], [place], [facility], . tel:[phone] Referring Provider: Abdifatah Love, [address], [place], [address]. tel:[phone] [facility], [place], [place], [id number], tel:[phone] [place] No Information 8 Boogie Infante. [address] [place] [address], [address], [place], [facility], . tel:[phone] Referring Provider: Abdifatah Love, [address], [place], [address]. tel:[phone] [place] [address], [id number], tel:[phone] [place] No Information 8 Boogie Infante. [address] [place] [address], [address], [place], [facility], . tel:[phone] Referring Provider: Abdifatah Love, [address], [place], [address]. tel:[phone], [id number], tel:[phone] [place] Abnormal postureParest hesia of skinMuscle weakness (generalized) Other specified health statusLesion of ulnar nerve, right upper limbLesion of ulnar nerve, left upper limb 8 Hauscjose Ruelasfer. [address] [place] [facility], [address], [place], [address], . tel:[phone] Referring Provider: Abdifatah Love, [address], [place], [address]. tel:[phone] [address], [place], [place], [id number], tel:[phone] [place] No Information 0 7-201 6 Hauschild Arelis. [address] [place] [address], [address], [place], [place], [facility], [place]. tel:[phone] Referring Provider: Abdifatah Love, [address], [place], [address]. tel:[phone] [address] [facility], [place], [place], [id number], [place] tel:[phone] [place] No Information 4-201 6 Hauscmichaelld Arelis. [address] [place] [address], [address], [place], [place], [facility], [place]. tel:[phone] Referring Provider: Abdifatah Love, [address], [place], [address]. tel:[phone] [address], [place], [place], [id number], [place] tel:[phone] [place] No Information -201 6 Hauschild Arelis. [address] [place] [address], [address], [place], [address], [place]. tel:[phone] Referring Provider: Abdifatah Love, [address], [place], [address]. tel:[phone] [address], [place], [place], [id number], tel:[phone] [place] No Information 9- 6 Kasi Sargent. [address] [place] [address], [address], [place], [place], [facility], . tel:[phone] Referring Provider: Abdifatah Love, [address], [place], [address]. tel:[phone] [address] [place] [address], [id number], tel:[phone] [place] No Information 1 7-201 6 Hauschild Arelis. [address] [place] [address], [address], [place], [place], [facility], . tel:[phone] Referring Provider: Abdifatah Love, [address], [place], [facility]. tel:[phone], [id number], tel:[phone] [place] No Information 5-201 6 Hauschild Arelis. [address] [place] [address], [address], [place], [facility], . tel:[phone] Referring Provider: Abdifatah Love, [address], [place], [address]. tel:[phone] [place] [address], [id number], tel:[phone] [place] No Information 0 5-201 6 Hauschild Arelis. [address] [place] [address], [address], [place], [facility], . tel:[phone] Referring Provider: Abdifatah Love, [address], [place], [address]. tel:[phone], [id number], tel:[phone] [place] No Information b-0 3-201 6 Hauschild Arelis. [address] [place] [address], [address], [place], [place], [facility], . tel:[phone] Referring Provider: Abdifatah Love, [address], [place], [address]. tel:[phone] [facility], [address] [address], [place], [place], [address], [place] tel:[phone] Phill Stiffness of left wrist, not elsewhere classifiedPai n in left wristEffusion , left wristDisp fx of l ulna styloid pro, subs for clos fx w routn healUnsp fx the low end left rad, subs for clos fx w routn heal Feb-0 6 Contrerasmarcel Infante. [address] [place] [facility], [address], [place], [address], [place]. tel:[phone] Referring Provider: Abdifatah Love, [address], [place], [address]. tel:[phone] Family History Family Member Type Diagnosis Age At Onset No Information Payers Payer name Insurance type Covered alliance party ID Traci horner(s) [facility] [id number] [facility] [id number] [facility] [id number] Social History Type Description Quantity Date Captured Comments Sex Male Smoking Status No Information Chief Complaint And Reason For Visit No Information Reason For Referral Reason For Referral No Information History Of Present Illness Encounter Date Complaint History Of Prese nt Illness No Information Functional Status Date Functional Assessmen t No Information Instructions Date Instruction Additional Infor jorge Giving encouragement to exercise Related to Overweight Giving encouragement to exercise Related to Overweight Assessments Type Assessment Date No Information Patient Care Teams Name Effective Dates (start - stop) Status Members No Information
[2025-03-04 10:50] VITALS: BMI 33.4
--- NOTE | 2025-03-04 10:53 | PC.NURSE ---
[facility] has started construction of its new state of the art ER which will open Spring 2026. With this, we anticipate parking may be a challenge for some our surgical patients and families. Parking spaces are limited but are available for all Surgical, obstetrics, and ER patients sharing this lot. If you arrive and find you are having a hard time finding a parking space, please note that we understand the challenges, please drive around the hospital and park near Hospital Entrance 1. When you enter this entrance, you can ask a volunteer to direct or take you back to the surgical waiting area to check in. We appreciate everyone?s understanding of these expected challenges while we build for your future. Report to the Outpatient Waiting Room, entrance under the green pavilion located off [address], at time 1330_ on date _03/10/25. Planned Procedure Time: _1530__.? Time changes happen often and if your time is changed the preop area will call you the afternoon before. - You and your visitor will be asked to self-screen and do not enter if you have any COVID symptoms. Please call surgeon if you need to reschedule. - A mask is optional within the hospital at this time. Patients may have clear liquids (water, carbonated beverages, clear teas, apple juice) until 3 hours prior to surgery with a maximum of 20 ounces. - No food from midnight until time of surgery and no smoking, or chewing tobacco (or any form of nicotine). No chewing gum, candy or mints. - Infants may have breast milk until 4 hours before surgery, formula 6 hours prior to surgery. - Children will be allowed to drink immediately following surgery.? If applicable, please bring a bottle or sippy cup to assist with drinking. Juice, water, soda, and popsicles are readily available.? For infants on formula, please bring formula the day of surgery.? Pacifiers are allowed. Take only the following medications with a SIP of water on the morning of surgery: ___amlodipine, buspirone, duloxetine, levothyroxine, pain pill and inhaler if needed DO NOT STOP ANY OF YOUR OTHER PRESCRIPTION MEDICATIONS PRIOR TO SURGERY EXCEPT THE FOLLOWING Hold all vitamins and supplements for 3 days per anesthesiologist. Medications to discontinue per physician Date to take last dose 03/06/25 Please no make-up, nail sinhala, hairspray, perfume, deodorant, or body powder the day of surgery.? No jewelry (including any body piercings) or valuables the day of surgery, leave them at home.? Please take a shower or bath the night before, or the morning of, surgery with an antibacterial soap.? Wear comfortable, loose fitting clothing.? Children are encouraged to wear pajamas. - Jewelry must be removed prior to entering the operating room.? Rings and piercings that are not removed may be cut off. - The hospital will not accept responsibility for valuables.? - Please leave all valuables, including medications, at home the day of surgery. If you are going home after surgery, a licensed cdl driver must drive you home.? - NO public transportation without another adult if you receive anesthesia. - We recommend that an adult stay with you for 24 hours following discharge. - We also recommend that you do not drive, make important decision, drink alcoholic beverages, or take any drugs that were not prescribed by your health care provider for at least 24 hours after your discharge time. For Pediatric surgeries, we recommend two adults accompany the child home. Follow any additional instructions given to you from your surgeon. Telephone instructions given to patient_and asked if any additional questions and then verbalized understanding. Patient advised to call surgeon office or pre surgery nurse liaison [phone] if any additional questions.
--- NOTE | 2025-03-09 15:40 | PM.IMHP ---
H&P: HPI History of Present Illness Date/Time: 03/09/25 15:40 Chief Complaint: Bilateral retained myringotomy tubes, bilateral tympanic membrane perforation. Narrative: Planned surgical procedure Review of Systems Review of Systems: All systems reviewed & are unremarkable except as noted in HPI and below PMFSH Past Medical History Medical History Chronic sinusitis Nasal congestion Upper respiratory infection Nausea & vomiting Colitis Diverticulitis Right elbow pain Arthritis Dehydration Hematochezia Hepatosplenomegaly Encounter to establish care Psoriatic arthritis Epigastric pain Lower abdominal pain Encounter for surgical aftercare following surgery on the digestive system Post-operative pain Neoplasm of uncertain behavior of skin Basal cell carcinoma of skin C. difficile colitis Chronic tonsillitis Recurrent tonsillitis Tonsil asymmetry Tonsillar hypertrophy Hypothyroidism HTN (hypertension), benign Asthma Sleep apnea History of arm fracture (~2016) Lt Bipolar disorder Depression Anxiety Surgical History Surgical History History of spinal surgery History of laparoscopic cholecystectomy 12/22/23 History of decompression of ulnar nerve (~2018) History of carpal tunnel release (~2018) Family History Family History Father Hypertension Family history of coronary artery disease Grandparent Hypertension Carcinoma of colon Family history of Alzheimer's disease Family history of malignant neoplasm of breast Mother Family history of malignant neoplasm of cervix Social History Social History Smoking packs per day: 1 Smoking cigarettes per day: 20.0 Years smoked: 10 Smoking pack-years: 10.00 Smoking status: Former smoker Tobacco type: cigarettes Second hand tobacco smoke exposure: No Smoking end date: 06/05/08 Additional smoking assessment comments: QUIT 2013 Alcohol intake: former Drinks per week: 1 Substance use: never Substance use type: does not use Do You Feel Safe in your Home?: Yes Lack of Transportation: No Lack of Food: Never True Current Housing: I Have Housing Concerned About Future Housing: No Difficulty Paying Gas/Electric Bills: No Difficulty Paying for Meds: No Currently Unemployed: No Education: Associate Degree Difficulty w/ Childcare or Family Care: No Living arrangements: with family Spiritual care concerns: Yes (Taoist) Meds Home Medications and Allergies Home Medications ?Medication ?Instructions ?Recorded ?Confirmed ?Type multivitamin 1 tablet PO DAILY 06/02/21 03/04/25 History buspirone 7.5 mg tablet 7.5 mg PO BID 06/15/21 03/04/25 History levothyroxine 50 mcg tablet 50 mcg PO DAILY 12/19/23 03/04/25 History olmesartan 40 mg tablet 40 mg PO DAILY 12/19/23 03/04/25 History omeprazole 20 mg tablet,delayed 20 mg PO DAILY 12/19/23 03/04/25 History release amlodipine 10 mg tablet (Norvasc) 10 mg PO DAILY 07/22/24 03/04/25 History hydrochlorothiazide 12.5 mg tablet 12.5 mg PO DAILY 07/22/24 03/04/25 History oxcarbazepine 300 mg tablet 300 mg PO QID 07/22/24 03/04/25 History duloxetine 60 mg capsule,delayed 60 mg PO DAILY 01/22/25 03/04/25 History release secukinumab 300 mg/2 mL 300 mg subcut MONTHLY 01/22/25 03/04/25 History subcutaneous pen injector (Cosentyx UnoReady Pen) doxycycline hyclate 100 mg capsule 100 mg PO BID #20 caps 01/31/25 03/04/25 Rx albuterol sulfate 90 mcg/actuation 2 inh inhalation Q4H PRN shortness 03/04/25 03/04/25 History aerosol inhaler (Ventolin HFA) of breath or wheezing oxycodone-acetaminophen 5 mg-325 1 tablet PO Q6H PRN pain 03/04/25 03/04/25 History mg tablet (Percocet) Allergies Allergy/AdvReac Type Severity Reaction Status Date / Time methotrexate AdvReac Mild Nausea and Verified 03/04/25 10:42 Vomiting amoxicillin AdvReac Nausea and Verified 03/04/25 10:42 Vomiting Exam Narrative: bilateral retained myringotomy tubes, bilateral tympanic membrane perforations Assessment and Plan Assessment and plan (1) Retained bilateral myringotomy tubes: Code(s): Z96.22 - Myringotomy tube(s) status Status: Acute Assessment and Plan: plan OR rest bilateral tube removal with epi disc myringoplasty. Risks were discussed bleeding infection damage to surrounding structures need further procedures cholesteatoma formation persistent perforation postoperative infection bleeding . Damage to any structures of the clavicle myself. Damage any structures during the induction and maintenance of anesthesia including vocal cord paralysis if the patient is intubated. Need for further procedures. Persistent otorrhea. Facial nerve paralysis total deafness. Patient voiced understanding of these risks and agreed. (2) Bilateral tympanic membrane perforation: Code(s): H72.93 - Unspecified perforation of tympanic membrane, bilateral Status: Acute
[2025-03-10] VITALS (7 sets, daily range): BP systolic 127–145; BP diastolic 74–91; PULSE 71–82; RESP 14–71; TEMP 36.1–36.6; O2SAT 98–100; BMI 34.6
--- OUTSIDE RECORDS SUMMARY | 2025-03-10 01:10 | XMS_ITS | Clinical Summary ---
Author Organization [facility] Address [address] [place] [address] Care Team Providers Care Technical Operations Manager Name Role Phone Nithya Barron Primary Care Provider [phone] Allergies No known active allergies Medications vortioxetine [...] Shortness of breath. Active D3-50 1.25 MG (76892 UT) capsule Take 1 capsule (1.25 mg [...] of 3 - 19+ 3-dose series) 2002 HPV Vaccines (1 - 3-dose SCD M series) 2010 DTaP, Tdap and Td Vaccines ( 2 - Td or Tdap) 2012 2002 COVID-19 Vaccine (4 - 2024-2 6 season) 2025 06/03/2021, 08/26/2020, 08/05/2020 Pneumococcal Vaccine: Pediatrics (0 [...] to complete this topic Insurance Care Teams Technical Operations Manager Relationship Specialty Start Date End Date Nithya Barron PA PCP - General PHYSICIAN TOE LINING CLOSER 01/13/22
--- OUTSIDE RECORDS SUMMARY | 2025-03-10 01:10 | XMS_ITS | Clinical Summary ---
Author Organization [facility] Care Team Providers Care Firer Kiln Name Role Phone Unavailable Primary Care Provider [...] of 3 - 19+ 3-dose series) 2002 Human Papillomavirus (HPV) Immunization (1 - 3-dose SCDM series) 2010 Influenza Immunization (#1) 2025 SARS-COV-2 Immunization ( season) 2025 Respiratory Syncytial Virus (RSV) Immunization (Adult) (1 [...]
--- OUTSIDE RECORDS SUMMARY | 2025-03-10 01:10 | XMS_ITS | Encounter Summary ---
Author Organization [facility] Address [address] [place] [id number] Care Team Providers Care Soaker Meat Name Role Phone Avimalika Nithya LOPEZ Primary Care Pr ovider José Miguel Dewitt MD Unavailable [phone] Reason for Visit * Reason Onset Date Comments Ready to schedule 09/20/2023 Encounter Details Date Type Department Care Team (Late st Contact Info) Description 09/20/2023 Telephone [facility] Specialty Services [address] [place] [address] Miscellaneous, Not In File Ready to schedule Social History Tobacco Use Types Packs/Day Years Used Date Smoking Tobacco: Former Cigarettes Q uit: 09/22/2011 Smokeless Tobacco: Never Alcohol Use Standard Drinks/Week Comments Yes 0 (1 standard drink = 0.6 oz pur e alcohol) Social Connection and Isolation Panel Answer Date Recorded In a typical week, how many times do you talk on the phone with family, friends, or neighbors? More than three times a week 10/19/2022 How often do you get togethe r with friends or relatives? Three times a week 10/19/2022 How often do you attend chur ch or jain services? Never 10/19/2022 Do you belong to any clubs o r organizations such as adventist groups, unions, fraternal or athletic groups, or school groups? No 10/19/2022 How often do you attend meet ings of the clubs or organizations you belong to? Never 10/19/2022 Are you , , di vorced, , never , or living with a partner? 10/19/2022 AUDIT-C Answer Date Recorded Frequency of Alcohol Consumption 2-4 times a mon 09/21/2018 Average Number of Drinks Not on file [...] on file Legal Sex Male 6:26 PM [employer] Gender Identity Not on file Sexual Orientation Not on file documented as of this encounter Plan of Treatment Not on file documented as of this encounter Visit Diagnoses Not on filedocumented in this encounter Care Teams Soaker Meat Relationship Specialty Start Date End Date Nithya Barron PA PCP - General 09/02/16 José Miguel Dewitt MD Consulting Physician Orthopedic Surgery 08/10/22 documented as of this encounter
--- OUTSIDE RECORDS SUMMARY | 2025-03-10 01:10 | XMS_ITS | Data Portability ---
Author Organization [place] - [facility], Main Office Address [address] [place] [address] Care Team Providers Care Child And Adolescent Therapist Name Role Phone MELANY COLINDRES Primary Care Provider [phone] Assessment No assessment recorded. Plan of Treatment Reminders Order Date Submit Date Provider Last Modified By Organization Details Last Modified Time Details Appointments None recorded. Lab None recorded. Referral None recorded. Procedures eustachian tube balloon dilation (PROC) 2024 025 [email or web address] Not available 16:02:01 Surgeries None recorded. Imaging None recorded. Medication Orders Ciprodex 0.3 %-0.1 % ear drops,suspe nsion 2024 025 [email or web address] [id number], [address] [place], [address], 17:16:52 Patient TargetsNo targets recorded. Patient Instructions Encounter Date Encounter Id Patient Instructions Last Modified By Organization Details Last Modified Time 10/08/2024 [id number] Given that he lora s been refractory to oral steroids/antibiot ics for management. He will see Dr. Humphries to discuss if an ETBD with PE tube placement is appropriate. Ciprodex prescribed for managment. [email or web address] Not available 10/08/2024 16:49:18 10/24/2024 [id number] he will return a s needed. We discussed removal of the PE tubes if they bother him too much Not available 10/24/2024 16:21:03 11/07/2024 [id number] we are considering a CT if he [...] cteri stics have been deter mined by [facility]. It has not been clear ed or appro jody by the U.S. Food and Drug Admin istra tion. This assay has been valid ated pursu ant to the CLIA regul ation s and is used for clini kaleb purpo ses. Not Available [facility] [place] [address] [place], [address], 03/16/2022 08:19:03 03/11/2003/16/2022 MILK COMPO NENT PANEL alpha-lactal bumin (F76) IgE <0.10 kU/L normal Not Available [employer] [employer] [place] [address] [address] [place], [address], 03/16/2022 08:19:02 03/11/2003/16/2022 MILK COMPO NENT PANEL class 0 Not Available [facility] [employer] [place] [address] [place], [address], 03/16/2022 08:19:02 03/11/2003/16/2022 MILK COMPO NENT PANEL beta-lactogl obulin (F77) IgE <0.10 kU/L normal Not Available [address] [address] [place], [address], 03/16/2022 08:19:02 03/11/2003/16/2022 MILK COMPO NENT PANEL class 0 Not Available [address] [address] [place], [address], 03/16/2022 08:19:02 03/11/2003/16/2022 MILK COMPO NENT PANEL casein (F78) IgE <0.10 kU/L normal Not Available [address] [address] [place], [address], 03/16/2022 08:19:02 03/11/2003/16/2022 MILK COMPO NENT PANEL [...] http: //[email or web address] m Not Available [place] [address] [facility] [place], [address], 03/16/2022 08:19:02 03/11/2003/16/2022 FOOD ALLER GY PANEL (REFL ) egg white (F1) IgE <0.10 kU/L normal Not Available [address] [address] [place], [address], 03/16/2022 08:19:01 03/11/2003/16/2022 FOOD ALLER GY PANEL (REFL ) class 0 Not Available [facility] [address], [address], 03/16/2022 08:19:01 03/11/20 22 03/16/2022 FOOD ALLER GY PANEL (REFL ) peanut (F13) IgE <0.10 kU/L normal Not Available [address], [address], 03/16/2022 08:19:01 03/11/20 22 03/16/2022 FOOD ALLER GY PANEL (REFL ) class 0 Not Available [address], [address], 03/16/2022 08:19:01 03/11/2003/16/2022 FOOD ALLER GY PANEL (REFL ) wheat (F4) IgE <0.10 kU/L normal Not Available [address], [address], 03/16/2022 08:19:01 03/11/20 22 03/16/2022 FOOD ALLER GY PANEL (REFL ) class 0 Not Available [address], [address], 03/16/2022 08:19:01 03/11/20 22 03/16/2022 FOOD ALLER GY PANEL (REFL ) walnut (F256) IgE <0.10 kU/L normal Not Available [address], [address], 03/16/2022 08:19:01 03/11/2003/16/2022 FOOD ALLER GY PANEL (REFL ) class 0 Not Available [address], [address], 03/16/2022 08:19:01 03/11/20 22 03/16/2022 FOOD ALLER GY PANEL (REFL ) codfish (F3) IgE <0.10 kU/L normal Not Available [address], [address], 03/16/2022 08:19:01 03/11/2003/16/2022 FOOD ALLER GY PANEL (REFL ) class 0 Not Available [address], [address], 03/16/2022 08:19:01 03/11/2003/16/2022 FOOD ALLER GY PANEL (REFL ) cow's milk (F2) IgE <0.10 kU/L normal Not Available [address], [address], 03/16/2022 08:19:01 03/11/2003/16/2022 FOOD ALLER GY PANEL (REFL ) class 0 Not Available [address], [address], 03/16/2022 08:19:01 03/11/2003/16/2022 FOOD ALLER GY PANEL (REFL ) soybean (F14) IgE <0.10 kU/L normal Not Available [address], [address], 03/16/2022 08:19:01 03/11/2003/16/2022 FOOD ALLER GY PANEL (REFL ) class 0 Not Available [address], [address], 03/16/2022 08:19:01 03/11/2003/16/2022 FOOD ALLER GY PANEL (REFL ) maize/corn (F8) IgE <0.10 kU/L normal Not Available [address], [address], 03/16/2022 08:19:01 03/11/2003/16/2022 FOOD ALLER GY PANEL (REFL ) class 0 Not Available [address], [address], 03/16/2022 08:19:01 03/11/20 22 03/16/2022 FOOD ALLER GY PANEL (REFL ) shrimp (F24) IgE <0.10 kU/L normal Not Available [address], [address], 03/16/2022 08:19:01 03/11/20 22 03/16/2022 FOOD ALLER GY PANEL (REFL ) class 0 Not Available [address], [address], 03/16/2022 08:19:01 03/11/2003/16/2022 FOOD ALLER GY PANEL (REFL ) scallop (F338) IgE <0.10 kU/L normal Not Available [address], [address], 03/16/2022 08:19:01 03/11/2003/16/2022 FOOD ALLER GY PANEL (REFL ) class 0 Not Available [address], [address], 03/16/2022 08:19:01 03/11/2003/16/2022 FOOD ALLER GY PANEL (REFL ) clam (F207) IgE <0.10 kU/L normal Not Available [address], [address], 03/16/2022 08:19:01 03/11/2003/16/2022 FOOD ALLER GY PANEL (REFL ) class 0 Not Available [address] [address] [place], [address], 03/16/2022 08:19:01 03/11/2003/16/2022 FOOD ALLER GY PANEL (REFL ) sesame seed (F10) IgE <0.10 kU/L normal Not Available [address], [address], 03/16/2022 08:19:01 03/11/2003/16/2022 FOOD ALLER GY PANEL (REFL ) class 0 Not Available [address] [place], [address], 03/16/2022 08:19:01 03/11/20 22 03/16/2022 OUMOU C [...] ce of DQ2 or DQ8. Not Available [address] [place], [address], 03/16/2022 08:19:01 03/11/2003/16/2022 OUMOU C DISEA SE COMPR EHENS NICK PANEL tissue transglutami nase Ab, IgA <1.0 U/mL Value Inter preta tion ----- ----- ----- ---- <15.0 Antib jan not detec ezequiel > or = 15.0 Antib jan detec ezequiel Not Available [address] [address] [place], [address], 03/16/2022 08:19:01 03/11/20 22 03/16/2022 OUMOU C DISEA SE COMPR EHENS NICK PANEL immunoglobul in A 141 mg/dL 47-310 Not Available [address] [place], [address], 03/16/2022 08:19:01 10/17/19 25 10/16/2024 MRSA/ STAPH AUREU S, NASAL , PCR MRSA, nasal NEGATI VE negati ve Not Available [facility] (Lab) [address] [place], [address], 10/16/2024 13:18:45 10/17/19 25 10/16/2024 MRSA/ STAPH AUREU S, NASAL , PCR staph aureus, nasal POSITI VE negati ve abnormal Not Available [facility] (Lab) [address] [place], [address], 10/16/2024 13:18:45 06/08/19 23 05/31/2022 XR, chest , 2 view No observ ation record ed. [id number] [facility] Add On Lab Orders [address] [place], [address], 08/03/2022 17:15:39 Result Notes None recorded. Problems Name Problem SNOMED Code Status Onset Date Resolution Date Notes Provider Name and Address Organization Details Recorded Time Apnea 0139590 Active Not Available [facility] 3 17:14:06 Irritable bowel syndrome 89310454 Active Not Available [facility] 3 17:14:06 Cervical radiculiti s 26031366 Active Not Available [facility] 3 17:14:06 Viral gastroente ritis 596595967 Active Not Available [facility] 3 17:14:06 Lumbar radiculopa thy 074375582 Active Not Available [facility] 3 17:14:06 Acute sinusitis 91367949 Active Not Available [facility] 3 17:14:07 Otalgia 58938128 Active Not Available [facility] 3 17:14:07 Nausea present 477209552 Active Not Available [facility] 3 17:14:07 Rheumatoid factor detected 938561248 Active Not Available [facility] 3 17:14:07 Blood chemistry outside reference range 824553182 Active Not Available [facility] 3 17:14:07 Acute tonsilliti s 00379049 Active Not Available [facility] 3 17:14:07 Pain of joint of wrist 355627802 Active Not Available [facility] 3 17:14:07 Degenerati on of lumbar interverte bral disc 93162142 Active Not Available [facility] 3 17:14:07 Mixed hyperlipid emia 661233972 Active Not Available [facility] 3 17:14:08 Anemia 917591678 Active Not Available [facility] 3 17:14:08 Acute low back pain 876086285 Active Not Available [facility] 3 17:14:08 Swelling of finger joint 645919906 Active Not Available [facility] 3 17:14:08 Otitis externa 2384730 Active Not Available [facility] 3 17:14:08 Exercise-i nduced asthma 71174661 Active Not Available [facility] 3 17:14:08 Restless legs syndrome 34882458 Active Not Available [facility] 3 17:14:08 Psoriasis with arthropath y Active Not Available [facility] 3 17:14:08 Pain of multiple joints 28307880 Active Not Available [facility] 3 17:14:08 Diverticul ar disease 234833695 Active Not Available [facility] 3 17:14:09 Staphyloco ccal infection of skin 980238645 Active Not Available [facility] 3 17:14:09 Strain of muscle and/or tendon of forearm 137392012 Active Not Available [facility] 3 17:14:09 Sprain of ankle 21093213 Active Not Available [facility] 3 17:14:09 Cough 78267182 Active Not Available [facility] 3 17:14:09 Feeling irritable 73954986 Active Not Available [facility] 3 17:14:09 Staphyloco ccal infectious disease 78077616 Active Not Available [facility] 3 17:14:10 Occult blood detected in feces 40846604 Active Not Available [facility] 3 17:14:10 Stress 99401478 Active Not Available [facility] 3 17:14:10 Obstructiv e sleep apnea syndrome 00583908 Active Not Available [facility] 3 17:14:10 Epigastric pain 00058835 Active Not Available [facility] 3 17:14:10 Fatigue 41353104 Active Not Available [facility] 3 17:14:10 Internal hemorrhoid s 64151369 Active Not Available [facility] 3 17:14:11 Skin lesion 26252155 Active Not Available [facility] 3 17:14:11 Eczema of external auditory canal 57542701 Active Not Available [facility] 3 17:14:11 Benign hypertensi on 95519937 Active 2019 Not Available [facility] 3 17:14:06 Dyslipidem ia 739670531 Active 2021 Not Available [facility] 3 17:14:08 Benign essential hypertensi on 4633468 Active 2021 Not Available [facility] 3 17:14:06 Vitamin D deficiency 88555585 Active 2021 Not Available [facility] 3 17:14:08 Nausea and vomiting 55588454 Active 2021 Not Available [facility] 3 17:14:07 Bloating symptom 493281592 Active 2021 Not Available [facility] 3 17:14:07 Loose stool 016254142 Active 2021 Not Available [facility] 3 17:14:09 Upper abdominal pain 61656817 Active 2021 Not Available [facility] 3 17:14:10 Chronic diarrhea of unknown origin 57276796 Active 2021 Not Available [facility] 3 17:14:07 Upper respirator y infection 87815203 Active 2021 Not Available [facility] 3 17:14:09 Diarrhea 92723885 Active 2021 Not Available [facility] 3 17:14:10 Gastroesop hageal reflux disease 440131341 Active 2021 Not Available [facility] 3 17:14:07 Gastroesop hageal reflux disease without esophagiti s 017670839 Active 2021 Not Available [facility] 3 17:14:07 Hematochez ia 748186031 Active 2022 JESSICA Hackett [address], [address], [place], [address] , [facility] [employer] [facility] [employer] [facility] 3 13:52:00 Lesion of skin of face 579942710430 Active 2022 JESSICA Hackett [address], [address], [place], [address] , [place] [employer] [facility] [employer] [facility] 3 14:11:15 Dysfunctio n of right eustachian tube 8909449467456 101 Active 2024 TIM Sky [address], [address], [place], [address] , [facility] [employer] [facility] [employer] [facility] 5 16:48:07 Dysfunctio n of bilateral eustachian tubes 4722765876773 100 Active 2024 Hood Humphries MD [address], [address], [place], [address] , [facility] [employer] [facility] [employer] [facility] 5 15:44:10 Otitis media 54143021 Active 2024 Michelle kaplan [facility] [employer] [facility] 5 17:22:38 Problem Notes None recorded. Procedures Surgical History Date Name Laterality Status Provider Name and Address Organization Details Recorded Time 10/17/19 25 inflation of Eustachian tube using balloon completed Lizzie Wise RN [facility] [employer] [facility] 10/23/2024 17:17:23 10/17/19 25 myringotomy and insertion of tympanic ventilation tube completed Lizzie Wise RN [facility] [employer] [facility] 10/23/2024 17:17:35 06/08/19 22 Tonsillectomy completed Not Available [facility] 08/03/2022 17:13:09 12/16/19 16 Colonoscopy completed Not Available [facility] 08/03/2022 17:13:09 Decompression of forearm completed Not Available [facility] 08/03/2022 17:13:09 Carpal tunnel surgery completed Not Available [facility] 08/03/2022 17:13:09 cholecystectomy completed Lizzie Wise RN [facility] 10/08/2024 16:31:21 Imaging Results None recorded. Procedure Notes None recorded. Medical Equipment None Reported. Allergies Allergen ID Allergen Name Allergen Category Reaction Reaction Severity Criticality Documentation Date Start Date Code Code System Note Provider Name and Address Organization Details Recorded Time 42880 amoxicill in medicatio n Not available Not available Not available 10/08/2024 723 RxNorm VOMIT TING, STOMA CH UPSET Lizzie Wise RN [facility], [facility] 16:30:28 Medications Name Sig Start Date Stop [...] al injection solution administ er 0.1ml active [facility]# [address]39-08 52-21. Neg result on 03/03/16 ds Not [...] Address Organization Details Last Updated DateTime 10/08/2024 266161.98 g 35 kg/m2 185.42 cm 97.8 [degF] Lizzie Wise RN [facility] [employer] [facility] 10/08/2024 16:34:47 Date Recorded Body height Body mass index (BMI) Body weight Body temperature Provider Name and Address Organization Details Last Updated DateTime 10/10/2024 185.42 cm 35 kg/m2 820608.98 g 97.7 [degF] Lizzie Wise RN [facility] [employer] [facility] 10/10/2024 15:31:27 Date Recorded Body weight Body temperature Body mass index (BMI) Body height Provider Name and Address Organization Details Last Updated DateTime 10/24/2024 503277.42 g 97.6 [degF] 34.2 kg/m2 185.42 cm Lizzie Wise RN [facility] [employer] [facility] 10/24/2024 16:03:32 Date Recorded Body height Body temperature Body mass index (BMI) Body weight Provider Name and Address Organization Details Last Updated DateTime 11/07/2024 185.42 cm 97.4 [degF] 34.4 kg/m2 722553.61 g Lisa Hassan [facility] [employer] [facility] 11/07/2024 16:35:11 Date Recorded Body height Oxygen saturation Oxygen saturation in Arterial blood by Pulse oximetry Heart rate Respiratory rate Body temperature Systolic And Diastolic Provider Name and Address Organization Details Last Updated DateTime 2 185.42 cm 98 % 98 % 82 /min 16 /min 98 [degF] 130/90 mm[Hg] Not Available [facility] 17:13:32 Social History Question Answer Notes LastModified by Organizat ion Details LastModified Time Tobacco Smoking Status Former Smoker Not Available [facility] 08/03/2022 17:12:59 Do You Have An Advance Directive? Yes [id number] Information not available 08/03/2022 What Is Your Level Of Caffeine Consumption? Heavy [id number] 026 Information not available 08/03/2022 In The 14 Days Before Symptom Onset, Have You Had Close Contact With A Laboratory-confirm ed COVID-19 While That Case Was Ill? No [id number] 026 Information not available 08/03/2022 In The 14 Days Before Symptom Onset, Have You Had Close Contact With A Person Who Is Under Investigation For COVID-19 While That Person Was Ill? No [id number] 026 Information not available 08/03/2022 What Type Of Diet Are You Following? REGULAR [id number].4570593 026 Information not available 08/03/2022 Have There Been Any Changes To Your Family Or Social Situation? No [id number].[id number] 026 Information not available 08/03/2022 When Did You Quit Smoking? 6-10yearssin celastcigare tte [id number].[id number] 026 Information not available 08/03/2022 Are There Any Guns Present In Your Home? Yes [id number].[id number] 026 Information not available 08/03/2022 What Is Your Relationship Status? [id number].[id number] 026 Information not available 08/03/2022 Do You Use Your Seat Belt Or Car Seat Routinely? Yes [id number].0047335 026 Information not available 08/03/2022 Do You Have Smoke And Carbon Monoxide Detectors In Your Home? Yes MIGRATION.0057154 026 Information not available 08/03/2022 At What Age Did You Start Smoking Tobacco? 15 [id number].3678935 026 Information not available 08/03/2022 Do You Use Sunscreen Routinely? Yes [id number].1896248 026 Information not available 08/03/2022 Have You Recently Traveled Abroad? No MIGRATION.0381020 026 Information not available 08/03/2022 Do You Have Any Dietary Restrictions? No MIGRATION.6661783 026 Information not available 08/03/2022 Sex: Unknown Functional Status Question Answer Note LastModified by Organizat ion Details LastModified Time Do you use any illicit or recreational drugs? No [id number].[id number] 26 Information not available 08/03/2022 Do you or have you ever used any other forms of tobacco or nicotine? No MIGRATION.92157105 26 Information not available 08/03/2022 What is your level of alcohol consumption? 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 Moderate MIGRATION.94201253 26 Information not available 08/03/2022 Mental Status None recorded. Family History Relationship Description Onset Age of this Age Resolved Age Notes LastModified by Organization Details LastModified Time Father History of heart disorder [id number] Not available 08/03/2022 17:13:10 Notes:SON: ENT HX Medical History Condition Response HEADACHES/MIGRAINES Y ANXIETY DISORDER Y OBESITY Y DIZZINESS Y ASTHMA Y SLEEP DISORDER Y DEPRESSION (INCLUDING POST ) Y BOWEL PROBLEMS Y BACK / NECK PROBLEMS Y Immunizations Vaccine Type Date Status Note Provider Nam e and Address Organization Details Recorded Time Influenza, split virus, quadrivalent, preservative 8 completed Not Available [facility] 08/03/2022 17:15:34 COVID-19, mRNA, LNP-S, PF, 30 mcg/0.3 mL dose 1 completed Not Available [facility] 08/03/2022 17:15:34 influenza, unspecified formulation 5 completed Not Available [facility] 08/03/2022 17:15:34 Past Encounters Encounter ID Performer Location Encounter Start Date Encounter Closed Date Diagnosis/Indication Diagnosis SNOMED-CT Code Diagnosis ICD10 Code Diagnosis IMO Codes Diagnosis Note [id number] JESSICA Hackett [facility] Internal [facility] [place] [address] [place] [address] 09/06/2021 00:00:00 10/02/2021 14:48:37 [id number] JESSICA Hackett [facility] [place] [address] [place] [address] 03/11/2022 00:00:00 04/04/2022 10:29:24 [id number] Hood Humphries MD [facility] [place] [address] [place] [address] 10/08/2024 16:22:27 10/08/2024 16:49:51 Dysfunction of right eustachian tube 9848594163 956369 H69.91 61226042 [id number] Hood Humphries MD [facility] [place] [address] [place] [address] 10/10/2024 15:26:28 10/16/2024 17:46:33 Dysfunction of bilateral eustachian tubes 6910563911 594863 H69.93 17860701 [id number] Hood Humphries MD [facility] ENT [place] [address] [place] [address] 10/24/2024 16:00:10 10/25/2024 08:59:48 Dysfunction of bilateral eustachian tubes 2485726583 643073 H69.93 44798093 [id number] [facility] [place] [address] [place] [address] 11/07/2024 16:25:42 11/08/2024 15:59:15 Dysfunction of bilateral eustachian tubes 6071078341 067929 H69.93 98645605 Dysfunctio n of right eustachian tube 7905431800 916868 H69.91 [id number] Health Concerns Section Related Observation LastModified by Organization Detai ls LastModified Time None Recorded Concern Status LastModified by Organization Details LastModified Time None Recorded Advance Directives Directive Y: Payers Insurance Date Sequence Insurance Name Policy Number Policy Karimi Covered Member ID Karimi Member ID Guarantor Name 10/08/2024 [facility] Tj Chappell SELF SELF Tj Chappell 11/04/2024 1 [place] [id number] Tj Chappell [id number] Tj Chappell Notes Date Note Type Note Provider Name and Address Organization Details Recorded Time 10/08/2024 text/html This patient has a pmhx [...] of the valsalva maneuver without symptom relief. TIM Sky [address] [place] [address] Ave, [address], [place], [address], [place] [employer] [facility] [employer] [facility] 10/08/2024 16:49:22 10/10/2024 text/html this patient has had month history of serous otitis media despite 3 rounds of antibiotics and 3 rounds of steroids. The left is worse than the right. The fluid was seen on his last exam. Hood Humphries MD [address], [address], [place], [address], [place] [employer] [facility] [employer] [facility] 10/10/2024 15:45:06 10/24/2024 text/html He is doing well following tubes and Eustachian tube balloon dilatation. He does report some decrease in the low frequency hearing which is improving slowly Hood Humphries MD [address], [address], [place], [address], [employer] 10/24/2024 16:21:30 11/07/2024 text/html He was just placed on Levaquin and Ciprodex and he is hoping that he begins to feel better. We are considering a CT if he does not Hood Humphries MD [address], [place], [address], [place] [employer] [facility] [employer] 11/07/2024 17:29:07
--- OUTSIDE RECORDS SUMMARY | 2025-03-10 01:10 | XMS_ITS | Clinical Summary ---
Author Organization [facility] Address [address] [place] [address] Care Team Providers Care Senior Oracle Database Administrator Name Role Phone MellisaAshwin evangelistayolanda LOPEZ Primary Care Pr ovider José Miguel Dewitt MD Unavailable [phone] Allergies Active Allergy Reactions Criticality Noted [...] mouth daily 30 tablet 11 02/20/20 24 Active levothyroxine (SYNTHROID) 50 mcg tablet TAKE [...] (two) times a day 05/08/[address] (CYMBALTA) 60 mg capsule Take by mouth daily 09/04/19 25 Active Cosentyx UnoReady Pen 300 mg/2 mL pen injector subcutaneous syringeIndications :Psoriatic arthritis (HCC) INJECT 1 PEN UNDER THE SKIN EVERY 4 WEEKS 1 mL 5 01/16/20 25 Active Active Problems Problem Noted Date Diagnosed Date Shortness of breath 03/26/2024 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 07/14/2023 Acute bilateral low back pain with bilateral sci atica 10/19/2022 Acute exacerbation of chronic low back pain 10/03 Acute midline low back pain without sciatica Lumbar strain, initial encounter 08/09/2022 Radiculopathy 08/09/2022 Overview (08/10/2022): Added automatically from request for surgery [id number] Elevated liver enzymes 03/13/2017 Psoriatic arthritis 01/26/2017 [...] Date Rheumatoid arthritis involvi ng multiple sites ([facility]/HCC) 11/05/2015 03/13/2021 Immunizations Immunization Administration Dates Next [...] often do you attend chur ch or gnosticism services? Never 10/19/2022 Do you belong to any clubs o r organizations such as yarsanism groups, unions, fraternal or athletic groups, or [...] on file Legal Sex Male 6:26 PM [employer] Gender Identity Not on file Sexual Orientation [...] series) 1996 Regular Well Visit/Exam 18-64 2001 HPV Vaccines (1 - 3-dose SCDM series) 2010 Influenza Vaccine (#1) 2025 04/05/2018, 2014 Pneumococcal vaccine <65 (3 of 3 - PCV20 or PCV21) 2033 04/03/2020, 2019 Hepatitis B Screening Completed 07/14/2023 Hepatitis C Screening Completed 07/14/2023 , 05/20/2022, 07/06/2016 Procedures Procedure Name Priority Date/Time Associated Diagnosis Comments HEPATITIS C ANTIBODY Routine 07/14/2023 12:25 PM [employer] High risk medication use from Last 3 Months or Most Recently Relevant to Health Maintenance Results * Hepatitis C antibody Blood (07/14/2023 12:25 PM [employer]) Hep C Ab Nonreactive Nonreactive [facility] Comment:Antibodies to HCV no t detected. Does NOT exclude the possibility of recent exposure to HCV. Current interpretive data was last revised on 22 Blood 07/14/2023 12:2 5 PM [employer] 07/14/2023 1:20 PM [employer] us Jaylon Qureshi MD PhD LAB MICROBIOLOGY - GENERAL ORDERABLES Final Result [facility] Department [place] [address] from Last 3 Months or Most Recently Relevant to Health Maintenance Insurance [employer] ACCESS CHOICE ANTHEM ACCESS CHOICE Advance Directives For more information, please contact: [phone] * Full Code (Latest Code Status on File) Date Activated Date Inactivated Comments 10/19/2022 1:04 AM 10/20/2022 5:55 PM * Full Code Date Activated Date Inactivated Comments 08/09/2022 11:29 PM 08/10/2022 11:13 PM Care Teams Senior Oracle Database Administrator Relationship Specialty Start Date End Date Nithya Barron PA PCP - General 09/02/16 José Miguel Dewitt MD Consulting Physician Orthopedic Surgery 08/10/22
--- OUTSIDE RECORDS SUMMARY | 2025-03-10 01:10 | XMS_ITS | Clinical Summary ---
Author Organization [facility] Address [address] [place] [address] Phone Care Team Providers Care Wad Lubricator Name Role Phone Nithya Barron Primary Care Provider [phone] Allergies No known active allergies Medications buPROPion [...] Take 500 mg by mouth daily. Active Encounters Date Type Department Care Team Description 02/05/2025 Orders Only [facility] [address] [facility] [address] [facility] [address] [place] [phone] Provider, Abstract 02/05/[address] [facility] [address] [facility] [address] [place] [address] Provider, Abstract from Last 3 Months Social History Tobacco Use Types Packs/Day Years [...] Comments Blood Pressure 153/94 04/09/2018 6:36 PM MANAGER ACTION Pulse 88 09/19/2015 3:30 PM CDT Temperature 36.7 C (98.1 F) 04/09/2018 6:36 PM MANAGER ACTION Respiratory Rate 18 04/09/2018 6:36 PM MANAGER ACTION Oxygen Saturation 99% 04/09/2018 6:36 PM MANAGER ACTION Inhaled Oxygen Concentration - - Weight 117.9 kg (260 lb) 04/09/2018 6:36 PM MANAGER ACTION Height 182.9 cm (6') 04/09/2018 6:36 PM MANAGER ACTION Body Mass Index 35.26 04/09/2018 6:36 PM MANAGER ACTION Plan of Treatment Upcoming Encounters Date Type Department Care Team (Late st Contact Info) Description 03/10/2025 9:30 AM CDT Office Visit [facility] Neuro[facility] [address] [facility] [address] [facility] [address] [place] [phone] Jim Horner MD [address] [facility] [address] [place] [phone] Health Maintenance Due Date Last Done Comments Pre-Diabetes and Diabetes Screening 1983 DTAP/TDAP/TD VACCINES (1 - Tdap) 2002 HEPATITIS B VACCINES (1 of 3 - 19+ 3-dose series) 06/07 HPV VACCINES (1 - 3-dose SCDM series) 2010 INFLUENZA VACCINE (#1) 2025 04/05/[address] [facility] BLUE ACCESS CHOICE Care Teams Wad Lubricator Relationship Specialty Start Date End Date Nithya Barron PA PCP - General Physician Medical Doctor 09/15/15
--- NOTE | 2025-03-10 11:41 | WPDHPUPDATE1 ---
History and Physical Update Update Date/Time: 03/10/25 11:41 History and Physical has been reviewed, including an updated exam of the patient. There are NO changes in the patient's condition. Risks, benefits, and alternatives have been discussed and questions answered. Patient agrees to proceed with procedure.
--- NOTE | 2025-03-10 13:01 | ECG_ITS ---
Test Date: 2025-03-10 13:47:34 Measurements Intervals [place] Rate: 71 P: 40 IA: 186 QRS: 7 QRSD: 97 T: 29 QT: 395 QTc: 429 Interpretive Statements SINUS RHYTHM INCOMPLETE RIGHT BUNDLE BRANCH BLOCK BASELINE ARTIFACT- I, III, AVR, AVL, AVF, V1 BORDERLINE ECG No previous ECG available for comparison Electronically Signed On 03-10-2025 13:52:19 CDT by Derik Cotton D.O.
--- NOTE | 2025-03-10 14:13 | WPDANESEPPF ---
Anes - Initial Pre Proc Eval Procedure: Operation Date: 03/10/25 14:30 Proposed Procedures p Bilateral Removal of Myringotomy Tubes, Bilateral Epidisc Myringoplasty - Ramy Rooney MD Date/Time: 03/10/25 14:13 Surgeon: Ramy Rooney MD Pre Op Diagnosis: Otorrhea Right Ear Patient Data Age: 39 Gender: M Height: 1.85 m Weight: 119.1 kg Last Vital Signs Temp 36.6 C 03/10/25 13:30 Pulse 74 03/10/25 13:30 Resp 18 03/10/25 13:30 BP 145/91 H 03/10/25 13:30 Pulse Ox 98 03/10/25 13:30 Allergies Allergy/AdvReac Type Severity Reaction Status Date / Time methotrexate AdvReac Mild Nausea and Verified 03/10/25 13:29 Vomiting amoxicillin AdvReac Nausea and Verified 03/10/25 13:29 Vomiting Home Medications ?Medication ?Instructions ?Recorded ?Confirmed ?Type multivitamin 1 tablet PO DAILY 06/02/21 03/10/25 History buspirone 7.5 mg tablet 7.5 mg PO BID 06/15/21 03/10/25 History levothyroxine 50 mcg tablet 50 mcg PO DAILY 12/19/23 03/10/25 History olmesartan 40 mg tablet 40 mg PO DAILY 12/19/23 03/04/25 History omeprazole 20 mg tablet,delayed 20 mg PO DAILY 12/19/23 03/04/25 History release amlodipine 10 mg tablet (Norvasc) 10 mg PO DAILY 07/22/24 03/10/25 History hydrochlorothiazide 12.5 mg tablet 12.5 mg PO DAILY 07/22/24 03/04/25 History oxcarbazepine 300 mg tablet 300 mg PO QID 07/22/24 03/04/25 History duloxetine 60 mg capsule,delayed 60 mg PO DAILY 01/22/25 03/10/25 History release secukinumab 300 mg/2 mL 300 mg subcut MONTHLY 01/22/25 03/04/25 History subcutaneous pen injector (Cosentyx UnoReady Pen) doxycycline hyclate 100 mg capsule 100 mg PO BID #20 caps 01/31/25 03/04/25 Rx albuterol sulfate 90 mcg/actuation 2 inh inhalation Q4H PRN shortness 03/04/25 03/04/25 History aerosol inhaler (Ventolin HFA) of breath or wheezing oxycodone-acetaminophen 5 mg-325 1 tablet PO Q6H PRN pain 03/04/25 03/10/25 History mg tablet (Percocet) Patient hx anesthesia problems: none Family hx anesthesia problems: none Results Review: All pre-operative results and documents have been reviewed as part of the pre-operative evaluation. [facility] Past Medical History Medical History Chronic sinusitis Nasal congestion Upper respiratory infection Nausea & vomiting Colitis Diverticulitis Right elbow pain Arthritis Dehydration Hematochezia Hepatosplenomegaly Encounter to establish care Psoriatic arthritis Epigastric pain Lower abdominal pain Encounter for surgical aftercare following surgery on the digestive system Post-operative pain Neoplasm of uncertain behavior of skin Basal cell carcinoma of skin C. difficile colitis Chronic tonsillitis Recurrent tonsillitis Tonsil asymmetry Tonsillar hypertrophy Hypothyroidism HTN (hypertension), benign Asthma Sleep apnea History of arm fracture (~2016) Lt Bipolar disorder Depression Anxiety Surgical History Surgical History History of spinal surgery History of laparoscopic cholecystectomy 12/22/23 History of decompression of ulnar nerve (~2018) History of carpal tunnel release (~2018) Family History Family History Father Hypertension Family history of coronary artery disease Grandparent Hypertension Carcinoma of colon Family history of Alzheimer's disease Family history of malignant neoplasm of breast Mother Family history of malignant neoplasm of cervix Social History Social History Smoking packs per day: 1 Smoking cigarettes per day: 20.0 Years smoked: 10 Smoking pack-years: 10.00 Smoking status: Former smoker Tobacco type: cigarettes Second hand tobacco smoke exposure: No Smoking end date: 06/05/08 Additional smoking assessment comments: QUIT 2013 Alcohol intake: former Drinks per week: 1 Substance use: never Substance use type: does not use Do You Feel Safe in your Home?: Yes Lack of Transportation: No Lack of Food: Never True Current Housing: I Have Housing Concerned About Future Housing: No Difficulty Paying Gas/Electric Bills: No Difficulty Paying for Meds: No Currently Unemployed: No Education: Associate Degree Difficulty w/ Childcare or Family Care: No Living arrangements: with family Spiritual care concerns: Yes (Jew) Bebeto - Ori Final PreProcedure Day of Procedure 03/10/25 14:13 Patient weight: obese Heart: regular rate and rhythm Lungs: clear to auscultation Airway: Mallampati scale class II Neurological: alert and oriented Last oral intake: >/= 8 hours ASA classification: III Emergent: no Anesthetic plan: proceed Anesthesia type and monitoring: general LMA and standard monitoring Results Review: All pre-operative results and documents have been reviewed as part of the pre-operative evaluation. Informed Consent: The patient's anesthetic plan and its attendant risks and benefits were discussed with the patient/family/POA. Questions were solicited and answers provided to the satisfaction of the patient/family/POA.
[2025-03-10] MEDS: OXYMETAZOLINE HCL 0.05% NAS 15 ML BTL (*BKC) 1 SPRAY NASAL (14:46)
[2025-03-10] MEDS: LACTATED RINGERS 1,000 ML 30 ML IV CONT ×2 (15:04)
[2025-03-10] MEDS: fentaNYL CITRATE INJ (*CRX) 100 MCG/2 ML VIAL 25 MCG IV PUSH ×4 (15:22→15:35)
--- NOTE | 2025-03-10 15:33 | W.PM.PROC2 ---
Procedure Note - Detailed Date of Procedure 03/10/25 Pre-op Diagnosis Bilateral retained myringotomy tubes, bilateral tympanic membrane perforations Post-op Diagnosis Same Procedure Performed 1. Bilateral tube removal 2. Bilateral epi disc myringoplasty is Surgeon Ramy Rooney MD Anesthesia General (LMA) Indications See above Findings Retained tubes bilaterally removed epi disc placed bilaterally great contact bilaterally Description of Procedure Patient identified consent verified the preoperative holding area. Patient brought operating. Time-out performed. General anesthesia induced and LMA secured. Patient prepped draped position procedure confirmed right-sided viewed stanislav microscope blood clot removed from previous trauma. Tube removed with Mccabe needle pick. Epi disc fashion and soaked in saline placed in good tongue tacked with all sides the perforation. Exact same procedure performed on left-sided exact same findings other than no blood on the left side had to be removed previously. This was a bilateral procedure. Care the patient given Anesthesiology blood loss less than 1 cc. I performed all dictated portions procedure no complications. Estimated Blood Loss 1 Drains No Packing No Pathology None sent Complications No immediate complications Condition Stable Disposition PACU [facility] Billing Surgery - Charge Forward: Surgery Billing
[2025-03-10] MEDS: oxyCODONE HCL (*CRX) 5 MG TAB IR PO (16:07)
== END 2025-03-10 16:30 | disposition home or self-care (01) ==
PROVIDERS: PCP Internal Medicine; Visit Provider Otolaryngology
PROC: (CPT 69424; principal; 2025-03-10 14:30)
DX: H72.93 Unspecified perforation of tympanic membrane, bilateral (principal); Z87.891 Personal history of nicotine dependence; E66.9 Obesity, unspecified; Z68.34 Body mass index [BMI] 34.0-34.9, adult
CPT/HCPCS: 69610; 93005; A9270; C1763; J1100; J2003; J2250; J2405; J2704; J3010; J7120

== ENCOUNTER 2025-04-10 11:52 | Outpatient (CLI) | payer BC, SELFPAY ==
--- NOTE | ~2025-04-10 | MR_ITS ---
EXAM/PROCEDURE: MR cervical spine wo con HISTORY: Cervical spondylosis with myelopathy COMPARISON: X-rays from 2015 TECHNIQUE: Standard technique for noncontrast multiplanar cervical spine MRI performed. FINDINGS: Patient appears to have undergone discoplasty or anterior surgical changes at C5-6. Evaluation of this level somewhat limited due to susceptibility artifact. Prominent posterior osteophyte formation at the C5-6 level results in mild deformity of the spinal cord and slight increased ill-defined T2 hyperintense signal in this area as seen on image 7 series 3, T2-weighted sequences and also on the sagittal T2-weighted fast spin-echo images. C2-3: Mild degenerative change C3-4: Moderately severe posterior disc osteophyte complex with stenosis developing at the left lateral recess and moderately severe left-sided neural foraminal narrowing. No discrete disc protrusion or spinal canal stenosis. C4-5: Mild to moderate degenerative changes with no spinal canal stenosis or discrete disc protrusion. Mild to moderate bilateral neural foraminal narrowing. C5-6: Possible mild compression of the spinal cord at this level. The finding somewhat limited as above. C6-7: Mild degenerative change C7-T1: Mild degenerative change IMPRESSION: Apparent surgical changes at C5-6 with possible early developing myelopathy. Visualization of this level is somewhat limited due to magnetic susceptibility artifact. Reviewed, dictated and finalized at location A. RNAL AUDIT SENIOR MANAGER IMPRESSION: Apparent surgical changes at C5-6 with possible early developing myelopathy. Vi sualization of this level is somewhat limited due to magnetic susceptibility ar tifact.
== END 2025-04-10 11:53 | disposition home or self-care (01) ==
LOC: MICIMG 11:53
PROVIDERS: Visit Provider Orthopaedic Surgery Orthopaedic Surgery of the Spine
DX: M47.12 Other spondylosis with myelopathy, cervical region (principal); Z98.890 Other specified postprocedural states
CPT/HCPCS: 72141

== ENCOUNTER 2025-05-23 10:38 | Outpatient (CLI) | payer BC, SELFPAY ==
--- OUTSIDE RECORDS SUMMARY | 2025-05-23 11:11 | XMS_ITS | Clinical Summary ---
Author Organization [facility] Address [address] [place] [address] Phone Care Team Providers Care Journeyman Mechanic Name Role Phone Nithya Barron Primary Care Provider [phone] Allergies No known active allergies Medications buPROPion [...] Take 500 mg by mouth daily. Active amLODIPine (NORVASC) 10 mg tablet Take 10 mg by mouth daily. Active hydroCHLOROthia zide 12.5 mg tablet Take 12.5 mg by mouth daily. 4 Active levothyroxine 50 mcg tablet TAKE 1 TABLET BY MOUTH EVERY DAY IN THE MORNING FOR THYROID 4 Active olmesartan (BENICAR) 40 mg tablet Take 40 mg by mouth daily. Active omeprazole (PriLOSEC) 20 mg Capsule, Delayed Release(E.C.) 2 times daily. 3 Active OXcarbazepine (TRILEPTAL) 300 mg tablet Take 600 mg by mouth 2 times daily. Active oxyCODONE-aceta minophen (PERCOCET) 5-325 mg tablet Take 1 Tablet by mouth every 6 hours. Active Cosentyx UnoReady Pen 300 mg/2 mL Pen Injector INJECT 1 PEN UNDER THE SKIN EVERY 4 WEEKS 5 Active busPIRone (BUSPAR) 7.5 mg Tablet take 1 tablet by mouth twice a day for 90 days Active DULoxetine (CYMBALTA) 60 mg Capsule, Delayed Release(E.C.) take 1 capsule by mouth every day for 90 days Active Active Problems Problem Noted Date Diagnosed Date Cervical spondylosis with myelopathy 03/10/2025 Lumbar post-laminectomy syndrome 03/10/2025 Encounters Date Type Department Care Team Description 05/16/2025 10:02 AM SENIOR STRUCTURAL ENGINEER - 05/16/2025 11:59 PM SENIOR STRUCTURAL ENGINEER Hospital Encounter [facility] [place] [id number] [place] [address] Jim Horner MD Discharge Disposition: Home or Self Care 05/16/2025 9:56 AM SENIOR STRUCTURAL ENGINEER - 05/16/2025 2:21 PM SENIOR STRUCTURAL ENGINEER Hospital Encounter [facility] Radiology Services [id number] [place] [phone] Jim Horner MD Radiology, [facility] Rad Nurse Cervical spondylosis with myelopathy Discharge Disposition: Home or Self Care 05/06/2025 External Device Data STL ABSTRACTION Provider, Abstract 04/11/[address] [facility] [address] [place] [phone] Jim Horner MD Imaging Results 04/08/2025 External Device Data STL ABSTRACTION Provider, Abstract 04/02/2025 External Device Data STL ABSTRACTION Provider, Abstract 04/02/2025 External Device Data STL ABSTRACTION Provider, Abstract 03/11/2025 External Device Data STL ABSTRACTION Provider, Abstract 03/11/2025 External Device Data STL ABSTRACTION Provider, Abstract 03/11/2025 External Device Data STL ABSTRACTION Provider, Abstract 03/10/2025 10:25 AM CDT Ancillary Procedure [facility] [address] [place] [address] Jim Horner MD Neck pain 03/10/2025 9:50 AM CDT Ancillary Procedure [facility] Neurosurgery [facility] [address] [place] [address] Jim Horner MD Low back pain 03/10/2025 9:30 AM CDT Office Visit [facility] Neurosurgery [facility] [address] [place] [address] Jim Horner MD Cervical spondylosis with myelopathy (Primary Dx); Lumbar post-laminectomy syndrome; Neck pain; Pain of right sacroiliac joint 03/10/2025 Telephone [facility] Neurosurgery [facility] [address] [place] [address] Jim Horner MD Imaging Auth from Last 3 Months Family History Relation Name Status Comments Father Alive Mother Alive Social History Tobacco Use Types Packs/Day Years Used Date Smoking Tobacco: Former Cigarettes 1 Q uit: 09/14/2012 Smokeless Tobacco: Never Tobacco Cessation:Counseling Given: Not Answered Alcohol Use Standard Drinks/Week Comments Yes 0 (1 standard drink = 0.6 oz pur e alcohol) social Sex and Gender Information Value Date Recorded Sex Assigned at Not on file Legal Sex Male 7:27 AM CDT Gender Identity Not on file Sexual Orientation Not on file Last Filed Vital Signs Vital Sign Reading Time Taken Comments Blood Pressure 141/86 05/16/2025 10:19 AM SENIOR STRUCTURAL ENGINEER Pulse 77 05/16/2025 10:19 AM SENIOR STRUCTURAL ENGINEER Temperature 36.7 C (98.1 F) 05/16/2025 10:19 AM SENIOR STRUCTURAL ENGINEER Respiratory Rate 17 05/16/2025 10:19 AM SENIOR STRUCTURAL ENGINEER Oxygen Saturation 98% 05/16/2025 10:19 AM SENIOR STRUCTURAL ENGINEER Inhaled Oxygen Concentration - - Weight 119.7 kg (264 lb) 03/10/2025 9:46 AM CDT Height 185.4 cm (6' 1) 03/10/2025 9:46 AM CDT Body Mass Index 34.83 03/10/2025 9:46 AM CDT Plan of Treatment Health Maintenance Due Date Last Done Comments Pre-Diabetes and Diabetes Screening 1983 DTAP/TDAP/TD VACCINES (1 - Tdap) 2002 HEPATITIS B VACCINES (1 of 3 - 19+ 3-dose series) 06/07 INFLUENZA VACCINE (#1) 2025 04/05/2018 HPV VACCINES (No Doses Required) Completed Procedures Procedure Name Priority Date/Time Associated Diagnosis Comments XR MYELOGRAM CERVICAL Routine 05/16/2025 12:34 PM SENIOR STRUCTURAL ENGINEER Cervical spondylosis with myelopathy CT CERVICAL SPINE W CONTRAST Routine 05/16/2025 12:33 PM SENIOR STRUCTURAL ENGINEER Cervical spondylosis with myelopathy XR CERVICAL SPINE 4 OR 5 VIEWS Routine 03/10/2025 10:26 AM CDT Neck pain XR LUMBAR SPINE 2 OR 3 VW Routine 03/10/2025 9:57 AM CDT Low back pain from Last 3 Months Results * XR MYELOGRAM CERVICAL (05/16/2025 12:34 PM SENIOR STRUCTURAL ENGINEER) Anatomical Region Laterality Modality Spine Computed Radiogr aphy 05/16/2025 12:3 8 PM SENIOR STRUCTURAL ENGINEER Impressions 05/16/2025 2:33 PM SENIOR STRUCTURAL ENGINEER IMPRESSION: Successful myelogram in preparation for CT myelography. DICTATION LOCATION: Location [address] [place] [address] 05/16/2025 2:33 PM SENIOR STRUCTURAL ENGINEER CERVICAL MYELOGRAM DATE: 05/16/2025 12:34 PM HISTORY: Cervical spondylosis with myelopathy COMPARISON: No prior studies are available for comparison. TECHNIQUE: The procedure and its complications were explained to the patient, who agreed to the procedure. The complications discussed include headache, infection and neurological dysfunction. The patient was prepped and draped using aseptic technique. After infiltration with local anesthetic, a 25 gauge needle was introduced into the subarachnoid space at the level of L2-3. Following instillation of 15 cc of ISO 300m, radiographs were then obtained in AP, lateral and oblique projections. The patient appeared to tolerate the procedure well and no immediate complications were noted. FINDINGS: Lumbarized S1. 12 rib bearing vertebrae were confirmed.. Contrast is present intrathecally and extending from the cervical levels to the lumbosacral levels. C5-6 interbody disc device. Reference Air Kerma : 1.3 INCIDENTAL FINDINGS: None. Procedure Note Pratik Fuller MD - 05/16/2025 CERVICAL MYELOGRAM DATE: 05/16/2025 12:34 PM HISTORY: Cervical spondylosis with myelopathy COMPARISON: No prior studies are available for comparison. TECHNIQUE: The procedure and its complications were explained to the patient, who agreed to the procedure. The complications discussed include headache, infection and neurological dysfunction. The patient was prepped and draped using aseptic technique. After infiltration with local anesthetic, a 25 gauge needle was introduced into the subarachnoid space at the level of L2-3. Following instillation of 15 cc of ISO 300m, radiographs were then obtained in AP, lateral and oblique projections. The patient appeared to tolerate the procedure well and no immediate complications were noted. FINDINGS: Lumbarized S1. 12 rib bearing vertebrae were confirmed.. Contrast is present intrathecally and extending from the cervical levels to the lumbosacral levels. C5-6 interbody disc device. Reference Air Kerma : 1.3 INCIDENTAL FINDINGS: None. IMPRESSION: Successful myelogram in preparation for CT myelography. DICTATION LOCATION: [address] Jim Horner MD DIAGNOSTIC IMAGING ORDERABLES Final Result * CT CERVICAL SPINE W CONTRAST (05/16/2025 12:33 PM SENIOR STRUCTURAL ENGINEER) Anatomical Region Laterality Modality Spine Computed Tomogra phy 05/16/2025 12:1 7 PM SENIOR STRUCTURAL ENGINEER Impressions 05/16/2025 4:02 PM SENIOR STRUCTURAL ENGINEER IMPRESSION: C5-6 cervical fusion without significant spinal canal stenosis. C5-C6 bilateral uncovertebral spurring and degenerative facet joint changes with mild bilateral neural foraminal narrowing. DICTATION LOCATION: [address] Narrative 05/16/2025 4:02 PM SENIOR STRUCTURAL ENGINEER CT POST MYELOGRAM CERVICAL SPINE CT MULTIPLANAR RECONSTRUCTIONS DATE: 05/16/2025 12:33 PM HISTORY: Myelopathy and chronic neck pain with cervical spine myelopathy. Cervical spondylosis with myelopathy COMPARISON: No prior studies are available for comparison. TECHNIQUE: Contiguous axial images of the cervical spine post myelography with sagittal and coronary multiplanar reconstructions. The examination was performed with the adjustment of mA according to the patient size and/or the use of Iterative Reconstruction Technique. FINDINGS: The cervical spine alignment is normal. The cervical vertebral bodies are of normal height and intervertebral disc spaces are of average width. There is C5-6 intervertebral cervical fusion. The craniocervical junction is normal. The C2-3 and C3-4 disc spaces are normal without evidence of disc bulge, protrusion or extrusion. The spinal canal diameter is normal at these levels and there is no evidence of neural foraminal narrowing. There is a small bubble at the C3-4 neural foraminal entry zone. The C4-5 disc space is normal without evidence of disc bulge, protrusion or extrusion. The spinal canal diameter is normal and there is no evidence of neural foraminal narrowing. C5-6 cervical fusion is present without significant spinal canal stenosis. Bilateral degenerative facet joint changes are present with mild bilateral neural foraminal narrowing and uncovertebral spurring at C5-6. The C6-7 disc space is normal without evidence of disc bulge, protrusion or extrusion. The spinal canal diameter is normal at C6-7 and there is no evidence of neural foraminal narrowing. The cervicothoracic junction is normal. INCIDENTAL FINDINGS: None. Procedure Note Pako Livingston MD - 05/16/2025 CT POST MYELOGRAM CERVICAL SPINE CT MULTIPLANAR RECONSTRUCTIONS DATE: 05/16/2025 12:33 PM HISTORY: Myelopathy and chronic neck pain with cervical spine myelopathy. Cervical spondylosis with myelopathy COMPARISON: No prior studies are available for comparison. TECHNIQUE: Contiguous axial images of the cervical spine post myelography with sagittal and coronary multiplanar reconstructions. The examination was performed with the adjustment of mA according to the patient size and/or the use of Iterative Reconstruction Technique. FINDINGS: The cervical spine alignment is normal. The cervical vertebral bodies are of normal height and intervertebral disc spaces are of average width. There is C5-6 intervertebral cervical fusion. The craniocervical junction is normal. The C2-3 and C3-4 disc spaces are normal without evidence of disc bulge, protrusion or extrusion. The spinal canal diameter is normal at these levels and there is no evidence of neural foraminal narrowing. There is a small bubble at the C3-4 neural foraminal entry zone. The C4-5 disc space is normal without evidence of disc bulge, protrusion or extrusion. The spinal canal diameter is normal and there is no evidence of neural foraminal narrowing. C5-6 cervical fusion is present without significant spinal canal stenosis. Bilateral degenerative facet joint changes are present with mild bilateral neural foraminal narrowing and uncovertebral spurring at C5-6. The C6-7 disc space is normal without evidence of disc bulge, protrusion or extrusion. The spinal canal diameter is normal at C6-7 and there is no evidence of neural foraminal narrowing. The cervicothoracic junction is normal. INCIDENTAL FINDINGS: None. IMPRESSION: C5-6 cervical fusion without significant spinal canal stenosis. C5-C6 bilateral uncovertebral spurring and degenerative facet joint changes with mild bilateral neural foraminal narrowing. DICTATION LOCATION: [address] [place] Jim Horner MD CT ORDERABLES Final Result * XR CERVICAL SPINE 4 OR 5 VIEWS (03/10/2025 10:26 AM CDT) Anatomical Region Laterality Modality Spine Computed Radiogr aphy Narrative 04/02/2025 6:33 PM CDT AP/LAT/flexion/extension cervical radiographs of diagnostic quality reviewed demonstrating cervical disc arthroplasty at C5/6 with normal range of motion on flexion and extension views. There is no spondylolisthesis or instability evident on flexion/extension views. Cervical posture is anatomic lordotic. There are no abnormal lucencies or densities in the visualized vertebral bodies, medial clavicles, ribs, or skull. Lung [place] are clear. Soft tissues are unremarkable. 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 Irregular endplates with ventral wedging are present at T12 and L1. Disc space narrowing is present at L4/5 and L5/S1 without evident spondylolisthesis. There are no abnormal lucencies or densities observed in the visualized vertebrae, pelvis, or ribs. Baastrup's phenomenon is not present. The pelvis is retroverted. Pelvic incidence is 40 degrees. Lumbar lordosis is 17 degrees. The sacroiliac joints do not appear ankylosed. Bowel gas pattern is normal. Soft tissues are unremarkable. us Jim Horner MD DIAGNOSTIC IMAGING ORDERABLES Final Result from Last 3 Months Insurance [facility] BLUE ACCESS CHOICE Care Teams Journeyman Mechanic Relationship Specialty Start Date End Date Nithya Barron PA PCP - General Physician Special Service Officer 09/15/15
--- OUTSIDE RECORDS SUMMARY | 2025-05-23 11:11 | XMS_ITS | Clinical Summary ---
Author Organization [facility] Address [address] [place] [address] Care Team Providers Care Choir Accompanist Name Role Phone Nithya Barron Primary Care Provider [phone] Allergies No known active allergies Medications vortioxetine [...] Shortness of breath. Active D3-50 1.25 MG (13975 UT) capsule Take 1 capsule (1.25 mg [...] 2024-2 6 season) 2025 06/03/2021, 08/26/2020, 08/05/2020 Influenza Adult (#1) 2025 03/24/2020, 04/05/2018, 06/05/2014 Pneumococcal Vaccine: Pediatrics (0 to 5 Years) and At-Risk Patients (6 to 49 Years) Aged Out 04/03/2020, 2019 No longer eligible based on patient's age to complete this topic Hepatitis A Vaccines Aged Out No long er eligible based on patient's age to complete [...] to complete this topic Insurance Care Teams Choir Accompanist Relationship Specialty Start Date End Date Nithya Barron PA PCP - General PHYSICIAN HOT ROLL INSPECTOR 01/13/22
--- OUTSIDE RECORDS SUMMARY | 2025-05-23 11:11 | XMS_ITS | Clinical Summary ---
Author Organization [facility] Address [address] [place] [address] Care Team Providers Care Hat Checker Name Role Phone MellisaAshwin evangelistayolnada LOPEZ Primary Care Pr ovider José Miguel Dewitt MD Unavailable [phone] Allergies Active Allergy Reactions Criticality Noted [...] total) by mouth daily 01/31/20 24 Active levothyroxine (SYNTHROID) 50 mcg tablet [...] WEEKS 1 mL 5 01/16/20 25 Active bimekizumab-bkzx 160 mg/mL auto-injectorIndic ations:Moderate to Severe Plaque Psoriasis,Psoriati c Arthritis Inject 160 mg under the skin every 28 (twenty-eight) days 1 mL 11 03/18/20 25 026 Active Active Problems Problem Noted Date Diagnosed Date Shortness of breath 03/26/2024 residential (current) use of immunosuppressive bio logic 07/14/2023 Acute bilateral low back pain with bilateral sci atica 10/19/2022 Acute exacerbation of chronic low back pain 10/03 Acute midline low back pain without sciatica Lumbar strain, initial encounter 08/09/2022 Radiculopathy 08/09/2022 Overview (08/10/2022): Added automatically from request for surgery [id number] Elevated liver enzymes 03/13/2017 Psoriatic arthritis 01/26/2017 [...] Date Rheumatoid arthritis involvi ng multiple sites ([facility]) 11/05/2015 03/13/2021 Encounters Date Type Department Care Team Description 05/14/2025 Documentation [facility] Medicine Rheumatology [address] [facility] [address] [facility] 5th [place] [address] [place] [address] Neetu Fay RMA 04/01/2025 Telephone [facility] Medicine Rheumatology [address] [facility] 5th [place] [address] [place] [phone] Neetu Fay RMA 03/18/2025 9:30 AM CDT Lab [facility] Medicine Endocrinology Metabolism and Lipid [address] [facility] 5th [place] [address] [place] [phone] Psoriatic arthritis (HCC) 03/18/2025 9:12 AM CDT - 03/18/2025 11:59 PM CDT Hospital Encounter [address] [address] Psoriatic arthritis (HCC) Discharge Disposition: Discharge to home or self care 03/18/2025 8:30 AM CDT Office Visit [facility] Medicine Rheumatology [address] [facility] 5th [address] [place] [phone] Jaylon Qureshi MD PhD Psoriatic arthritis (HCC) (Primary Dx); High risk medication use; terminal carman (current) use of immunosuppressive biologic; Psoriasis 03/18/2025 Telephone [facility] [address] [facility] [address] [place] [phone] Mili Seth, [facility] Prior Auth (Prior Auth Approved for [employer]) from Last 3 Months Immunizations Immunization Administration [...] often do you attend chur ch or congregation services? Never 10/19/2022 Do you belong to any clubs o r organizations such as mu-ism groups, unions, fraternal or athletic groups, or [...] on file Legal Sex Male 6:26 PM MANAGER COUNTRY Gender Identity Not on file Sexual Orientation Not on file Last Filed Vital Signs Vital Sign Reading Time Taken Comments Blood Pressure 141/86 03/18/2025 8:45 AM CDT Pulse 86 03/18/2025 8:45 AM CDT Temperature 36.7 C (98.1 F) 03/18/2025 8:45 AM CDT Respiratory Rate 20 11/19/2024 12:17 PM CDT Oxygen Saturation 97% 11/19/2024 12:17 PM CDT Inhaled Oxygen Concentration - - Weight 118.8 kg (262 lb) 03/18/2025 8:45 AM CDT Height 185.4 cm (6' 1) 03/18/2025 8:45 AM CDT Body Mass Index 34.57 03/18/2025 8:45 AM CDT Plan of Treatment Health Maintenance Due Date Last Done Comments Depression Screening 1983 DTaP/Tdap/Td Vaccine (1 - Tdap) 1994 Varicella Vaccines (1 of 2 - 13+ 2-dose series) 1996 Regular Well Visit/Exam 18-64 2001 HPV Vaccines (1 - 3-dose SCDM series) 2010 Covid-19 Vaccine ( - season) 2025 06/03/2021, 08/26/2020, 08/05/2020 Influenza Vaccine (#1) 2025 04/05/2018, 2014 Pneumococcal vaccine <65 (3 of 3 - PCV20 or PCV21) 2033 04/03/2020, 2019 Hepatitis B Screening Completed 07/14/2023 Hepatitis C Screening Completed 07/14/2023 , 05/20/2022, 07/06/2016 Procedures Procedure Name Priority Date/Time Associated Diagnosis Comments COMPREHENSIVE METABOLIC PANEL Routine 03/18/2025 9:12 AM CDT Psoriatic arthritis (HCC) CRP (ACUTE PHASE) Routine 03/18/2025 9:1 2 AM CDT Psoriatic arthritis (HCC) ERYTHROCYTE SEDIMENTATION RATE Routine 03/18/2025 9:12 AM CDT Psoriatic arthritis (HCC) CBC WITH AUTO DIFFERENTIAL Routine 03/18/2025 9:12 AM CDT Psoriatic arthritis (HCC) T-SPOT.TB Routine 03/18/2025 9:12 AM CDT Psoriatic arthritis (HCC) HEPATITIS C ANTIBODY Routine 07/14/2023 12:25 PM MANAGER COUNTRY High risk medication use from Last 3 Months or Most Recently Relevant to Health Maintenance Results * T-SPOT.TB Blood (03/18/2025 9:12 AM CDT) T-SPOT.TB Negative SeeBelow Comment: Normal Value: Negative A negative test result does not exclude the possibility of exposure to or infection with Mycobacterium tuberculosis (M. tuberculosis). Patients with recent exposure to TB infected individuals exhibiting a negative T-SPOT.TB result should be considered for retesting within 6 weeks or if other relevant clinical symptoms indicate. Results from T-SPOT.TB testing must be used in conjunction with each individual's epidemiological history, current medical status, and results of other diagnostic evaluations. The T-SPOT.TB test is qualitative and results are reported as positive, borderline or negative, given that the test controls perform as expected. In line with the Centers for Disease Control and Prevention's 2010 recommendation to report quantitative measurements alongside the qualitative result, the laboratory provides spot counts for informational purposes only. The T-SPOT.TB test should not be interpreted as a quantitative test. T-SPOT.TB Panel A Spot Count 0 [facility] T-SPOT.TB Panel B Spot Count 1 [facility] T-SPOT.TB Negative Control Passed [facility] T-SPOT.TB Positive Control Passed [facility] Comment: Test Performed at: [facility] [address] [place] [id number] CLARISA THOMPSON,PHD Blood 03/18/2025 9:12 AM CDT 03/18/2025 10:43 AM CDT Jaylon Qureshi MD PhD LAB MICROBIOLOGY - GENERAL ORDERABLES Final Result [facility] [place] [address] * CBC with auto differential (03/18/2025 9:12 AM CDT) White Blood Count 4.8 3.6 - 11.2 K/uL [facility] RBC 4.95 4.06 - 5.63 M/uL [facility] Hemoglobin 14.3 13.0 - 17.5 g/dL [facility] Hematocrit 41.0 40.7 - 50.3 % [facility] MCV 82.8 80.0 - 97.6 fL [facility] MCH 28.9 26.7 - 33.7 pg [facility] MCHC 34.9 32.7 - 35.5 g/dL [facility] RBC Dist Width 13.7 12.3 - 17.0 % [facility] Platelet Count 214 140 - 440 K/uL [facility] MPV 8.0 6.8 - 10.4 fL [facility] Neutrophils % 46.5 38.7 - 74.5 % [facility] Lymphocyte % 36.1 20.0 - 54.3 % [facility] Monocytes % 11.0 4.3 - 13.5 % [facility] Eosinophils % 5.3 0.0 - 6.0 % [facility] Basophil % 1.1 0.0 - 3.0 % [facility] Absolute Neutrophil 2.2 1.8 - 6.6 K/uL [facility] Absolute Lymphocyte 1.7 0.8 - 3.3 K/uL [facility] Absolute Monocyte 0.5 0.2 - 1.2 K/uL [facility] Absolute Eosinophil 0.3 0.0 - 0.5 K/uL [facility] Absolute Basophil 0.1 0.0 - 0.2 K/uL [facility] Nucleated RBC % 0.1 0.0 - 0.4 /100 WBC [facility] Blood 03/18/2025 9:12 AM CDT 03/18/2025 9:44 AM CDT us Jaylon Qureshi MD PhD LAB BLOOD ORDERABLE S Final Result [facility] * Erythrocyte sedimentation rate (03/18/2025 9:12 AM CDT) Erythrocyte Sedimentation Rate 6 <15 mm/hr [facility] Blood 03/18/2025 9:12 AM CDT 03/18/2025 9:44 AM CDT Narrative [facility] - 03/18/2025 10:37 AM CDT Repeated and Verified us Jaylon Qureshi MD PhD LAB BLOOD ORDERABLE S Final Result Performing Organization Address [facility]/ZIP Co de Phone Number [facility] * CRP (acute phase) (03/18/2025 9:12 AM CDT) Pathologist [facility] C-Reactive Protein, Acute <3.0 <5.0 mg/L [facility] Blood 03/18/2025 9:12 AM CDT 03/18/2025 9:44 AM CDT us Jaylon Qureshi MD PhD LAB BLOOD ORDERABLE S Final Result Performing Organization Address [facility] Co de Phone Number [facility] * (ABNORMAL) Comprehensive metabolic panel (03/18/2025 9:12 AM CDT) Pathologist [facility] Total Protein 7.4 6.1 - 8.4 g/dL [facility] Albumin 4.5 3.5 - 5.2 g/dL [facility] Calcium 9.5 8.6 - 10.3 mg/dL [facility] BUN 14 7 - 23 mg/dL [facility] Alk Phos, Total 65 35 - 129 IU/L [facility] AST (SGOT) 26 11 - 47 IU/L [facility] ALT (SGPT) 63(H) 6 - 53 IU/L [facility] Creatinine 0.89 0.70 - 1.30 mg/dL [facility] Sodium 140 135 - 145 mmol/L [facility] Potassium 3.8 3.3 - 5.1 mmol/L [facility] Chloride 102 95 - 107 mmol/L [facility] CO2 Content 23 21 - 29 mmol/L [facility] Glucose 109(H) 64 - 99 mg/dL [facility] Comment: NONFASTING GLUCOSE RANGE = 64-199 mg/dL FASTING GLUCOSE 64 - 99 = NORMAL FASTING GLUCOSE 100 - 125 = IMPAIRED FASTING GLUCOSE FASTING GLUCOSE >=126 = PROVISIONAL DIAGNOSIS OF DIABETES eGFR >90.0 >60.0 mL/min/1.7 3 m2 [facility] Comment:eGFR is calculated b y the CKD-EPIcr() equation (2020). Total Bilirubin 0.31 0.20 - 1.40 mg/dL [facility] 03/18/2025 9:12 AM CDT 03/18/2025 9:44 AM CDT us Jaylon Qureshi MD PhD LAB BLOOD ORDERABLE S Final Result [facility] * Hepatitis C antibody Blood (07/14/2023 12:25 PM MANAGER COUNTRY) Pathologist [facility] Hep C Ab Nonreactive Nonreactive [facility] Comment:Antibodies to HCV no t detected. Does NOT exclude the possibility of recent exposure to HCV. Current interpretive data was last revised on 22 Blood 07/14/2023 12:2 5 PM MANAGER COUNTRY 07/14/2023 1:20 PM MANAGER COUNTRY us Jaylon Qureshi MD PhD LAB MICROBIOLOGY - GENERAL ORDERABLES Final Result [facility] Department [place] [address] from Last 3 Months or Most Recently Relevant to Health Maintenance Insurance [place] [address] [address] ACCESS CHOICE ANTHEM ACCESS CHOICE ANTHEM ACCESS CHOICE Advance Directives For more information, please contact: [phone] * Full Code (Latest Code Status on File) Date Activated Date Inactivated Comments 10/19/2022 1:04 AM 10/20/2022 5:55 PM * Full Code Date Activated Date Inactivated Comments 08/09/2022 11:29 PM 08/10/2022 11:13 PM Care Teams Hat Checker Relationship Specialty Start Date End Date Nithya Barron PA PCP - General 09/02/16 José Miguel Dewitt MD Consulting Physician Orthopedic Surgery 08/10/22
--- OUTSIDE RECORDS SUMMARY | 2025-05-23 11:11 | XMS_ITS | Clinical Summary ---
Author Organization [facility] Care Team Providers Care Appian Developer Name Role Phone Unavailable Primary Care Provider [...]
--- OUTSIDE RECORDS SUMMARY | 2025-05-23 11:11 | XMS_ITS | Encounter Summary ---
Author Organization [facility] Healthcare Address [address] [place] [id number] Care Team Providers Care Percussion Instructor Name Role Phone Avimalika Nithya LOPEZ Primary Care Pr ovider José Miguel Dewitt MD Unavailable [phone] Reason for Visit * Reason Onset Date Comments Ready to schedule 09/20/2023 Encounter Details Date Type Department Care Team (Late st Contact Info) Description 09/20/2023 Telephone [facility] Specialty Services [address] [place] [address] Miscellaneous, Not In File Ready to schedule [...] often do you attend chur ch or tenriism services? 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
[2025-05-23 12:56] LABS: Hematocrit 42.7 % (42.0-52.0); Hemoglobin 14.6 g/dL (14.0-18.0); Immature Granulocyte Percent A 0.6 % (0-0.5); Lymphocytes Absolute Auto 2.18 K/mm3 (0.9-3.2); Mean Corpuscular HGB Conc 34.2 g/dl (32-36); Mean Corpuscular Hemoglobin 28.2 pg (26-34); Mean Corpuscular Volume 82.6 fl (80-100); Nucleated Red Blood Cells Absolute Auto 0.000 K/mm3 (0.0-0.012); Nucleated Red Blood Cells Perc 0.0 % (0.0-0.2); Platelet Count Result 228 k/mm3 (150-375); Red Blood Count 5.17 M/mm3 (4.6-6.20); White Blood Count 7.8 K/mm3 (4.5-10.0)
[2025-05-23 13:12] LABS: Alanine Aminotransferase 47 U/L (6-50); Albumin Level 4.7 g/dL (3.5-5.1); Alkaline Phosphatase 59 U/L (38-126); Anion Gap 11 mmol/L (4-12); Aspartate Amino Transferase 48 U/L (17-59); Bilirubin,Total 0.5 mg/dL (0.2-1.3); Blood Urea Nitrogen 16 mg/dL (9-20); Calcium 9.2 mg/dL (8.4-10.2); Carbon Dioxide 30 mmol/L (22-30); Chloride 98 mmol/L (98-107); Cholesterol 225 mg/dL (0-200); Estimated Glomerular Filt Rate > 60; Glucose 88 mg/dL (65-110); HDL Direct 48 mg/dL; Magnesium 1.9 mg/dL (1.6-2.3); Potassium 3.8 mmol/L (3.4-5.0); Sodium 139 mmol/L (137-145); Total Protein 8.3 g/dL (6.3-8.2); Triglycerides 161 mg/dL (<150)
[2025-05-23 13:19] LABS: Add Urine Microscopic? NO; Appearance Urine Clear (Clear); Glucose Urine UA Negative (Negative); Leukocyte Esterase Ur Negative LEU/UL (Negative); Nitrate Urine Negative (Negative); Specific Grav Ur 1.025 (1.001-1.035)
[2025-05-23 13:27] LABS: Free T4 Free Thyroxine 0.87 ng/dL (0.78-2.19)
[2025-05-23 13:45] LABS: MALB Creatinine Ratio 4.1 mg/g (0-30)
[2025-05-23 13:47] LABS: Influenza A QL RT-PCR Negative (Negative); Influenza B QL RT-PCR Negative (Negative); RSV RNA, RT-PCR Negative (Negative); SARS-CoV-2 RNA PCR Negative (Negative)
[2025-05-23 13:52] LABS: Hemoglobin A1C 5.4 % (<5.7); Prostate Specific Antigen 0.8 ng/mL (< OR = 4.0); Thyroid Stimulating Hormone 1.900 uIU/mL (0.465-4.680)
[2025-05-23 13:54] LABS: Total Triiodothyronine (T3) 0.99 NG/ML (0.82-1.58)
[2025-05-23 14:11] LABS: Vitamin B12 483.0 pg/mL (239-931)
== END 2025-05-23 10:39 | disposition home or self-care (01) ==
PROVIDERS: PCP Clinical Nurse Specialist; Visit Provider Clinical Nurse Specialist
DX: Z12.5 Encounter for screening for malignant neoplasm of prostate (principal); Z13.29 Encounter for screening for other suspected endocrine disorder; Z20.822 Contact with and (suspected) exposure to COVID-19; I10 Essential (primary) hypertension; E03.9 Hypothyroidism, unspecified; K58.9 Irritable bowel syndrome, unspecified; L40.50 Arthropathic psoriasis, unspecified; R51.9 Headache, unspecified; R68.83 Chills (without fever); E55.9 Vitamin D deficiency, unspecified; E11.9 Type 2 diabetes mellitus without complications; R35.0 Frequency of micturition; Z80.42 Family history of malignant neoplasm of prostate
CPT/HCPCS: 36415; 80053; 80061; 81003; 82043; 82306; 82607; 83036; 83735; 84153; 84439; 84443; 84480; 85025; 87637; G0103